=== PATIENT | male | born 1945 | race Caucasian/White ===

== ENCOUNTER 2024-05-16 23:53 | Inpatient (IN) | payer MEDICARE, OTHER ==
[2024-05-17 01:20] LABS: Basophils % (A) 0 %; Eosinophils # (A) 0.1 k/uL (0-0.7); Eosinophils % (A) 1 %; HGB 13.3 gm/dL (13.0-17.5); Lymphocytes # (A) 0.5 k/uL (1.0-4.8); Lymphocytes % (A) 3 %; MCH 30.5 pg (25.0-35.0); MCV 89.6 fL (80.0-100.0); Mean Platelet Volume 8.6; Monocytes # (A) 0.5 k/uL (0-1.0); Monocytes % (A) 3 %; Neutrophils # (A) 13.8 k/uL (1.3-7.7); Neutrophils % (A) 92 %; Platelet Count 291 k/uL (150-450); RBC 4.36 m/uL (4.30-5.90); RDW 13.5 % (11.5-15.5); WBC 14.9 k/uL (3.8-10.6)
[2024-05-17 01:33] LABS: Partial Thromboplastin Time 27.4 sec (22.0-30.0); Prothrombin Time 11.5 sec (10.0-12.5)
[2024-05-17 01:39] LABS: ALT 17 U/L (4-49); AST 23 U/L (17-59); African American GFR (CKD) 54 (>60 ml/min/1.73 sqM); Albumin 3.7 g/dL (3.5-5.0); Alkaline Phosphatase 67 U/L (38-126); Anion Gap 13 mmol/L; Blood Urea Nitrogen 47 mg/dL (9-20); Carbon Dioxide 22 mmol/L (22-30); Chloride 94 mmol/L (98-107); Glucose 172 mg/dL (74-99); Non-African American GFR(CKD) 47 (>60 ml/min/1.73 sqM); Sodium 129 mmol/L (137-145); Total Bilirubin 1.7 mg/dL (0.2-1.3)
[2024-05-17 02:05] LABS: Potassium 3.9 mmol/L (3.5-5.1)
[2024-05-17] MEDS ORDERED: NALOXONE 0.4 MG/ML 1 ML VIAL IV PRN (04:29)
[2024-05-17] MEDS ORDERED: ONDANSETRON 4 MG/2 ML VIAL IVP PRN (04:29)
[2024-05-17] MEDS ORDERED: MORPHINE SULFATE 4 MG/ML SYRINGE IV PRN (04:29)
[2024-05-17] MEDS: SODIUM CHLORIDE 0.9% 1,000 ML IV SCH (04:39)
[2024-05-17] MEDS: SODIUM CHLORIDE 0.9% 500 ML 500 ML IV STA (04:39)
--- NOTE | 2024-05-17 04:50 | ED ---
Abdominal Pain HPI - General Chief Complaint: Abdominal Pain Stated Complaint: abd pain; transfer Time Seen by Provider: 05/17/24 00:22 Source: EMS Limitations: no limitations - History of Present Illness Initial Comments: Patient is a 79-year-old man who is transferred here from [facility] to have further treatment for acute appendicitis and elevated troponin. The patient had gone to the other hospital to have evaluation for abdominal pain. He states that he had onset of pain between 2 to 3 days ago. The pain was initially diffuse throughout the abdomen. He states that over the course of the next couple of days the pain seems to be more in the right lower quadrant. The pain was more severe tonight and he therefore went to [place]. The patient also had a couple of episodes of vomiting. He denied any change in bowel movements. He had not noted fever or chills. Facility, the patient had workup including CT scan that was read as showing appendicitis based on appendix dilated to 1.4 cm, surrounding inflammatory changes and also a suspected small perforation. An abscess was not noted on the CT scan. Patient also had minimally elevated troponin at 0.06, and he was transferred here for further treatment. When I reviewed the patient, he is not having chest pain, dyspnea, diaphoresis MD Complaint: abdominal pain Onset/Timin -: days(s) Location: periumbilical Migration to: RLQ Severity: moderate Quality: aching Consistency: constant Improves With: nothing Worsens With: nothing Associated Symptoms: nausea, vomiting - Related Data Home Medications Medication Instructions Recorded Confirmed metFORMIN HCL 500 mg PO DAILY 05/17/24 05/17/24 Previous Rx's Medication Instructions Recorded Docusate [Colace] 100 mg PO BID #10 cap 05/20/24 HYDROcodone/APAP 5-325MG [[place] 1 tab PO Q6HR PRN 3 Days #12 tab 05/20/24 5-325] cefuroxime axetiL [Ceftin] 500 mg PO BID #20 tab 05/20/24 metroNIDAZOLE [Flagyl] 500 mg PO TID #30 tab 05/20/24 Allergies Allergy/AdvReac Type Severity Reaction Status Date / Time Penicillins AdvReac Confusion Verified 05/17/24 10:56 Review of Systems ROS Statement: Those systems with pertinent positive or pertinent negative responses have been documented in the HPI. ROS Other: All systems not noted in ROS Statement are negative. Constitutional: Denies: fever, chills Respiratory: Denies: cough, dyspnea Cardiovascular: Denies: chest pain, palpitations Gastrointestinal: Reports: abdominal pain, nausea, vomiting. Denies: diarrhea, constipation, melena, hematochezia Genitourinary: Denies: dysuria, frequency, hematuria, testicular pain Musculoskeletal: Denies: back pain Skin: Denies: rash Neurological: Denies: headache, weakness, numbness Past Medical History Past Medical History: Diabetes Mellitus, Hypertension History of Any Multi-Drug Resistant Organisms: None Reported Past Surgical History: Cholecystectomy Past Psychological History: No Psychological Hx Reported Smoking Status: Former smoker Past Alcohol Use History: Rare Past Drug Use History: None Reported General Exam Limitations: no limitations General appearance: alert, in no apparent distress Head exam: Present: atraumatic, normocephalic Eye exam: Present: normal appearance. Absent: scleral icterus, conjunctival injection ENT exam: Present: normal oropharynx Neck exam: Present: normal inspection Respiratory exam: Present: normal lung sounds bilaterally. Absent: respiratory distress, wheezes, rales, rhonchi, stridor, accessory muscle use Cardiovascular Exam: Present: regular rate, normal rhythm, normal heart sounds. Absent: systolic murmur, diastolic murmur, rubs, gallop GI/Abdominal exam: Present: soft, tenderness (Right lower quadrant), guarding. Absent: distended, rebound, rigid, mass, pulsatile mass, hernia Extremities exam: Present: normal inspection, normal capillary refill. Absent: pedal edema, calf tenderness Back exam: Present: normal inspection. Absent: CVA tenderness (R), CVA tenderness (L) Neurological exam: Present: alert Skin exam: Present: warm, dry, intact, normal color. Absent: rash Course Vital Signs 05/16/24 05/17/24 05/17/24 23:57 01:18 02:18 Temperature 98.8 F Pulse Rate 96 91 86 Respiratory 16 16 18 Rate Blood Pressure 143/83 137/76 142/77 O2 Sat by Pulse 96 96 95 Oximetry 05/17/24 05/17/24 04:38 05:07 Temperature Pulse Rate 84 85 Respiratory 16 18 Rate Blood Pressure 116/68 125/69 O2 Sat by Pulse 95 94 L Oximetry Medical Decision Making - Medical Decision Making Was pt. sent in by a medical professional or institution (Dr., PA, INSTRUMENT PERSON, urgent care, hospital, or shelter...) When possible be specific @ -[No] Did you speak to anyone other than the patient for history (EMS, parent, family, police, friend...)? What history was obtained from this source @ -[No] Did you review nursing and triage notes (agree or disagree)? Why? @ -[I reviewed and agree with nursing and triage notes] Were old charts reviewed (outside hosp., previous admission, EMS record, old EKG, old radiological studies, urgent care reports/EKG's, shelter records)? Report findings @ -[The transfer charts were reviewed] Differential Diagnosis (chest pain, altered mental status, abdominal pain women, abdominal pain men, vaginal bleeding, weakness, fever, dyspnea, syncope, headache, dizziness, GI bleed, back pain, seizure, CVA, palpatations, mental health, musculoskeletal)? @ -[Differential Abdominal Pain Men: Appendicitis, cholecystitis, diverticulosis, ischemic bowel, pancreatitis, hepatitis, UTI, gastroenteritis, AAA, incarcerated hernia, bowel obstruction, constipation, inflammatory bowel, hepatitis, peptic ulcer disease, splenic infarction, perforated viscus, testicular torsion, this is not meant to be an all-inclusive list EKG interpreted by me (3pts min.). @ -[Interpreted as above] X-rays interpreted by me (1pt min.). @ -[None done] CT interpreted by me (1pt min.). @ -[None done] U/S interpreted by me (1pt. min.). @ -[None done] What testing was considered but not performed or refused? (CT, X-rays, U/S, labs)? Why? @ -[None] What meds were considered but not given or refused? Why? @ -[None] Did you discuss the management of the patient with other professionals (professionals i.e. JON Haynes, INSTRUMENT PERSON, lab, RT, psych nurse, social services counselor, production team manager, teacher, air antisubmarine officer, telehealth case manager)? Give summary @ -[Case discussed with the surgeon who will see the patient for probable appendectomy. Case discussed with admitting physician and treatment recommendations incorporated Was smoking cessation discussed for >3mins.? @ -[No] Was critical care preformed (if so, how long)? @ -[No] Were there social determinants of health that impacted care today? How? (Homelessness, low income, unemployed, alcoholism, drug addiction, transportat ion, low edu. Level, literacy, decrease access to med. care, senior living, rehab)? @ -[No] Was there de-escalation of care discussed even if they declined (Discuss DNR or withdrawal of care, Hospice)? DNR status @ -[No] What co-morbidities impacted this encounter? (DM, HTN, Smoking, COPD, CAD, Cancer, CVA, ARF, Chemo, Hep., AIDS, mental health diagnosis, sleep apnea, morbid obesity)? @ -[None] Was patient admitted / discharged? Hospital course, mention meds given and route, prescriptions, significant lab abnormalities, going to OR and other pertinent info. @ -[h this patient is a 79-year-old man who was transferred here from the other hospital to have surgical consultation related to developing appendicitis. Patient also has minimal elevation of troponin. Undiagnosed new problem with uncertain prognosis? @ -[No] Drug Therapy requiring intensive monitoring for toxicity (Heparin, Nitro, Insu carlos enrique, Cardizem)? @ -[No] Were any procedures done? @ -[No] Diagnosis/symptom? @ -[Acute abdominal pain Acute appendicitis Elevated troponin Acute, or Chronic, or Acute on Chronic? @ -[Acute Uncomplicated (without systemic symptoms) or Complicated (systemic symptoms)? @ -[Uncomplicated Side effects of treatment? @ -[No] Exacerbation, Progression, or Severe Exacerbation? @ -[No] Poses a threat to life or bodily function? How? (Chest pain, [place], [place], pneumonia, PE, COPD, DKA, ARF, appy, cholecystitis, CVA, Diverticulitis, Homicidal, Suicidal, threat to staff... and all critical care pts) @ -[Low risk All treatments are based on ideal body weight as in ED triage - Lab Data Result diagrams: 05/20/24 05:35 05/20/24 05:35 Lab Results 05/17/24 05/17/24 05/17/24 Range/Units 01:03 01:03 01:03 WBC 14.9 H (3.8-10.6) k/uL RBC 4.36 (4.30-5.90) m/uL Hgb 13.3 (13.0-17.5) gm/dL Hct 39.0 (39.0-53.0) % MCV 89.6 (80.0-100.0) fL MCH 30.5 (25.0-35.0) pg MCHC 34.0 (31.0-37.0) g/dL RDW 13.5 (11.5-15.5) % Plt Count 291 (150-450) k/uL MPV 8.6 Neutrophils % 92 % Lymphocytes % 3 % Monocytes % 3 % Eosinophils % 1 % Basophils % 0 % Neutrophils # 13.8 H (1.3-7.7) k/uL Lymphocytes # 0.5 L (1.0-4.8) k/uL Monocytes # 0.5 (0-1.0) k/uL Eosinophils # 0.1 (0-0.7) k/uL Basophils # 0.0 (0-0.2) k/uL PT 11.5 (10.0-12.5) sec INR 1.0 (<1.2) APTT 27.4 (22.0-30.0) sec Sodium 129 L (137-145) mmol/L Potassium 3.9 (3.5-5.1) mmol/L Chloride 94 L (98-107) mmol/L Carbon Dioxide 22 (22-30) mmol/L Anion Gap 13 mmol/L BUN 47 H (9-20) mg/dL Creatinine 1.42 H (0.66-1.25) mg/dL Est GFR (CKD-EPI)AfAm 54 (>60 ml/min/1.73 sqM) Est GFR (CKD-EPI)NonAf 47 (>60 ml/min/1.73 sqM) Glucose 172 H (74-99) mg/dL Calcium 9.0 (8.4-10.2) mg/dL Total Bilirubin 1.7 H (0.2-1.3) mg/dL AST 23 (17-59) U/L ALT 17 (4-49) U/L Alkaline Phosphatase 67 (38-126) U/L Troponin I (0.000-0.034) ng/mL Total Protein 7.0 (6.3-8.2) g/dL Albumin 3.7 (3.5-5.0) g/dL TSH (0.465-4.680) mIU/L 05/17/24 05/17/24 Range/Units 01:03 01:03 WBC (3.8-10.6) k/uL RBC (4.30-5.90) m/uL Hgb (13.0-17.5) gm/dL Hct (39.0-53.0) % MCV (80.0-100.0) fL MCH (25.0-35.0) pg MCHC (31.0-37.0) g/dL RDW (11.5-15.5) % Plt Count (150-450) k/uL MPV Neutrophils % % Lymphocytes % % Monocytes % % Eosinophils % % Basophils % % Neutrophils # (1.3-7.7) k/uL Lymphocytes # (1.0-4.8) k/uL Monocytes # (0-1.0) k/uL Eosinophils # (0-0.7) k/uL Basophils # (0-0.2) k/uL PT (10.0-12.5) sec INR (<1.2) APTT (22.0-30.0) sec Sodium (137-145) mmol/L Potassium (3.5-5.1) mmol/L Chloride (98-107) mmol/L Carbon Dioxide (22-30) mmol/L Anion Gap mmol/L BUN (9-20) mg/dL Creatinine (0.66-1.25) mg/dL Est GFR (CKD-EPI)AfAm (>60 ml/min/1.73 sqM) Est GFR (CKD-EPI)NonAf (>60 ml/min/1.73 sqM) Glucose (74-99) mg/dL Calcium (8.4-10.2) mg/dL Total Bilirubin (0.2-1.3) mg/dL AST (17-59) U/L ALT (4-49) U/L Alkaline Phosphatase (38-126) U/L Troponin I 0.063 H* (0.000-0.034) ng/mL Total Protein (6.3-8.2) g/dL Albumin (3.5-5.0) g/dL TSH 1.370 (0.465-4.680) mIU/L Disposition Clinical Impression: Acute appendicitis with appendiceal abscess, Elevated troponin I level Disposition: ADMITTED IP TO THIS HOSP Condition: Good Is patient prescribed a controlled substance at d/c from ED?: No
[2024-05-17] MEDS: BUPIVACAINE (PF) 0.25% 30 ML VIAL SQ ONE ×3 (05:00→05:52)
[2024-05-17] MEDS ORDERED: SUCCINYLCHOLINE CHLORIDE 200 MG/10 ML VIAL IV ONE (05:30)
[2024-05-17] MEDS ORDERED: PROPOFOL 10 MG/ML 20 ML VIAL IV ONE (05:30)
[2024-05-17] MEDS ORDERED: ROCURONIUM 10 MG/ML (5 ML VIAL) IV ONE (05:30)
[2024-05-17] MEDS ORDERED: fentaNYL (PF) 50 MCG/ML 2 ML AMP ONE (05:30)
[2024-05-17] MEDS ORDERED: NEOSTIGMINE 1 MG/ML 10 ML VIAL ONE (05:30)
[2024-05-17] MEDS: SODIUM CHLORIDE 0.9% 1,000 ML IV ONE (05:30)
[2024-05-17] MEDS ORDERED: MIDAZOLAM 2 MG/2 ML VIAL ONE (05:30)
[2024-05-17] MEDS ORDERED: LIDOCAINE 1% INJ 10MG/ML (20 ML MDV) ONE (05:30)
[2024-05-17] MEDS ORDERED: ONDANSETRON 4 MG/2 ML VIAL ONE (05:30)
[2024-05-17] MEDS ORDERED: GLYCOPYRROLATE 0.2 MG/ML 2 ML VIAL ONE (05:30)
--- NOTE | 2024-05-17 05:41 | P.GSCN ---
History of Present Illness Consult date: 05/17/24 History of present illness: 79-year-old male presents to the emergency department as a transfer from outside facility secondary to 3 days of abdominal pain. He states pain is in the right lower quadrant. Complains of some nausea as well. On workup he is found to have concern for acute appendicitis with possibility of contained small perforation. He was started on IV antibiotics with plan for laparoscopic appendectomy. Review of Systems All systems: negative Past Medical History Past Medical History: Diabetes Mellitus, Hypertension History of Any Multi-Drug Resistant Organisms: None Reported Past Surgical History: Cholecystectomy Past Psychological History: No Psychological Hx Reported Smoking Status: Former smoker Past Alcohol Use History: Rare Past Drug Use History: None Reported Medications and Allergies Allergies Allergy/AdvReac Type Severity Reaction Status Date / Time Penicillins AdvReac Confusion Verified 05/17/24 00:02 Surgical - Exam Osteopathic Statement: *. No significant issues noted on an osteopathic structural exam other than those noted in the History and Physical/Consult. Vital Signs Temp Pulse Resp BP Pulse Ox 98.8 F 96 16 143/83 96 05/16/24 23:57 05/16/24 23:57 05/16/24 23:57 05/16/24 23:57 05/16/24 23:57 - General well developed, well nourished - Eyes normal ocular movement - Neck trachea midline - Respiratory normal respiratory effort - Abdomen Abdomen: soft, tender - Psychiatric oriented to time, oriented to person, oriented to place Results - Labs 05/17/24 01:03 05/17/24 01:03 Abnormal Lab Results - Last 24 Hours (Table) 05/17/24 05/17/24 05/17/24 Range/Units 01:03 01:03 01:03 WBC 14.9 H (3.8-10.6) k/uL Neutrophils # 13.8 H (1.3-7.7) k/uL Lymphocytes # 0.5 L (1.0-4.8) k/uL Sodium 129 L (137-145) mmol/L Chloride 94 L (98-107) mmol/L BUN 47 H (9-20) mg/dL Creatinine 1.42 H (0.66-1.25) mg/dL Glucose 172 H (74-99) mg/dL Total Bilirubin 1.7 H (0.2-1.3) mg/dL Troponin I 0.063 H* (0.000-0.034) ng/mL Diabetes panel 05/17/24 Range/Units 01:03 Sodium 129 L (137-145) mmol/L Potassium 3.9 (3.5-5.1) mmol/L Chloride 94 L (98-107) mmol/L Carbon Dioxide 22 (22-30) mmol/L BUN 47 H (9-20) mg/dL Creatinine 1.42 H (0.66-1.25) mg/dL Glucose 172 H (74-99) mg/dL Calcium 9.0 (8.4-10.2) mg/dL AST 23 (17-59) U/L ALT 17 (4-49) U/L Alkaline Phosphatase 67 (38-126) U/L Total Protein 7.0 (6.3-8.2) g/dL Albumin 3.7 (3.5-5.0) g/dL Calcium panel 05/17/24 Range/Units 01:03 Calcium 9.0 (8.4-10.2) mg/dL Albumin 3.7 (3.5-5.0) g/dL Pituitary panel 05/17/24 Range/Units 01:03 Sodium 129 L (137-145) mmol/L Potassium 3.9 (3.5-5.1) mmol/L Chloride 94 L (98-107) mmol/L Carbon Dioxide 22 (22-30) mmol/L BUN 47 H (9-20) mg/dL Creatinine 1.42 H (0.66-1.25) mg/dL Glucose 172 H (74-99) mg/dL Calcium 9.0 (8.4-10.2) mg/dL Adrenal panel 05/17/24 Range/Units 01:03 Sodium 129 L (137-145) mmol/L Potassium 3.9 (3.5-5.1) mmol/L Chloride 94 L (98-107) mmol/L Carbon Dioxide 22 (22-30) mmol/L BUN 47 H (9-20) mg/dL Creatinine 1.42 H (0.66-1.25) mg/dL Glucose 172 H (74-99) mg/dL Calcium 9.0 (8.4-10.2) mg/dL Total Bilirubin 1.7 H (0.2-1.3) mg/dL AST 23 (17-59) U/L ALT 17 (4-49) U/L Alkaline Phosphatase 67 (38-126) U/L Total Protein 7.0 (6.3-8.2) g/dL Albumin 3.7 (3.5-5.0) g/dL Assessment and Plan Plan: 79-year-old male with acute appendicitis. Concern for small contained perforation. Plan for laparoscopic appendectomy. Start patient on IV antibiotics. Keep patient n.p.o. for now. Further recommendations after surgical intervention.
--- NOTE | 2024-05-17 06:37 | P.OP ---
Date of Procedure: 05/17/24 Preoperative Diagnosis: Acute appendicitis Postoperative Diagnosis: Ruptured appendicitis with intra-abdominal abscess Procedure(s) Performed: Laparoscopic appendectomy Abdominal washout STALIN drain placement Anesthesia: MADELAINE Surgeon: Danny Avila Pathology: other (Appendix and cultures of intra-abdominal abscess) Condition: stable Disposition: floor Indications for Procedure: 79-year-old male presented with 3 days of abdominal pain as a transfer from outside facility with concern for appendicitis with contained perforation. He was darted on IV antibiotics. Plan is for laparoscopic appendectomy. Risks, alternatives were provided to the patient. All questions answered prior to attending the operating suite. Operative Findings: Intra-abdominal abscess along the right colon Significant inflammatory changes along the right colon and right lower quadrant Inflamed appendix Description of Procedure: Patient was brought to the operating suite and placed in supine position on the operating table. Sedation was provided by anesthesia and the patient underwent endotracheal intubation. He was then prepped and draped in regular sterile fashion. Supraumbilical incision was made and dissection was carried to the fascia. The fascia was incised and a 12 mm trocar was placed. Pneumoperitoneum was achieved. 2 additional 5 mm ports were placed, 1 in the suprapubic region and 1 in the left lower quadrant. Omentum was noted to be adhered over the right colon and this was peeled back. Immediately, significant amount of purulent material was noted to be draining. Irrigation and suction was used along with cultures obtained.. Right colon was noted to be significantly inflamed and adherent small bowel and omentum was peeled away. Cecum was identified and tenia were followed to what appeared to be the base of the appendix. The appendix was then noted to be adhered to the right lower abdominal wall and was slowly peeled away. Appendix was ligated from the mesoappendix using LigaSure device. Stapler was fired across the base of the appendix. Hemostasis was noted to be maintained. Copious amounts irrigation was placed in the right lower quadrant and along the right colonic gutter. Exudate was removed. As the patient is high risk for intra-abdominal abscess formation in the postoperative period, STALIN drain was placed along the right colon extending into the right portion of the pelvis and secured at the left lower quadrant 5 mm port site. The supraumbilical fascial incision site was closed with 0 Vicryl suture under direct visualization using a Ron Camacho device. Pneumoperitoneum was released and all port sites closed with 4-0 Vicryl subcuticular suture. Sterile dressing was applied. The patient was awakened in the operative suite and taken to postanesthesia care unit in stable condition.
[2024-05-17 06:54] LABS: Glucose,Whole Blood 165 mg/dL (70-110)
[2024-05-17] MEDS: IV FLUID CONTINUATION 1,000 ML IV ONE (07:30)
[2024-05-17 08:14] LABS: Glucose,Whole Blood 178 mg/dL (70-110)
[2024-05-17] MEDS: PIPERACILLIN-TAZOBACTAM 3.375 GM in SODIUM CHLORIDE 0.9% 100 ML IVPB SCH (09:45)
[2024-05-17] MEDS: PANTOPRAZOLE 40 MG/10 ML VIAL IV SCH (09:46)
[2024-05-17] MEDS ORDERED: DEXTROSE 50% SYRINGE 50 ML IVP PRN ×2 (10:08)
--- NOTE | 2024-05-17 11:10 | P.CRDCN ---
History of Present Illness History of present illness: HISTORY OF PRESENT ILLNESS: This is a 79-year-old male with a past medical history significant for hypertension and diabetes. 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 We have been asked to see the patient in consultation for atrial fibrillation. Patient examined at the bedside. Patient presented to the hospital with a chief complaint of abdominal pain. Patient was found to have acute appendicitis. He underwent laparoscopic appendectomy, abdominal washout, and STALIN drain placement secondary to ruptured appendicitis with intra-abdominal abscess. EKG on admission revealed atrial fibrillation. The patient denies any known history of atrial fibrillation. He currently denies any chest pain or pressure. He denies any shortness of breath. Vital signs are stable. DIAGNOSTICS: - EKG reveals atrial fibrillation with controlled ventricular rate. - Laboratory data: WBC 14.9. Hemoglobin 13.3. Platelet count 291. Sodium 129. Potassium 3.9. BUN 47. Creatinine 1.42. Troponin 0.063. TSH 1.370. - Current home cardiac medications include valsartanhydrochlorothiazide 160-25 mg daily. - No previous echocardiogram, stress test, or cardiac catheterization available in EMR for review REVIEW OF SYSTEMS: At the time of my exam: CONSTITUTIONAL: Denies fever or chills. HEENT: Denies blurred vision, vision changes, or eye pain. Denies hemoptysis CARDIOVASCULAR: Denies chest pain. Denies orthopnea. Denies PND. Denies palpitations RESPIRATORY: Denies shortness of breath. GASTROINTESTINAL: Denies abdominal pain. Denies nausea or vomiting. HEMATOLOGIC: Denies bleeding disorders. GENITOURINARY: Denies any blood in urine. SKIN: Denies pruitis. Denies rash. PHYSICAL EXAM: VITAL SIGNS: Reviewed. GENERAL: Well-developed in no acute distress. HEENT: Head is normocephalic. Pupils are equal, round. Sclerae anicteric. Mucous membranes of the mouth are moist. Neck supple. No JVD or thyromegaly LUNGS: Respirations even and unlabored. Lungs essentially clear to auscultation bilaterally. HEART: Regular rate and rhythm. S1 and S2 heard. ABDOMEN: Soft. Nondistended. Nontender. EXTREMITIES: Normal range of motion. No clubbing or cyanosis. Peripheral pulses intact. No lower extremity edema NEUROLOGIC: Awake and alert. Oriented x 3. ASSESSMENT: New onset paroxysmal atrial fibrillation Ruptured appendicitis with intra-abdominal abscess, status post laparoscopic appendectomy, abdominal washout, and STALIN drain placement Hypertension Diabetes PLAN: Hold home blood pressure medications at this time Obtain 2D echo to assess cardiac structure and function TSH checked and within normal limits Repeat EKG this morning Initiate telemetry monitoring Recommend anticoagulation when cleared by general surgery Further recommendations pending patient course Nurse practitioner note has been reviewed by physician. Signing provider agrees with the documented findings, assessment, and plan of care documented by MANAGER COUNCIL as a scribe. Past Medical History Past Medical History: Diabetes Mellitus, Hypertension History of Any Multi-Drug Resistant Organisms: None Reported Past Surgical History: Appendectomy, Cholecystectomy Past Psychological History: No Psychological Hx Reported Smoking Status: Former smoker Past Alcohol Use History: Rare Past Drug Use History: None Reported Medications and Allergies Home Medications Medication Instructions Recorded Confirmed Type Valsartan/Hydrochlorothiazide 1 tab PO DAILY 05/17/24 05/17/24 History [Valsartan-Hctz 160-25 mg Tab] metFORMIN HCL 500 mg PO DAILY 05/17/24 05/17/24 History Allergies Allergy/AdvReac Type Severity Reaction Status Date / Time Penicillins AdvReac Confusion Verified 05/17/24 10:56 Physical Exam Vitals: Vital Signs Temp Pulse Pulse Pulse Resp BP BP 05/17/24 10:03 67 05/17/24 09:33 72 05/17/24 09:04 73 05/17/24 08:34 69 05/17/24 08:18 65 05/17/24 08:00 98.0 F 70 16 05/17/24 07:45 71 16 118/58 05/17/24 07:30 71 17 122/59 05/17/24 07:15 78 17 110/57 05/17/24 07:00 69 17 120/53 05/17/24 06:45 97.0 F L 72 17 123/61 05/17/24 05:07 85 18 125/69 05/17/24 04:38 84 16 116/68 05/17/24 02:18 86 18 142/77 05/17/24 01:18 91 16 137/76 05/16/24 23:57 98.8 F 96 16 143/83 BP Pulse Ox 05/17/24 10:03 109/71 95 05/17/24 09:33 126/77 97 05/17/24 09:04 129/68 97 05/17/24 08:34 138/69 97 05/17/24 08:18 151/89 97 05/17/24 08:00 130/77 95 05/17/24 07:45 99 05/17/24 07:30 98 05/17/24 07:15 96 05/17/24 07:00 96 05/17/24 06:45 98 05/17/24 05:07 94 L 05/17/24 04:38 95 05/17/24 02:18 95 05/17/24 01:18 96 05/16/24 23:57 96 Intake and Output 05/16/24 05/17/24 05/17/24 22:59 06:59 14:59 Intake Total 1000 680 Output Total 5 50 Balance 995 630 Intake: IV 1000 200 Oral 480 Output: Drainage 50 Abdomen 50 Estimated Blood Loss 5 Other: Weight 108.862 kg 108.862 kg Results 05/17/24 01:03 05/17/24 01:03 Cardiac Enzymes 05/17/24 05/17/24 Range/Units 01:03 01:03 AST 23 (17-59) U/L Troponin I 0.063 H* (0.000-0.034) ng/mL Coagulation 05/17/24 Range/Units 01:03 PT 11.5 (10.0-12.5) sec APTT 27.4 (22.0-30.0) sec CBC 05/17/24 Range/Units 01:03 WBC 14.9 H (3.8-10.6) k/uL RBC 4.36 (4.30-5.90) m/uL Hgb 13.3 (13.0-17.5) gm/dL Hct 39.0 (39.0-53.0) % Plt Count 291 (150-450) k/uL Comprehensive Metabolic Panel 05/17/24 Range/Units 01:03 Sodium 129 L (137-145) mmol/L Potassium 3.9 (3.5-5.1) mmol/L Chloride 94 L (98-107) mmol/L Carbon Dioxide 22 (22-30) mmol/L BUN 47 H (9-20) mg/dL Creatinine 1.42 H (0.66-1.25) mg/dL Glucose 172 H (74-99) mg/dL Calcium 9.0 (8.4-10.2) mg/dL AST 23 (17-59) U/L ALT 17 (4-49) U/L Alkaline Phosphatase 67 (38-126) U/L Total Protein 7.0 (6.3-8.2) g/dL Albumin 3.7 (3.5-5.0) g/dL Current Medications Generic Name Dose Route Start Last Admin Trade Name Freq PRN Reason Stop Dose Admin Hydrocodone Bitart/Acetaminophen 1 each 05/17/24 06:31 Hydrocodone/Apap 5-325mg 1 Each Tab PO Q6HR PRN Moderate Pain (Scale 4 to 6) Dextrose/Water 25 ml 05/17/24 10:08 Dextrose 50% Syringe 50 Ml IVP PER PROTOCOL PRN Hypoglycemia Protocol Dextrose/Water 50 ml 05/17/24 10:08 Dextrose 50% Syringe 50 Ml IVP PER PROTOCOL PRN Hypoglycemia Protocol Sodium Chloride 1,000 mls @ 75 mls/hr 05/17/24 04:30 05/17/24 04:39 Saline 0.9% IV 130 mls/hr .[id number] ZHANE Administration Piperacillin Sod/Tazobactam 100 mls @ 25 mls/hr 05/17/24 08:00 05/17/24 09:45 Sod 3.375 gm/ Sodium Chloride IVPB 25 mls/hr Q8HR ZHANE Administration Protocol Insulin Human Lispro 0 unit 05/17/24 12:30 Insulin Lispro (Humalog) 100 Unit/Ml 10 Ml Vl SQ ACHS ZHANE Protocol Morphine Sulfate 4 mg 05/17/24 04:29 Morphine Sulfate 4 Mg/Ml Syringe IV Q4HR PRN Severe Pain (Scale 7 to 10) Naloxone HCl 0.2 mg 05/17/24 04:29 Naloxone 0.4 Mg/Ml 1 Ml Vial IV Q2M PRN Opioid Reversal Ondansetron HCl 4 mg 05/17/24 04:29 Ondansetron 4 Mg/2 Ml Vial IVP Q8HR PRN Nausea And Vomiting Pantoprazole Sodium 40 mg 05/17/24 09:00 05/17/24 09:46 Pantoprazole 40 Mg/10 Ml Vial IV 40 mg DAILY ZHANE Administration Intake and Output 05/16/24 05/17/24 05/17/24 22:59 06:59 14:59 Intake Total 1000 680 Output Total 5 50 Balance 995 630 Intake: IV 1000 200 Oral 480 Output: Drainage 50 Abdomen 50 Estimated Blood Loss 5 Other: Weight 108.862 kg 108.862 kg Patient Weight 05/18/24 06:59 Weight 108.862 kg 05/17/24 01:03 05/17/24 01:03
[2024-05-17 12:16] LABS: Glucose,Whole Blood 166 mg/dL (70-110)
--- NOTE | 2024-05-17 12:33 | P.HPIM ---
History of Present Illness H&P Date: 05/17/24 Patient is a 79-year-old male with a history of hypertension and type 2 diabetes was transferred from [facility] after he presented with right lower quadrant abdominal pain which started 3 days ago associated with nausea and vomiting. Patient underwent evaluation including CAT scan of the abdomen and pelvis which showed appendix dilated to 1.4 cm with surrounding inflammatory changes and also small perforation suspected. Patient also had a minimally elevated troponin levels at 0.06. Surgery team was consulted acute appendicitis with concerns for perforation. Patient underwent laparoscopic appendectomy with operating findings include inflamed appendix and intra-abdominal abscess along the right colon with significant inflammatory changes along the right colon and right lower quadrant. There is no intraoperative complication and patient has tolerated the surgery well and has a STALIN drain. At the time of interview, patient is complaining of minimal abdominal discomfort with no nausea or vomiting. Patient denies any chest pain, shortness of breath, dizziness, headache, nausea, vomiting, fever, chills, numbness tingling or weakness in upper or lower extremity. Additionally, patient was found to have new onset A-fib during this hospitalization course and cardiology is consulted. Patient to undergo echocardiogram. Initial blood pressure evaluation shows WBC 14.9, hemoglobin 13.3, neutrophil count 13.8, sodium 129, potassium 3.9, BUN 47, creatinine 1.42, glucose 172, total bili 1.7, AST 23, ALT 17, ALP 67, troponin I 0.06, TSH 1.37 Initial EKG shows atrial fibrillation with ventricular rate of 97 bpm. Repeat EKG shows sinus rhythm with first-degree AV block with ventricular rate of 72 bpm, CT interval 2 is 46 ms, QRS duration 100 ms, QTc 466 ms Review of systems: Pertinent positives and negatives as discussed in HPI, a complete review of systems was performed and all other systems are negative. Physical examination: Vital signs reviewed General: non toxic, no distress, appears at stated age, overweight Cardiovascular: S1S2 reg, no murmur, positive dorsalis pedis pulse bilateral, no edema Lungs: CTA bilateral, no rhonchi, no rales, no accessory muscle use Abdominal: soft, nontender to palpation, no guarding, STALIN drain intact and in place and draining serosanguineous fluid Ext: muscle strength 5 out of 5 in all 4 extremities grossly, no gross muscle atrophy, no contractures, Neuro: CN II-XI grossly intact, no gross focal neuro deficits Psych: Alert, oriented, appropriate affect Assessment/Plan: This is a 79-year-old male was a transfer from [facility] is admitted to the hospital with concerns for acute appendicitis who eventually underwent laparoscopic appendectomy with no intraoperative complications and also was diagnosed to have paroxysmal A-fib during this hospital course. Case was discussed with the Emergency Room provider and decision was made to admit the patient for acute appendicitis and new onset A-fib Labs and images: Initial blood pressure evaluation shows WBC 14.9, hemoglobin 13.3, neutrophil count 13.8, sodium 129, potassium 3.9, BUN 47, creatinine 1.42, glucose 172, total bili 1.7, AST 23, ALT 17, ALP 67, troponin I 0.06, TSH 1.37 Initial EKG shows atrial fibrillation with ventricular rate of 97 bpm. Repeat EKG shows sinus rhythm with first-degree AV block with ventricular rate of 72 bpm, CT interval 2 is 46 ms, QRS duration 100 ms, QTc 466 ms Active: #Perforated acute appendicitis status post laparoscopic appendectomy, postop day 0 #Leukocytosis reactive to above No intraoperative complication Continue with pain management as needed Incentive spirometry Clear liquid diet Continue Zosyn 3.375 g IVPB every 8 hour Consult infectious disease #Paroxysmal A-fib #Elevated troponin I likely secondary to type II [place] Continue cardiac telemetry Start patient on anticoagulation once cleared by surgery Consult cardiology Echocardiogram for cardiac structure assessment Continue monitor vital signs Order lipid panel #Hypovolemic hyponatremia secondary to GI loss in the setting of acute appendicitis #Prerenal STEPHANIE secondary to above Continue on IV normal saline at 75 cc/h BMP this afternoon #Type 2 diabetes melitis # Hyperglycemia Accu-Cheks and sliding scale insulin Check HbA1c Monitor for hypoglycemia Chronic: Hypertension: Resume ValsartanHCTZ 160-25 mg p.o. daily CBC and BMP tomorrow a.m. DVT prophylaxis: SCDs GI prophylaxis: IV Protonix 40 mg daily F: IV normal saline 75 cc/h E: Replete as needed N: Clear liquid diet A: Ambulatory at baseline The patient is admitted with an anticipated more than 2 midnight stay for evaluation of acute appendicitis status post surgery CODE STATUS: Full code Discussed with: Patient Anticipated discharge place: Pending clinical course Dictation was produced using [email or web address] software. Please excuse any grammatical, word or spelling errors. Past Medical History Past Medical History: Diabetes Mellitus, Hypertension History of Any Multi-Drug Resistant Organisms: None Reported Past Surgical History: Appendectomy, Cholecystectomy Past Psychological History: No Psychological Hx Reported Smoking Status: Former smoker Past Alcohol Use History: Rare Past Drug Use History: None Reported Medications and Allergies Home Medications Medication Instructions Recorded Confirmed Type Valsartan/Hydrochlorothiazide 1 tab PO DAILY 05/17/24 05/17/24 History [Valsartan-Hctz 160-25 mg Tab] metFORMIN HCL 500 mg PO DAILY 05/17/24 05/17/24 History Allergies Allergy/AdvReac Type Severity Reaction Status Date / Time Penicillins AdvReac Confusion Verified 05/17/24 10:56 Physical Exam Vitals: Vital Signs Temp Pulse Pulse Pulse Resp BP BP 05/17/24 07:45 71 16 118/58 05/17/24 07:30 71 17 122/59 05/17/24 07:15 78 17 110/57 05/17/24 07:00 69 17 120/53 05/17/24 06:45 97.0 F L 72 17 123/61 05/17/24 05:07 85 18 125/69 05/17/24 04:38 84 16 116/68 05/17/24 02:18 86 18 142/77 05/17/24 01:18 91 16 137/76 05/16/24 23:57 98.8 F 96 16 143/83 Pulse Ox 05/17/24 07:45 99 05/17/24 07:30 98 05/17/24 07:15 96 05/17/24 07:00 96 05/17/24 06:45 98 05/17/24 05:07 94 L 05/17/24 04:38 95 05/17/24 02:18 95 05/17/24 01:18 96 05/16/24 23:57 96 Intake and Output 05/16/24 05/17/24 05/17/24 22:59 06:59 14:59 Intake Total 1000 200 Output Total 5 Balance 995 200 Intake: IV 1000 200 Output: Estimated Blood Loss 5 Other: Weight 108.862 kg 108.862 kg Results CBC & Chem 7: 05/17/24 01:03 05/17/24 01:03 Labs: Abnormal Lab Results - Last 24 Hours (Table) 0305/17/24 05/17/24 Range/Units 01:03 01:03 01:03 WBC 14.9 H (3.8-10.6) k/uL Neutrophils # 13.8 H (1.3-7.7) k/uL Lymphocytes # 0.5 L (1.0-4.8) k/uL Sodium 129 L (137-145) mmol/L Chloride 94 L (98-107) mmol/L BUN 47 H (9-20) mg/dL Creatinine 1.42 H (0.66-1.25) mg/dL Glucose 172 H (74-99) mg/dL POC Glucose (mg/dL) (70-110) mg/dL Total Bilirubin 1.7 H (0.2-1.3) mg/dL Troponin I 0.063 H* (0.000-0.034) ng/mL 05/17/24 05/17/24 Range/Units 06:52 08:12 WBC (3.8-10.6) k/uL Neutrophils # (1.3-7.7) k/uL Lymphocytes # (1.0-4.8) k/uL Sodium (137-145) mmol/L Chloride (98-107) mmol/L BUN (9-20) mg/dL Creatinine (0.66-1.25) mg/dL Glucose (74-99) mg/dL POC Glucose (mg/dL) 165 H 178 H (70-110) mg/dL Total Bilirubin (0.2-1.3) mg/dL Troponin I (0.000-0.034) ng/mL Thrombosis Risk Factor Assmnt - Choose All That Apply Any of the Below Risk Factors Present?: No Other Risk Factors: Yes Each Risk Factor Represents 2 Points: Laparoscopic surgery Thrombosis Risk Factor Assessment Total Risk Factor Score: 2 Thrombosis Risk Factor Assessment Level: Low Risk
[2024-05-17 13:17] LABS: African American GFR (CKD) 53 (>60 ml/min/1.73 sqM); Anion Gap 7 mmol/L; Blood Urea Nitrogen 49 mg/dL (9-20); Calcium 8.2 mg/dL (8.4-10.2); Carbon Dioxide 25 mmol/L (22-30); Chloride 100 mmol/L (98-107); Glucose 162 mg/dL (74-99); Non-African American GFR(CKD) 46 (>60 ml/min/1.73 sqM); Potassium 3.7 mmol/L (3.5-5.1); Sodium 132 mmol/L (137-145)
[2024-05-17] MEDS: hydroCHLOROthiazide 25 MG TAB PO SCH (13:20)
[2024-05-17] MEDS: VALSARTAN 160 MG TAB PO SCH (13:20)
[2024-05-17] MEDS: INSULIN LISPRO (HumaLOG) 100 UNIT/ML 10 mL VL SQ SCH (13:21)
[2024-05-17 17:22] LABS: Glucose,Whole Blood 176 mg/dL (70-110)
[2024-05-17 18:27] LABS: Chol/HDL Ratio 7.74 Ratio; LDL Cholesterol,Calculated 122.2 mg/dL (0.0-131.0)
--- NOTE | 2024-05-17 18:45 | CA ---
Transthoracic Echo Report Name: Warren Isaac Age: 79 Gender: M : 1945 Exam Date: 05/17/2024 14:05 Exam Location: [facility] Ht (in): 74 Wt (lb): 240 Ordering Physician: Erni Sher Attending/Referring Phys: [id number], Nikky [employer] Sh[employer] Spike Assembler Marjan Loving RDCS Procedure CPT: Indications: LV Function, afib Cardiac Hx: Technical Quality: Fair Contrast 1: Total Dose (mL): Contrast 2: Total Dose (mL): MEASUREMENTS (Male / Female) Normal Values 2D ECHO LV Diastolic Diameter PLAX 4.8 cm 4.2 - 5.9 / 3.9 - 5.3 cm LV Systolic Diameter PLAX 3.6 cm IVS Diastolic Thickness 1.1 cm 0.6 - 1.0 / 0.6 - 0.9 cm LVPW Diastolic Thickness 1.2 cm 0.6 - 1.0 / 0.6 - 0.9 cm LV Relative Wall Thickness 0.5 RV Internal Dim ED PLAX 3.2 cm LA Systolic Diameter LX 3.7 cm 3.0 - 4.0 / 2.7 - 3.8 cm LV Diastolic Volume MOD 4C 97.3 cm??? LV Systolic Volume MOD 4C 52.0 cm??? LV Ejection Fraction MOD 4C 46.5 % LV Cardiac Index MOD 4C 1334.8 cm???/min???m??? LV Diastolic Length 4C 9.0 cm LV Systolic Length 4C 7.6 cm LV Diastolic Volume MOD 2C 132.3 cm??? LV Systolic Volume MOD 2C 63.1 cm??? LV Ejection Fraction MOD 2C 52.3 % LV Cardiac Index MOD 2C 2041.9 cm???/min???m??? LV Diastolic Length 2C 10.3 cm LV Systolic Length 2C 8.5 cm LA Volume 66.8 cm??? 18 - 58 / 22 - 52 cm??? LA Volume Index 27.7 cm???/m??? 16 - 28 cm???/m??? M-MODE Aortic Root Diameter MM 3.1 cm DOPPLER AV Peak Velocity 127.5 cm/s AV Peak Gradient 6.5 mmHg MV Area PHT 3.1 cm??? Mitral E Point Velocity 72.7 cm/s Mitral A Point Velocity 87.0 cm/s Mitral E to A Ratio 0.8 MV Deceleration Time 247.8 ms TR Peak Velocity 240.3 cm/s TR Peak Gradient 23.1 mmHg Right Ventricular Systolic Press 27.3 mmHg FINDINGS Left Ventricle Left ventricular ejection fraction is estimated at 50% %. Mildly increased septal wall thickness. Left ventricular cavity size normal. Right Ventricle Normal right ventricular size. Right Atrium Normal right atrial size. No right atrial thrombus or mass seen. Left Atrium Mildly increased left atrial volume. Mildly increased left atrial area. No left atrial thrombus or mass present. Mitral Valve Structurally normal mitral valve. No mitral stenosis, regurgitation or prolapse. Aortic Valve Trileaflet aortic valve. No aortic valve stenosis or regurgitation. Tricuspid Valve Structurally normal tricuspid valve. Mild tricuspid regurgitation. Pulmonic Valve Pulmonic valve not well visualized. Pericardium No pericardial effusion. Aorta Normal size aortic root and proximal ascending aorta. CONCLUSIONS Low normal LV systolic function with EF at 50% Previewed by: Dr. Agus Dove MD (Electronically Signed) Final Date: 17 May 2024 18:44
[2024-05-17 20:51] LABS: Glucose,Whole Blood 144 mg/dL (70-110)
--- NOTE | 2024-05-17 23:43 | P.CONS ---
History of Present Illness - Reason for Consult Consult date: 05/17/24 Infected appendicitis Requesting physician: James E Sheet - Chief Complaint Abdominal pain x 3 days - History of Present Illness Patient is a 79-year-old male with a past medical history significant for diabetes mellitus and hypertension presenting to the [facility] for evaluation of abdominal pain with the patient was diagnosed with acute appendicitis and elevated troponin for the patient was transferred to [facility] patient complaining of abdominal pain for the last 2 to 3 days initially has been diffuse subsequently more in the right lower quadrant area patient was describing the pain to be mostly sharp moderate intensity without radiation with associated nausea and has an episode of vomiting denies having any diarrhea or constipation patient did have a CT showing appendicitis and surrounding inflammatory changes, suspected small perforation patient was evaluated by general surgery taken to the OR earlier this morning in this pat ient who is status post laparoscopic appendectomy abdominal washout and STALIN drain placement abdominal culture have been obtained, patient on presentation to this facility was afebrile and no fever have been recorded subsequently patient was not tachycardic hypotensive or hypoxic patient did have white count of 14.9 with a left shift BUN and creatinine has been mildly elevated liver enzymes bilirubin mildly elevated patient was started on Zosyn infectious disease was consulted for further management of antibiotic therapy Review of Systems Positive point and negatives has been mentioned in the HPI, complete review of systems was performed and all other systems are negative Past Medical History Past Medical History: Diabetes Mellitus, Hypertension History of Any Multi-Drug Resistant Organisms: None Reported Past Surgical History: Appendectomy, Cholecystectomy Past Psychological History: No Psychological Hx Reported Smoking Status: Former smoker Past Alcohol Use History: Rare Past Drug Use History: None Reported Medications and Allergies Home Medications Medication Instructions Recorded Confirmed Type Valsartan/Hydrochlorothiazide 1 tab PO DAILY 05/17/24 05/17/24 History [Valsartan-Hctz 160-25 mg Tab] metFORMIN HCL 500 mg PO DAILY 05/17/24 05/17/24 History Allergies Allergy/AdvReac Type Severity Reaction Status Date / Time Penicillins AdvReac Confusion Verified 05/17/24 10:56 Physical Exam Vitals: Vital Signs Temp Pulse Pulse Pulse Resp BP BP 05/17/24 12:04 98.4 F 71 16 05/17/24 10:03 67 05/17/24 09:33 72 05/17/24 09:04 73 05/17/24 08:34 69 05/17/24 08:18 65 05/17/24 08:00 98.0 F 70 16 05/17/24 07:45 71 16 118/58 05/17/24 07:30 71 17 122/59 05/17/24 07:15 78 17 110/57 05/17/24 07:00 69 17 120/53 05/17/24 06:45 97.0 F L 72 17 123/61 05/17/24 05:07 85 18 125/69 05/17/24 04:38 84 16 116/68 05/17/24 02:18 86 18 142/77 05/17/24 01:18 91 16 137/76 05/16/24 23:57 98.8 F 96 16 143/83 BP Pulse Ox 05/17/24 12:04 160/75 96 05/17/24 10:03 109/71 95 05/17/24 09:33 126/77 97 05/17/24 09:04 129/68 97 05/17/24 08:34 138/69 97 05/17/24 08:18 151/89 97 05/17/24 08:00 130/77 95 05/17/24 07:45 99 05/17/24 07:30 98 05/17/24 07:15 96 05/17/24 07:00 96 05/17/24 06:45 98 05/17/24 05:07 94 L 05/17/24 04:38 95 05/17/24 02:18 95 05/17/24 01:18 96 05/16/24 23:57 96 Intake and Output 05/16/24 05/17/24 05/17/24 22:59 06:59 14:59 Intake Total 1000 680 Output Total 5 110 Balance 995 570 Intake: IV 1000 200 Oral 480 Output: Drainage 110 Abdomen 110 Estimated Blood Loss 5 Other: Weight 108.862 kg 108.862 kg GENERAL DESCRIPTION: Elderly male lying in bed, no distress. No tachypnea or accessory muscle of respiration use. HEENT: Shows Pallor , no scleral icterus. Oral mucous membrane is dry. No pharyngeal erythema or thrush NECK: Trachea central, no thyromegaly. LUNGS: Unlabored breathing. Clear to auscultation anteriorly. No wheeze or crackle. HEART: S1, S2, regular rate and rhythm. No loud murmur ABDOMEN: Soft, mild distention and tenderness EXTREMITIES: No edema of feet. SKIN: No rash, no masses palpable. NEUROLOGICAL: The patient is awake, alert, oriented x3, mood and affect normal. Results CBC & Chem 7: 05/17/24 01:03 05/17/24 12:43 Labs: Abnormal Lab Results - Last 24 Hours (Table) 05/17/24 05/17/24 05/17/24 Range/Units 01:03 01:03 01:03 WBC 14.9 H (3.8-10.6) k/uL Neutrophils # 13.8 H (1.3-7.7) k/uL Lymphocytes # 0.5 L (1.0-4.8) k/uL Sodium 129 L (137-145) mmol/L Chloride 94 L (98-107) mmol/L BUN 47 H (9-20) mg/dL Creatinine 1.42 H (0.66-1.25) mg/dL Glucose 172 H (74-99) mg/dL POC Glucose (mg/dL) (70-110) mg/dL Calcium (8.4-10.2) mg/dL Total Bilirubin 1.7 H (0.2-1.3) mg/dL Troponin I 0.063 H* (0.000-0.034) ng/mL 05/17/24 05/17/24 05/17/24 Range/Units 06:52 08:12 12:14 WBC (3.8-10.6) k/uL Neutrophils # (1.3-7.7) k/uL Lymphocytes # (1.0-4.8) k/uL Sodium (137-145) mmol/L Chloride (98-107) mmol/L BUN (9-20) mg/dL Creatinine (0.66-1.25) mg/dL Glucose (74-99) mg/dL POC Glucose (mg/dL) 165 H 178 H 166 H (70-110) mg/dL Calcium (8.4-10.2) mg/dL Total Bilirubin (0.2-1.3) mg/dL Troponin I (0.000-0.034) ng/mL 05/17/24 Range/Units 12:43 WBC (3.8-10.6) k/uL Neutrophils # (1.3-7.7) k/uL Lymphocytes # (1.0-4.8) k/uL Sodium 132 L (137-145) mmol/L Chloride (98-107) mmol/L BUN 49 H (9-20) mg/dL Creatinine 1.45 H (0.66-1.25) mg/dL Glucose 162 H (74-99) mg/dL POC Glucose (mg/dL) (70-110) mg/dL Calcium 8.2 L (8.4-10.2) mg/dL Total Bilirubin (0.2-1.3) mg/dL Troponin I (0.000-0.034) ng/mL Assessment and Plan (1) Acute appendicitis with appendiceal abscess Current Visit: Yes Status: Acute Code(s): K35.33 - AC APPENDICITIS WITH PERF, LOC PERITONITIS, AND GANGR, WBSCS SNOMED Code(s): 194988835 (2) Penicillin allergy Current Visit: Yes Status: Acute Code(s): Z88.0 - ALLERGY STATUS TO PENICILLIN SNOMED Code(s): 53250900 Plan: 1patient presented to hospital with abdominal pain has been diagnosed with acute gangrenous appendicitis with perforation status post laparoscopic appendectomy and drainage of the abscess we will need to cover for the enteric gram-negative both aerobes and anaerobes to be the likely pathogen. 2patient with a penicillin allergy on the chart however the patient mention he can take oral penicillin and seem to have done well with the Zosyn clinically doubt true penicillin allergy and should be taken of the chart 3-patient will be treated with Zosyn 3.375 g every 8 hours while waiting for the culture to finalize We will follow on clinical condition and cultures to further adjust medication if needed Thank you for this consultation we will follow the patient along with you Dictation was produced using [employer] dictation software. please excuse any grammatical, word or spelling errors. Time with Patient: Greater than 30
[2024-05-18 07:32] LABS: Glucose,Whole Blood 148 mg/dL (70-110)
[2024-05-18 07:37] LABS: Potassium 3.3 mmol/L (3.5-5.1)
[2024-05-18 07:38] LABS: African American GFR (CKD) 52 (>60 ml/min/1.73 sqM); Anion Gap 10 mmol/L; Blood Urea Nitrogen 38 mg/dL (9-20); Calcium 8.5 mg/dL (8.4-10.2); Carbon Dioxide 24 mmol/L (22-30); Chloride 99 mmol/L (98-107); Glucose 126 mg/dL (74-99); Non-African American GFR(CKD) 45 (>60 ml/min/1.73 sqM); Sodium 133 mmol/L (137-145)
[2024-05-18 07:40] LABS: Basophils % (A) 0 %; Eosinophils # (A) 0.2 k/uL (0-0.7); Eosinophils % (A) 2 %; HCT 35.8 % (39.0-53.0); HGB 12.2 gm/dL (13.0-17.5); Lymphocytes # (A) 1.2 k/uL (1.0-4.8); Lymphocytes % (A) 12 %; MCH 30.9 pg (25.0-35.0); MCHC 33.9 g/dL (31.0-37.0); Mean Platelet Volume 8.8; Monocytes # (A) 0.5 k/uL (0-1.0); Monocytes % (A) 5 %; Neutrophils # (A) 7.9 k/uL (1.3-7.7); Neutrophils % (A) 80 %; Platelet Count 300 k/uL (150-450); RBC 3.93 m/uL (4.30-5.90); RDW 13.7 % (11.5-15.5); WBC 9.9 k/uL (3.8-10.6)
[2024-05-18] MEDS: POTASSIUM CHLORIDE ER 20 MEQ TAB.ER PO STA (09:34)
[2024-05-18 12:27] LABS: Glucose,Whole Blood 263 mg/dL (70-110)
--- NOTE | 2024-05-18 13:18 | P.PN ---
Progress Note - Text Progress Note Date: 05/18/24 No acute events overnight. Tolerating CLD. Denies fevers and chills. STALIN drain is serosangenous VSS General-NAD CVS-RRR Lungs-NLB Abdomen-soft, NTND, incisions C/D/I, STALIN-serosangenous 79 year old male POD #1 Laparoscopic Appendectomy -Advanced to Soft Diet -Continue Antibiotics -Pain and Nausea Control -Monitor STALIN -OOB, ambulate, IS -AM labs Clay Hsu [facility] [phone]
--- NOTE | 2024-05-18 14:54 | P.PN ---
Subjective Progress Note Date: 05/18/24 The patient is a 79-year-old gentleman who was admitted to the hospital with abdominal discomfort and he was diagnosed with ruptured appendicitis and he underwent surgery. We saw the patient because of paroxysmal atrial fibrillation which is new. The echo showed normal LV systolic function with no significant valvular abnormalities May 16, 2022 The patient was seen and evaluated this morning. Overall he seems to be stable from a cardiovascular standpoint of view and he has been maintaining normal sinus mechanism. The pressure remains stable with IM going to start the patient on small dose of beta-ranjit. He is diabetic and his [id number] score is above 3 and he need to be on oral anticoagulation once he is stable from a cardiovascular standpoint of view. The echo showed normal LV systolic function with no significant valvular abnormalities. ASSESSMENT: New onset paroxysmal atrial fibrillation Ruptured appendicitis with intra-abdominal abscess, status post laparoscopic appendectomy, abdominal washout, and STALIN drain placement Hypertension Diabetes PLAN: Add small dose of beta-ranjit to the current medical regimen Consider starting the patient on oral anticoagulation once safe from the surgical standpoint of view Objective - Vital Signs Vital signs: Vital Signs Temp 98.4 F 05/18/24 12:58 Pulse 77 05/18/24 12:58 Resp 16 05/18/24 12:58 BP 124/71 05/18/24 12:58 Pulse Ox 95 05/18/24 12:58 FiO2 Intake & Output 05/17/24 05/18/24 05/18/24 18:59 06:59 18:59 Intake Total 1780 1215 1040 Output Total 190 80 Balance 1590 1135 1040 Weight 108.862 kg Intake: IV 200 Intake, IV Titration 625 Amount Piperacillin-Tazobactam 3 100 .375 gm In Sodium Chloride 0.9% 100 ml @ 25 mls/hr IVPB Q8HR [facility] Rx# :[id number] Sodium Chloride 0.9% 1, 525 000 ml @ 75 mls/hr IV . [id number] [facility] Rx#:[id number] Oral 2743 [id number] 1624 Output: Drainage 190 80 Abdomen 190 80 Other: Voiding Method Toilet Toilet # Voids 1 - Labs CBC & Chem 7: 05/18/24 05:53 05/18/24 05:53 Labs: Abnormal Lab Results - Last 24 Hours (Table) 05/17/24 05/17/24 05/17/24 Range/Units 12:43 17:17 20:48 RBC (4.30-5.90) m/uL Hgb (13.0-17.5) gm/dL Hct (39.0-53.0) % Neutrophils # (1.3-7.7) k/uL Sodium (137-145) mmol/L Potassium (3.5-5.1) mmol/L BUN (9-20) mg/dL Creatinine (0.66-1.25) mg/dL Glucose (74-99) mg/dL POC Glucose (mg/dL) 176 H 144 H (70-110) mg/dL Hemoglobin A1c (<=6.0) % Triglycerides 177.00 H (0.00-149.00) mg/dL HDL Cholesterol 23.40 L (40.00-60.00) mg/dL 05/18/24 05/18/24 05/18/24 Range/Units 05:53 05:53 05:53 RBC 3.93 L (4.30-5.90) m/uL Hgb 12.2 L (13.0-17.5) gm/dL Hct 35.8 L (39.0-53.0) % Neutrophils # 7.9 H (1.3-7.7) k/uL Sodium 133 L (137-145) mmol/L Potassium 3.3 L (3.5-5.1) mmol/L BUN 38 H (9-20) mg/dL Creatinine 1.46 H (0.66-1.25) mg/dL Glucose 126 H (74-99) mg/dL POC Glucose (mg/dL) (70-110) mg/dL Hemoglobin A1c 6.6 H (<=6.0) % Triglycerides (0.00-149.00) mg/dL HDL Cholesterol (40.00-60.00) mg/dL 05/18/24 05/18/24 Range/Units 07:31 12:26 RBC (4.30-5.90) m/uL Hgb (13.0-17.5) gm/dL Hct (39.0-53.0) % Neutrophils # (1.3-7.7) k/uL Sodium (137-145) mmol/L Potassium (3.5-5.1) mmol/L BUN (9-20) mg/dL Creatinine (0.66-1.25) mg/dL Glucose (74-99) mg/dL POC Glucose (mg/dL) 148 H 263 H (70-110) mg/dL Hemoglobin A1c (<=6.0) % Triglycerides (0.00-149.00) mg/dL HDL Cholesterol (40.00-60.00) mg/dL Microbiology - Last 24 Hours (Table) 05/17/24 06:28 Gram Stain - Preliminary Abdomen Wound Culture - Preliminary Escherichia coli
--- NOTE | 2024-05-18 15:44 | P.PN ---
Subjective Progress Note Date: 05/18/24 Principal diagnosis: Reason for follow-up is acute gangrenous appendicitis and abscess Patient is a 79-year-old male with a past medical history significant for diabetes mellitus and hypertension presented to hospital abdominal pain has been diagnosed with acute gangrenous appendicitis with periappendiceal abscess status post laparoscopic appendectomy drainage of the abscess. On today's evaluation that is 05/18/2024, patient did not have any fever and denies any chills, patient is breathing comfortably on room air, patient with no chest pain or cough patient abdominal pain is currently controlled no nausea vomiting feeling slightly better. Patient white count normalized to the 9.9 creatinine is 1.46 abdominal culture with E. coli sensitivity pending Objective - Vital Signs Vital signs: Vital Signs Temp 98.4 F 05/18/24 12:58 Pulse 77 05/18/24 12:58 Resp 16 05/18/24 12:58 BP 124/71 05/18/24 12:58 Pulse Ox 95 05/18/24 12:58 FiO2 Intake & Output 05/17/24 05/18/24 05/18/24 18:59 06:59 18:59 Intake Total 1780 1215 1040 Output Total 190 80 Balance 1590 1135 1040 Weight 108.862 kg Intake: IV 200 Intake, IV Titration 625 Amount Piperacillin-Tazobactam 3 100 .375 gm In Sodium Chloride 0.9% 100 ml @ 25 mls/hr IVPB Q8HR [facility] Rx# :[id number] Sodium Chloride 0.9% 1, 525 000 ml @ 75 mls/hr IV . [id number] [facility] Rx#:[id number] Oral [id number] Output: Drainage 190 80 Abdomen 190 80 Other: Voiding Method Toilet Toilet # Voids 1 - Exam GENERAL DESCRIPTION: An elderly male lying in bed in no distress RESPIRATORY SYSTEM: Unlabored breathing , decreased breath sounds at bases HEART: S1 S2 regular rate and rhythm , ABDOMEN: Soft , distention no significant tenderness EXTREMITIES: No edema feet - Labs CBC & Chem 7: 05/18/24 05:53 05/18/24 05:53 Labs: Abnormal Lab Results - Last 24 Hours (Table) 05/17/24 05/17/24 05/17/24 Range/Units 12:43 17:17 20:48 RBC (4.30-5.90) m/uL Hgb (13.0-17.5) gm/dL Hct (39.0-53.0) % Neutrophils # (1.3-7.7) k/uL Sodium (137-145) mmol/L Potassium (3.5-5.1) mmol/L BUN (9-20) mg/dL Creatinine (0.66-1.25) mg/dL Glucose (74-99) mg/dL POC Glucose (mg/dL) 176 H 144 H (70-110) mg/dL Hemoglobin A1c (<=6.0) % Triglycerides 177.00 H (0.00-149.00) mg/dL HDL Cholesterol 23.40 L (40.00-60.00) mg/dL 05/18/24 05/18/24 05/18/24 Range/Units 05:53 05:53 05:53 RBC 3.93 L (4.30-5.90) m/uL Hgb 12.2 L (13.0-17.5) gm/dL Hct 35.8 L (39.0-53.0) % Neutrophils # 7.9 H (1.3-7.7) k/uL Sodium 133 L (137-145) mmol/L Potassium 3.3 L (3.5-5.1) mmol/L BUN 38 H (9-20) mg/dL Creatinine 1.46 H (0.66-1.25) mg/dL Glucose 126 H (74-99) mg/dL POC Glucose (mg/dL) (70-110) mg/dL Hemoglobin A1c 6.6 H (<=6.0) % Triglycerides (0.00-149.00) mg/dL HDL Cholesterol (40.00-60.00) mg/dL 05/18/24 05/18/24 Range/Units 07:31 12:26 RBC (4.30-5.90) m/uL Hgb (13.0-17.5) gm/dL Hct (39.0-53.0) % Neutrophils # (1.3-7.7) k/uL Sodium (137-145) mmol/L Potassium (3.5-5.1) mmol/L BUN (9-20) mg/dL Creatinine (0.66-1.25) mg/dL Glucose (74-99) mg/dL POC Glucose (mg/dL) 148 H 263 H (70-110) mg/dL Hemoglobin A1c (<=6.0) % Triglycerides (0.00-149.00) mg/dL HDL Cholesterol (40.00-60.00) mg/dL Microbiology - Last 24 Hours (Table) 05/17/24 06:28 Gram Stain - Preliminary Abdomen Wound Culture - Preliminary Escherichia coli Assessment and Plan (1) Acute appendicitis with appendiceal abscess Current Visit: Yes Status: Acute Code(s): K35.33 - AC APPENDICITIS WITH PERF, LOC PERITONITIS, AND GANGR, WBSCS SNOMED Code(s): 553335581 (2) Penicillin allergy Current Visit: Yes Status: Acute Code(s): Z88.0 - ALLERGY STATUS TO PENICILLIN SNOMED Code(s): 56602958 Plan: 1patient presented to hospital with abdominal pain has been diagnosed with acute gangrenous appendicitis with perforation status post laparoscopic appendec hemant and drainage of the abscess we will need to cover for the enteric gram- negative both aerobes and anaerobes to be the likely pathogen. 2patient with a penicillin allergy on the chart however the patient mention he can take oral penicillin and seem to have done well with the Zosyn clinically doubt true penicillin allergy and should be taken of the chart 3-patient is afebrile white count normalized we will treat with Zosyn while waiting for the culture to finalize Dictation was produced using [employer] dictation software. please excuse any grammatical, word or spelling errors. Time with Patient: Less than 30
--- NOTE | 2024-05-18 16:13 | P.PN ---
Subjective Progress Note Date: 05/18/24 Hospital Course: Patient is a 79-year-old male with a history of hypertension and type 2 diabetes was transferred from [facility] after he presented with right lower quadrant abdominal pain which started 3 days ago associated with nausea and vomiting. Patient underwent evaluation including CAT scan of the abdomen and pelvis which showed appendix dilated to 1.4 cm with surrounding inflammatory changes and also small perforation suspected. Patient also had a minimally elevated troponin levels at 0.06. Surgery team was consulted acute appendicitis with concerns for perforation. Patient underwent laparoscopic appendectomy with operating findings include inflamed appendix and intra-abdominal abscess along the right colon with significant inflammatory changes along the right colon and right lower quadrant. There is no intraoperative complication and patient has tolerated the surgery well and has a STALIN drain. At the time of interview, patient is complaining of minimal abdominal discomfort with no nausea or vomiting. Patient denies any chest pain, shortness of breath, dizziness, headache, nausea, vomiting, fever, chills, numbness tingling or weakness in upper or lower extremity. Additionally, patient was found to have new onset A-fib during this hospitalization course and cardiology is consulted. Patient to undergo echocardiogram. Initial blood pressure evaluation shows WBC 14.9, hemoglobin 13.3, neutrophil count 13.8, sodium 129, potassium 3.9, BUN 47, creatinine 1.42, glucose 172, total bili 1.7, AST 23, ALT 17, ALP 67, troponin I 0.06, TSH 1.37 Initial EKG shows atrial fibrillation with ventricular rate of 97 bpm. Repeat EKG shows sinus rhythm with first-degree AV block with ventricular rate of 72 bpm, RI interval 2 is 46 ms, QRS duration 100 ms, QTc 466 ms Subjective: Patient seen and examined at the bedside. No acute events overnight. Patient is not complaining of any abdominal pain. He is tolerating his diet well. STALIN drain is serosanguineous. All Systems reviewed and pertinent positives and negatives noted in HPI, all other symptoms are negative Objective: Vital signs reviewed. General: non toxic, no distress, appears at stated age, overweight Cardiovascular: S1S2 reg, no murmur, positive dorsalis pedis pulse bilateral, no edema Lungs: CTA bilateral, no rhonchi, no rales, no accessory muscle use Abdominal: soft, nontender to palpation, no guarding, STALIN drain intact and in place and draining serosanguineous fluid Ext: muscle strength 5 out of 5 in all 4 extremities grossly, no gross muscle atrophy, no contractures, Neuro: CN II-XI grossly intact, no gross focal neuro deficits Psych: Alert, oriented, appropriate affect Data reviewed today: Labs: WBC 9.9, hemoglobin 12.2, sodium 133, potassium 3.3, BUN 38, creatinine 1.46, glucose 126, HbA1c 6.6% Images: No new imaging. Assessment and Plan: #Perforated acute appendicitis with intra-abdominal abscess status post laparoscopic appendectomy, postop day 1 #Leukocytosis reactive, resolved No intraoperative complication Continue with pain management as needed Continue with incentive spirometry Advance diet to regular diet Continue Zosyn 3.375 g IVPB every 8 hour Infectious disease on board, note reviewed, appreciate recs Culture blood culture pending #Paroxysmal A-fib #Elevated troponin I likely secondary to type II CA Continue cardiac telemetry Anticoagulation with subcu heparin 5000 mg every 12-hour Cardiology on board, note reviewed, appreciate recs Echocardiogram shows a function with ejection fraction 50% Continue monitor vital signs Lipid panel: Triglyceride 137, cholesterol 181, LDL 122, HDL 23 palpable #Hypovolemic hyponatremia secondary to GI loss in the setting of acute appendicitis #Prerenal STEPHANIE secondary to above Continue on IV normal saline at 75 cc/h BMP tomorrow a.m. Nephrotoxic drugs #Type 2 diabetes melitis # Hyperglycemia Accu-Cheks and sliding scale insulin HbA1c 6.6% Monitor for hypoglycemia Chronic: Hypertension: Hold valsartanHCTZ 160-25 mg p.o. daily CBC and BMP tomorrow a.m. DVT prophylaxis: SCDs GI prophylaxis: Protonix 40 mg p.o. once daily F: IV normal saline 75 cc/h E: Replete as needed N: Clear liquid diet A: Ambulatory at baseline CODE STATUS: Full code Discussed with: Patient Anticipated discharge place: Pending clinical course Dictation was produced using [employer] dictation software. Please excuse any gramm atical, word or spelling errors. Objective - Vital Signs Vital signs: Vital Signs Temp 98.4 F 05/18/24 12:58 Pulse 77 05/18/24 12:58 Resp 16 05/18/24 12:58 BP 124/71 05/18/24 12:58 Pulse Ox 95 05/18/24 12:58 FiO2 Intake & Output 03/05/18/24 05/18/24 18:59 06:59 18:59 Intake Total 1780 1215 1040 Output Total 190 80 Balance 1590 1135 1040 Weight 108.862 kg Intake: IV 200 Intake, IV Titration 625 Amount Piperacillin-Tazobactam 3 100 .375 gm In Sodium Chloride 0.9% 100 ml @ 25 mls/hr IVPB Q8HR [facility] Rx# :[id number] Sodium Chloride 0.9% 1, 525 000 ml @ 75 mls/hr IV . [id number] [facility] Rx#:[id number] Oral [id number] Output: Drainage 190 80 Abdomen 190 80 Other: Voiding Method Toilet Toilet # Voids 1 - Labs CBC & Chem 7: 05/18/24 05:53 05/18/24 05:53 Labs: Abnormal Lab Results - Last 24 Hours (Table) 05/17/24 05/17/24 05/17/24 Range/Units 12:43 17:17 20:48 RBC (4.30-5.90) m/uL Hgb (13.0-17.5) gm/dL Hct (39.0-53.0) % Neutrophils # (1.3-7.7) k/uL Sodium (137-145) mmol/L Potassium (3.5-5.1) mmol/L BUN (9-20) mg/dL Creatinine (0.66-1.25) mg/dL Glucose (74-99) mg/dL POC Glucose (mg/dL) 176 H 144 H (70-110) mg/dL Hemoglobin A1c (<=6.0) % Triglycerides 177.00 H (0.00-149.00) mg/dL HDL Cholesterol 23.40 L (40.00-60.00) mg/dL 05/18/24 05/18/24 05/18/24 Range/Units 05:53 05:53 05:53 RBC 3.93 L (4.30-5.90) m/uL Hgb 12.2 L (13.0-17.5) gm/dL Hct 35.8 L (39.0-53.0) % Neutrophils # 7.9 H (1.3-7.7) k/uL Sodium 133 L (137-145) mmol/L Potassium 3.3 L (3.5-5.1) mmol/L BUN 38 H (9-20) mg/dL Creatinine 1.46 H (0.66-1.25) mg/dL Glucose 126 H (74-99) mg/dL POC Glucose (mg/dL) (70-110) mg/dL Hemoglobin A1c 6.6 H (<=6.0) % Triglycerides (0.00-149.00) mg/dL HDL Cholesterol (40.00-60.00) mg/dL 05/18/24 05/18/24 Range/Units 07:31 12:26 RBC (4.30-5.90) m/uL Hgb (13.0-17.5) gm/dL Hct (39.0-53.0) % Neutrophils # (1.3-7.7) k/uL Sodium (137-145) mmol/L Potassium (3.5-5.1) mmol/L BUN (9-20) mg/dL Creatinine (0.66-1.25) mg/dL Glucose (74-99) mg/dL POC Glucose (mg/dL) 148 H 263 H (70-110) mg/dL Hemoglobin A1c (<=6.0) % Triglycerides (0.00-149.00) mg/dL HDL Cholesterol (40.00-60.00) mg/dL Microbiology - Last 24 Hours (Table) 05/17/24 06:28 Gram Stain - Preliminary Abdomen Wound Culture - Preliminary Escherichia coli
[2024-05-18] MEDS: PANTOPRAZOLE 40 MG TABLET PO STA (16:16)
[2024-05-18 16:37] LABS: Glucose,Whole Blood 139 mg/dL (70-110)
[2024-05-18 20:22] LABS: Glucose,Whole Blood 130 mg/dL (70-110)
[2024-05-18] MEDS: HEPARIN SODIUM,PORCINE 5,000 UNIT/ML 1 ML VIAL SQ SCH (21:37)
[2024-05-18] MEDS: METOPROLOL TARTRATE 12.5 MG TAB PO SCH (21:38)
[2024-05-18] MEDS: HYDROcodone/APAP 5-325MG 1 EACH TAB PO PRN (21:42)
[2024-05-19 06:55] LABS: Glucose,Whole Blood 144 mg/dL (70-110)
[2024-05-19 07:17] LABS: Basophils % (A) 0 %; Eosinophils # (A) 0.4 k/uL (0-0.7); Eosinophils % (A) 4 %; HCT 36.4 % (39.0-53.0); HGB 11.7 gm/dL (13.0-17.5); Lymphocytes # (A) 1.9 k/uL (1.0-4.8); Lymphocytes % (A) 18 %; MCHC 32.1 g/dL (31.0-37.0); MCV 93.6 fL (80.0-100.0); Mean Platelet Volume 8.1; Monocytes # (A) 0.6 k/uL (0-1.0); Monocytes % (A) 5 %; Neutrophils # (A) 7.5 k/uL (1.3-7.7); Neutrophils % (A) 70 %; Platelet Count 341 k/uL (150-450); RBC 3.89 m/uL (4.30-5.90); RDW 14.1 % (11.5-15.5); WBC 10.6 k/uL (3.8-10.6)
[2024-05-19 07:39] LABS: African American GFR (CKD) 58 (>60 ml/min/1.73 sqM); Anion Gap 10 mmol/L; Blood Urea Nitrogen 26 mg/dL (9-20); Calcium 8.6 mg/dL (8.4-10.2); Carbon Dioxide 25 mmol/L (22-30); Chloride 102 mmol/L (98-107); Glucose 140 mg/dL (74-99); Non-African American GFR(CKD) 50 (>60 ml/min/1.73 sqM); Potassium 3.9 mmol/L (3.5-5.1); Sodium 137 mmol/L (137-145)
--- NOTE | 2024-05-19 10:26 | P.PN ---
Progress Note - Text Progress Note Date: 05/19/24 No acute events overnight. Tolerating diet. Denies fevers and chills. STALIN drain is serosangenous VSS General-NAD CVS-RRR Lungs-NLB Abdomen-soft, NTND, incisions C/D/I, STALIN-serosangenous 79 year old male POD #2 Laparoscopic Appendectomy -Soft Diet -Continue Antibiotics -Pain and Nausea Control -Monitor STALIN -OOB, ambulate, IS -AM labs Clay Hsu [facility] [phone]
[2024-05-19 12:12] LABS: Glucose,Whole Blood 150 mg/dL (70-110)
--- NOTE | 2024-05-19 12:35 | P.PN ---
Subjective Progress Note Date: 05/19/24 Principal diagnosis: Reason for follow-up is acute gangrenous appendicitis and abscess Patient is a 79-year-old male with a past medical history significant for diabetes mellitus and hypertension presented to hospital abdominal pain has been diagnosed with acute gangrenous appendicitis with periappendiceal abscess status post laparoscopic appendectomy drainage of the abscess. On today's evaluation that is 05/19/2024, Patient is afebrile patient is currently on room air and breathing comfortably no distress sleepy no other changes has been reported by the nursing staff. Patient white count normalized to 10.6, creatinine is 1.34 abdominal culture with E. coli sensitivities pending Objective - Vital Signs Vital signs: Vital Signs Temp 98.2 F 05/19/24 12:23 Pulse 66 05/19/24 12:23 Resp 17 05/19/24 12:23 BP 148/79 05/19/24 12:23 Pulse Ox 96 05/19/24 12:23 FiO2 Intake & Output 05/18/24 05/19/24 05/19/24 18:59 06:59 18:59 Intake Total 2600 1215 480 Output Total 40 Balance 2600 1175 480 Intake: Intake, IV Titration 625 Amount Piperacillin-Tazobactam 3 100 .375 gm In Sodium Chloride 0.9% 100 ml @ 25 mls/hr IVPB Q8HR [facility] Rx# :[id number] Sodium Chloride 0.9% 1, 525 000 ml @ 75 mls/hr IV . [id number] [facility] Rx#:[id number] Oral 2600 590 480 Output: Drainage 40 Abdomen 40 Other: Voiding Method Toilet Toilet # Voids 5 2 # Bowel Movements 1 - Exam GENERAL DESCRIPTION: An elderly male lying in bed in no distress RESPIRATORY SYSTEM: Unlabored breathing , decreased breath sounds at bases HEART: S1 S2 regular rate and rhythm , ABDOMEN: Soft , distention no significant tenderness EXTREMITIES: No edema feet - Labs CBC & Chem 7: 05/19/24 06:43 05/19/24 06:43 Labs: Abnormal Lab Results - Last 24 Hours (Table) 05/18/24 05/18/24 05/18/24 Range/Units 05:53 16:34 20:20 RBC (4.30-5.90) m/uL Hgb (13.0-17.5) gm/dL Hct (39.0-53.0) % BUN (9-20) mg/dL Creatinine (0.66-1.25) mg/dL Glucose (74-99) mg/dL POC Glucose (mg/dL) 139 H 130 H (70-110) mg/dL Hemoglobin A1c 6.6 H (<=6.0) % 05/19/24 05/19/24 05/19/24 Range/Units 06:43 06:43 06:53 RBC 3.89 L (4.30-5.90) m/uL Hgb 11.7 L (13.0-17.5) gm/dL Hct 36.4 L (39.0-53.0) % BUN 26 H (9-20) mg/dL Creatinine 1.34 H (0.66-1.25) mg/dL Glucose 140 H (74-99) mg/dL POC Glucose (mg/dL) 144 H (70-110) mg/dL Hemoglobin A1c (<=6.0) % 05/19/24 Range/Units 12:10 RBC (4.30-5.90) m/uL Hgb (13.0-17.5) gm/dL Hct (39.0-53.0) % BUN (9-20) mg/dL Creatinine (0.66-1.25) mg/dL Glucose (74-99) mg/dL POC Glucose (mg/dL) 150 H (70-110) mg/dL Hemoglobin A1c (<=6.0) % Microbiology - Last 24 Hours (Table) 05/17/24 06:28 Gram Stain - Preliminary Abdomen Wound Culture - Preliminary Escherichia coli Assessment and Plan (1) Acute appendicitis with appendiceal abscess Current Visit: Yes Status: Acute Code(s): K35.33 - AC APPENDICITIS WITH PERF, LOC PERITONITIS, AND GANGR, WBSCS SNOMED Code(s): 143793219 (2) Penicillin allergy Current Visit: Yes Status: Acute Code(s): Z88.0 - ALLERGY STATUS TO PENICILLIN SNOMED Code(s): 75463620 Plan: 1patient presented to hospital with abdominal pain has been diagnosed with acute gangrenous appendicitis with perforation status post laparoscopic appendec hemant and drainage of the abscess we will need to cover for the enteric gram- negative both aerobes and anaerobes to be the likely pathogen. 2patient with a penicillin allergy on the chart however the patient mention he can take oral penicillin and seem to have done well with the Zosyn clinically doubt true penicillin allergy and should be taken of the chart 3-patient is afebrile white count normalized 4local culture currently growing E. coli with sensitivities pending we will continue with Zosyn while waiting for the culture to finalize Dictation was produced using [employer] dictation software. please excuse any grammatical, word or spelling errors. Time with Patient: Less than 30
[2024-05-19 17:53] LABS: Glucose,Whole Blood 168 mg/dL (70-110)
[2024-05-19 19:53] LABS: Glucose,Whole Blood 162 mg/dL (70-110)
[2024-05-19] MEDS: APIXABAN 2.5 MG TABLET PO SCH (21:42)
[2024-05-19] MEDS: ISOSORBIDE MONONITRATE 10 MG TAB PO SCH (21:42)
--- NOTE | 2024-05-19 22:11 | P.PN ---
Subjective Progress Note Date: 05/19/24 Patient is a 79-year-old male with a history of hypertension and type 2 diabetes was transferred from [facility] after he presented with right lower quadrant abdominal pain which started 3 days ago associated with nausea and vomiting. Patient underwent evaluation including CAT scan of the abdomen and pelvis which showed appendix dilated to 1.4 cm with surrounding inflammatory changes and also small perforation suspected. Patient also had a minimally elevated troponin levels at 0.06. Surgery team was consulted acute appendicitis with concerns for perforation. Patient underwent laparoscopic appendectomy with operating findings include inflamed appendix and intra-abdominal abscess along the right colon with significant inflammatory changes along the right colon and right lower quadrant. There is no intraoperative complication and patient has tolerated the surgery well and has a STALIN drain. At the time of interview, patient is complaining of minimal abdominal discomfort with no nausea or vomiting. Patient denies any chest pain, shortness of breath, dizziness, headache, nausea, vomiting, fever, chills, numbness tingling or weakness in upper or lower extremity. Additionally, patient was found to have new onset A-fib during this hospitalization course and cardiology is consulted. Patient to undergo echocardiogram. Initial blood pressure evaluation shows WBC 14.9, hemoglobin 13.3, neutrophil count 13.8, sodium 129, potassium 3.9, BUN 47, creatinine 1.42, glucose 172, total bili 1.7, AST 23, ALT 17, ALP 67, troponin I 0.06, TSH 1.37 Initial EKG shows atrial fibrillation with ventricular rate of 97 bpm. Repeat EKG shows sinus rhythm with first-degree AV block with ventricular rate of 72 bpm, MS interval 2 is 46 ms, QRS duration 100 ms, QTc 466 ms 05/19/2024 Patient is lying in the bed. Awake alert and oriented. No complaints of chest pain or shortness of breath. No complaints of abdominal pain. Last bowel meds couple days ago. Patient started tolerating oral diet. No nausea or vomiting. Laboratory data showed WBC 10.6 hemoglobin 11.7 and platelets 341 BUN 26 and creatinine 1.34 and calcium 8.6 blood sugar is controlled. Wound cultures showed E. coli. Anaerobic cultures are pending. Patient has been continued on antibiotics normal Zosyn. ID is on board. On IV hydration with normal saline 75 cc/h. On anticoagulation with Eliquis. Current medications reviewed. All Systems reviewed and pertinent positives and negatives noted in HPI, all other symptoms are negative Objective: Vital signs reviewed. General: non toxic, no distress, appears at stated age, overweight Cardiovascular: S1S2 reg, no murmur, positive dorsalis pedis pulse bilateral, no edema Lungs: CTA bilateral, no rhonchi, no rales, no accessory muscle use Abdominal: soft, nontender to palpation, no guarding, STALIN drain intact and in place and draining serosanguineous fluid Ext: muscle strength 5 out of 5 in all 4 extremities grossly, no gross muscle atrophy, no contractures, Neuro: CN II-XI grossly intact, no gross focal neuro deficits Psych: Alert, oriented, appropriate affect Data reviewed today: Labs: WBC 9.9, hemoglobin 12.2, sodium 133, potassium 3.3, BUN 38, creatinine 1.46, glucose 126, HbA1c 6.6% Images: No new imaging. Assessment and Plan: #Perforated acute appendicitis with intra-abdominal abscess status post laparoscopic appendectomy, postop day 1 #Leukocytosis reactive, resolved No intraoperative complication Continue with pain management as needed Continue with incentive spirometry Advance diet to regular diet Continue Zosyn 3.375 g IVPB every 8 hour. Wound cultures growing E. coli. Infectious disease on board, note reviewed, appreciate recs #Paroxysmal A-fib #Elevated troponin I likely secondary to type II DC Continue cardiac telemetry Patient was started on anticoagulation with Eliquis. Cardiology on board, note reviewed, appreciate recs Echocardiogram shows a function with ejection fraction 50% Continue monitor vital signs Lipid panel: Triglyceride 137, cholesterol 181, LDL 122, HDL 23 palpable #Hypovolemic hyponatremia secondary to GI loss in the setting of acute appendicitis #Prerenal STEPHANIE secondary to above Continue on IV normal saline at 75 cc/h BMP tomorrow a.m. Nephrotoxic drugs #Type 2 diabetes melitis # Hyperglycemia Accu-Cheks and sliding scale insulin HbA1c 6.6% Monitor for hypoglycemia Chronic: Hypertension: Hold valsartanHCTZ 160-25 mg p.o. daily CBC and BMP tomorrow a.m. DVT prophylaxis: SCDs GI prophylaxis: Protonix 40 mg p.o. once daily F: IV normal saline 75 cc/h E: Replete as needed N: Clear liquid diet A: Ambulatory at baseline CODE STATUS: Full code Discussed with: Patient Anticipated discharge place: Pending clinical course Objective - Vital Signs Vital signs: Vital Signs Temp 98.2 F 05/19/24 12:23 Pulse 66 05/19/24 12:23 Resp 17 05/19/24 12:23 BP 148/79 05/19/24 12:23 Pulse Ox 96 05/19/24 12:23 FiO2 Intake & Output 05/18/24 05/19/24 05/19/24 18:59 06:59 18:59 Intake Total 2600 1215 480 Output Total 40 Balance 2600 1175 480 Intake: Intake, IV Titration 625 Amount Piperacillin-Tazobactam 3 100 .375 gm In Sodium Chloride 0.9% 100 ml @ 25 mls/hr IVPB Q8HR [facility] Rx# :[id number] Sodium Chloride 0.9% 1, 525 000 ml @ 75 mls/hr IV . [id number] [facility] Rx#:[id number] Oral 2600 590 480 Output: Drainage 40 Abdomen 40 Other: Voiding Method Toilet Toilet # Voids 5 2 # Bowel Movements 1 - Labs CBC & Chem 7: 05/19/24 06:43 05/19/24 06:43 Labs: Abnormal Lab Results - Last 24 Hours (Table) 05/18/24 05/18/24 05/19/24 Range/Units 16:34 20:20 06:43 RBC 3.89 L (4.30-5.90) m/uL Hgb 11.7 L (13.0-17.5) gm/dL Hct 36.4 L (39.0-53.0) % BUN (9-20) mg/dL Creatinine (0.66-1.25) mg/dL Glucose (74-99) mg/dL POC Glucose (mg/dL) 139 H 130 H (70-110) mg/dL 05/19/24 05/19/24 05/19/24 Range/Units 06:43 06:53 12:10 RBC (4.30-5.90) m/uL Hgb (13.0-17.5) gm/dL Hct (39.0-53.0) % BUN 26 H (9-20) mg/dL Creatinine 1.34 H (0.66-1.25) mg/dL Glucose 140 H (74-99) mg/dL POC Glucose (mg/dL) 144 H 150 H (70-110) mg/dL Microbiology - Last 24 Hours (Table) 05/17/24 06:28 Gram Stain - Final Abdomen Wound Culture - Final Escherichia coli
[2024-05-20 05:40] LABS: Glucose,Whole Blood 148 mg/dL (70-110)
[2024-05-20 07:38] VITALS: RESP 16
[2024-05-20 09:17] LABS: BUN/Creat Ratio 15.69 Ratio (12.00-20.00); Blood Urea Nitrogen 20.4 mg/dL (9.0-27.0); Calcium 8.2 mg/dL (8.7-10.3); Carbon Dioxide 22.3 mmol/L (21.6-31.8); Chloride 106 mmol/L (96-109); Glucose 143 mg/dL (70-110); Potassium 3.6 mmol/L (3.5-5.5); Sodium 139 mmol/L (135-145)
[2024-05-20 09:49] LABS: Basophils # (A) 0.04 X 10*3/uL (0.00-0.10); Basophils % (A) 0.5 %; Eosinophils % (A) 3.7 %; HCT 32.7 % (39.6-50.0); HGB 10.9 g/dL (13.0-17.0); Lymphocytes # (A) 1.54 X 10*3/uL (0.90-5.00); Lymphocytes % (A) 19.1 %; MCH 30.4 pg (27.0-32.0); MCHC 33.3 g/dL (32.0-37.0); MCV 91.1 FL (80.0-97.0); Mean Platelet Volume 11.1 FL (9.5-12.2); Monocytes # (A) 0.58 X 10*3/uL (0.20-1.00); Monocytes % (A) 7.2 %; NRBC Per 100 WBC 0 X 10*3/uL (0.00-0.01); Neutrophils % (A) 68.4 %; Platelet Count 318 X 10*3/uL (140-440); RBC 3.59 X 10*6/uL (4.40-5.60); WBC 8.05 X 10*3/uL (4.50-10.00)
--- NOTE | 2024-05-20 11:59 | P.PN ---
Subjective Progress Note Date: 05/20/24 SURGICAL PROGRESS NOTE CHIEF COMPLAINT: Appendicitis HISTORY OF PRESENT ILLNESS: Patient is postop day #3 status post laparoscopic appendectomy with abdominal washout and STALIN drain placement for ruptured a ppendicitis with abscess. Patient reports his pain is controlled. Denies any nausea or vomiting. Afebrile. WBC 8.05 Hgb 10.9. STALIN drain with 55 mL serous output over 24 hours. Patient followed by cardiology with mildly elevated tropes and atrial fibrillation. Patient started on Eliquis. PHYSICAL EXAM: VITAL SIGNS: Reviewed. GENERAL: Well-developed in no acute distress. ABDOMEN: Soft. Nondistended. Incision sites clean dry and intact NEUROLOGIC: Alert and oriented. Cranial nerves II through XII grossly intact. ASSESSMENT: 1. Ruptured appendicitis with intra-abdominal abscess PLAN: -Continue regular diet -Continue STALIN drain at discharge -Discharge antibiotics per ID service -Patient can be discharged from surgical standpoint when medically cleared Physician Producer note has been reviewed by physician. Signing provider agrees with the documented findings, assessment, and plan of care. Objective - Vital Signs Vital signs: Vital Signs Temp 98.4 F 05/20/24 07:38 Pulse 57 L 05/20/24 07:38 Resp 16 05/20/24 07:38 BP 128/70 05/20/24 07:38 Pulse Ox 96 05/20/24 07:38 FiO2 Intake & Output 05/19/24 05/20/24 05/20/24 18:59 06:59 18:59 Intake Total 1800 118 Output Total 15 Balance 1800 -15 118 Intake: Oral 720 118 Blood Product 1080 Output: Drainage 15 Abdomen 15 Other: # Voids 5 3 - Labs CBC & Chem 7: 05/20/24 05:35 05/20/24 05:35 Labs: Abnormal Lab Results - Last 24 Hours (Table) 05/19/24 05/19/24 05/19/24 Range/Units 12:10 13:11 17:35 RBC (4.40-5.60) X 10*6/uL Hgb (13.0-17.0) g/dL Hct (39.6-50.0) % Immature Gran # (0.00-0.04) X 10*3/uL Est GFR (CKD-EPI) (>=60) Glucose (70-110) mg/dL POC Glucose (mg/dL) 150 H 168 H (70-110) mg/dL Calcium (8.7-10.3) mg/dL Troponin I 0.076 H* (0.000-0.034) ng/mL 05/19/24 05/20/24 05/20/24 Range/Units 19:51 05:35 05:35 RBC 3.59 L (4.40-5.60) X 10*6/uL Hgb 10.9 L (13.0-17.0) g/dL Hct 32.7 L (39.6-50.0) % Immature Gran # 0.09 H (0.00-0.04) X 10*3/uL Est GFR (CKD-EPI) 56 L (>=60) Glucose 143 H (70-110) mg/dL POC Glucose (mg/dL) 162 H (70-110) mg/dL Calcium 8.2 L (8.7-10.3) mg/dL Troponin I (0.000-0.034) ng/mL 05/20/24 Range/Units 05:38 RBC (4.40-5.60) X 10*6/uL Hgb (13.0-17.0) g/dL Hct (39.6-50.0) % Immature Gran # (0.00-0.04) X 10*3/uL Est GFR (CKD-EPI) (>=60) Glucose (70-110) mg/dL POC Glucose (mg/dL) 148 H (70-110) mg/dL Calcium (8.7-10.3) mg/dL Troponin I (0.000-0.034) ng/mL Microbiology - Last 24 Hours (Table) 05/17/24 06:28 Anaerobic Culture - Preliminary Abdomen 05/17/24 06:28 Gram Stain - Final Abdomen Wound Culture - Final Escherichia coli
[2024-05-20 12:12] LABS: Glucose,Whole Blood 190 mg/dL (70-110)
[2024-05-20 14:34] VITALS: BP 120/64; PULSE 65; TEMP 98.2
--- NOTE | 2024-05-20 15:34 | P.DS ---
Providers Date of admission: 05/17/24 04:29 Attending physician: Tracie Alvarenga MD Consults: 05/17/24 04:29 Consult Physician Routine Consulting Provider: Danny Avila Consult Reason/Comments: Acute appendicitis Do you want consulting provider notified?: Yes 05/17/24 06:56 Consult Physician Routine Consulting Provider: Sallie Forbes Consult Reason/Comments: infected appendicitis Do you want consulting provider notified?: Yes 05/17/24 07:05 Consult Physician Routine Consulting Provider: David Aguirre Consult Reason/Comments: intermittent a-fib, unknown hx, pt poor historian Do you want consulting provider notified?: Yes, Notify in am Primary care physician: Litzy Robertson Hospital Course: Discharge Diagnosis: #Perforated acute appendicitis with intra-abdominal abscess status post laparoscopic appendectomy #Paroxysmal A-fib #Hypovolemic hyponatremia, resolved #Prerenal STEPHANIE, resolved #Type 2 diabetes mellitus Hospital Course: Patient is a 79-year-old male with a history of hypertension and type 2 diabetes was transferred from [facility] after he presented with right lower quadrant abdominal pain which started 3 days ago associated with nausea and vomiting. Patient underwent evaluation including CAT scan of the abdomen and pelvis which showed appendix dilated to 1.4 cm with surrounding inflammatory changes and also small perforation suspected. Patient also had a minimally elevated troponin levels at 0.06. Surgery team was consulted acute appendicitis with concerns for perforation. Patient underwent laparoscopic appendectomy with operating findings include inflamed appendix and intra-abdominal abscess along the right colon with significant inflammatory changes along the right colon and right lower quadrant. There is no intraoperative complication and patient has tolerated the surgery well and has a STALIN drain. At the time of interview, patient is complaining of mild abdominal discomfort with no nausea or vomiting. Patient denies any chest pain, shortness of breath, dizziness, headache, nausea, vomiting, fever, chills, numbness tingling or weakness in upper or lower extremity. Additionally, patient was found to have new onset A-fib during this hospitalization course and cardiology is consulted. Patient to undergo echocardiogram. Echocardiogram shows low normal LV systolic function with EF at 50%. He is tolerating his diet well and urine output is good. Bowel movements are positive. STALIN is draining yellow seroma fluid. Creatinine level has improved and is back to baseline. Wound cultures showed E. coli. Anaerobic cultures h ave finalized. Patient is hemodynamically stable and medically optimized for discharge. Patient to be discharged on Ceftin 500 mg p.o. twice daily and Flagyl 500 mg once daily for 10 days. Patient to follow-up with general surgery, cardiology and PCP after discharge. Discharge disposition: Home with home care Vital signs reviewed. General: non toxic, no distress, appears at stated age, overweight Cardiovascular: S1S2 reg, no murmur, positive dorsalis pedis pulse bilateral, no edema Lungs: CTA bilateral, no rhonchi, no rales, no accessory muscle use Abdominal: soft, nontender to palpation, no guarding, STALIN drain intact and in place and draining seroma fluid Ext: muscle strength 5 out of 5 in all 4 extremities grossly, no gross muscle atrophy, no contractures, Neuro: CN II-XI grossly intact, no gross focal neuro deficits Psych: Alert, oriented, appropriate affect Dictation was produced using [employer] dictation software. Please excuse any grammatical, word or spelling errors. Attestation: I have personally seen and examined the patient with Resident, reviewed the documentation and participated and agree with the assessment and plan as written. Papi Warren MD Patient Condition at Discharge: Good Plan - Discharge Summary Discharge Rx Participant: No New Discharge Prescriptions: New Docusate [Colace] 100 mg PO BID #10 cap HYDROcodone/APAP 5-325MG [[place] 5-325] 1 tab PO Q6HR PRN 3 Days #12 tab PRN Reason: Pain cefuroxime axetiL [Ceftin] 500 mg PO BID #20 tab metroNIDAZOLE [Flagyl] 500 mg PO TID #30 tab Continue metFORMIN HCL 500 mg PO DAILY Discontinued Valsartan/Hydrochlorothiazide [Valsartan-Hctz 160-25 mg Tab] 1 tab PO DAILY Discharge Medication List metFORMIN HCL 500 mg PO DAILY 05/17/24 [History] Docusate [Colace] 100 mg PO BID #10 cap 05/20/24 [Rx] HYDROcodone/APAP 5-325MG [[place] 5-325] 1 tab PO Q6HR PRN 3 Days #12 tab 05/20/24 [Rx] cefuroxime axetiL [Ceftin] 500 mg PO BID #20 tab 05/20/24 [Rx] metroNIDAZOLE [Flagyl] 500 mg PO TID #30 tab 05/20/24 [Rx] Follow up Appointment(s)/Referral(s): [facility], [NON-STAFF] - 1 Week Litzy Robertson NPC [Primary Care Provider] - 1 Week Danny Avila DO [Doctor of Osteopathic Medicine] - 2 Weeks Chalo Moreno MD [STAFF PHYSICIAN] - 3 Weeks Patient Instructions/Handouts: Laparoscopic Appendectomy (DC) Activity/Diet/Wound Care/Special Instructions: No driving while taking [place] No lifting over 10 pounds You may shower. No soaking or tub baths for 2 weeks Very light activity until you are reevaluated at your follow up appointment with your surgeon Keep a log of STALIN drain output and bring with you to your follow-up appointment Milk/strip drains 2-3 times a day Please follow-up with your PCP and cardiology within 1 to 2 weeks.. Discharge Disposition: HOME WITH HOME HEALTH SERVICES
[2024-05-20 17:24] LABS: Glucose,Whole Blood 169 mg/dL (70-110)
[2024-05-20] MEDS ORDERED: DOCUSATE 100 MG CAP PO SCH (21:00)
--- NOTE | 2024-05-21 14:47 | P.PN ---
Subjective Progress Note Date: 05/20/24 Principal diagnosis: Reason for follow-up is acute gangrenous appendicitis and abscess Patient is a 79-year-old male with a past medical history significant for diabetes mellitus and hypertension presented to hospital abdominal pain has been diagnosed with acute gangrenous appendicitis with periappendiceal abscess status post laparoscopic appendectomy drainage of the abscess. On today's evaluation that is 05/20/2024, patient has been afebrile, patient is breathing comfortably and is currently on room air, patient denies having any significant cough no chest pain, patient denies nausea vomiting or diarrhea and no abdominal pain. The patient white count is 8.05, creatinine is 1.3 local culture with E. coli and bacteroids Objective - Vital Signs Vital signs: Vital Signs Temp 98.4 F 05/20/24 07:38 Pulse 57 L 05/20/24 07:38 Resp 16 05/20/24 07:38 BP 128/70 05/20/24 07:38 Pulse Ox 96 05/20/24 07:38 FiO2 Intake & Output 05/19/24 05/20/24 05/20/24 18:59 06:59 18:59 Intake Total 1800 118 Output Total 15 Balance 1800 -15 118 Intake: Oral 720 118 Blood Product 1080 Output: Drainage 15 Abdomen 15 Other: # Voids 5 3 - Exam GENERAL DESCRIPTION: An elderly male lying in bed in no distress RESPIRATORY SYSTEM: Unlabored breathing , decreased breath sounds at bases HEART: S1 S2 regular rate and rhythm , ABDOMEN: Soft , distention no significant tenderness EXTREMITIES: No edema feet - Labs CBC & Chem 7: 05/20/24 05:35 05/20/24 05:35 Labs: Abnormal Lab Results - Last 24 Hours (Table) 05/19/24 05/19/24 05/19/24 Range/Units 13:11 17:35 19:51 RBC (4.40-5.60) X 10*6/uL Hgb (13.0-17.0) g/dL Hct (39.6-50.0) % Immature Gran # (0.00-0.04) X 10*3/uL Est GFR (CKD-EPI) (>=60) Glucose (70-110) mg/dL POC Glucose (mg/dL) 168 H 162 H (70-110) mg/dL Calcium (8.7-10.3) mg/dL Troponin I 0.076 H* (0.000-0.034) ng/mL 05/20/24 05/20/24 05/20/24 Range/Units 05:35 05:35 05:38 RBC 3.59 L (4.40-5.60) X 10*6/uL Hgb 10.9 L (13.0-17.0) g/dL Hct 32.7 L (39.6-50.0) % Immature Gran # 0.09 H (0.00-0.04) X 10*3/uL Est GFR (CKD-EPI) 56 L (>=60) Glucose 143 H (70-110) mg/dL POC Glucose (mg/dL) 148 H (70-110) mg/dL Calcium 8.2 L (8.7-10.3) mg/dL Troponin I (0.000-0.034) ng/mL 05/20/24 Range/Units 12:09 RBC (4.40-5.60) X 10*6/uL Hgb (13.0-17.0) g/dL Hct (39.6-50.0) % Immature Gran # (0.00-0.04) X 10*3/uL Est GFR (CKD-EPI) (>=60) Glucose (70-110) mg/dL POC Glucose (mg/dL) 190 H (70-110) mg/dL Calcium (8.7-10.3) mg/dL Troponin I (0.000-0.034) ng/mL Microbiology - Last 24 Hours (Table) 05/17/24 06:28 Anaerobic Culture - Preliminary Abdomen 05/17/24 06:28 Gram Stain - Final Abdomen Wound Culture - Final Escherichia coli Assessment and Plan (1) Acute appendicitis with appendiceal abscess Status: Acute Code(s): K35.33 - AC APPENDICITIS WITH PERF, LOC PERITONITIS, AND GANGR, WBSCS SNOMED Code(s): 075853753 (2) Penicillin allergy Status: Acute Code(s): Z88.0 - ALLERGY STATUS TO PENICILLIN SNOMED Code(s): 34912191 Plan: 1patient presented to hospital with abdominal pain has been diagnosed with acute gangrenous appendicitis with perforation status post laparoscopic appendectomy and drainage of the abscess we will need to cover for the enteric gram-negative both aerobes and anaerobes to be the likely pathogen. 2patient with a penicillin allergy on the chart however the patient mention he can take oral penicillin and seem to have done well with the Zosyn clinically doubt true penicillin allergy and should be taken of the chart 3-patient is afebrile white count normalized, local culture with E. coli and bacteroids 4patient to finish therapy with oral Ceftin and Flagyl x 10 days on discharge, discussed with the resident physician Dictation was produced using [employer] dictation software. please excuse any grammatical, word or spelling errors. Time with Patient: Less than 30
== END 2024-05-20 19:27 | disposition home health service (06) | DRG 397 ==
LOC: EC 23:53 → 5NMEDONC 05-17 04:29 → 6NMEDSUR 05-19 17:09
PROVIDERS: ADMIT Internal Medicine; ATTEND Internal Medicine
PROC: 3E1M48X Irrigation of Peritoneal Cavity using Irrigating Substance, Percutaneous Endoscopic Approach, Diagnostic (ICD-10-PCS; principal; 2024-05-17 05:30)
PROC: 0DTJ4ZZ Resection of Appendix, Percutaneous Endoscopic Approach (ICD-10-PCS; principal; 2024-05-17 05:30)
DX: K35.33 Acute appendicitis with perforation, localized peritonitis, and gangrene, with abscess (principal); I21.A1 Myocardial infarction type 2; E87.1 Hypo-osmolality and hyponatremia; N17.9 Acute kidney failure, unspecified; I48.0 Paroxysmal atrial fibrillation; E86.1 Hypovolemia; E11.65 Type 2 diabetes mellitus with hyperglycemia; B96.20 Unspecified Escherichia coli [E. coli] as the cause of diseases classified elsewhere; I10 Essential (primary) hypertension; I44.0 Atrioventricular block, first degree; Z87.891 Personal history of nicotine dependence; Z79.84 Long term (current) use of oral hypoglycemic drugs; Z79.899 Other long term (current) drug therapy; Z88.0 Allergy status to penicillin
CPT/HCPCS: 36415; 80048; 80053; 80061; 83036; 84443; 84484; 85025; 85610; 85730; 87070; 87075; 87077; 87186; 87205; 88304; 93005; 93306; 96360; 99285

== ENCOUNTER 2024-08-06 08:34 | Day surgery (SDC) | payer MEDICARE, OTHER ==
[~2024-08-06 08:34] MED LIST: ALPRAZolam 0.25 MG TAB PO PRN; ALPRAZolam 0.5 MG TAB PO PRN; NITROGLYCERIN SL TABS 0.4 MG TAB SUBLINGUAL PRN
[2024-08-06] MEDS: SODIUM CHLORIDE 0.9% 1,000 ML IV ONE (08:59)
[2024-08-06 09:12] VITALS: RESP 16; TEMP 98.4
[2024-08-06 09:22] LABS: Glucose,Whole Blood 144 mg/dL (70-110)
[2024-08-06] MEDS: SODIUM CHLORIDE 0.9% 1,000 ML in EMPTY BAG 1 BAG IV SCH (09:22)
[2024-08-06] MEDS: ASPIRIN 325 MG TAB PO STA (09:22)
[2024-08-06] MEDS: ATORVASTATIN 80 MG TAB PO STA (09:23)
[2024-08-06] MEDS: HEPARIN SODIUM,PORCINE (1 ML) 2,500 UNIT in SODIUM CHLORIDE 0.9% 250 ML IRRIGATION PRN (09:24)
[2024-08-06] MEDS: HEPARIN SODIUM,PORCINE 10,000 UNIT in SODIUM CHLORIDE 0.9% 1,000 ML IRRIGATION PRN (09:24)
[2024-08-06 09:30] LABS: Basophils # (A) 0.04 10*3/uL (0.00-0.10); Basophils % (A) 0.7 %; Eosinophils # (A) 0.25 10*3/uL (0.04-0.35); Eosinophils % (A) 4.1 %; HCT 35.8 % (39.6-50.0); HGB 12.6 g/dL (13.0-17.0); Lymphocytes # (A) 1.56 10*3/uL (0.90-5.00); Lymphocytes % (A) 25.7 %; MCH 31.4 pg (27.0-32.0); MCHC 35.2 g/dL (32.0-37.0); MCV 89.3 fL (80.0-97.0); Monocytes # (A) 0.61 10*3/uL (0.20-1.00); Monocytes % (A) 10.1 %; Neutrophils # (A) 3.59 10*3/uL (1.80-7.70); Neutrophils % (A) 59.2 %; Platelet Count 259 10*3/uL (140-440); RBC 4.01 10*6/uL (4.40-5.60); RDW 13.3 % (11.5-14.5); WBC 6.06 10*3/uL (4.50-10.00)
[2024-08-06 09:46] LABS: African American GFR (CKD) 65 (>60 ml/min/1.73 sqM); Anion Gap 10 mmol/L; Blood Urea Nitrogen 22 mg/dL (9-20); Calcium 9.3 mg/dL (8.4-10.2); Carbon Dioxide 23 mmol/L (22-30); Chloride 107 mmol/L (98-107); Glucose 140 mg/dL (74-99); Non-African American GFR(CKD) 56 (>60 ml/min/1.73 sqM); Sodium 140 mmol/L (137-145)
[2024-08-06] MEDS: fentaNYL (PF) 50 MCG/ML 2 ML AMP IVP ONE (09:52)
[2024-08-06] MEDS: MIDAZOLAM 2 MG/2 ML VIAL IVP ONE (09:52)
[2024-08-06] MEDS: IV FLUID CONTINUATION 1,000 ML IV ONE (10:00)
[2024-08-06] MEDS: LIDOCAINE 1% INJ 10MG/ML (20 ML MDV) SQ ONE (10:07)
[2024-08-06] MEDS: HEPARIN SODIUM 1,000 UN/ML (10ML VL) IVP ONE (10:20)
[2024-08-06] MEDS: IOPAMIDOL-370 100ML BTL INJ ONE (10:23)
--- NOTE | 2024-08-06 12:06 | CC ---
CARDIAC CATHETERIZATION REPORT INDICATION: Ischemic cardiomyopathy. PROCEDURE NOTE: After obtaining informed consent, left heart catheterization and coronary angiogram were performed via the right radial artery using standard Florinda catheters. The patient tolerated the procedure well without any obvious immediate complications. A TR band was used for hemostasis. Total sedation time was 18 minutes. Right radial artery access was obtained using Seldinger technique, 6-Fijian sheath was placed. Catheters and wires were floated to the ascending aorta under fluoroscopic guidance. The patient received verapamil and heparin per protocol. FINDINGS: 1. Hemodynamics: Left ventricular end-diastolic pressure is 14 to 16 mm. There is no significant gradient across the aortic valve. 2. Left ventriculogram: Left ventriculogram is not performed. 3. Angiographic data: a.Right coronary artery: Right coronary artery is a large dominant vessel that shows a focal 95% stenosis at the ostium of the large PDA and a long segment of 70% to 80% stenosis in its midportion. b.Left main coronary artery is free of significant stenosis, divides into left anterior descending coronary artery and circumflex coronary artery. LAD shows 70% to 80% ostial stenosis and the diagonal branch has diffuse disease. Circumflex coronary artery appears totally chronically occluded with severe disease involving the OM1 and OM2. CONCLUSIONS: 1. Severe three-vessel coronary artery disease. 2. Ischemic cardiomyopathy with severe LV dysfunction. PLAN: I am going to refer the patient to CT surgery for an opinion regarding surgical revascularization. If he is not a candidate for surgical revascularization, we may either do medical therapy or do angioplasty of the right coronary artery and treat rest of the vessels medically. MMODL / IJN: [id number] /
--- NOTE | 2024-08-06 12:39 | XR ---
EXAMINATION TYPE: XR chest 1V portable DATE OF EXAM: 08/06/2024 12:28 PM COMPARISON: 05/16/2024 CLINICAL INDICATION: Male, 79 years old with history of preop cabg, TECHNIQUE: XR chest 1V portable view(s) obtained. FINDINGS: The heart size is normal. The pulmonary vasculature is normal. The lungs are clear. IMPRESSION: 1. No acute pulmonary process. [facility], , 08/06/2024 12:37 PM
--- NOTE | 2024-08-06 13:13 | CT ---
EXAMINATION TYPE: CT chest wo con DATE OF EXAM: 08/06/2024 12:56 PM COMPARISON: Chest radiograph from same day. CLINICAL INDICATION: Male, 79 years old with history of eval aorta for clampability; PHH, Evaluate ao rta for clampability shortness of breath. TECHNIQUE: Multiple axial images were obtained through the chest. Sagittal and coronal reformats were created for review. MIP was performed on a separate workstation. Contrast used: mL of (None if empty) Oral contrast used: (None if empty) CT DLP: 593 mGycm, Automated exposure control for dose reduction was used. FINDINGS: LUNGS/ PLEURA: No focal consolidation, pneumothorax or pleural effusion. AIRWAY: Patent and unremarkable. HEART: Size within normal limits. Severe coronary artery calcifications present. Mild aortic valve ca lcifications. MEDIASTINUM: No gross evidence of adenopathy. Mild atherosclerosis of the aorta No evidence for aneur ysm. VASCULATURE: No aortic aneurysm. MUSCULOSKELETAL: Moderate disc degeneration changes are present throughout the thoracolumbar spine se condary to osteophyte formation and facet joint arthropathy. Bridging syndesmophytes throughout the t horacic spine along the anterior longitudinal ligament. SOFT TISSUES/LYMPH NODES: Unremarkable. LOWER NECK: No significant findings. UPPER ABDOMEN: Gallbladder surgically absent. Fatty infiltration of the pancreatic parenchyma. IMPRESSION: 1. Mild atherosclerosis of the aorta. No evidence for aneurysm. 2. Severe coronary artery atherosclerosis. 3. Mild aortic valve calcifications. 4. Diffuse etiopathic skeletal hyperostosis. [facility], , 08/06/2024 1:10 PM
--- NOTE | 2024-08-06 13:28 | US ---
EXAMINATION TYPE: US vein mapping BILAT DATE OF EXAM: 08/06/2024 1:19 PM COMPARISON: NONE CLINICAL INDICATION: Male, 79 years old with history of preop cardiac surgery; preop, Preop- Cardiac Surgery TECHNIQUE: Grayscale and color Doppler imaging of the lower extremity venous system. SIDE PERFORMED: Bilateral FINDINGS: DUPLEX FINDINGS: Greater Saphenous: Color flow seen Lesser Saphenous: Color flow seen Measurements in mm: Right Greater Saphenous: Groin: 5.8 x 4.8 mm High Thigh: 3.6 x 2.5 mm Mid Thigh: 3.4 x 2.4 mm Above Knee: 3.2 x 2.9 mm Knee: 3.2 x 2.6 mm Below Knee: 2.3 x 1.8 mm Mid Calf: 3.1 x 2.2 mm At Ankle: 3.6 x 2.6 mm Left Greater Saphenous: Groin: 6.7 x 4.6 mm High Thigh: 4.0 x 3.5 mm Mid Thigh: 4.2 x 3.7 mm Above Knee: 4.9 x 3.2 mm Knee: 4.6 x 3.6 mm Below Knee: 2.9 x 1.9 mm Mid Calf: 2.5 x 2.7 mm At Ankle: 3.1 x 2.4 mm IMPRESSION: 1. No evidence for occlusion. 2. GSV measurements listed above. 3. Performing surgeon to determine viability as conduit. [facility], , 08/06/2024 1:26 PM
--- NOTE | 2024-08-06 13:29 | US ---
EXAMINATION TYPE: Pre-Operative Non-Invasive Evaluation of the hand for Potential Radial Artery Sanjuana hoang, Measurements only DATE OF EXAM: 08/06/2024 1:19 PM CLINICAL INDICATION: Male, 79 years old with history of measurements only; preop, Preop- Cardiac Surg kim TECHNIQUE:Grayscale and color Doppler imaging of the radial artery(s) SIDE PERFORMED: Left FINDINGS: Dominant hand: Right Duplex Findings: Radial Artery: Color flow seen Measurements in mm, transverse view: Left Radial: mm Proximal: 3.0 x 2.3 mm Mid: 2.5 x 2.2 mm Distal: 2.9 x 2.6 mm origin not seen in antecubital fossa IMPRESSION: 1. No evidence for vascular occlusion. 2. Measurements as described above. [facility], , 08/06/2024 1:27 PM
[2024-08-06 15:20] LABS: Chol/HDL Ratio 5.39 Ratio; LDL Cholesterol,Calculated 151.5 mg/dL (0.0-131.0)
[2024-08-06 16:01] LABS: Basophils # (A) 0.06 10*3/uL (0.00-0.10); Eosinophils # (A) 0.21 10*3/uL (0.04-0.35); Eosinophils % (A) 3.4 %; HCT 35.4 % (39.6-50.0); HGB 12.3 g/dL (13.0-17.0); Lymphocytes % (A) 35.2 %; MCH 31.3 pg (27.0-32.0); MCHC 34.7 g/dL (32.0-37.0); MCV 90.1 fL (80.0-97.0); Mean Platelet Volume 10.8 fL (9.5-12.2); Monocytes % (A) 9.6 %; Neutrophils # (A) 3.17 10*3/uL (1.80-7.70); Neutrophils % (A) 50.6 %; Platelet Count 259 10*3/uL (140-440); RBC 3.93 10*6/uL (4.40-5.60); RDW 13.2 % (11.5-14.5); WBC 6.25 10*3/uL (4.50-10.00)
[2024-08-06 16:21] LABS: ALT 17 U/L (4-49); AST 24 U/L (17-59); African American GFR (CKD) 75 (>60 ml/min/1.73 sqM); Alkaline Phosphatase 72 U/L (38-126); Anion Gap 10 mmol/L; Blood Urea Nitrogen 22 mg/dL (9-20); Calcium 9.2 mg/dL (8.4-10.2); Carbon Dioxide 22 mmol/L (22-30); Chloride 107 mmol/L (98-107); Glucose 112 mg/dL (74-99); Non-African American GFR(CKD) 65 (>60 ml/min/1.73 sqM); Potassium 4.4 mmol/L (3.5-5.1); Prothrombin Time 11.1 sec (10.0-12.5); Sodium 139 mmol/L (137-145); Total Bilirubin 0.7 mg/dL (0.2-1.3); Total Protein 7.1 g/dL (6.3-8.2)
[2024-08-06 16:26] VITALS: BP 136/65; PULSE 67
[2024-08-06 20:47] LABS: Hepatitis A Antibody IgM Nonreactive (Nonreactive); Hepatitis B Core IgM Nonreactive (Nonreactive); Hepatitis B Surface Antigen Nonreactive (Nonreactive); Hepatitis C IgG Antibody Nonreactive (Nonreactive)
== END 2024-08-06 16:04 | disposition home or self-care (01) ==
LOC: CATHCVL 08:34
PROVIDERS: ATTEND Internal Medicine Cardiovascular Disease
DX: I25.5 Ischemic cardiomyopathy (principal); I25.10 Atherosclerotic heart disease of native coronary artery without angina pectoris; I70.0 Atherosclerosis of aorta; I48.0 Paroxysmal atrial fibrillation; I10 Essential (primary) hypertension; Z79.01 Long term (current) use of anticoagulants; Z79.899 Other long term (current) drug therapy
CPT/HCPCS: 94150; 93458; 80061; 80053; 80048; 80074; 84443; 83735; 85025; 85610; 83036; 71045; 93931; 93970; 71250; 99152; C1769; C1894; J2250; J1644 ×3; J2003; J3010; Q9967

== ENCOUNTER → 2024-09-02 | Outpatient (CLI) | payer MEDICARE, OTHER ==
--- NOTE | 2024-09-02 10:23 | US ---
EXAMINATION TYPE: US arterial LE single level DATE OF EXAM: 09/02/2024 10:13 AM COMPARISONS: None. CLINICAL INDICATION: Male, 79 years old with history of I25.10 ATHSCL HEART DISEASE OF [place] CORONAR Y ART; Pre-OP CABG TECHNIQUE: Systolic pressures were taken of the upper and lower extremity arteries with ankle-brachia l indices and toe brachial indices calculated bilaterally. History of: Previous Vascular Surgery: Pt states prev CABG CAD: Yes Vascular Ulcers: No Gangrene: No FINDINGS: Doppler Waveforms: Right: Multiphasic Left: Multiphasic Brachial Artery systolic pressure: Right: 115 Left: 115 Posterior Tibial artery systolic pressure: Right: 142 Left: 140 Dorsalis Pedis artery systolic pressure: Right: 128 Left: 120 Ankle-Brachial Indices: Right: 1.2 Left: 1.2 (Normal > 0.6; Mild 0.35 - 0.59, Moderate 0.12 - 0.34, Severe <0.12) IMPRESSION: DAMIÁN: Right: Normal 0.9 - 1.4, Recommendation: None Left: Normal 0.9 - 1.4, Recommendation: None [facility], , 09/02/2024 10:21 AM
--- NOTE | 2024-09-02 10:28 | US ---
EXAMINATION TYPE: US carotid duplex BILAT DATE OF EXAM: 09/02/2024 COMPARISON: NONE CLINICAL INDICATION: Male, 79 years old with history of I25.10 ATHSCL HEART DISEASE OF [place] CORONAR Y ART; Pre-OP CABG Additional History: .... TECHNIQUE: Grayscale, color Doppler and spectral Doppler evaluation of the bilateral carotid systems and vertebral arteries. Indirect Doppler criteria was utilized. FINDINGS: EXAM MEASUREMENTS: RIGHT: Peak Systolic Velocity (PSV) cm/sec ----- Right CCA: 130 ----- Right ICA: 188 ----- Right ECA: 294 ICA/CCA ratio: 1.4 RIGHT: End Diastole cm/sec ----- Right CCA: 25.1 ----- Right ICA: 49.2 ----- Right ECA: 24.6 LEFT: Peak Systolic Velocity (PSV) cm/sec ----- Left CCA: 144 ----- Left ICA: 129 ----- Left ECA: 209 ICA/CCA ratio: 0.9 LEFT: End Diastole cm/sec ----- Left CCA: 36.0 ----- Left ICA: 30.9 ----- Left ECA: 0.0 VERTEBRALS (direction of flow): Right Vertebral: Unable to visualize, ?occluded Left Vertebral: Antegrade Rhythm: Normal EXPORT SALES ASSISTANT NOTES: Slightly elevated velocities bilaterally Color Doppler imaging shows patency with blood flow throughout the carotid artery. Spectral waveforms are within normal limits. IMPRESSION: Right: 50-69% stenosis of the carotid bifurcation. Left: Less than 50% stenosis of the carotid bifurcation. Criteria for Assigning % of Stenosis / Diameter reduction (Estimation based on the indirect measurements of the internal carotid artery velocities (ICA PSV). 1. Normal (no stenosis)=ICA PSV < 180 cm/s: ratio < 2.0: ICA EDV<40 cm/s. 2. Less than 50% stenosis=ICA PSV < 180 cm/s: ratio < 2.0: ICA EDV<40 cm/s. 3. 50 to 69% stenosis=ICA PSV of 180 to 230 cm/s: ration 2.0 ? 4.0: ICA EDV 40-100 cm/s. PSV 125-180 cm/sec and ICA/CCA PSV Ratio ? 2.0 is also consistent with 50-69% stenosis 4. Greater than 70% stenosis to near occlusion= ICA PSV > 230 cm/s: ratio > 4.0: ICA EDV > 100 cm/s. 5. Near occlusion= ICA PSV velocities may be low or undetectable: variable ratio and ICA EDV. 6. Total occlusion=unable to detect flow. [facility], , 09/02/2024 10:26 AM
== END | disposition home or self-care (01) ==
LOC: RADUSWWP 09:35
PROVIDERS: ATTEND Surgery
DX: Z01.818 Encounter for other preprocedural examination (principal); I25.10 Atherosclerotic heart disease of native coronary artery without angina pectoris; Z95.1 Presence of aortocoronary bypass graft; I65.23 Occlusion and stenosis of bilateral carotid arteries
CPT/HCPCS: 93880; 93922

== ENCOUNTER → 2024-09-02 | Outpatient (CLI) | payer MEDICARE, OTHER ==
[2024-09-02 10:51] LABS: Bilirubin,Urine Negative (Negative); Blood,Urine Negative (Negative); Color,Urine Colorless; Glucose,Urine (UA) Negative (Negative); Ketones,Urine Negative (Negative); Leukocyte Esterase,Urine Negative (Negative); Nitrite,Urine Negative (Negative); PH, Urine 6.0 (5.0-8.0); Protein,Urine Negative (Negative); Specific Gravity,Urine 1.014 (1.001-1.035); Urobilinogen,Urine <2.0 mg/dL (<2.0)
[2024-09-02 11:03] LABS: INR 1.0 (<1.2); Partial Thromboplastin Time 25.1 sec (22.0-30.0); Prothrombin Time 10.8 sec (10.0-12.5)
[2024-09-02 16:04] LABS: HCT 37.1 % (39.6-50.0); HGB 12.5 g/dL (13.0-17.0); MCH 30.6 pg (27.0-32.0); MCHC 33.7 g/dL (32.0-37.0); MCV 90.7 FL (80.0-97.0); NRBC Per 100 WBC 0 X 10*3/uL (0.00-0.01); Platelet Count 267 X 10*3/uL (140-440); RBC 4.09 X 10*6/uL (4.40-5.60); RDW 13.1 % (11.5-14.5); WBC 6.23 X 10*3/uL (4.50-10.00)
[2024-09-02 16:16] LABS: ALT 17 U/L (10-49); AST 18 U/L (14-35); Albumin 4.2 g/dL (3.8-4.9); Albumin/Globulin Ratio 1.45 Ratio (1.60-3.17); Alkaline Phosphatase 86 U/L (41-126); Anion Gap 11.60 mmol/L (4.00-12.00); BUN/Creat Ratio 18.92 Ratio (12.00-20.00); Blood Urea Nitrogen 22.7 mg/dL (9.0-27.0); Calcium 9.3 mg/dL (8.7-10.3); Carbon Dioxide 22.4 mmol/L (21.6-31.8); Chloride 106 mmol/L (96-109); Globulin 2.9 g/dL (1.6-3.3); Glucose 154 mg/dL (70-110); Potassium 4.0 mmol/L (3.5-5.5); Sodium 140 mmol/L (135-145); Total Protein 7.1 g/dL (6.2-8.2)
--- NOTE | 2024-09-03 08:49 | CA ---
Transthoracic Echo Report Name: Warren Isaac Age: 79 Gender: M : 1945 Exam Date: 09/02/2024 12:51 Exam Location: [place] [facility] Ht (in): 74 Wt (lb): 238 Ordering Physician: Jimmy Amezcua MD Attending/Referring Phys: Jimmy Amezcua MD [employer] Stephanie Baird, FRITZ Procedure CPT: Indications: I25.10 cardiovascular disease Cardiac Hx: Technical Quality: Fair Contrast 1: Total Dose (mL): Contrast 2: Total Dose (mL): MEASUREMENTS (Male / Female) Normal Values 2D ECHO LV Diastolic Diameter PLAX 5.8 cm 4.2 - 5.9 / 3.9 - 5.3 cm LV Systolic Diameter PLAX 4.7 cm IVS Diastolic Thickness 1.1 cm 0.6 - 1.0 / 0.6 - 0.9 cm LVPW Diastolic Thickness 1.2 cm 0.6 - 1.0 / 0.6 - 0.9 cm LV Relative Wall Thickness 0.4 RV Internal Dim ED PLAX 2.5 cm LVOT Diameter 2.2 cm LA Systolic Diameter LX 5.5 cm 3.0 - 4.0 / 2.7 - 3.8 cm LV Diastolic Volume MOD BP 100.6 cm??? 67 - 155 / 56 - 104 cm??? LV Systolic Volume MOD BP 58.0 cm??? 22 - 58 / 19 - 49 cm??? LV Ejection Fraction MOD BP 42.4 % >= 55 % LV Cardiac Index MOD BP 1084.6 cm???/min???m??? LV Diastolic Volume MOD 4C 99.9 cm??? LV Systolic Volume MOD 4C 66.8 cm??? LV Ejection Fraction MOD 4C 33.2 % LV Cardiac Index MOD 4C 843.2 cm???/min???m??? LV Diastolic Length 4C 8.7 cm LV Systolic Length 4C 7.5 cm LV Diastolic Volume MOD 2C 98.2 cm??? LV Systolic Volume MOD 2C 49.5 cm??? LV Ejection Fraction MOD 2C 49.6 % LV Cardiac Index MOD 2C 1239.5 cm???/min???m??? LV Diastolic Length 2C 8.2 cm LV Systolic Length 2C 7.2 cm M-MODE Aortic Root Diameter MM 3.6 cm LA Systolic Diameter MM 4.7 cm LA Ao Ratio MM 1.3 AV Cusp Separation MM 1.6 cm DOPPLER AV Peak Velocity 164.7 cm/s AV Peak Gradient 10.8 mmHg AV Mean Velocity 117.6 cm/s AV Mean Gradient 6.1 mmHg AV Velocity Time Integral 39.6 cm LVOT Peak Velocity 95.5 cm/s LVOT Peak Gradient 3.6 mmHg LVOT Velocity Time Integral 22.4 cm LVOT Stroke Volume 87.9 cm??? LVOT Stroke Volume Index 37.6 ml/m??? LVOT Cardiac Index 2235.3 cm???/min???m??? AV Area Cont Eq vti 2.2 cm??? AV Area Cont Eq pk 2.3 cm??? Mitral E Point Velocity 69.3 cm/s Mitral A Point Velocity 74.8 cm/s Mitral E to A Ratio 0.9 MV Deceleration Time 236.8 ms MV E' Velocity 4.5 cm/s Mitral E to MV E' Ratio 15.2 TR Peak Velocity 236.4 cm/s TR Peak Gradient 22.3 mmHg Right Ventricular Systolic Press 32.3 mmHg FINDINGS Left Ventricle Left ventricular ejection fraction is estimated at 40-45%. Mild concentric left ventricular hypertrophy. Left ventricular cavity size normal. Hypokinetic septum. Moderately decreased left ventricular ejection fraction. Right Ventricle Normal right ventricular size and function. Right ventricular systolic pressure within normal limits. Right Atrium Normal right atrial size. Left Atrium Severely increased left atrial diameter. Mitral Valve Structurally normal mitral valve. Mild to moderate mitral regurgitation. No mitral stenosis. Aortic Valve Trileaflet aortic valve. No aortic valve stenosis or regurgitation. Diffuse thickening (sclerosis) of the aortic valve cusps without reduced excursion. Tricuspid Valve Structurally normal tricuspid valve. Mild tricuspid regurgitation. No tricuspid stenosis. Pulmonic Valve Structurally normal pulmonic valve. Trace pulmonic regurgitation. No pulmonic stenosis. Pericardium No pericardial or pleural effusion. Aorta Normal size aortic root and proximal ascending aorta. CONCLUSIONS Mildly impaired LV function with EF between 40 to 45% Aortic sclerosis Mild to moderate MR Previewed by: Dr. Agus Dove MD (Electronically Signed) Final Date: 03 September 2024 08:48
== END | disposition home or self-care (01) ==
LOC: RADECHMAIN 09:30
PROVIDERS: ATTEND Surgery
DX: I25.10 Atherosclerotic heart disease of native coronary artery without angina pectoris (principal); I70.0 Atherosclerosis of aorta; I07.1 Rheumatic tricuspid insufficiency
CPT/HCPCS: 80053; 81003; 85027; 85610; 85730; 86850; 86900; 86901; 86920; 87070; 87086; 93306

== ENCOUNTER 2024-09-09 05:36 | Inpatient (IN) | payer MEDICARE, OTHER ==
--- NOTE | 2024-09-02 12:19 | P.PN ---
Progress Note - Text Progress Note Date: 09/02/24 5 meter walk test completed without difficulty except for known knee pain: #1 4.98 sec #2 4.83 sec #3 5.03 sec CFS=3 STS risk score calculated, considered low risk, discussed with patient.
[~2024-09-09 05:36] MED LIST changes: +ALBUMIN HUMAN 25% 50 ML IV ONE; +ALBUMIN HUMAN 5% 500 ML IVPB ONE; -ALPRAZolam 0.25 MG TAB PO PRN; -ALPRAZolam 0.5 MG TAB PO PRN; +ASPIRIN 325 MG TAB PO ONE; +CALCIUM CHLORIDE 100 MG/ML 10 ML SYRINGE IV ONE; +CHLORHEXIDINE GLUCONATE 15 ML CUP MUCOUS MEM ONE; +CLEVIDIPINE BUTYRATE 25 MG in EMPTY BAG 1 BAG IV ONE; +DILTIAZEM 125 MG in DEXTROSE 5% IN WATER 100 ML IV ONE; +ELECTROLYTE-A SOLUTION 1,000 ML with POTASSIUM CHLORIDE 100 MEQ, MAGNESIUM SULFATE 16 M... IV ONE; +ELECTROLYTE-A SOLUTION 1,000 ML with POTASSIUM CHLORIDE 40 MEQ, MAGNESIUM SULFATE 16 ME... IV ONE; +HEPARIN SODIUM 1,000 UN/ML (10ML VL) IV ONE; +HEPARIN SODIUM,PORCINE (1 ML) 5,000 UNIT in SODIUM CHLORIDE 0.9% 500 ML 500 ML IV ONE; +INSULIN REGULAR 100 UNIT in SODIUM CHLORIDE 0.9% 100 ML IV ONE; +MAGNESIUM SULFATE 16.24 MEQ in EMPTY SYRINGE 1 SYR IV ONE; +MANNITOL 25% 12.5 GM/50 ML VIAL IV ONE; +NITROGLYCERIN SL TABS 0.4 MG TAB SUBLINGUAL ONE; -NITROGLYCERIN SL TABS 0.4 MG TAB SUBLINGUAL PRN; +NITROGLYCERIN-D5W PMX 25 MG/250 ML BTL IV ONE; +NITROGLYCERIN-D5W PMX 50 MG in DEXTROSE/WATER 1 250ML.BAG IV ONE; +NOREPINEPHRINE 8 MG in SODIUM CHLORIDE 0.9% 250 ML IV ONE; +PAPAVERINE 360 MG in SODIUM CHLORIDE 0.9% 90 ML IV ONE; +PHENYLEPHRINE 10 MG/ML VIAL IV ONE; +PHENYLEPHRINE 40 MG in SODIUM CHLORIDE 0.9% 250 ML IV ONE; +PROTAMINE SULFATE 10 MG/ML 25 ML VIAL IV ONE; +PROTAMINE SULFATE 250 MG in EMPTY BAG 1 BAG IV ONE; +SODIUM BICARB 8.4% 50 ML SYR (1 MEQ/ML) IV ONE; +SODIUM CHLORIDE 0.9% 1,000 ML IV ONE; +TRANEXAMIC ACID 2,000 MG in SODIUM CHLORIDE 0.9% 80 ML IV ONE; +ceFAZolin 1,000 MG in SODIUM CHLORIDE 0.9% IRRIGATIO 1,000 ML IRRIGATION ONE
[2024-09-09] MEDS ORDERED: MUPIROCIN 2% OINT 22 GM TUBE NASAL ONE (06:00)
[2024-09-09] MEDS: IV FLUID CONTINUATION 1,000 ML IV ONE (06:13)
[2024-09-09] MEDS: METOPROLOL TARTRATE 12.5 MG TAB PO ONE (06:40)
[2024-09-09] MEDS: ATORVASTATIN 10 MG TAB PO ONE (06:40)
[2024-09-09] MEDS: LACTATED RINGERS 1,000 ML IV ONE (06:41)
[2024-09-09 06:47] LABS: Glucose,Whole Blood 140 mg/dL (70-110)
[2024-09-09] MEDS ORDERED: PHENYLEPHRINE-0.9% NACL SYG 1,000 MCG/10 ML SYRINGE ONE (07:45)
[2024-09-09] MEDS ORDERED: ePHEDrine 50 MG/ML 1 ML VIAL ONE (07:45)
[2024-09-09] MEDS ORDERED: NITROGLYCERIN-D5W PMX 50 MG/250 ML BOTTLE IV ONE (07:45)
[2024-09-09] MEDS ORDERED: GLYCOPYRROLATE 0.2 MG/ML 2 ML VIAL ONE (07:45)
[2024-09-09] MEDS ORDERED: HEPARIN SODIUM,PORCINE 10,000 UNIT/ML 1 ML VIAL ONE (07:45)
[2024-09-09] MEDS ORDERED: WATER FOR INJECTION, STERILE 10 ML VIAL IV ONE (07:45)
[2024-09-09] MEDS ORDERED: PROPOFOL 10 MG/ML 20 ML VIAL IV ONE (07:45)
[2024-09-09] MEDS ORDERED: MIDAZOLAM HCL 10 MG/10 ML VIAL ONE (07:45)
[2024-09-09] MEDS ORDERED: VECURONIUM 10 MG VIAL IV ONE (07:45)
[2024-09-09] MEDS ORDERED: LIDOCAINE 2% SYG (PF) 100 MG/5 ML ONE (07:45)
[2024-09-09] MEDS ORDERED: fentaNYL (PF) 50 MCG/ML 50 ML VIAL ONE (07:45)
[2024-09-09] MEDS ORDERED: PROTAMINE SULFATE 10 MG/ML 25 ML VIAL IV ONE (07:45)
[2024-09-09] MEDS ORDERED: TRANEXAMIC 1,000 MG/100ML-NACL PREMIX BAG ONE (07:45)
[2024-09-09] MEDS ORDERED: ALBUMIN HUMAN 5% (25gm) 500 ML VIAL IVPB ONE (07:45)
[2024-09-09 08:42] LABS: ABG Glucose Whole Blood 136 mg/dL (75-99); ABG HCO3 24 mmol/L (21-25); ABG Hematocrit 33 % (34.0-46.0); ABG Ionized Calcium 4.8 mg/dL (4.5-5.3); ABG Lactic Acid Whole Blood 1.0 mmol/L (0.5-1.6); ABG PCO2 42 mmHg (35-45); ABG PH 7.36 (7.35-7.45); ABG PO2 242 mmHg (83-108); ABG Potassium Whole Blood 3.9 mmol/L (3.4-4.5); ABG Sodium Whole Blood 141 mmol/L (135-146); ABG TCO2 22 mmol/L (19-24); Allen Test Performed? Yes
[2024-09-09] MEDS: SODIUM CHLORIDE 0.9% 500 ML 500 ML with HEPARIN SODIUM,PORCINE (1 ML) 5,000 UNIT IV ONE (09:31)
[2024-09-09] MEDS: PAPAVERINE 360 MG in SODIUM CHLORIDE 0.9% 90 ML IV ONE (09:33)
[2024-09-09] MEDS: ceFAZolin 1,000 MG in SODIUM CHLORIDE 0.9% 1,000 ML IRRIGATION ONE (09:33)
[2024-09-09 10:08] LABS: ABG Glucose Whole Blood 143 mg/dL (75-99); ABG HCO3 23 mmol/L (21-25); ABG Hematocrit 30 % (34.0-46.0); ABG Ionized Calcium 4.8 mg/dL (4.5-5.3); ABG Lactic Acid Whole Blood 0.8 mmol/L (0.5-1.6); ABG PCO2 41 mmHg (35-45); ABG PH 7.35 (7.35-7.45); ABG PO2 258 mmHg (83-108); ABG Potassium Whole Blood 3.8 mmol/L (3.4-4.5); ABG Sodium Whole Blood 143 mmol/L (135-146); ABG TCO2 22 mmol/L (19-24); Allen Test Performed? Yes
[2024-09-09 10:47] LABS: ABG Glucose Whole Blood 138 mg/dL (75-99); ABG HCO3 22 mmol/L (21-25); ABG Hematocrit 26 % (34.0-46.0); ABG Ionized Calcium 4.3 mg/dL (4.5-5.3); ABG Lactic Acid Whole Blood 0.9 mmol/L (0.5-1.6); ABG PCO2 36 mmHg (35-45); ABG PH 7.40 (7.35-7.45); ABG Potassium Whole Blood 3.9 mmol/L (3.4-4.5); ABG Sodium Whole Blood 138 mmol/L (135-146); Allen Test Performed? Yes
[2024-09-09 11:33] LABS: ABG Glucose Whole Blood 148 mg/dL (75-99); ABG HCO3 23 mmol/L (21-25); ABG Ionized Calcium 4.4 mg/dL (4.5-5.3); ABG Lactic Acid Whole Blood 1.6 mmol/L (0.5-1.6); ABG PCO2 42 mmHg (35-45); ABG PH 7.35 (7.35-7.45); ABG Potassium Whole Blood 4.5 mmol/L (3.4-4.5); ABG Sodium Whole Blood 139 mmol/L (135-146); Allen Test Performed? Yes
[2024-09-09 12:10] LABS: ABG Glucose Whole Blood 147 mg/dL (75-99); ABG HCO3 23 mmol/L (21-25); ABG Ionized Calcium 4.4 mg/dL (4.5-5.3); ABG Lactic Acid Whole Blood 1.8 mmol/L (0.5-1.6); ABG PCO2 44 mmHg (35-45); ABG PH 7.33 (7.35-7.45); ABG PO2 397 mmHg (83-108); ABG Potassium Whole Blood 4.4 mmol/L (3.4-4.5); ABG Sodium Whole Blood 141 mmol/L (135-146); Allen Test Performed? Yes
[2024-09-09 12:13] LABS: ABG PO2 >420 mmHg (83-108)
[2024-09-09 12:14] LABS: ABG Hematocrit 23 % (34.0-46.0); ABG PO2 >420 mmHg (83-108)
[2024-09-09 12:45] LABS: Allen Test Performed? Yes
[2024-09-09 12:46] LABS: ABG Glucose Whole Blood 136 mg/dL (75-99); ABG HCO3 25 mmol/L (21-25); ABG Ionized Calcium 4.3 mg/dL (4.5-5.3); ABG Lactic Acid Whole Blood 2.0 mmol/L (0.5-1.6); ABG PCO2 43 mmHg (35-45); ABG PH 7.38 (7.35-7.45); ABG Potassium Whole Blood 4.5 mmol/L (3.4-4.5); ABG Sodium Whole Blood 142 mmol/L (135-146)
[2024-09-09 13:10] LABS: ABG Hematocrit 24 % (34.0-46.0)
[2024-09-09 13:11] LABS: ABG Hematocrit 22 % (34.0-46.0); ABG PO2 >420 mmHg (83-108)
[2024-09-09 13:56] LABS: Allen Test Performed? Yes
[2024-09-09 13:58] LABS: ABG Glucose Whole Blood 139 mg/dL (75-99); ABG HCO3 23 mmol/L (21-25); ABG Ionized Calcium 4.8 mg/dL (4.5-5.3); ABG PCO2 39 mmHg (35-45); ABG PH 7.38 (7.35-7.45); ABG PO2 206 mmHg (83-108); ABG Potassium Whole Blood 4.1 mmol/L (3.4-4.5); ABG Sodium Whole Blood 141 mmol/L (135-146); ABG TCO2 22 mmol/L (19-24)
[2024-09-09] MEDS ORDERED: METOCLOPRAMIDE 5 MG/ML 2 ML VIAL IVP PRN (14:22)
[2024-09-09] MEDS ORDERED: Phosphorus Replacement Protoco 1 EACH MISC MISCELLANE PRN (14:22)
[2024-09-09] MEDS ORDERED: hydrALAZINE HCL 20 MG/ML 1 ML VIAL IVP PRN (14:22)
[2024-09-09] MEDS ORDERED: DEXTROSE 50% SYRINGE 50 ML IVP PRN ×2 (14:22)
[2024-09-09] MEDS ORDERED: AMIODARONE 450 MG in DEXTROSE 5% IN WATER 250 ML IV SCH (14:22)
[2024-09-09] MEDS ORDERED: DEXMEDETOMIDINE/0.9% NACL(PMX) 400 MCG in EMPTY BAG 1 BAG IV SCH (14:22)
[2024-09-09] MEDS ORDERED: Potassium Replacement Protocol 1 EACH MISC MISCELLANE PRN (14:22)
[2024-09-09] MEDS ORDERED: Magnesium Replacement Protocol 1 EACH MISC MISCELLANE PRN (14:22)
[2024-09-09] MEDS ORDERED: DEXTROSE 5% IN WATER 100 ML with AMIODARONE 150 MG IV PRN (14:22)
[2024-09-09] MEDS ORDERED: BENZOCAINE/MENTHOL LOZENG 1 EACH LOZENGE MUCOUS MEM PRN (14:22)
[2024-09-09] MEDS ORDERED: CALCIUM GLUCONATE IN NACL 2 GM in SALINE 1 100ML.BAG IVPB PRN (14:22)
[2024-09-09 14:38] LABS: ABG Hematocrit 24 % (34.0-46.0); ABG Lactic Acid Whole Blood 2.6 mmol/L (0.5-1.6)
[2024-09-09 14:56] LABS: Glucose,Whole Blood 146 mg/dL (70-110)
[2024-09-09 15:12] LABS: Basophils # (A) 0.06 10*3/uL (0.00-0.10); Basophils % (A) 0.3 %; Eosinophils # (A) 0.04 10*3/uL (0.04-0.35); Eosinophils % (A) 0.2 %; HCT 26.1 % (39.6-50.0); Lymphocytes # (A) 1.22 10*3/uL (0.90-5.00); Lymphocytes % (A) 5.8 %; MCH 31.4 pg (27.0-32.0); MCHC 34.9 g/dL (32.0-37.0); MCV 90.0 fL (80.0-97.0); Monocytes # (A) 1.32 10*3/uL (0.20-1.00); Monocytes % (A) 6.3 %; Neutrophils # (A) 18.19 10*3/uL (1.80-7.70); Neutrophils % (A) 86.6 %; Platelet Count 149 10*3/uL (140-440); RBC 2.90 10*6/uL (4.40-5.60); RDW 12.8 % (11.5-14.5); WBC 20.99 10*3/uL (4.50-10.00)
[2024-09-09] MEDS: SODIUM CHLORIDE 0.9% 1,000 ML IV SCH (15:14)
[2024-09-09] MEDS: INSULIN REGULAR 100 UNIT in SODIUM CHLORIDE 0.9% 100 ML IV SCH (15:15)
[2024-09-09] MEDS: NITROGLYCERIN-D5W PMX 50 MG in DEXTROSE/WATER 1 250ML.BAG IV SCH (15:16)
[2024-09-09 15:19] LABS: HGB 9.1 g/dL (13.0-17.0)
[2024-09-09] MEDS: AMIODARONE 360 MG in DEXTROSE 5% IN WATER 200 ML IV ONE (15:20)
--- NOTE | 2024-09-09 15:21 | XR ---
EXAMINATION TYPE: XR chest 1V portable DATE OF EXAM: 09/09/2024 3:14 PM COMPARISON: 08/06/2024 CLINICAL INDICATION: Male, 79 years old with history of Post Operative Cardiac Surgery, , FINDINGS: ET and NG tubes are satisfactory. Bilateral chest tubes are present. Right IJ [place]Naeem catheter tip at the main pulmonary outflow tract. Mediastinal drain. Median sternotomy wires and post-CABG clips. No appreciable pneumothorax. Heart is enlarged. Hazy density at the left base likely related to a sma ll effusion. Mild interstitial densities are present. IMPRESSION: Mild pulmonary vascular congestion. Possible small left effusion. Post-CABG changes. [facility], Workstation: [facility], 09/09/2024 3:19 PM
[2024-09-09 15:25] LABS: ALT 15 U/L (4-49); AST 43 U/L (17-59); African American GFR (CKD) 85 (>60 ml/min/1.73 sqM); Albumin 3.2 g/dL (3.5-5.0); Alkaline Phosphatase 46 U/L (38-126); Anion Gap 9 mmol/L; Blood Urea Nitrogen 22 mg/dL (9-20); Calcium 8.6 mg/dL (8.4-10.2); Carbon Dioxide 20 mmol/L (22-30); Chloride 112 mmol/L (98-107); Glucose 124 mg/dL (74-99); Magnesium 2.4 mg/dL (1.6-2.3); Non-African American GFR(CKD) 74 (>60 ml/min/1.73 sqM); Potassium 4.1 mmol/L (3.5-5.1); Sodium 141 mmol/L (137-145); Total Protein 5.2 g/dL (6.3-8.2)
[2024-09-09 15:28] LABS: INR 1.2 (<1.2); Partial Thromboplastin Time 28.2 sec (22.0-30.0); Prothrombin Time 13.2 sec (10.0-12.5)
[2024-09-09] MEDS: ALBUMIN HUMAN 5% 250 ML in EMPTY BAG 1 BAG IVPB PRN (15:33)
--- NOTE | 2024-09-09 15:34 | P.ANPRN ---
Procedure Note - Anesthesia - Invasive Line Right Central Line Time Out Performed: Yes Date of Procedure: 09/09/24 Time of Procedure: 07:40 Location of Patient: PreOp Preparation: Sterile Prep, Sterile Dressing Central Line Location: Internal Jugular Ultrasound Used: No Purpose - Visualization and Identification of Vasculature: No Image Stored and Saved: No Narrative: Invasive line placement per sterile protocol utilized.
--- NOTE | 2024-09-09 15:35 | P.ANPRN ---
Procedure Note - Anesthesia - Invasive Line Right [place] Naeem Time Out Performed: Yes Date of Procedure: 09/09/24 Time of Procedure: 07:44 Location of Patient: PreOp Preparation: Sterile Prep, Sterile Dressing Central Line Location: Internal Jugular Ultrasound Used: No Purpose - Visualization and Identification of Vasculature: No Image Stored and Saved: No Narrative: Invasive line placement per sterile protocol utilized.
[2024-09-09] MEDS: IPRATROPIUM-ALBUTEROL 3 ML NEB INHALATION SCH (15:48)
[2024-09-09 15:50] LABS: ABG HCO3 23 mmol/L (21-25); ABG PCO2 45 mmHg (35-45); ABG PH 7.31 (7.35-7.45); ABG PO2 408 mmHg (83-108); ABG TCO2 24 mmol/L (19-24)
[2024-09-09 16:00] LABS: Glucose,Whole Blood 149 mg/dL (70-110)
[2024-09-09] MEDS: CLEVIDIPINE BUTYRATE 25 MG in EMPTY BAG 1 BAG IV SCH (16:01)
[2024-09-09] MEDS: SODIUM BICARB 8.4% 50 ML SYR (1 MEQ/ML) IV STA (16:16)
[2024-09-09] MEDS: ACETAMINOPHEN IV (For NPO) 1,000 MG in EMPTY BAG 1 BAG IVPB SCH (16:41)
[2024-09-09] MEDS: HEPARIN SODIUM,PORCINE 5,000 UNIT/ML 1 ML VIAL SQ SCH (16:41)
[2024-09-09] MEDS: MILRINONE-D5W PMX 20 MG in DEXTROSE/WATER 1 100ML.BAG IV SCH (16:43)
[2024-09-09] MEDS: NOREPINEPHRINE 8 MG in SODIUM CHLORIDE 0.9% 250 ML IV SCH (16:49)
[2024-09-09 16:54] LABS: Glucose,Whole Blood 147 mg/dL (70-110)
[2024-09-09 17:56] LABS: Glucose,Whole Blood 164 mg/dL (70-110)
[2024-09-09 18:05] LABS: Basophils # (A) 0.03 10*3/uL (0.00-0.10); Basophils % (A) 0.2 %; Eosinophils # (A) 0.00 10*3/uL (0.04-0.35); Eosinophils % (A) 0.0 %; HCT 22.5 % (39.6-50.0); HGB 7.8 g/dL (13.0-17.0); Lymphocytes # (A) 0.50 10*3/uL (0.90-5.00); Lymphocytes % (A) 3.3 %; MCH 31.2 pg (27.0-32.0); MCHC 34.7 g/dL (32.0-37.0); MCV 90.0 fL (80.0-97.0); Monocytes # (A) 1.34 10*3/uL (0.20-1.00); Monocytes % (A) 8.8 %; Neutrophils # (A) 13.21 10*3/uL (1.80-7.70); Neutrophils % (A) 87.2 %; Platelet Count 131 10*3/uL (140-440); RBC 2.50 10*6/uL (4.40-5.60); RDW 12.7 % (11.5-14.5); WBC 15.16 10*3/uL (4.50-10.00)
[2024-09-09] MEDS: CALCIUM GLUCONATE IN NACL 1 GM in SALINE 1 100ML.BAG IVPB ONE (18:22)
--- NOTE | 2024-09-09 18:49 | P.CONS ---
History of Present Illness - Reason for Consult Consult date: 09/09/24 Medical management - Chief Complaint Status post carotid artery bypass graft - History of Present Illness Patient is a 79-year-old male with a past medical history of hypertension, diabetes type 2 and history of perforated acute appendicitis status post laparoscopic appendectomy in April 2024 and paroxysmal atrial fibrillation anticoagulated with Eliquis. Patient underwent cardiac catheterization on 08/06/2024 showed severe three-vessel coronary disease and ischemic cardiomyopathy with severe LV dysfunction. CT surgery evaluated for CABG. Patient was admitted to the hospital for coronary artery bypass graft. Patient is status post surgery and is currently in the MICU. Intubated and on mechanical ventilator perioperatively. Laboratory data showed WBC 20.9 hemoglobin 9.1, platelets 149, sodium 141 potassium 4.1 chloride 112 bicarb is 20 BUN 2020 creatinine 0.98, blood sugar 146, magnesium 2.4 and albumin 3.2. ABG showed pH 7.31, [id number] and bicarb 23. Patient is currently on bicarb ventilator is controlled with respiratory rate 14, tidal volume 500, 40% FiO2 and PEEP of 8. Chest x-ray showed mild pulmonary vascular congestion possible small left effusion. Post CABG changes. Patient is currently amiodarone drip, milrinone and nitro drip. Review of Systems ROS unobtainable: due to endotracheal tube Past Medical History Past Medical History: Atrial Fibrillation, Chest Pain / Angina, Diabetes Mellitus, Hypertension, Myocardial Infarction (NH), Osteoarthritis (OA) Additional Past Medical History / Comment(s): SOB w/exertion, chest discomfort if exerting himself, ruptured appendix & had surg. in April Last Myocardial Infarction Date:: unknown History of Any Multi-Drug Resistant Organisms: None Reported Past Surgical History: Appendectomy, Cholecystectomy, Heart Catheterization Past Anesthesia/Blood Transfusion Reactions: No Reported Reaction Smoking Status: Former smoker - Past Family History Mother Family Medical History: Myocardial Infarction (NH) Additional Family Medical History / Comment(s): unknown when but lived to age 100 Medications and Allergies Home Medications Medication Instructions Recorded Confirmed Type Apixaban [Eliquis] 5 mg PO BID 08/05/24 09/09/24 History Mv-Mn/Om3/Dha/Epa/Fish/Lut/Shade 1 tab PO DAILY 08/05/24 09/09/24 History [Ocuvite Adult 50 Plus Softgel] Valsartan/Hydrochlorothiazide 1 tab PO DAILY 08/05/24 09/09/24 History [Valsartan-Hctz 160-25 mg Tab] metFORMIN HCL 500 mg PO DAILY 08/05/24 09/09/24 History Allergies Allergy/AdvReac Type Severity Reaction Status Date / Time Penicillins AdvReac Confusion Verified 09/09/24 06:24 Physical Exam Vitals: Vital Signs Temp Pulse Pulse Pulse Resp BP BP 09/09/24 18:15 75 18 118/61 09/09/24 18:00 36.1 F L 74 20 09/09/24 17:45 74 20 121/61 09/09/24 17:30 72 0 L 09/09/24 17:15 74 19 127/61 09/09/24 17:00 36 F L 80 19 122/63 09/09/24 16:45 76 18 106/54 09/09/24 16:30 75 19 114/59 09/09/24 16:15 72 20 108/57 09/09/24 16:00 35.8 F L 72 74 19 110/59 09/09/24 15:54 70 16 09/09/24 15:48 70 12 09/09/24 15:45 72 20 104/53 09/09/24 15:30 73 19 107/52 09/09/24 15:15 35.7 F L 69 18 09/09/24 15:03 09/09/24 14:23 09/09/24 06:30 66 63 18 128/73 BP Pulse Ox FiO2 09/09/24 18:15 99 40 09/09/24 18:00 99 09/09/24 17:45 99 09/09/24 17:30 100 09/09/24 17:15 100 09/09/24 17:00 100 45 09/09/24 16:45 100 09/09/24 16:30 100 09/09/24 16:15 100 09/09/24 16:00 100 45 09/09/24 15:54 40 09/09/24 15:48 09/09/24 15:45 100 09/09/24 15:30 100 09/09/24 15:15 100 100 09/09/24 15:03 100 09/09/24 14:23 100 09/09/24 06:30 126/70 97 Intake and Output 09/09/24 09/09/24 09/09/24 06:59 14:59 22:59 Intake Total 100 3 934.788 Output Total 1100 430 Balance 100 -1097 504.788 Intake: IV 100 3 176 CO/CI 140 Pressure Bag 36 Intake, IV Titration 758.788 Amount Albumin Human 5% 250 ml 500 In Empty Bag 1 bag @ 250 mls/hr IVPB Q1HR PRN Rx#: [id number] Insulin Regular 100 unit 8.788 In Sodium Chloride 0.9% 100 ml @ Per Protocol IV .Q0M ZHANE Rx#:[id number] Sodium Chloride 0.9% 1, 200 000 ml @ 50 mls/hr IV . Q20H [facility]HANE Rx#:[id number] ceFAZolin 2 gm In Sodium 50 Chloride 0.9% 50 ml @ Per Protocol IVPB ONCE ONE Rx#:[id number] Output: Chest Tube Drainage 240 Chest Tube Left Pleural/ 35 Mediastinal Chest Tube Mediastinal 200 Chest Tube Right Pleural/ 5 Mediastinal Urine 500 190 Estimated Blood Loss 600 Other: Voiding Method Indwelling Catheter ABP, PAP, CO, CI - Last 8 Hours Arterial Blood Pressure 114/46 Arterial Blood Pressure 97/49 Arterial Blood Pressure 114/49 Arterial Blood Pressure 123/48 Arterial Blood Pressure 116/49 Arterial Blood Pressure 136/59 Arterial Blood Pressure 133/54 Arterial Blood Pressure 104/43 Arterial Blood Pressure 114/48 Arterial Blood Pressure 101/45 Arterial Blood Pressure 112/49 Arterial Blood Pressure 109/47 Arterial Blood Pressure 99/47 Arterial Blood Pressure 103/50 Pulmonary Artery Pressure 32/13 Pulmonary Artery Pressure 39/21 Pulmonary Artery Pressure 40/19 Pulmonary Artery Pressure 37/18 Pulmonary Artery Pressure 39/19 Pulmonary Artery Pressure 42/21 Pulmonary Artery Pressure 42/21 Pulmonary Artery Pressure 38/18 Pulmonary Artery Pressure 39/17 Pulmonary Artery Pressure 37/16 Pulmonary Artery Pressure 37/17 Pulmonary Artery Pressure 39/18 Pulmonary Artery Pressure 35/15 Pulmonary Artery Pressure 33/19 Cardiac Output 10.3 Cardiac Output 7.9 Cardiac Output 10.3 Cardiac Output 9.1 Cardiac Output 7.4 Cardiac Output 7.4 Cardiac Output 7.4 Cardiac Output 7.4 Cardiac Output 7.3 Cardiac Index 4.4 Cardiac Index 3.4 Cardiac Index 4.4 Cardiac Index 3.9 Cardiac Index 3.2 Cardiac Index 3.2 Cardiac Index 3.2 Cardiac Index 3.2 Cardiac Index 3.1 PHYSICAL EXAMINATION: Patient is currently lying in the bed. Intubated and on mechanical ventilator.. HEENT: Atraumatic, pupils reactive. Nostrils clear. Oral cavity is moist. Neck reveals no JVD, carotid bruits, or thyromegaly. CHEST EXAMINATION: Trachea is central. Tracheal tube in place. Symmetrical expansion. Bibasilar diminished sounds. No wheezing or rhonchi. Mediastinal, chest tubes in place. CARDIAC: Normal S1, S2 with no gallops. No murmurs ABDOMEN: Soft. Bowel sounds present. No organomegaly. No abdominal bruits. Extremities: reveal no edema. No clubbing or cyanosis Neurologically patient is sedated and intubated. No gross focal deficits noted Skin: No rash or skin lesions. Psychiatric: Could not be assessed completely Musculoskeletal: No joint swelling or deformity. Results CBC & Chem 7: 09/09/24 17:55 09/09/24 14:52 Labs: Abnormal Lab Results - Last 24 Hours (Table) 09/02/24 09/09/24 09/09/24 Range/Units 09:56 06:33 08:44 WBC (4.50-10.00) 10*3/uL RBC (4.40-5.60) 10*6/uL Hgb (13.0-17.0) g/dL Hct (39.6-50.0) % Plt Count (140-440) 10*3/uL Immature Gran # (0.00-0.04) 10*3/uL Neutrophils # (1.80-7.70) 10*3/uL Lymphocytes # (0.90-5.00) 10*3/uL Monocytes # (0.20-1.00) 10*3/uL Eosinophils # (0.04-0.35) 10*3/uL PT (10.0-12.5) sec INR (<1.2) ABG pH (7.35-7.45) ABG pO2 242 H (83-108) mmHg ABG O2 Saturation 99.2 H (94-97) % ABG Hematocrit 33 L (34.0-46.0) % ABG Ionized Calcium (4.5-5.3) mg/dL ABG Glucose 136 H (75-99) mg/dL ABG Lactic Acid (0.5-1.6) mmol/L Hemoglobin 10.6 L (13.0-17.5) gm/dL Chloride (98-107) mmol/L Carbon Dioxide (22-30) mmol/L BUN (9-20) mg/dL Glucose (74-99) mg/dL POC Glucose (mg/dL) 140 H (70-110) mg/dL Magnesium (1.6-2.3) mg/dL Total Protein (6.3-8.2) g/dL Albumin (3.5-5.0) g/dL Arterial Blood Glucose 136 H (75-99) mg/dL Crossmatch See Detail 09/09/24 09/09/24 09/09/24 Range/Units 10:10 10:10 10:50 WBC (4.50-10.00) 10*3/uL RBC (4.40-5.60) 10*6/uL Hgb (13.0-17.0) g/dL Hct (39.6-50.0) % Plt Count (140-440) 10*3/uL Immature Gran # (0.00-0.04) 10*3/uL Neutrophils # (1.80-7.70) 10*3/uL Lymphocytes # (0.90-5.00) 10*3/uL Monocytes # (0.20-1.00) 10*3/uL Eosinophils # (0.04-0.35) 10*3/uL PT (10.0-12.5) sec INR (<1.2) ABG pH (7.35-7.45) ABG pO2 258 H >420 H >420 H (83-108) mmHg ABG O2 Saturation 99.3 H >99.4 H >99.4 H (94-97) % ABG Hematocrit 30 L 26 L 23 L (34.0-46.0) % ABG Ionized Calcium 4.3 L 4.4 L (4.5-5.3) mg/dL ABG Glucose 143 H 138 H 148 H (75-99) mg/dL ABG Lactic Acid (0.5-1.6) mmol/L Hemoglobin 9.9 L 8.5 L 7.6 L (13.0-17.5) gm/dL Chloride (98-107) mmol/L Carbon Dioxide (22-30) mmol/L BUN (9-20) mg/dL Glucose (74-99) mg/dL POC Glucose (mg/dL) (70-110) mg/dL Magnesium (1.6-2.3) mg/dL Total Protein (6.3-8.2) g/dL Albumin (3.5-5.0) g/dL Arterial Blood Glucose 143 H 138 H 148 H (75-99) mg/dL Crossmatch 09/09/24 09/09/24 09/09/24 Range/Units 12:13 12:47 14:00 WBC (4.50-10.00) 10*3/uL RBC (4.40-5.60) 10*6/uL Hgb (13.0-17.0) g/dL Hct (39.6-50.0) % Plt Count (140-440) 10*3/uL Immature Gran # (0.00-0.04) 10*3/uL Neutrophils # (1.80-7.70) 10*3/uL Lymphocytes # (0.90-5.00) 10*3/uL Monocytes # (0.20-1.00) 10*3/uL Eosinophils # (0.04-0.35) 10*3/uL PT (10.0-12.5) sec INR (<1.2) ABG pH 7.33 L (7.35-7.45) ABG pO2 397 H >420 H 206 H (83-108) mmHg ABG O2 Saturation >99.4 H >99.4 H 99.3 H (94-97) % ABG Hematocrit 24 L 22 L 24 L (34.0-46.0) % ABG Ionized Calcium 4.4 L 4.3 L (4.5-5.3) mg/dL ABG Glucose 147 H 136 H 139 H (75-99) mg/dL ABG Lactic Acid 1.8 H 2.0 H 2.6 H* (0.5-1.6) mmol/L Hemoglobin 7.7 L 7.3 L 7.7 L (13.0-17.5) gm/dL Chloride (98-107) mmol/L Carbon Dioxide (22-30) mmol/L BUN (9-20) mg/dL Glucose (74-99) mg/dL POC Glucose (mg/dL) (70-110) mg/dL Magnesium (1.6-2.3) mg/dL Total Protein (6.3-8.2) g/dL Albumin (3.5-5.0) g/dL Arterial Blood Glucose 147 H 136 H 139 H (75-99) mg/dL Crossmatch 09/09/24 09/09/24 09/09/24 Range/Units 14:52 14:52 14:52 WBC 20.99 H (4.50-10.00) 10*3/uL RBC 2.90 L (4.40-5.60) 10*6/uL Hgb 9.1 L D (13.0-17.0) g/dL Hct 26.1 L (39.6-50.0) % Plt Count (140-440) 10*3/uL Immature Gran # 0.16 H (0.00-0.04) 10*3/uL Neutrophils # 18.19 H (1.80-7.70) 10*3/uL Lymphocytes # (0.90-5.00) 10*3/uL Monocytes # 1.32 H (0.20-1.00) 10*3/uL Eosinophils # (0.04-0.35) 10*3/uL PT 13.2 H (10.0-12.5) sec INR 1.2 H (<1.2) ABG pH (7.35-7.45) ABG pO2 (83-108) mmHg ABG O2 Saturation (94-97) % ABG Hematocrit (34.0-46.0) % ABG Ionized Calcium (4.5-5.3) mg/dL ABG Glucose (75-99) mg/dL ABG Lactic Acid (0.5-1.6) mmol/L Hemoglobin (13.0-17.5) gm/dL Chloride 112 H (98-107) mmol/L Carbon Dioxide 20 L (22-30) mmol/L BUN 22 H (9-20) mg/dL Glucose 124 H (74-99) mg/dL POC Glucose (mg/dL) (70-110) mg/dL Magnesium 2.4 H (1.6-2.3) mg/dL Total Protein 5.2 L (6.3-8.2) g/dL Albumin 3.2 L (3.5-5.0) g/dL Arterial Blood Glucose (75-99) mg/dL Crossmatch 09/09/24 09/09/24 09/09/24 Range/Units 14:55 15:47 15:57 WBC (4.50-10.00) 10*3/uL RBC (4.40-5.60) 10*6/uL Hgb (13.0-17.0) g/dL Hct (39.6-50.0) % Plt Count (140-440) 10*3/uL Immature Gran # (0.00-0.04) 10*3/uL Neutrophils # (1.80-7.70) 10*3/uL Lymphocytes # (0.90-5.00) 10*3/uL Monocytes # (0.20-1.00) 10*3/uL Eosinophils # (0.04-0.35) 10*3/uL PT (10.0-12.5) sec INR (<1.2) ABG pH 7.31 L (7.35-7.45) ABG pO2 408 H (83-108) mmHg ABG O2 Saturation >100.0 H (94-97) % ABG Hematocrit (34.0-46.0) % ABG Ionized Calcium (4.5-5.3) mg/dL ABG Glucose (75-99) mg/dL ABG Lactic Acid (0.5-1.6) mmol/L Hemoglobin 8.7 L (13.0-17.5) gm/dL Chloride (98-107) mmol/L Carbon Dioxide (22-30) mmol/L BUN (9-20) mg/dL Glucose (74-99) mg/dL POC Glucose (mg/dL) 146 H 149 H (70-110) mg/dL Magnesium (1.6-2.3) mg/dL Total Protein (6.3-8.2) g/dL Albumin (3.5-5.0) g/dL Arterial Blood Glucose (75-99) mg/dL Crossmatch 09/09/24 09/09/24 09/09/24 Range/Units 16:53 17:54 17:55 WBC 15.16 H (4.50-10.00) 10*3/uL RBC 2.50 L (4.40-5.60) 10*6/uL Hgb 7.8 L (13.0-17.0) g/dL Hct 22.5 L (39.6-50.0) % Plt Count 131 L (140-440) 10*3/uL Immature Gran # 0.08 H (0.00-0.04) 10*3/uL Neutrophils # 13.21 H (1.80-7.70) 10*3/uL Lymphocytes # 0.50 L (0.90-5.00) 10*3/uL Monocytes # 1.34 H (0.20-1.00) 10*3/uL Eosinophils # 0.00 L (0.04-0.35) 10*3/uL PT (10.0-12.5) sec INR (<1.2) ABG pH (7.35-7.45) ABG pO2 (83-108) mmHg ABG O2 Saturation (94-97) % ABG Hematocrit (34.0-46.0) % ABG Ionized Calcium (4.5-5.3) mg/dL ABG Glucose (75-99) mg/dL ABG Lactic Acid (0.5-1.6) mmol/L Hemoglobin (13.0-17.5) gm/dL Chloride (98-107) mmol/L Carbon Dioxide (22-30) mmol/L BUN (9-20) mg/dL Glucose (74-99) mg/dL POC Glucose (mg/dL) 147 H 164 H (70-110) mg/dL Magnesium (1.6-2.3) mg/dL Total Protein (6.3-8.2) g/dL Albumin (3.5-5.0) g/dL Arterial Blood Glucose (75-99) mg/dL Crossmatch Assessment and Plan Assessment: Status post coronary artery bypass graft. Postoperative day 0 Intubation requiring mechanical ventilation perioperatively which is expected Severe three-vessel coronary artery disease. Patient underwent cardiac catheterization on 08/06/2024 Paroxysmal atrial fibrillation on anticoagulation with Eliquis at home History of perforated status status post laparoscopic appendectomy and intra- abdominal abscess in April 2024 Diabetes type 2 [id number] Hypertension GI and DVT prophylaxis with PPI and heparin subcu Plan: Patient is on mechanical ventilator currently. Continued on aspirin, Plavix, statin and metoprolol. Cardiology, CT surgery and critical care team is on board. Continue with insulin drip for better blood sugar control. Will continue to follow and further recommendations based on the clinical course. Thank you kindly for your consult. Time with Patient: Greater than 30
[2024-09-09 18:52] LABS: Glucose,Whole Blood 168 mg/dL (70-110)
[2024-09-09 18:59] LABS: ABG HCO3 23 mmol/L (21-25); ABG PCO2 38 mmHg (35-45); ABG PH 7.40 (7.35-7.45); ABG PO2 153 mmHg (83-108); ABG TCO2 24 mmol/L (19-24)
--- NOTE | 2024-09-09 19:40 | P.CNPUL ---
History of Present Illness Consult date: 09/09/24 Requesting physician: Jimmy Amezcua Reason for consult: other (ICU management) Chief complaint: Status post CABG History of present illness: This is a 79-year-old white male with history of multiple medical problems including hypertension, diabetes, type II. History of recent perforated appendix/appendicitis in April of 2024, history of paroxysmal atrial fibrillation maintained on Eliquis. On 08/06/2024, patient had cardiac catheterization which revealed three-vessel coronary artery disease with ischemic cardiomyopathy and severe LV dysfunction. Patient was seen by surgery on consultation, and he underwent today elective myocardial revascularization. His cardiothoracic evaluation was done on 08/14/2024 on outpatient basis. I was asked to see the patient today after his surgery, seen in the ICU, he is intubated mechanically ventilated, on tidal volume of 400, rate of 12 which I increased to 14, FiO2 was 100% initially cut down to 45% % and PEEP at 8 ABG, upon arrival to the ICU showed a pO2 of 408 pCO2 of 45 pH of 7.31. Chest x-ray showed no evidence of active disease, adequate placement of endotracheal tube, central lines, PA catheter, and chest tube/mediastinal tubes. As well as nasogastric tube. Patient has a cardiac index of 4.4, he is on milrinone at 0.2 mcg/kg/min patient is also on norepinephrine at 0.05 mcg/kg/min amiodarone 1 mg/min IV fluid at 50 cc/h. Patient was on propofol just prior to my evaluation during my evaluation patient was off propofol, arousable, follows simple instructions. Hence I recommended proceeding to trial of weaning with CPAP. ABG on CPAP showed a pO2 of 153 pCO2 38 pH of 7.30 and this was on 40% FiO2. Review of Systems ROS unobtainable: due to endotracheal tube Past Medical History Past Medical History: Atrial Fibrillation, Chest Pain / Angina, Diabetes Mellitus, Hypertension, Myocardial Infarction ([place]), Osteoarthritis ([place]) Additional Past Medical History / Comment(s): SOB w/exertion, chest discomfort if exerting himself, ruptured appendix & had surg. in April Last Myocardial Infarction Date:: unknown History of Any Multi-Drug Resistant Organisms: None Reported Past Surgical History: Appendectomy, Cholecystectomy, Heart Catheterization Past Anesthesia/Blood Transfusion Reactions: No Reported Reaction Smoking Status: Former smoker - Past Family History Mother Family Medical History: Myocardial Infarction ([place]) Additional Family Medical History / Comment(s): unknown when but lived to age 100 Medications and Allergies Home Medications Medication Instructions Recorded Confirmed Type Apixaban [Eliquis] 5 mg PO BID 08/05/24 09/09/24 History Mv-Mn/Om3/Dha/Epa/Fish/Lut/Shade 1 tab PO DAILY 08/05/24 09/09/24 History [Ocuvite Adult 50 Plus Softgel] Valsartan/Hydrochlorothiazide 1 tab PO DAILY 08/05/24 09/09/24 History [Valsartan-Hctz 160-25 mg Tab] metFORMIN HCL 500 mg PO DAILY 08/05/24 09/09/24 History Allergies Allergy/AdvReac Type Severity Reaction Status Date / Time Penicillins AdvReac Confusion Verified 09/09/24 06:24 Physical Exam Vitals: Vital Signs Temp Pulse Pulse Pulse Resp BP BP 09/09/24 19:00 36.2 F L 78 20 127/62 09/09/24 18:45 79 18 125/62 09/09/24 18:30 75 19 116/64 09/09/24 18:15 75 18 118/61 09/09/24 18:00 36.1 F L 74 20 09/09/24 17:45 74 20 121/61 09/09/24 17:30 72 0 L 09/09/24 17:15 74 19 127/61 09/09/24 17:00 36 F L 80 19 122/63 09/09/24 16:45 76 18 106/54 09/09/24 16:30 75 19 114/59 09/09/24 16:15 72 20 108/57 09/09/24 16:00 35.8 F L 72 74 19 110/59 09/09/24 15:54 70 16 09/09/24 15:48 70 12 09/09/24 15:45 72 20 104/53 09/09/24 15:30 73 19 107/52 09/09/24 15:15 35.7 F L 69 18 09/09/24 15:03 09/09/24 14:23 09/09/24 06:30 66 63 18 128/73 BP Pulse Ox FiO2 09/09/24 19:00 100 40 09/09/24 18:45 99 09/09/24 18:30 100 09/09/24 18:15 99 40 09/09/24 18:00 99 09/09/24 17:45 99 09/09/24 17:30 100 09/09/24 17:15 100 09/09/24 17:00 100 45 09/09/24 16:45 100 09/09/24 16:30 100 09/09/24 16:15 100 09/09/24 16:00 100 45 09/09/24 15:54 40 09/09/24 15:48 09/09/24 15:45 100 09/09/24 15:30 100 09/09/24 15:15 100 100 09/09/24 15:03 100 09/09/24 14:23 09/09/24 06:30 126/70 97 Intake and Output 09/09/24 09/09/24 09/09/24 06:59 14:59 22:59 Intake Total 100 3 1066.932 Output Total 1100 520 Balance 100 -1097 546.932 Intake: IV 100 3 205 CO/CI 160 Pressure Bag 45 Intake, IV Titration 861.932 Amount Albumin Human 5% 250 ml 500 In Empty Bag 1 bag @ 250 mls/hr IVPB Q1HR PRN Rx#: [id number] Insulin Regular 100 unit 12.424 In Sodium Chloride 0.9% 100 ml @ Per Protocol IV .Q0M ZHANE Rx#:[id number] Norepinephrine 8 mg In 14.205 Sodium Chloride 0.9% 250 ml @ 0.03 MCG/KG/MIN 6. 267 mls/hr IV .Q24H ZHANE Rx#:[id number] Sodium Chloride 0.9% 1, 250 000 ml @ 50 mls/hr IV . Q20H ZHANE Rx#:[id number] ceFAZolin 2 gm In Sodium 50 Chloride 0.9% 50 ml @ Per Protocol IVPB ONCE ONE Rx#:[id number] propofoL 1,000 mg In 35.303 Empty Bag 1 bag @ Titrate IV .Q0M ZHANE Rx#: [id number] Output: Chest Tube Drainage 300 Chest Tube Left Pleural/ 45 Mediastinal Chest Tube Mediastinal 250 Chest Tube Right Pleural/ 5 Mediastinal Urine 500 220 Estimated Blood Loss 600 Other: Voiding Method Indwelling Catheter ABP, PAP, CO, CI - Last 8 Hours Arterial Blood Pressure 123/48 Arterial Blood Pressure 115/45 Arterial Blood Pressure 114/46 Arterial Blood Pressure 97/49 Arterial Blood Pressure 114/49 Arterial Blood Pressure 123/48 Arterial Blood Pressure 116/49 Arterial Blood Pressure 136/59 Arterial Blood Pressure 133/54 Arterial Blood Pressure 104/43 Arterial Blood Pressure 114/48 Arterial Blood Pressure 101/45 Arterial Blood Pressure 112/49 Arterial Blood Pressure 109/47 Arterial Blood Pressure 99/47 Arterial Blood Pressure 103/50 Pulmonary Artery Pressure 36/13 Pulmonary Artery Pressure 34/14 Pulmonary Artery Pressure 35/13 Pulmonary Artery Pressure 32/13 Pulmonary Artery Pressure 39/21 Pulmonary Artery Pressure 40/19 Pulmonary Artery Pressure 37/18 Pulmonary Artery Pressure 39/19 Pulmonary Artery Pressure 42/21 Pulmonary Artery Pressure 42/21 Pulmonary Artery Pressure 38/18 Pulmonary Artery Pressure 39/17 Pulmonary Artery Pressure 37/16 Pulmonary Artery Pressure 37/17 Pulmonary Artery Pressure 39/18 Pulmonary Artery Pressure 35/15 Pulmonary Artery Pressure 33/19 Cardiac Output 9.2 Cardiac Output 10.3 Cardiac Output 7.9 Cardiac Output 10.3 Cardiac Output 9.1 Cardiac Output 7.4 Cardiac Output 7.4 Cardiac Output 7.4 Cardiac Output 7.4 Cardiac Output 7.3 Cardiac Index 3.9 Cardiac Index 4.4 Cardiac Index 3.4 Cardiac Index 4.4 Cardiac Index 3.9 Cardiac Index 3.2 Cardiac Index 3.2 Cardiac Index 3.2 Cardiac Index 3.2 Cardiac Index 3.1 Physical exam revealed a 79-year-old, in no distress, intubated and mechanically ventilated Head: Atraumatic, normocephalic EENT: PERRLA, EOMI, nonicteric, no neck masses, no JVD, no stridor, moist mucous membranes Chest: Symmetrical chest expansion Lungs: Diminished breath sound bilaterally no rhonchi no wheezes Cardiac: Normal S1-S2, no S3 gallop, no murmur, positive pericardial rub Abdomen: Soft nontender no megaly no rebound no guarding good bowel sounds Extremities: No clubbing edema or cyanosis, good pulses bilaterally Musculoskeletal: No deformities and no limitation range of motion Neurologic: Arousable, follows simple instructions Psychiatric: Could not fully assess but seems to have normal mental status. Skin: No rashes. Results - Laboratory Findings CBC and BMP: 09/09/24 17:55 09/09/24 14:52 ABG ABG pH 7.40 (7.35-7.45) 09/09/24 18:54 ABG pCO2 38 mmHg (35-45) 09/09/24 18:54 ABG pO2 153 mmHg (83-108) H 09/09/24 18:54 ABG O2 Saturation 99.7 % (94-97) H 09/09/24 18:54 PT/INR, D-dimer PT 13.2 sec (10.0-12.5) H 09/09/24 14:52 INR 1.2 (<1.2) H 09/09/24 14:52 Abnormal lab findings: Abnormal Labs 09/02/24 09/09/24 09/09/24 09:56 06:33 08:44 WBC RBC Hgb Hct Plt Count Immature Gran # Neutrophils # Lymphocytes # Monocytes # Eosinophils # PT INR ABG pH ABG pO2 242 H ABG O2 Saturation 99.2 H ABG Hematocrit 33 L ABG Ionized Calcium ABG Glucose 136 H ABG Lactic Acid Hemoglobin 10.6 L Chloride Carbon Dioxide BUN Glucose POC Glucose (mg/dL) 140 H Magnesium Total Protein Albumin Arterial Blood Glucose 136 H Crossmatch See Detail 09/09/24 09/09/24 09/09/24 10:10 10:10 10:50 WBC RBC Hgb Hct Plt Count Immature Gran # Neutrophils # Lymphocytes # Monocytes # Eosinophils # PT INR ABG pH ABG pO2 258 H >420 H >420 H ABG O2 Saturation 99.3 H >99.4 H >99.4 H ABG Hematocrit 30 L 26 L 23 L ABG Ionized Calcium 4.3 L 4.4 L ABG Glucose 143 H 138 H 148 H ABG Lactic Acid Hemoglobin 9.9 L 8.5 L 7.6 L Chloride Carbon Dioxide BUN Glucose POC Glucose (mg/dL) Magnesium Total Protein Albumin Arterial Blood Glucose 143 H 138 H 148 H Crossmatch 09/09/24 09/09/24 09/09/24 12:13 12:47 14:00 WBC RBC Hgb Hct Plt Count Immature Gran # Neutrophils # Lymphocytes # Monocytes # Eosinophils # PT INR ABG pH 7.33 L ABG pO2 397 H >420 H 206 H ABG O2 Saturation >99.4 H >99.4 H 99.3 H ABG Hematocrit 24 L 22 L 24 L ABG Ionized Calcium 4.4 L 4.3 L ABG Glucose 147 H 136 H 139 H ABG Lactic Acid 1.8 H 2.0 H 2.6 H* Hemoglobin 7.7 L 7.3 L 7.7 L Chloride Carbon Dioxide BUN Glucose POC Glucose (mg/dL) Magnesium Total Protein Albumin Arterial Blood Glucose 147 H 136 H 139 H Crossmatch 09/09/24 09/09/24 09/09/24 14:52 14:52 14:52 WBC 20.99 H RBC 2.90 L Hgb 9.1 L D Hct 26.1 L Plt Count Immature Gran # 0.16 H Neutrophils # 18.19 H Lymphocytes # Monocytes # 1.32 H Eosinophils # PT 13.2 H INR 1.2 H ABG pH ABG pO2 ABG O2 Saturation ABG Hematocrit ABG Ionized Calcium ABG Glucose ABG Lactic Acid Hemoglobin Chloride 112 H Carbon Dioxide 20 L BUN 22 H Glucose 124 H POC Glucose (mg/dL) Magnesium 2.4 H Total Protein 5.2 L Albumin 3.2 L Arterial Blood Glucose Crossmatch 09/09/24 09/09/24 09/09/24 14:55 15:47 15:57 WBC RBC Hgb Hct Plt Count Immature Gran # Neutrophils # Lymphocytes # Monocytes # Eosinophils # PT INR ABG pH 7.31 L ABG pO2 408 H ABG O2 Saturation >100.0 H ABG Hematocrit ABG Ionized Calcium ABG Glucose ABG Lactic Acid Hemoglobin 8.7 L Chloride Carbon Dioxide BUN Glucose POC Glucose (mg/dL) 146 H 149 H Magnesium Total Protein Albumin Arterial Blood Glucose Crossmatch 09/09/24 09/09/24 09/09/24 16:53 17:54 17:55 WBC 15.16 H RBC 2.50 L Hgb 7.8 L Hct 22.5 L Plt Count 131 L Immature Gran # 0.08 H Neutrophils # 13.21 H Lymphocytes # 0.50 L Monocytes # 1.34 H Eosinophils # 0.00 L PT INR ABG pH ABG pO2 ABG O2 Saturation ABG Hematocrit ABG Ionized Calcium ABG Glucose ABG Lactic Acid Hemoglobin Chloride Carbon Dioxide BUN Glucose POC Glucose (mg/dL) 147 H 164 H Magnesium Total Protein Albumin Arterial Blood Glucose Crossmatch 09/09/24 09/09/24 18:50 18:54 WBC RBC Hgb Hct Plt Count Immature Gran # Neutrophils # Lymphocytes # Monocytes # Eosinophils # PT INR ABG pH ABG pO2 153 H ABG O2 Saturation 99.7 H ABG Hematocrit ABG Ionized Calcium ABG Glucose ABG Lactic Acid Hemoglobin 8.4 L Chloride Carbon Dioxide BUN Glucose POC Glucose (mg/dL) 168 H Magnesium Total Protein Albumin Arterial Blood Glucose Crossmatch - Diagnostic Findings Chest x-ray: image reviewed (As noted in HPI) Assessment and Plan Assessment: Impression: Status post CABG postoperative day #0 Triple-vessel coronary artery disease based on cardiac catheterization dated 08/06/2024 History of paroxysmal atrial fibrillation Benign essential hypertension Type 2 diabetes Recommendation: Continue ventilatory support however proceed to weaning mode of mechanical ventilation and will address accordingly Continue hemodynamic support and titrate norepinephrine accordingly Continue medical therapy including aspirin Plavix statin metoprolol Continue close monitoring and control of blood sugars GI and DVT prophylaxis Will continue to follow Time with Patient: Greater than 30
[2024-09-09 19:57] LABS: Glucose,Whole Blood 180 mg/dL (70-110)
[2024-09-09] MEDS: IPRATROPIUM-ALBUTEROL 3 ML NEB INHALATION PRN (19:58)
[2024-09-09] MEDS: AMIODARONE 450 MG in DEXTROSE 5% IN WATER 250 ML IV SCH (20:26)
[2024-09-09 21:00] LABS: Glucose,Whole Blood 178 mg/dL (70-110)
--- NOTE | 2024-09-09 21:00 | OP ---
OPERATIVE REPORT DATE OF SERVICE : 09/09/2024 PREOPERATIVE DIAGNOSES: 1. Coronary artery disease. 2. Paroxysmal atrial fibrillation. POSTOPERATIVE DIAGNOSES: 1. Coronary artery disease. 2. Paroxysmal atrial fibrillation. OPERATION: 1. Coronary artery bypass grafting x4 vessels (left internal mammary artery to left anterior descending artery, saphenous vein graft to ramus to diagonal artery, saphenous vein graft to obtuse marginal artery, saphenous vein graft to posterior descending artery). 2. Endoscopic harvest bilateral greater saphenous vein. 3. Ligation of left atrial appendage using 35 mm atrial clip. 4. Transesophageal echocardiogram. 5. Aortic ultrasound. 6. Graft flow measurements using [employer] system. 7. Maze procedure. BELLOWS ASSEMBLER: 1. Drake Stevens PA-C. 2. Eugene Giron NP. ANESTHESIA: General. SPECIMEN: None. COMPLICATION: None. INDICATION: The patient is a 79-year-old male with a past medical history significant for hypertension, diabetes mellitus, myocardial infarction; and atrial fibrillation, on Eliquis, who was admitted to the hospital with a ruptured appendix. During the admission, he was noted to be in new onset atrial fibrillation. 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 Stress test was found to be abnormal. Cardiac catheterization revealed multivessel coronary artery disease. A coronary artery bypass was recommended. The risks, benefits, and alternatives of this procedure were discussed with the patient. All of his questions were answered. Consent was obtained. FINDINGS: The left internal mammary artery was good, brisk flow. The saphenous vein was good conduit. The LAD was heavily diseased and had diffuse calcific plaque. It measured 1.3 mm. The high diagonal artery had heavy diffuse disease and measured 1.0 mm. The obtuse marginal artery had diffuse calcific disease and measured 1.0 mm. The posterior descending artery measured 1.3 mm. NARRATIVE: The patient was taken to the operating room and placed supine on the operating table. After the induction of general anesthesia, he was prepped and draped in the usual sterile fashion. Preoperative transesophageal echocardiogram confirmed an ejection fraction of about 40%-45% with mild central mitral regurgitation. There was no clot noted within the left atrial appendage. A median sternotomy was performed. The left internal mammary artery was harvested in a standard fashion taking care to clip all branches. Intravenous heparin was administered and the vessel was transected distally revealing brisk flow. Simultaneously, greater saphenous vein was harvested from the lower extremity using endoscopic technique. Additional vein was harvested from the left thigh, and again, using endoscopic technique, all branches were tied. A pericardial cradle was created. The ascending aorta was palpated. There was no significant calcific plaque noted. Epiaortic ultrasound was then performed on the ascending aorta. Again, no calcific plaque or thrombosis was identified. An arterial cannula was placed in the distal ascending aorta. A venous cannula was placed through the right atrial appendage directed into the IVC. Both antegrade and retrograde catheters were placed as well. The patient was then placed on cardiopulmonary bypass with good decompression of the heart. The aortic cross-clamp was applied. Cold blood potassium cardioplegia was delivered in the antegrade and retrograde fashion to achieve arrest of the heart. Of note, cardioplegia was delivered every 15 to 20 minutes with the patient remained under crossclamp. I began by performing the Maze procedure. The SVC was dissected free posteriorly. The space between the inferior vena cava and right inferior pulmonary vein was also dissected free. Dissection was carried out around the right-sided pulmonary veins. Using an AtriCure wand. RFA ablation was performed on the right atrial cuff multiple times with 3 separate brown lesions. In a similar fashion, the left-sided pulmonary veins were encircled and dissected free. Using an AtriCure wand, the left atrial cuff was burned in a similar fashion. The cryoprobe was then passed behind SVC to the transverse sinus to connect both superior pulmonary vein burn allen. Cryoablation was performed for 2 minutes. In a similar fashion, cryoprobe was passed through the oblique sinus and connected to the inferior pulmonary vein burn allen. Again, cryoablation was performed for 2 minutes. This completed the box lesion. A 35 mm atropine was then placed across the base of the left atrial appendage to ensure ligation. Attention was then turned to the inferior wall. The posterior descending artery was identified, dissected free. A small tear was created. This vessel accepted a 1.7 probe. Using greater saphenous vein in a reverse fashion, an end-to-side anastomosis was created. This was performed using a running 7-0 Prolene suture. The graft was hemostatic and had great flow. Next, attention was turned to the lateral wall. The circumflex artery was completely occluded on the calf. There were 2 faint OM branches noted. The larger branch was dissected free. A small tear was created. This vessel accepted a 1.0 probe. It contained diffuse calcific disease. Using greater saphenous vein in a reverse fashion, end-to-side anastomosis created. This was performed using a running 7-0 Prolene suture. The graft was hemostatic and had good flow. Next, the high diagonal artery was identified and dissected free. It contained diffuse calcific disease throughout its course. A soft spot for bypass was noted distally. Using greater saphenous vein in a reverse fashion, end-to-side anastomosis created. This was performed using 7-0 Prolene suture. The graft was hemostatic and had good flow. Finally, attention was turned to the anterior wall. The left anterior descending artery was identified and dissected free. It contained palpable calcific plaque throughout its course. A soft spot of bypass was noted in its mid to distal region. A small tear was created. This vessel contained posterior plaque. Using the left internal mammary artery, an end-to-side anastomosis was created. This was performed using running 8-0 Prolene suture. The anastomosis was hemostatic. The paired pedicle was intact on the anterior surface of the heart. Attention was then turned to the proximal anastomoses. These were performed in end-to- side fashion using running 6-0 Prolene suture. 1 L of warm blood was delivered in retrograde fashion. Both lidocaine magnesium were administered as well. The cross- clamp was removed. The vein grafts were de-aired in the standard fashion. Distal anastomoses were inspected and appeared to be hemostatic. Temporary atrial ventricular pacing wires were placed and brought to the skin. The patient was then weaned off cardiopulmonary bypass. He with the addition of low-dose Levophed. Followup transesophageal echocardiogram confirmed good wall motion, revealed good movement of all LV elizabeth. There was no change in valvular pathology. Graft flow measurements were performed using the [employer] system. The grafts appeared to be patent. Protamine was administered. There were no adverse reactions. The remaining cannulas were then removed. The mediastinum was then copiously irrigated with warm saline solution. Again, all surgical sites were inspected and appeared to be hemostatic. Soft tissue was reapproximated of the ascending aorta as well as left ventricle of the heart. Chest tubes were placed in the left pleural space and mediastinum. A Uri drain was placed and directed in the right pleural space. These were all secured to the skin using sutures. The sternum was then reapproximated using the Riddle cable system. The cables were placed in a [id number] fashion. At the completion of the closure of the sternum, the sternum was well aligned. The remainder of the wound was closed in layers. Sterile dressing was applied. The patient appeared to tolerate the procedure well. There were no immediate complications. He returned to the ICU in critical, but in stable condition. He did not receive any blood products. MMODL / IJN: [id number] /
[2024-09-09 21:04] LABS: Basophils # (A) 0.02 10*3/uL (0.00-0.10); Basophils % (A) 0.2 %; Eosinophils # (A) 0.00 10*3/uL (0.04-0.35); Eosinophils % (A) 0.0 %; HCT 22.5 % (39.6-50.0); HGB 7.8 g/dL (13.0-17.0); Lymphocytes # (A) 0.36 10*3/uL (0.90-5.00); Lymphocytes % (A) 2.8 %; MCH 31.0 pg (27.0-32.0); MCHC 34.7 g/dL (32.0-37.0); MCV 89.3 fL (80.0-97.0); Monocytes # (A) 0.90 10*3/uL (0.20-1.00); Monocytes % (A) 7.1 %; Neutrophils # (A) 11.32 10*3/uL (1.80-7.70); Neutrophils % (A) 89.3 %; Platelet Count 118 10*3/uL (140-440); RBC 2.52 10*6/uL (4.40-5.60); RDW 12.7 % (11.5-14.5); WBC 12.68 10*3/uL (4.50-10.00)
[2024-09-09 22:01] LABS: Glucose,Whole Blood 161 mg/dL (70-110)
[2024-09-09 23:01] LABS: Glucose,Whole Blood 150 mg/dL (70-110)
[2024-09-09 23:58] LABS: Glucose,Whole Blood 148 mg/dL (70-110)
[2024-09-10 01:09] LABS: Glucose,Whole Blood 136 mg/dL (70-110)
[2024-09-10 02:07] LABS: Glucose,Whole Blood 125 mg/dL (70-110)
[2024-09-10] MEDS ORDERED: ACETAMINOPHEN TAB 325 MG TAB PO PRN (02:07)
[2024-09-10 03:06] LABS: Glucose,Whole Blood 118 mg/dL (70-110)
[2024-09-10 04:07] LABS: Glucose,Whole Blood 110 mg/dL (70-110)
[2024-09-10 04:13] LABS: Basophils # (A) 0.02 10*3/uL (0.00-0.10); Basophils % (A) 0.2 %; Eosinophils # (A) 0.00 10*3/uL (0.04-0.35); Eosinophils % (A) 0.0 %; HCT 21.2 % (39.6-50.0); HGB 7.5 g/dL (13.0-17.0); Immature Platelet Fraction 4.8 % (1.1-6.1); Lymphocytes # (A) 0.53 10*3/uL (0.90-5.00); Lymphocytes % (A) 4.4 %; MCH 32.1 pg (27.0-32.0); MCHC 35.4 g/dL (32.0-37.0); MCV 90.6 fL (80.0-97.0); Monocytes # (A) 1.01 10*3/uL (0.20-1.00); Monocytes % (A) 8.3 %; Neutrophils # (A) 10.49 10*3/uL (1.80-7.70); Neutrophils % (A) 86.6 %; Platelet Count 109 10*3/uL (140-440); RBC 2.34 10*6/uL (4.40-5.60); RDW 12.8 % (11.5-14.5); WBC 12.11 10*3/uL (4.50-10.00)
[2024-09-10] MEDS ORDERED: PHYTONADIONE 10 MG in SODIUM CHLORIDE 0.9% 50 ML IVPB STA (04:48)
[2024-09-10 04:57] LABS: ALT 13 U/L (4-49); AST 51 U/L (17-59); African American GFR (CKD) 79 (>60 ml/min/1.73 sqM); Albumin 3.3 g/dL (3.5-5.0); Alkaline Phosphatase 38 U/L (38-126); Anion Gap 8 mmol/L; Blood Urea Nitrogen 25 mg/dL (9-20); Calcium 8.9 mg/dL (8.4-10.2); Carbon Dioxide 24 mmol/L (22-30); Chloride 108 mmol/L (98-107); Glucose 97 mg/dL (74-99); Magnesium 2.3 mg/dL (1.6-2.3); Non-African American GFR(CKD) 68 (>60 ml/min/1.73 sqM); Potassium 3.7 mmol/L (3.5-5.1); Sodium 140 mmol/L (137-145); Total Protein 5.0 g/dL (6.3-8.2)
[2024-09-10 04:59] LABS: Glucose,Whole Blood 110 mg/dL (70-110)
[2024-09-10] MEDS: POTASSIUM BICARBONATE/CIT AC 20 MEQ TABLET.EFF NG-TUBE SCH (05:12)
[2024-09-10 06:18] LABS: Glucose,Whole Blood 166 mg/dL (70-110)
[2024-09-10 07:08] LABS: Glucose,Whole Blood 173 mg/dL (70-110)
[2024-09-10] MEDS: KETOROLAC 15 MG/ML 1 ML VIAL IVP STA (07:59)
[2024-09-10 08:12] LABS: Glucose,Whole Blood 165 mg/dL (70-110)
--- NOTE | 2024-09-10 08:23 | XR ---
EXAMINATION TYPE: XR chest 1V portable DATE OF EXAM: 09/10/2024 5:20 AM COMPARISON: 09/09/2024 CLINICAL INDICATION: Male, 79 years old with history of Post Operative Cardiac Surgery, , FINDINGS: Right IJ [place]-Naeem catheter tip in the main pulmonary outflow tract. Heart remains moderately enlarge d. Diffuse interstitial density persists but with slight improvement. Patchy bilateral lower lung opa cities persist, slightly worsened. Median sternotomy wires and post-CABG clips. Mediastinal drain in place. Bilateral chest tubes in place. No appreciable pneumothorax. Interval extubation and removal o f NG tube. IMPRESSION: 1. Pulmonary vascular congestion shows some improvement though patchy bilateral lower lung atelectasi s has increased after extubation. 3. Additional post-CABG changes as above. [facility], , 09/10/2024 8:21 AM
[2024-09-10] MEDS: PANTOPRAZOLE 40 MG/10 ML VIAL IVP SCH (08:25)
[2024-09-10] MEDS: METOPROLOL TARTRATE 12.5 MG TAB PO SCH (08:27)
[2024-09-10] MEDS: ASPIRIN 325 MG TAB PO SCH (08:28)
[2024-09-10] MEDS: CLOPIDOGREL 75 MG TAB PO SCH (08:28)
[2024-09-10] MEDS: AMIODARONE 200 MG TAB PO SCH (08:54)
[2024-09-10] MEDS: ATORVASTATIN 40 MG TAB PO SCH (08:54)
[2024-09-10] MEDS: IPRATROPIUM-ALBUTEROL 3 ML NEB INHALATION SCH (09:13)
--- NOTE | 2024-09-10 09:26 | P.PN ---
Subjective Progress Note Date: 09/10/24 Principal diagnosis: Coronary artery disease, and paroxysmal atrial fibrillation on Eliquis as an outpatient, although he was noncompliant with taking Eliquis and has not taken it for 3 or 4 weeks prior to surgery. Past medical history significant for hypertension, diabetes mellitus type II, questionable history of myocardial infarction, history of perforated acute appendicitis status post laparoscopic appendectomy in April 2024. POD #1 coronary artery bypass grafting x 4 vessels, left internal mammary artery to the left anterior sending coronary artery, saphenous vein graft to the ramus coronary artery, saphenous vein graft to the obtuse marginal coronary artery, and saphenous vein graft to the posterior descending coronary artery. Endoscopic harvest of bilateral greater saphenous vein, ligation left atrial appendage using a 35mm atrial clip, intraoperative transesophageal echocardiogram completed by anesthesia, epiaortic ultrasound, graft flow measurements using the [employer] system, and Maze procedure. Postoperative acute blood loss anemia, expected given hemodilution and cardiopulmonary bypass. The patient was seen and examined in follow-up today September 10, 2024 at his bedside in the intensive care unit. He was successfully extubated at 7:12 PM last evening, is currently on 2 L nasal cannula with oxygen saturations 98% and is achieving 750 mL on his incentive spirometry with encouragement. He is awake, alert and oriented x 3. He is in no acute distress. He denies any complaints of shortness of breath at this time, although he was complaining of some surgical type pain to his chest tube insertion sites. He currently rates his pain 8 out of 10 on the pain scale. Right IJ cordis and [place]-Naeem catheter remains in place with current hemodynamic showing a cardiac output of 7.0, cardiac index 3.0, PA pressures 28/8, SVR 685 and CVP 5 mmHg. He remains on Primacor drip at 0.1 mcg/kg/min. Amiodarone drip is infusing per protocol due to the patient's history of atrial fibrillation and [id number] score of 4. No atrial fibrillation reported at this time. Bedside telemetry is showing normal sinus rhythm heart rate 72 bpm. Mediastinal left and right pleural chest tubes remain in place to low continuous wall suction -20 cm H2O. No airleak present to his right pleural chest tube, although there is a tiny airleak to his mediastinal and left pleural chest tubes. Chest tubes are draining thin serosanguineous drainage. Left pleural chest tube drain 120 mL output since surgery. Mediastinal chest tube drained 330 mL output in the last 8 hours and 700 mL since surgery. Right pleural chest tube drained 80 mL output since surgery. Chest x-ray and laboratory results were reviewed. He is currently sitting up to the bedside chair tolerating his breakfast. Objective - Vital Signs Vital signs: Vital Signs Temp 97.7 F 09/10/24 04:00 Pulse 73 09/10/24 07:00 Resp 15 09/10/24 07:00 BP 130/60 09/10/24 07:00 Pulse Ox 97 09/10/24 07:00 FiO2 40 09/09/24 19:00 Intake & Output 09/09/24 09/10/24 09/10/24 18:59 06:59 18:59 Intake Total 1055.727 269.473 16.003 Output Total 1620 1040 30 Balance -564.273 -770.527 -13.997 Weight 109.6 kg Intake: IV 208 149 9 CO/CI 160 50 Pressure Bag 45 99 9 Intake, IV Titration 847.727 120.473 7.003 Amount Albumin Human 5% 250 ml 500 In Empty Bag 1 bag @ 250 mls/hr IVPB Q1HR PRN Rx#: [id number] Insulin Regular 100 unit 12.424 63.883 7.003 In Sodium Chloride 0.9% 100 ml @ Per Protocol IV .Q0M ZHANE Rx#:[id number] Milrinone-D5w Pmx 20 mg 40.157 In Dextrose/Water 1 100ml .bag @ 0.2 MCG/KG/MIN 6. 477 mls/hr IV .[id number] [facility]HANE Rx#:[id number] Norepinephrine 8 mg In 16.433 Sodium Chloride 0.9% 250 ml @ 0.03 MCG/KG/MIN 6. 267 mls/hr IV .Q24H [facility]ANE Rx#:[id number] Sodium Chloride 0.9% 1, 250 000 ml @ 50 mls/hr IV . Q20H [facility]ANE Rx#:[id number] ceFAZolin 2 gm In Sodium 50 Chloride 0.9% 50 ml @ Per Protocol IVPB ONCE ONE Rx#:[id number] propofoL 1,000 mg In 35.303 Empty Bag 1 bag @ Titrate IV .Q0M ZHANE Rx#: [id number] Output: Chest Tube Drainage 300 585 0 Chest Tube Left Pleural/ 45 125 0 Mediastinal Chest Tube Mediastinal 250 380 0 Chest Tube Right Pleural/ 5 80 0 Mediastinal Urine 720 455 30 Estimated Blood Loss 600 Other: Voiding Method Indwelling Catheter Indwelling Catheter ABP, PAP, CO, CI - Last Documented Arterial Blood Pressure 113/40 Pulmonary Artery Pressure 32/11 Cardiac Output 7.2 Cardiac Index 3.1 - Exam CONSTITUTIONAL: Sitting up to the bedside chair in the intensive care unit, appears comfortable, cooperative, no apparent acute distress. HEENT: Neck is supple, no JVD, no lymphadenopathy. Right IJ Cordis and [place]- Naeem catheter in place and functioning. RESPIRATORY: Lungs sounds essentially clear throughout, diminished to his bilateral bases. Respirations are symmetrical and nonlabored. Currently on 2 L nasal cannula with oxygen saturations 98%. Able to achieve 500 mL on his incentive spirometry. Strong cough. CARDIOVASCULAR: Regular rhythm and rate. S1 and S2 present, negative for S3, gallop or murmur. Pericardial rub present. Bedside telemetry showing normal sinus rhythm heart rate 72 bpm. Sternum is stable. Palpable peripheral pulses bilaterally. No calf pain or tenderness noted. Heart hugger in place with patient demonstrating appropriate use. Knee-high SUZIE hose and sequential compression devices in place to his bilateral lower extremities. GASTROINTESTINAL: Abdomen soft, nontender, nondistended. Hypoactive bowel sounds present 4 quadrants. Tolerating diet. Denies passing flatus. No guarding or rigidity. GENITOURINARY: Rosales present draining clear, yellow urine. Urine output 310 mL in the last 8 hours. INTEGUMENTARY: Skin is warm and dry with no evidence of clubbing or cyanosis. Midline sternal incision clean dry and well approximated, covered with dry intact dressing. Bilateral lower extremity EVH sites well approximated without redness or drainage. NEUROLOGIC: Cranial nerves II through XII intact. No focal deficits. MUSKULOSKELETAL: Able to move all extremities, strength equal bilaterally, generalized weakness. PSYCHIATRIC: Alert and oriented to person place and time, appropriate affect, intact judgment and insight. INVASIVE LINES AND TUBES: Mediastinal/left and right pleural chest tubes present and connected to low continuous wall suction, no air leaks present. Mediastinal tube with 330 mL of thin serosanguineous drainage overnight, 700 mL output in the last 24 hours. Left pleural chest tube with 120 mL output in the last 24 hours. Right pleural chest tube draining thin serosanguineous drainage with 80 mL output in the last 24 hours. Atrial and ventricular epicardial pacemaker wires present, connected to generator, VVI backup rate 50 bpm. Right internal jugular [place]/Cordis, right radial arterial line present. Last CO 7.0, CI 3.0, SVR 685, PA 28/8 and CVP 5 mmHg. - Allied health notes Allied health notes reviewed: nursing - Labs CBC & Chem 7: 09/10/24 03:36 09/10/24 03:36 Labs: Abnormal Lab Results - Last 24 Hours (Table) 09/02/24 09/09/24 09/09/24 Range/Units 09:56 08:44 10:10 WBC (4.50-10.00) 10*3/uL RBC (4.40-5.60) 10*6/uL Hgb (13.0-17.0) g/dL Hct (39.6-50.0) % MCH (27.0-32.0) pg Plt Count (140-440) 10*3/uL Immature Gran # (0.00-0.04) 10*3/uL Neutrophils # (1.80-7.70) 10*3/uL Lymphocytes # (0.90-5.00) 10*3/uL Monocytes # (0.20-1.00) 10*3/uL Eosinophils # (0.04-0.35) 10*3/uL PT (10.0-12.5) sec INR (<1.2) ABG pH (7.35-7.45) ABG pO2 242 H 258 H (83-108) mmHg ABG O2 Saturation 99.2 H 99.3 H (94-97) % ABG Hematocrit 33 L 30 L (34.0-46.0) % ABG Ionized Calcium (4.5-5.3) mg/dL ABG Glucose 136 H 143 H (75-99) mg/dL ABG Lactic Acid (0.5-1.6) mmol/L Hemoglobin 10.6 L 9.9 L (13.0-17.5) gm/dL Chloride (98-107) mmol/L Carbon Dioxide (22-30) mmol/L BUN (9-20) mg/dL Glucose (74-99) mg/dL POC Glucose (mg/dL) (70-110) mg/dL Magnesium (1.6-2.3) mg/dL Total Protein (6.3-8.2) g/dL Albumin (3.5-5.0) g/dL Arterial Blood Glucose 136 H 143 H (75-99) mg/dL Crossmatch See Detail 09/09/24 09/09/24 09/09/24 Range/Units 10:10 10:50 12:13 WBC (4.50-10.00) 10*3/uL RBC (4.40-5.60) 10*6/uL Hgb (13.0-17.0) g/dL Hct (39.6-50.0) % MCH (27.0-32.0) pg Plt Count (140-440) 10*3/uL Immature Gran # (0.00-0.04) 10*3/uL Neutrophils # (1.80-7.70) 10*3/uL Lymphocytes # (0.90-5.00) 10*3/uL Monocytes # (0.20-1.00) 10*3/uL Eosinophils # (0.04-0.35) 10*3/uL PT (10.0-12.5) sec INR (<1.2) ABG pH 7.33 L (7.35-7.45) ABG pO2 >420 H >420 H 397 H (83-108) mmHg ABG O2 Saturation >99.4 H >99.4 H >99.4 H (94-97) % ABG Hematocrit 26 L 23 L 24 L (34.0-46.0) % ABG Ionized Calcium 4.3 L 4.4 L 4.4 L (4.5-5.3) mg/dL ABG Glucose 138 H 148 H 147 H (75-99) mg/dL ABG Lactic Acid 1.8 H (0.5-1.6) mmol/L Hemoglobin 8.5 L 7.6 L 7.7 L (13.0-17.5) gm/dL Chloride (98-107) mmol/L Carbon Dioxide (22-30) mmol/L BUN (9-20) mg/dL Glucose (74-99) mg/dL POC Glucose (mg/dL) (70-110) mg/dL Magnesium (1.6-2.3) mg/dL Total Protein (6.3-8.2) g/dL Albumin (3.5-5.0) g/dL Arterial Blood Glucose 138 H 148 H 147 H (75-99) mg/dL Crossmatch 09/09/24 09/09/24 09/09/24 Range/Units 12:47 14:00 14:52 WBC 20.99 H (4.50-10.00) 10*3/uL RBC 2.90 L (4.40-5.60) 10*6/uL Hgb 9.1 L D (13.0-17.0) g/dL Hct 26.1 L (39.6-50.0) % MCH (27.0-32.0) pg Plt Count (140-440) 10*3/uL Immature Gran # 0.16 H (0.00-0.04) 10*3/uL Neutrophils # 18.19 H (1.80-7.70) 10*3/uL Lymphocytes # (0.90-5.00) 10*3/uL Monocytes # 1.32 H (0.20-1.00) 10*3/uL Eosinophils # (0.04-0.35) 10*3/uL PT (10.0-12.5) sec INR (<1.2) ABG pH (7.35-7.45) ABG pO2 >420 H 206 H (83-108) mmHg ABG O2 Saturation >99.4 H 99.3 H (94-97) % ABG Hematocrit 22 L 24 L (34.0-46.0) % ABG Ionized Calcium 4.3 L (4.5-5.3) mg/dL ABG Glucose 136 H 139 H (75-99) mg/dL ABG Lactic Acid 2.0 H 2.6 H* (0.5-1.6) mmol/L Hemoglobin 7.3 L 7.7 L (13.0-17.5) gm/dL Chloride (98-107) mmol/L Carbon Dioxide (22-30) mmol/L BUN (9-20) mg/dL Glucose (74-99) mg/dL POC Glucose (mg/dL) (70-110) mg/dL Magnesium (1.6-2.3) mg/dL Total Protein (6.3-8.2) g/dL Albumin (3.5-5.0) g/dL Arterial Blood Glucose 136 H 139 H (75-99) mg/dL Crossmatch 09/09/24 09/09/24 09/09/24 Range/Units 14:52 14:52 14:55 WBC (4.50-10.00) 10*3/uL RBC (4.40-5.60) 10*6/uL Hgb (13.0-17.0) g/dL Hct (39.6-50.0) % MCH (27.0-32.0) pg Plt Count (140-440) 10*3/uL Immature Gran # (0.00-0.04) 10*3/uL Neutrophils # (1.80-7.70) 10*3/uL Lymphocytes # (0.90-5.00) 10*3/uL Monocytes # (0.20-1.00) 10*3/uL Eosinophils # (0.04-0.35) 10*3/uL PT 13.2 H (10.0-12.5) sec INR 1.2 H (<1.2) ABG pH (7.35-7.45) ABG pO2 (83-108) mmHg ABG O2 Saturation (94-97) % ABG Hematocrit (34.0-46.0) % ABG Ionized Calcium (4.5-5.3) mg/dL ABG Glucose (75-99) mg/dL ABG Lactic Acid (0.5-1.6) mmol/L Hemoglobin (13.0-17.5) gm/dL Chloride 112 H (98-107) mmol/L Carbon Dioxide 20 L (22-30) mmol/L BUN 22 H (9-20) mg/dL Glucose 124 H (74-99) mg/dL POC Glucose (mg/dL) 146 H (70-110) mg/dL Magnesium 2.4 H (1.6-2.3) mg/dL Total Protein 5.2 L (6.3-8.2) g/dL Albumin 3.2 L (3.5-5.0) g/dL Arterial Blood Glucose (75-99) mg/dL Crossmatch 09/09/24 09/09/24 09/09/24 Range/Units 15:47 15:57 16:53 WBC (4.50-10.00) 10*3/uL RBC (4.40-5.60) 10*6/uL Hgb (13.0-17.0) g/dL Hct (39.6-50.0) % MCH (27.0-32.0) pg Plt Count (140-440) 10*3/uL Immature Gran # (0.00-0.04) 10*3/uL Neutrophils # (1.80-7.70) 10*3/uL Lymphocytes # (0.90-5.00) 10*3/uL Monocytes # (0.20-1.00) 10*3/uL Eosinophils # (0.04-0.35) 10*3/uL PT (10.0-12.5) sec INR (<1.2) ABG pH 7.31 L (7.35-7.45) ABG pO2 408 H (83-108) mmHg ABG O2 Saturation >100.0 H (94-97) % ABG Hematocrit (34.0-46.0) % ABG Ionized Calcium (4.5-5.3) mg/dL ABG Glucose (75-99) mg/dL ABG Lactic Acid (0.5-1.6) mmol/L Hemoglobin 8.7 L (13.0-17.5) gm/dL Chloride (98-107) mmol/L Carbon Dioxide (22-30) mmol/L BUN (9-20) mg/dL Glucose (74-99) mg/dL POC Glucose (mg/dL) 149 H 147 H (70-110) mg/dL Magnesium (1.6-2.3) mg/dL Total Protein (6.3-8.2) g/dL Albumin (3.5-5.0) g/dL Arterial Blood Glucose (75-99) mg/dL Crossmatch 09/09/24 09/09/24 09/09/24 Range/Units 17:54 17:55 18:50 WBC 15.16 H (4.50-10.00) 10*3/uL RBC 2.50 L (4.40-5.60) 10*6/uL Hgb 7.8 L (13.0-17.0) g/dL Hct 22.5 L (39.6-50.0) % MCH (27.0-32.0) pg Plt Count 131 L (140-440) 10*3/uL Immature Gran # 0.08 H (0.00-0.04) 10*3/uL Neutrophils # 13.21 H (1.80-7.70) 10*3/uL Lymphocytes # 0.50 L (0.90-5.00) 10*3/uL Monocytes # 1.34 H (0.20-1.00) 10*3/uL Eosinophils # 0.00 L (0.04-0.35) 10*3/uL PT (10.0-12.5) sec INR (<1.2) ABG pH (7.35-7.45) ABG pO2 (83-108) mmHg ABG O2 Saturation (94-97) % ABG Hematocrit (34.0-46.0) % ABG Ionized Calcium (4.5-5.3) mg/dL ABG Glucose (75-99) mg/dL ABG Lactic Acid (0.5-1.6) mmol/L Hemoglobin (13.0-17.5) gm/dL Chloride (98-107) mmol/L Carbon Dioxide (22-30) mmol/L BUN (9-20) mg/dL Glucose (74-99) mg/dL POC Glucose (mg/dL) 164 H 168 H (70-110) mg/dL Magnesium (1.6-2.3) mg/dL Total Protein (6.3-8.2) g/dL Albumin (3.5-5.0) g/dL Arterial Blood Glucose (75-99) mg/dL Crossmatch 09/09/24 09/09/24 09/09/24 Range/Units 18:54 19:56 20:52 WBC 12.68 H (4.50-10.00) 10*3/uL RBC 2.52 L (4.40-5.60) 10*6/uL Hgb 7.8 L (13.0-17.0) g/dL Hct 22.5 L (39.6-50.0) % MCH (27.0-32.0) pg Plt Count 118 L (140-440) 10*3/uL Immature Gran # 0.08 H (0.00-0.04) 10*3/uL Neutrophils # 11.32 H (1.80-7.70) 10*3/uL Lymphocytes # 0.36 L (0.90-5.00) 10*3/uL Monocytes # (0.20-1.00) 10*3/uL Eosinophils # 0.00 L (0.04-0.35) 10*3/uL PT (10.0-12.5) sec INR (<1.2) ABG pH (7.35-7.45) ABG pO2 153 H (83-108) mmHg ABG O2 Saturation 99.7 H (94-97) % ABG Hematocrit (34.0-46.0) % ABG Ionized Calcium (4.5-5.3) mg/dL ABG Glucose (75-99) mg/dL ABG Lactic Acid (0.5-1.6) mmol/L Hemoglobin 8.4 L (13.0-17.5) gm/dL Chloride (98-107) mmol/L Carbon Dioxide (22-30) mmol/L BUN (9-20) mg/dL Glucose (74-99) mg/dL POC Glucose (mg/dL) 180 H (70-110) mg/dL Magnesium (1.6-2.3) mg/dL Total Protein (6.3-8.2) g/dL Albumin (3.5-5.0) g/dL Arterial Blood Glucose (75-99) mg/dL Crossmatch 09/09/24 09/09/24 09/09/24 Range/Units 20:58 21:59 22:59 WBC (4.50-10.00) 10*3/uL RBC (4.40-5.60) 10*6/uL Hgb (13.0-17.0) g/dL Hct (39.6-50.0) % MCH (27.0-32.0) pg Plt Count (140-440) 10*3/uL Immature Gran # (0.00-0.04) 10*3/uL Neutrophils # (1.80-7.70) 10*3/uL Lymphocytes # (0.90-5.00) 10*3/uL Monocytes # (0.20-1.00) 10*3/uL Eosinophils # (0.04-0.35) 10*3/uL PT (10.0-12.5) sec INR (<1.2) ABG pH (7.35-7.45) ABG pO2 (83-108) mmHg ABG O2 Saturation (94-97) % ABG Hematocrit (34.0-46.0) % ABG Ionized Calcium (4.5-5.3) mg/dL ABG Glucose (75-99) mg/dL ABG Lactic Acid (0.5-1.6) mmol/L Hemoglobin (13.0-17.5) gm/dL Chloride (98-107) mmol/L Carbon Dioxide (22-30) mmol/L BUN (9-20) mg/dL Glucose (74-99) mg/dL POC Glucose (mg/dL) 178 H 161 H 150 H (70-110) mg/dL Magnesium (1.6-2.3) mg/dL Total Protein (6.3-8.2) g/dL Albumin (3.5-5.0) g/dL Arterial Blood Glucose (75-99) mg/dL Crossmatch 09/09/24 09/10/24 09/10/24 Range/Units 23:57 01:08 02:05 WBC (4.50-10.00) 10*3/uL RBC (4.40-5.60) 10*6/uL Hgb (13.0-17.0) g/dL Hct (39.6-50.0) % MCH (27.0-32.0) pg Plt Count (140-440) 10*3/uL Immature Gran # (0.00-0.04) 10*3/uL Neutrophils # (1.80-7.70) 10*3/uL Lymphocytes # (0.90-5.00) 10*3/uL Monocytes # (0.20-1.00) 10*3/uL Eosinophils # (0.04-0.35) 10*3/uL PT (10.0-12.5) sec INR (<1.2) ABG pH (7.35-7.45) ABG pO2 (83-108) mmHg ABG O2 Saturation (94-97) % ABG Hematocrit (34.0-46.0) % ABG Ionized Calcium (4.5-5.3) mg/dL ABG Glucose (75-99) mg/dL ABG Lactic Acid (0.5-1.6) mmol/L Hemoglobin (13.0-17.5) gm/dL Chloride (98-107) mmol/L Carbon Dioxide (22-30) mmol/L BUN (9-20) mg/dL Glucose (74-99) mg/dL POC Glucose (mg/dL) 148 H 136 H 125 H (70-110) mg/dL Magnesium (1.6-2.3) mg/dL Total Protein (6.3-8.2) g/dL Albumin (3.5-5.0) g/dL Arterial Blood Glucose (75-99) mg/dL Crossmatch 09/10/24 09/10/24 09/10/24 Range/Units 03:05 03:36 03:36 WBC 12.11 H (4.50-10.00) 10*3/uL RBC 2.34 L (4.40-5.60) 10*6/uL Hgb 7.5 L (13.0-17.0) g/dL Hct 21.2 L (39.6-50.0) % MCH 32.1 H (27.0-32.0) pg Plt Count 109 L (140-440) 10*3/uL Immature Gran # 0.06 H (0.00-0.04) 10*3/uL Neutrophils # 10.49 H (1.80-7.70) 10*3/uL Lymphocytes # 0.53 L (0.90-5.00) 10*3/uL Monocytes # 1.01 H (0.20-1.00) 10*3/uL Eosinophils # 0.00 L (0.04-0.35) 10*3/uL PT (10.0-12.5) sec INR (<1.2) ABG pH (7.35-7.45) ABG pO2 (83-108) mmHg ABG O2 Saturation (94-97) % ABG Hematocrit (34.0-46.0) % ABG Ionized Calcium (4.5-5.3) mg/dL ABG Glucose (75-99) mg/dL ABG Lactic Acid (0.5-1.6) mmol/L Hemoglobin (13.0-17.5) gm/dL Chloride 108 H (98-107) mmol/L Carbon Dioxide (22-30) mmol/L BUN 25 H (9-20) mg/dL Glucose (74-99) mg/dL POC Glucose (mg/dL) 118 H (70-110) mg/dL Magnesium (1.6-2.3) mg/dL Total Protein 5.0 L (6.3-8.2) g/dL Albumin 3.3 L (3.5-5.0) g/dL Arterial Blood Glucose (75-99) mg/dL Crossmatch 09/10/24 09/10/24 Range/Units 06:17 07:07 WBC (4.50-10.00) 10*3/uL RBC (4.40-5.60) 10*6/uL Hgb (13.0-17.0) g/dL Hct (39.6-50.0) % MCH (27.0-32.0) pg Plt Count (140-440) 10*3/uL Immature Gran # (0.00-0.04) 10*3/uL Neutrophils # (1.80-7.70) 10*3/uL Lymphocytes # (0.90-5.00) 10*3/uL Monocytes # (0.20-1.00) 10*3/uL Eosinophils # (0.04-0.35) 10*3/uL PT (10.0-12.5) sec INR (<1.2) ABG pH (7.35-7.45) ABG pO2 (83-108) mmHg ABG O2 Saturation (94-97) % ABG Hematocrit (34.0-46.0) % ABG Ionized Calcium (4.5-5.3) mg/dL ABG Glucose (75-99) mg/dL ABG Lactic Acid (0.5-1.6) mmol/L Hemoglobin (13.0-17.5) gm/dL Chloride (98-107) mmol/L Carbon Dioxide (22-30) mmol/L BUN (9-20) mg/dL Glucose (74-99) mg/dL POC Glucose (mg/dL) 166 H 173 H (70-110) mg/dL Magnesium (1.6-2.3) mg/dL Total Protein (6.3-8.2) g/dL Albumin (3.5-5.0) g/dL Arterial Blood Glucose (75-99) mg/dL Crossmatch - Imaging and Cardiology Chest x-ray: report reviewed, image reviewed Assessment and Plan Assessment: Coronary artery disease, status post four-vessel coronary artery bypass grafting surgery Paroxysmal atrial fibrillation, status post maze procedure, noncompliant with taking Eliquis as an outpatient Postoperative acute blood loss anemia, expected given hemodilution and cardiopulmonary bypass Hypertension Diabetes mellitus type 2, preoperative hemoglobin A1c 6.8% Questionable history of myocardial infarction History of perforated acute appendicitis status post laparoscopic appendectomy in April 2024 Remote history of nicotine dependence, preoperative FEV1 3.32 L, 101% predicted value Plan: Continue to maximize medical therapy with aspirin, statin, Plavix, and beta- ranjit therapy. Will increase Metoprolol tatrate as tolerated with hold parameters. Discontinue IV nitro. Continue amiodarone for atrial fibrillation prophylaxis, patient has had no atrial fibrillation up to this point, will transition to oral amiodarone 400 mg p.o. twice daily. Discontinue Primacor drip. Wean oxygen as tolerated. Encourage incentive spirometry use 10 times every hour while awake, bronchodilators per pulmonology. Will monitor daily labs and chest x-rays. Electrolyte replacement per protocol. Increase activity, ambulate as tolerated. PT/OT/cardiac rehab consulted. GI/DVT prophylaxis. Pain control per current medication regimen Robaxin has been added. 1 dose of Toradol 15 mg IV was given for additional pain control. Insulin management per internal medicine, patient should remain on continuous IV insulin for 48 hours, then may transition to subcutaneous per protocol. Patient is a diabetic, preoperative hemoglobin A1c 6.8% Will remove right IJ [place]-Naeem catheter and continue right IJ cordis for continuous CVP monitoring. Continue chest tubes for another 24 hours, monitor and record output. Continue to monitor for airleak resolution to the left pleural and mediastinal chest tube. Continue Rosales catheter for another 24 hours, monitor and record strict accurate intake and output. Daily weights. More recommendations to follow based on patient's clinical course. Time with Patient: Greater than 30
[2024-09-10 09:30] LABS: Glucose,Whole Blood 198 mg/dL (70-110)
[2024-09-10 10:14] LABS: Glucose,Whole Blood 166 mg/dL (70-110)
--- NOTE | 2024-09-10 10:54 | P.CRDCN ---
History of Present Illness History of present illness: HISTORY OF PRESENTING ILLNESS This is a pleasant 79-year-old with past medical history significant for hypertension, hyperlipidemia, coronary artery disease, paroxysmal atrial fibrillation, previous ruptured appendicitis status post laparoscopic surgery April 2024, mild ischemic cardiomyopathy EF 40 to 45%. Patient follows with Dr. Moreno. Patient had initially presented for ruptured appendicitis in April 2024 and found to have A-fib and underwent further cardiac workup with echo from August 2024 showing EF 40 to 45% as well as heart catheterization showing multivessel CAD. Patient underwent four-vessel CABG with LOVELACE to LAD, SVG to ramus, SVG to OM and SVG to PDA as well as maze procedure and clip of left atrial appendage. Patient was placed on milrinone, norepinephrine, amiodarone drip. Milrinone and norepinephrine have been discontinued and cardiac index in the 3.0 range. He denies any chest pain or pressure. He does have some incisional pain. His hemoglobin is at 7.5. PA pressures 28/9 with a CVP of 5. Patient was chest tubes bilaterally and mediastinal tube. Thanh in normal sinus rhythm on telemetry. REVIEW OF SYSTEMS At the time of my exam: CONSTITUTIONAL: Denies fever or chills. CARDIOVASCULAR: + reproducible chest pain, + shortness of breath, orthopnea, PND or palpitations. RESPIRATORY: Denies cough. GASTROINTESTINAL: Denies abdominal pain, diarrhea, constipation, nausea or vomiting. MUSCULOSKELETAL: Denies myalgias. NEUROLOGIC: Denies numbness, tingling or weakness. ENDOCRINE: Denies fatigue, weight change, polydipsia or polyurina. GENITOURINARY: Denies burning, hematuria or urgency with micturation. HEMATOLOGIC: Denies history of anemia or bleeding. PHYSICAL EXAMINATION Vital signs reviewed. CONSTITUTIONAL: No apparent distress. HEENT: Head is normocephalic. Pupils are equal, round. Sclerae anicteric. Mucous membranes of the mouth are moist. No JVD. No carotid bruit. CHEST EXAMINATION: Lungs are clear to auscultation. No chest wall tenderness is noted on palpation or with deep breathing. HEART EXAMINATION: Regular rate and rhythm. S1, S2 heard. No murmurs, gallops or rub. ABDOMEN: Soft, nontender. Positive bowel sounds. EXTREMITIES: 2+ peripheral pulses, no lower extremity edema and no calf tenderness. NEUROLOGIC EXAMINATION: Patient is awake, alert and oriented x3. ASSESSMENT CAD status post CABG times 4 on 09/09/2024 Hypertension Hyperlipidemia Mild ischemic cardiomyopathy EF 40 to 45% Chronic diastolic heart failure Blood loss anemia Paroxysmal atrial fibrillation status post Maze procedure, currently sinus rhythm Diabetes mellitus type 2 History of perforated appendicitis April 2024 PLAN Cardiac output/cardiac index are appropriate and patient improving with drips being weaned. Continue with current supportive care. Continue with amiodarone. Attempt to optimize heart failure regimen as able however blood pressure is borderline. Continue metoprolol. Increase activity. Further recommendations to follow. Past Medical History Past Medical History: Atrial Fibrillation, Chest Pain / Angina, Diabetes Mellitus, Hypertension, Myocardial Infarction (NE), Osteoarthritis (OA) Additional Past Medical History / Comment(s): SOB w/exertion, chest discomfort if exerting himself, ruptured appendix & had surg. in April Last Myocardial Infarction Date:: unknown History of Any Multi-Drug Resistant Organisms: None Reported Past Surgical History: Appendectomy, Cholecystectomy, Heart Catheterization Past Anesthesia/Blood Transfusion Reactions: No Reported Reaction Smoking Status: Former smoker - Past Family History Mother Family Medical History: Myocardial Infarction (NE) Additional Family Medical History / Comment(s): unknown when but lived to age 100 Medications and Allergies Home Medications Medication Instructions Recorded Confirmed Type Apixaban [Eliquis] 5 mg PO BID 08/05/24 09/09/24 History Mv-Mn/Om3/Dha/Epa/Fish/Lut/Shade 1 tab PO DAILY 08/05/24 09/09/24 History [Ocuvite Adult 50 Plus Softgel] Valsartan/Hydrochlorothiazide 1 tab PO DAILY 08/05/24 09/09/24 History [Valsartan-Hctz 160-25 mg Tab] metFORMIN HCL 500 mg PO DAILY 08/05/24 09/09/24 History Allergies Allergy/AdvReac Type Severity Reaction Status Date / Time Penicillins AdvReac Confusion Verified 09/09/24 06:24 Physical Exam Vitals: Vital Signs Temp Pulse Pulse Resp BP Pulse Ox FiO2 09/10/24 10:00 67 14 119/53 97 09/10/24 09:30 69 14 114/53 91 L 09/10/24 09:13 68 18 100 09/10/24 09:00 70 11 L 96 09/10/24 08:30 68 27 H 95 09/10/24 08:00 98.1 F 71 11 L 125/53 97 09/10/24 07:45 71 16 125/53 95 09/10/24 07:30 73 18 127/55 96 09/10/24 07:15 73 20 127/55 96 09/10/24 07:00 73 15 130/60 97 09/10/24 06:45 72 19 130/60 99 09/10/24 06:30 73 19 130/60 09/10/24 06:15 77 21 145/66 99 09/10/24 06:00 81 10 L 127/59 99 09/10/24 05:45 72 19 127/59 100 09/10/24 05:30 74 14 127/59 100 09/10/24 05:15 71 21 127/59 99 09/10/24 05:00 73 14 107/55 100 09/10/24 04:45 70 23 107/55 99 09/10/24 04:30 68 17 107/55 100 09/10/24 04:15 70 17 107/55 100 09/10/24 04:00 97.7 F 71 31 H 111/52 96 09/10/24 03:45 68 21 111/52 98 09/10/24 03:30 67 18 111/52 98 09/10/24 03:15 70 19 111/52 99 09/10/24 03:00 70 15 106/54 98 09/10/24 02:45 71 18 106/54 100 09/10/24 02:30 72 18 106/54 100 09/10/24 02:15 71 23 106/54 98 09/10/24 02:00 71 18 98/52 98 09/10/24 01:45 73 17 98/52 99 09/10/24 01:30 72 15 98/52 99 09/10/24 01:15 75 15 98/52 99 09/10/24 01:00 72 38 H 119/54 99 09/10/24 00:45 73 39 H 119/54 99 09/10/24 00:30 72 0 L 119/54 99 09/10/24 00:15 73 0 L 119/54 100 09/10/24 00:06 67 0 L 119/54 99 09/10/24 00:00 97.5 F L 75 13 111/61 99 09/09/24 23:45 75 14 111/61 100 09/09/24 23:30 62 10 L 111/61 100 09/09/24 23:15 73 12 111/61 99 09/09/24 23:00 77 19 116/55 100 09/09/24 22:45 78 14 116/55 100 09/09/24 22:30 77 15 116/55 99 09/09/24 22:15 79 0 L 116/55 100 09/09/24 22:00 79 20 115/54 99 09/09/24 21:45 78 15 115/54 99 09/09/24 21:30 76 0 L 105/55 100 09/09/24 21:15 80 20 105/55 99 09/09/24 21:00 80 126/61 99 09/09/24 20:45 80 17 126/61 99 09/09/24 20:30 81 16 126/61 99 09/09/24 20:15 79 12 126/61 99 09/09/24 20:11 79 09/09/24 20:00 97.2 F L 80 13 98 09/09/24 19:59 80 09/09/24 19:45 81 14 99 09/09/24 19:30 81 18 99 09/09/24 19:15 78 13 99 09/09/24 19:00 36.2 F L 78 20 127/62 100 40 09/09/24 18:45 79 18 125/62 99 09/09/24 18:30 75 19 116/64 100 09/09/24 18:15 75 18 118/61 99 40 09/09/24 18:00 36.1 F L 74 20 99 09/09/24 17:45 74 20 121/61 99 09/09/24 17:30 72 0 L 100 09/09/24 17:15 74 19 127/61 100 09/09/24 17:00 36 F L 80 19 122/63 100 45 09/09/24 16:45 76 18 106/54 100 09/09/24 16:30 75 19 114/59 100 09/09/24 16:15 72 20 108/57 100 09/09/24 16:00 35.8 F L 72 74 19 110/59 100 45 09/09/24 15:54 70 16 40 09/09/24 15:48 70 12 09/09/24 15:45 72 20 104/53 100 09/09/24 15:30 73 19 107/52 100 09/09/24 15:15 35.7 F L 69 18 100 100 09/09/24 15:03 100 09/09/24 14:23 100 Intake and Output 09/09/24 09/10/24 09/10/24 22:59 06:59 14:59 Intake Total 1188.664 133.536 185.213 Output Total 730 830 180 Balance 458.664 -696.464 5.213 Intake: IV 262 92 47 CO/CI 190 20 20 Pressure Bag 72 72 27 Intake, IV Titration 926.664 41.536 138.213 Amount Albumin Human 5% 250 ml 500 In Empty Bag 1 bag @ 250 mls/hr IVPB Q1HR PRN Rx#: [id number] Insulin Regular 100 unit 34.771 41.536 38.213 In Sodium Chloride 0.9% 100 ml @ Per Protocol IV .Q0M [facility] Rx#:[id number] Milrinone-D5w Pmx 20 mg 40.157 In Dextrose/Water 1 100ml .bag @ 0.2 MCG/KG/MIN 6. 477 mls/hr IV .[id number] [facility] Rx#:[id number] Norepinephrine 8 mg In 16.433 Sodium Chloride 0.9% 250 ml @ 0.03 MCG/KG/MIN 6. 267 mls/hr IV .Q24H [facility] Rx#:[id number] Sodium Chloride 0.9% 1, 250 100 000 ml @ 50 mls/hr IV . Q20H [facility] Rx#:[id number] ceFAZolin 2 gm In Sodium 50 Chloride 0.9% 50 ml @ Per Protocol IVPB ONCE ONE Rx#:[id number] propofoL 1,000 mg In 35.303 Empty Bag 1 bag @ Titrate IV .Q0M [facility] Rx#: [id number] Output: Chest Tube Drainage 365 520 90 Chest Tube Left Pleural/ 50 120 20 Mediastinal Chest Tube Mediastinal 300 330 70 Chest Tube Right Pleural/ 15 70 0 Mediastinal Urine 365 310 90 Other: Voiding Method Indwelling Catheter Indwelling Catheter Weight 109.6 kg ABP, PAP, CO, CI - Last 8 Hours Arterial Blood Pressure 125/41 Arterial Blood Pressure 97/41 Arterial Blood Pressure 99/38 Arterial Blood Pressure 108/42 Arterial Blood Pressure 105/42 Arterial Blood Pressure 110/37 Arterial Blood Pressure 118/40 Arterial Blood Pressure 126/43 Arterial Blood Pressure 113/40 Arterial Blood Pressure 121/40 Arterial Blood Pressure 122/42 Arterial Blood Pressure 109/42 Arterial Blood Pressure 137/59 Arterial Blood Pressure 158/54 Arterial Blood Pressure 154/53 Arterial Blood Pressure 124/44 Arterial Blood Pressure 113/40 Arterial Blood Pressure 131/43 Arterial Blood Pressure 115/41 Arterial Blood Pressure 115/39 Arterial Blood Pressure 114/37 Arterial Blood Pressure 89/43 Arterial Blood Pressure 116/38 Arterial Blood Pressure 105/35 Pulmonary Artery Pressure 24/8 Pulmonary Artery Pressure 25/12 Pulmonary Artery Pressure 27/8 Pulmonary Artery Pressure 28/12 Pulmonary Artery Pressure 27/10 Pulmonary Artery Pressure 26/8 Pulmonary Artery Pressure 28/9 Pulmonary Artery Pressure 28/9 Pulmonary Artery Pressure 32/11 Pulmonary Artery Pressure 27/9 Pulmonary Artery Pressure 30/10 Pulmonary Artery Pressure 25/9 Pulmonary Artery Pressure 51/27 Pulmonary Artery Pressure 42/20 Pulmonary Artery Pressure 42/22 Pulmonary Artery Pressure 33/13 Pulmonary Artery Pressure 33/12 Pulmonary Artery Pressure 31/11 Pulmonary Artery Pressure 29/10 Pulmonary Artery Pressure 27/10 Pulmonary Artery Pressure 27/8 Pulmonary Artery Pressure 22/8 Pulmonary Artery Pressure 24/6 Pulmonary Artery Pressure 23/6 Pulmonary Artery Pressure 25/5 Cardiac Output 6.4 Cardiac Output 7 Cardiac Output 7 Cardiac Output 7 Cardiac Output 7.2 Cardiac Output 7.1 Cardiac Index 2.7 Cardiac Index 3 Cardiac Index 3 Cardiac Index 3 Cardiac Index 3.1 Cardiac Index 3 Results 09/10/24 03:36 09/10/24 03:36 Cardiac Enzymes 09/09/24 09/10/24 Range/Units 14:52 03:36 AST 43 51 (17-59) U/L Coagulation 09/09/24 Range/Units 14:52 PT 13.2 H (10.0-12.5) sec APTT 28.2 (22.0-30.0) sec CBC 09/09/24 09/09/24 09/09/24 Range/Units 14:52 17:55 20:52 WBC 20.99 H 15.16 H 12.68 H (4.50-10.00) 10*3/uL RBC 2.90 L 2.50 L 2.52 L (4.40-5.60) 10*6/uL Hgb 9.1 L D 7.8 L 7.8 L (13.0-17.0) g/dL Hct 26.1 L 22.5 L 22.5 L (39.6-50.0) % Plt Count 149 131 L 118 L (140-440) 10*3/uL 09/10/24 Range/Units 03:36 WBC 12.11 H (4.50-10.00) 10*3/uL RBC 2.34 L (4.40-5.60) 10*6/uL Hgb 7.5 L (13.0-17.0) g/dL Hct 21.2 L (39.6-50.0) % Plt Count 109 L (140-440) 10*3/uL Comprehensive Metabolic Panel 09/09/24 09/10/24 Range/Units 14:52 03:36 Sodium 141 140 (137-145) mmol/L Potassium 4.1 3.7 (3.5-5.1) mmol/L Chloride 112 H 108 H (98-107) mmol/L Carbon Dioxide 20 L 24 (22-30) mmol/L BUN 22 H 25 H (9-20) mg/dL Creatinine 0.98 1.04 (0.66-1.25) mg/dL Glucose 124 H 97 (74-99) mg/dL Calcium 8.6 8.9 (8.4-10.2) mg/dL AST 43 51 (17-59) U/L ALT 15 13 (4-49) U/L Alkaline Phosphatase 46 38 (38-126) U/L Total Protein 5.2 L 5.0 L (6.3-8.2) g/dL Albumin 3.2 L 3.3 L (3.5-5.0) g/dL Current Medications Generic Name Dose Route Start Last Admin Trade Name Freq PRN Reason Stop Dose Admin Acetaminophen 650 mg 09/10/24 02:07 Acetaminophen Tab 325 Mg Tab PO Q4HR PRN Fever And/ Or Mild Pain (1-3) Albuterol/Ipratropium 3 ml 09/09/24 14:22 09/09/24 19:58 Ipratropium-Albuterol 3 Ml Neb INHALATION 3 ml RT-Q2H PRN Administration Shortness Of Breath Or Wheezing Albuterol/Ipratropium 3 ml 09/10/24 08:00 09/10/24 09:13 Ipratropium-Albuterol 3 Ml Neb INHALATION 3 ml RT-QID [facility] Administration Amiodarone HCl 400 mg 09/10/24 09:00 09/10/24 08:54 Amiodarone 200 Mg Tab PO 400 mg BID [facility] Administration Aspirin 325 mg 09/10/24 09:00 09/10/24 08:28 Aspirin 325 Mg Tab PO 325 mg DAILY [facility] Administration Atorvastatin Calcium 40 mg 09/10/24 09:00 09/10/24 08:54 Atorvastatin 40 Mg Tab PO 40 mg DAILY [facility] Administration Benzocaine/Menthol 1 each 09/09/24 14:22 Benzocaine/Menthol Lozeng 1 Each Lozenge MUCOUS MEM Q2H PRN Sore Throat Bisacodyl 10 mg 09/10/24 09:00 Bisacodyl 10 Mg Supp RECTAL DAILY PRN Constipation Clopidogrel Bisulfate 75 mg 09/10/24 09:00 09/10/24 08:28 Clopidogrel 75 Mg Tab PO 75 mg DAILY [facility] Administration Dextrose/Water 25 ml 09/09/24 14:22 Dextrose 50% Syringe 50 Ml IVP PER PROTOCOL PRN Hypoglycemia Protocol Dextrose/Water 50 ml 09/09/24 14:22 Dextrose 50% Syringe 50 Ml IVP PER PROTOCOL PRN Hypoglycemia Protocol Heparin Sodium (Porcine) 5,000 unit 09/09/24 16:00 09/10/24 08:27 Heparin Sodium,Porcine 5,000 Unit/Ml 1 Ml Vial SQ 5,000 unit Q8HR [facility] Administration Hydralazine HCl 10 mg 09/09/24 14:22 Hydralazine Hcl 20 Mg/Ml 1 Ml Vial IVP Q1H PRN Blood Pressure - High Amiodarone HCl 150 mg/ 103 mls @ 618 mls/hr 09/09/24 14:22 Dextrose/Water IV .Q10M PRN A.FIB/FLUTTER Albumin Human 250 ml/ IV 250 mls @ 250 mls/hr 09/09/24 14:22 09/09/24 21:09 Solution IVPB 09/11/24 14:21 250 mls/hr Q1HR PRN Administration For Volume Protocol Calcium Gluconate/Sodium 100 mls @ 100 mls/hr 09/09/24 14:22 Chloride 2 gm/ IV Solution IVPB 09/12/24 14:21 ONCE PRN Ionized Calcium less than 4.4 Sodium Chloride 1,000 mls @ 50 mls/hr 09/09/24 14:22 09/10/24 10:29 Saline 0.9% IV 50 mls/hr .Q20H [facility] Administration Insulin Human Regular 100 unit 101 mls @ 0 mls/hr 09/09/24 14:22 09/10/24 10:23 / Sodium Chloride IV 10 units/hr .Q0M [facility] 10.1 mls/hr Titration Protocol Per Protocol Amiodarone HCl 450 mg/ 250 mls @ 16.667 mls/hr 09/09/24 21:00 09/09/24 20:26 Dextrose/Water IV 09/10/24 14:59 0.5 mg/min .Q15H [facility] 16.667 mls/hr Administration Protocol 0.5 MG/MIN Magnesium Hydroxide 2,400 mg 09/10/24 09:00 Magnesium Hydroxide 2,400 Mg/30 Ml Cup PO BID PRN Constipation Methocarbamol 750 mg 09/10/24 09:23 Methocarbamol 750 Mg Tab PO QID PRN Muscle Spasm Metoclopramide HCl 10 mg 09/09/24 14:22 Metoclopramide 5 Mg/Ml 2 Ml Vial IVP Q4H PRN Nausea And Vomiting Metoprolol Tartrate 12.5 mg 09/10/24 09:00 09/10/24 08:27 Metoprolol Tartrate 12.5 Mg Tab PO 12.5 mg BID [facility] Administration Miscellaneous Information 1 each 09/09/24 14:22 Potassium Replacement Protocol 1 Each Misc MISCELLANE DAILY PRN Per Protocol Protocol Miscellaneous Information 1 each 09/09/24 14:22 Magnesium Replacement Protocol 1 Each Misc MISCELLANE DAILY PRN Per Protocol Protocol Miscellaneous Information 1 each 09/09/24 14:22 Phosphorus Replacement Protoco 1 Each Misc MISCELLANE DAILY PRN Per Protocol Protocol Ondansetron HCl 4 mg 09/09/24 14:22 Ondansetron 4 Mg/2 Ml Vial IVP Q6HR PRN Nausea And Vomiting Oxycodone HCl 5 mg 09/10/24 02:07 09/09/24 21:45 Oxycodone Hcl 5 Mg Tab PO 5 mg Q6HR PRN Administration Moderate Pain (Scale 4 to 6) Oxycodone HCl 10 mg 09/09/24 14:22 09/10/24 05:02 Oxycodone Hcl 5 Mg Tab PO 10 mg Q4HR PRN Administration Severe Pain (Scale 7 to 10) Pantoprazole Sodium 40 mg 09/11/24 07:30 Pantoprazole 40 Mg Tablet PO [id number] [facility] Senna/Docusate Sodium 2 each 09/10/24 21:00 Sennosides-Docusate Sodium 1 Each Tab PO HS [facility] Sodium Chloride 10 ml 09/09/24 21:00 09/10/24 08:28 Sodium Chloride 0.9% Flush 10 Ml Syringe IV 10 ml BID [facility] Administration Intake and Output 09/09/24 09/10/24 09/10/24 22:59 06:59 14:59 Intake Total 1188.664 133.536 185.213 Output Total 730 830 180 Balance 458.664 -696.464 5.213 Intake: IV 262 92 47 CO/CI 190 20 20 Pressure Bag 72 72 27 Intake, IV Titration 926.664 41.536 138.213 Amount Albumin Human 5% 250 ml 500 In Empty Bag 1 bag @ 250 mls/hr IVPB Q1HR PRN Rx#: [id number] Insulin Regular 100 unit 34.771 41.536 38.213 In Sodium Chloride 0.9% 100 ml @ Per Protocol IV .Q0M [facility] Rx#:[id number] Milrinone-D5w Pmx 20 mg 40.157 In Dextrose/Water 1 100ml .bag @ 0.2 MCG/KG/MIN 6. 477 mls/hr IV .[id number] [facility] Rx#:[id number] Norepinephrine 8 mg In 16.433 Sodium Chloride 0.9% 250 ml @ 0.03 MCG/KG/MIN 6. 267 mls/hr IV .Q24H [facility] Rx#:[id number] Sodium Chloride 0.9% 1, 250 100 000 ml @ 50 mls/hr IV . Q20H [facility] Rx#:[id number] ceFAZolin 2 gm In Sodium 50 Chloride 0.9% 50 ml @ Per Protocol IVPB ONCE ONE Rx#:[id number] propofoL 1,000 mg In 35.303 Empty Bag 1 bag @ Titrate IV .Q0M [facility] Rx#: [id number] Output: Chest Tube Drainage 365 520 90 Chest Tube Left Pleural/ 50 120 20 Mediastinal Chest Tube Mediastinal 300 330 70 Chest Tube Right Pleural/ 15 70 0 Mediastinal Urine 365 310 90 Other: Voiding Method Indwelling Catheter Indwelling Catheter Weight 109.6 kg 09/10/24 03:36 09/10/24 03:36
[2024-09-10 11:14] LABS: Glucose,Whole Blood 126 mg/dL (70-110)
[2024-09-10 12:02] LABS: Glucose,Whole Blood 100 mg/dL (70-110)
[2024-09-10 13:04] LABS: Glucose,Whole Blood 129 mg/dL (70-110)
[2024-09-10] MEDS: POTASSIUM CHLORIDE ER 20 MEQ TAB.ER PO SCH (13:10)
--- NOTE | 2024-09-10 13:13 | P.PN ---
Subjective Progress Note Date: 09/10/24 Principal diagnosis: POD #1 coronary artery bypass grafting x 4 vessels, left internal mammary artery to the left anterior sending coronary artery, saphenous vein graft to the ramus coronary artery, saphenous vein graft to the obtuse marginal coronary artery, and saphenous vein graft to the posterior descending coronary artery. Endoscopic harvest of bilateral greater saphenous vein, ligation left atrial appendage using a 35mm atrial clip, intraoperative transesophageal echo cardiogram completed by anesthesia, epiaortic ultrasound, graft flow measurements using the Medistim system, and Maze procedure. Patient was seen today on 09/10/2024, remains in the ICU, patient was extubated at 7:12 PM successfully. This morning he is on room air. Not in any distress O2 saturation is in the 90s achieving over 1500 cc on incentive spirometry. Patient has no complaints, he does have some surgical site discomfort at the site of the chest tube insertion. Continues to have right IJ cordis and [place]aeem catheter his current hemodynamics showed cardiac output of 7 lower cardiac index compared to yesterday. It is 3.0 today. PA pressures 28/8 CVP is 5. Still on Primacor 0.1 mcg/kg/min and amiodarone drip patient seems to be in sinus rhythm rate of 70 mediastinal and left and right pleural chest tubes are noted on continuous wall suction manage 20 serosanguineous drainage is noted chest x-ray showed minimal bibasilar atelectasis. Patient is sitting at the bedside chair, in no distress. WBC count is 12.1 hemoglobin 7.5, basic metabolic profile is normal BUN is 25 creatinine 1.04. Objective - Vital Signs Vital signs: Vital Signs Temp 98.1 F 09/10/24 08:00 Pulse 60 09/10/24 13:00 Resp 16 09/10/24 13:00 BP 127/57 09/10/24 13:00 Pulse Ox 100 09/10/24 13:00 FiO2 40 09/09/24 19:00 Intake & Output 09/09/24 09/10/24 09/10/24 18:59 06:59 18:59 Intake Total 1055.727 269.473 318.094 Output Total 1620 1040 400 Balance -564.273 -770.527 -81.906 Weight 109.6 kg Intake: IV 208 149 65 CO/CI 160 50 20 Pressure Bag 45 99 45 Intake, IV Titration 847.727 120.473 253.094 Amount Albumin Human 5% 250 ml 500 In Empty Bag 1 bag @ 250 mls/hr IVPB Q1HR PRN Rx#: [id number] Insulin Regular 100 unit 12.424 63.883 53.094 In Sodium Chloride 0.9% 100 ml @ Per Protocol IV .Q0M [facility] Rx#:[id number] Milrinone-D5w Pmx 20 mg 40.157 In Dextrose/Water 1 100ml .bag @ 0.2 MCG/KG/MIN 6. 477 mls/hr IV .[id number] [facility] Rx#:[id number] Norepinephrine 8 mg In 16.433 Sodium Chloride 0.9% 250 ml @ 0.03 MCG/KG/MIN 6. 267 mls/hr IV .Q24H [facility] Rx#:[id number] Sodium Chloride 0.9% 1, 250 200 000 ml @ 50 mls/hr IV . Q20H [facility] Rx#:[id number] ceFAZolin 2 gm In Sodium 50 Chloride 0.9% 50 ml @ Per Protocol IVPB ONCE ONE Rx#:[id number] propofoL 1,000 mg In 35.303 Empty Bag 1 bag @ Titrate IV .Q0M [facility] Rx#: [id number] Output: Chest Tube Drainage 300 585 245 Chest Tube Left Pleural/ 45 125 60 Mediastinal Chest Tube Mediastinal 250 380 170 Chest Tube Right Pleural/ 5 80 15 Mediastinal Urine 720 455 155 Estimated Blood Loss 600 Other: Voiding Method Indwelling Catheter Indwelling Catheter ABP, PAP, CO, CI - Last Documented Arterial Blood Pressure 109/43 Pulmonary Artery Pressure 23/10 Cardiac Output 4.8 Cardiac Index 2.1 - Exam Physical exam revealed a 79-year-old, in no distress, on room air sitting at the bedside chair Head: Atraumatic, normocephalic EENT: PERRLA, EOMI, nonicteric, no neck masses, no JVD, no stridor, moist mucous membranes, right IJ cordis and [place] catheter noted. Chest: Symmetrical chest expansion Lungs: Diminished breath sound bilaterally no rhonchi no wheezes chest tubes and mediastinal chest tube noted. Cardiac: Normal S1-S2, no S3 gallop, no murmur, positive pericardial rub Abdomen: Soft nontender no megaly no rebound no guarding good bowel sounds Extremities: No clubbing edema or cyanosis, good pulses bilaterally Musculoskeletal: No deformities and no limitation range of motion Neurologic: Alert and oriented x 3 no gross focal deficit Psychiatric: Normal mood, affect and no mental status examination . Skin: No rashes. - Labs CBC & Chem 7: 09/10/24 03:36 09/10/24 11:59 Labs: Abnormal Lab Results - Last 24 Hours (Table) 09/02/24 09/09/24 09/09/24 Range/Units 09:56 12:13 12:47 WBC (4.50-10.00) 10*3/uL RBC (4.40-5.60) 10*6/uL Hgb (13.0-17.0) g/dL Hct (39.6-50.0) % MCH (27.0-32.0) pg Plt Count (140-440) 10*3/uL Immature Gran # (0.00-0.04) 10*3/uL Neutrophils # (1.80-7.70) 10*3/uL Lymphocytes # (0.90-5.00) 10*3/uL Monocytes # (0.20-1.00) 10*3/uL Eosinophils # (0.04-0.35) 10*3/uL PT (10.0-12.5) sec INR (<1.2) ABG pH 7.33 L (7.35-7.45) ABG pO2 397 H >420 H (83-108) mmHg ABG O2 Saturation >99.4 H >99.4 H (94-97) % ABG Hematocrit 24 L 22 L (34.0-46.0) % ABG Ionized Calcium 4.4 L 4.3 L (4.5-5.3) mg/dL ABG Glucose 147 H 136 H (75-99) mg/dL ABG Lactic Acid 1.8 H 2.0 H (0.5-1.6) mmol/L Hemoglobin 7.7 L 7.3 L (13.0-17.5) gm/dL Chloride (98-107) mmol/L Carbon Dioxide (22-30) mmol/L BUN (9-20) mg/dL Glucose (74-99) mg/dL POC Glucose (mg/dL) (70-110) mg/dL Magnesium (1.6-2.3) mg/dL Total Protein (6.3-8.2) g/dL Albumin (3.5-5.0) g/dL Arterial Blood Glucose 147 H 136 H (75-99) mg/dL Crossmatch See Detail 09/09/24 09/09/24 09/09/24 Range/Units 14:00 14:52 14:52 WBC 20.99 H (4.50-10.00) 10*3/uL RBC 2.90 L (4.40-5.60) 10*6/uL Hgb 9.1 L D (13.0-17.0) g/dL Hct 26.1 L (39.6-50.0) % MCH (27.0-32.0) pg Plt Count (140-440) 10*3/uL Immature Gran # 0.16 H (0.00-0.04) 10*3/uL Neutrophils # 18.19 H (1.80-7.70) 10*3/uL Lymphocytes # (0.90-5.00) 10*3/uL Monocytes # 1.32 H (0.20-1.00) 10*3/uL Eosinophils # (0.04-0.35) 10*3/uL PT 13.2 H (10.0-12.5) sec INR 1.2 H (<1.2) ABG pH (7.35-7.45) ABG pO2 206 H (83-108) mmHg ABG O2 Saturation 99.3 H (94-97) % ABG Hematocrit 24 L (34.0-46.0) % ABG Ionized Calcium (4.5-5.3) mg/dL ABG Glucose 139 H (75-99) mg/dL ABG Lactic Acid 2.6 H* (0.5-1.6) mmol/L Hemoglobin 7.7 L (13.0-17.5) gm/dL Chloride (98-107) mmol/L Carbon Dioxide (22-30) mmol/L BUN (9-20) mg/dL Glucose (74-99) mg/dL POC Glucose (mg/dL) (70-110) mg/dL Magnesium (1.6-2.3) mg/dL Total Protein (6.3-8.2) g/dL Albumin (3.5-5.0) g/dL Arterial Blood Glucose 139 H (75-99) mg/dL Crossmatch 09/09/24 09/09/24 09/09/24 Range/Units 14:52 14:55 15:47 WBC (4.50-10.00) 10*3/uL RBC (4.40-5.60) 10*6/uL Hgb (13.0-17.0) g/dL Hct (39.6-50.0) % MCH (27.0-32.0) pg Plt Count (140-440) 10*3/uL Immature Gran # (0.00-0.04) 10*3/uL Neutrophils # (1.80-7.70) 10*3/uL Lymphocytes # (0.90-5.00) 10*3/uL Monocytes # (0.20-1.00) 10*3/uL Eosinophils # (0.04-0.35) 10*3/uL PT (10.0-12.5) sec INR (<1.2) ABG pH 7.31 L (7.35-7.45) ABG pO2 408 H (83-108) mmHg ABG O2 Saturation >100.0 H (94-97) % ABG Hematocrit (34.0-46.0) % ABG Ionized Calcium (4.5-5.3) mg/dL ABG Glucose (75-99) mg/dL ABG Lactic Acid (0.5-1.6) mmol/L Hemoglobin 8.7 L (13.0-17.5) gm/dL Chloride 112 H (98-107) mmol/L Carbon Dioxide 20 L (22-30) mmol/L BUN 22 H (9-20) mg/dL Glucose 124 H (74-99) mg/dL POC Glucose (mg/dL) 146 H (70-110) mg/dL Magnesium 2.4 H (1.6-2.3) mg/dL Total Protein 5.2 L (6.3-8.2) g/dL Albumin 3.2 L (3.5-5.0) g/dL Arterial Blood Glucose (75-99) mg/dL Crossmatch 09/09/24 09/09/24 09/09/24 Range/Units 15:57 16:53 17:54 WBC (4.50-10.00) 10*3/uL RBC (4.40-5.60) 10*6/uL Hgb (13.0-17.0) g/dL Hct (39.6-50.0) % MCH (27.0-32.0) pg Plt Count (140-440) 10*3/uL Immature Gran # (0.00-0.04) 10*3/uL Neutrophils # (1.80-7.70) 10*3/uL Lymphocytes # (0.90-5.00) 10*3/uL Monocytes # (0.20-1.00) 10*3/uL Eosinophils # (0.04-0.35) 10*3/uL PT (10.0-12.5) sec INR (<1.2) ABG pH (7.35-7.45) ABG pO2 (83-108) mmHg ABG O2 Saturation (94-97) % ABG Hematocrit (34.0-46.0) % ABG Ionized Calcium (4.5-5.3) mg/dL ABG Glucose (75-99) mg/dL ABG Lactic Acid (0.5-1.6) mmol/L Hemoglobin (13.0-17.5) gm/dL Chloride (98-107) mmol/L Carbon Dioxide (22-30) mmol/L BUN (9-20) mg/dL Glucose (74-99) mg/dL POC Glucose (mg/dL) 149 H 147 H 164 H (70-110) mg/dL Magnesium (1.6-2.3) mg/dL Total Protein (6.3-8.2) g/dL Albumin (3.5-5.0) g/dL Arterial Blood Glucose (75-99) mg/dL Crossmatch 09/09/24 09/09/24 09/09/24 Range/Units 17:55 18:50 18:54 WBC 15.16 H (4.50-10.00) 10*3/uL RBC 2.50 L (4.40-5.60) 10*6/uL Hgb 7.8 L (13.0-17.0) g/dL Hct 22.5 L (39.6-50.0) % MCH (27.0-32.0) pg Plt Count 131 L (140-440) 10*3/uL Immature Gran # 0.08 H (0.00-0.04) 10*3/uL Neutrophils # 13.21 H (1.80-7.70) 10*3/uL Lymphocytes # 0.50 L (0.90-5.00) 10*3/uL Monocytes # 1.34 H (0.20-1.00) 10*3/uL Eosinophils # 0.00 L (0.04-0.35) 10*3/uL PT (10.0-12.5) sec INR (<1.2) ABG pH (7.35-7.45) ABG pO2 153 H (83-108) mmHg ABG O2 Saturation 99.7 H (94-97) % ABG Hematocrit (34.0-46.0) % ABG Ionized Calcium (4.5-5.3) mg/dL ABG Glucose (75-99) mg/dL ABG Lactic Acid (0.5-1.6) mmol/L Hemoglobin 8.4 L (13.0-17.5) gm/dL Chloride (98-107) mmol/L Carbon Dioxide (22-30) mmol/L BUN (9-20) mg/dL Glucose (74-99) mg/dL POC Glucose (mg/dL) 168 H (70-110) mg/dL Magnesium (1.6-2.3) mg/dL Total Protein (6.3-8.2) g/dL Albumin (3.5-5.0) g/dL Arterial Blood Glucose (75-99) mg/dL Crossmatch 09/09/24 09/09/24 09/09/24 Range/Units 19:56 20:52 20:58 WBC 12.68 H (4.50-10.00) 10*3/uL RBC 2.52 L (4.40-5.60) 10*6/uL Hgb 7.8 L (13.0-17.0) g/dL Hct 22.5 L (39.6-50.0) % MCH (27.0-32.0) pg Plt Count 118 L (140-440) 10*3/uL Immature Gran # 0.08 H (0.00-0.04) 10*3/uL Neutrophils # 11.32 H (1.80-7.70) 10*3/uL Lymphocytes # 0.36 L (0.90-5.00) 10*3/uL Monocytes # (0.20-1.00) 10*3/uL Eosinophils # 0.00 L (0.04-0.35) 10*3/uL PT (10.0-12.5) sec INR (<1.2) ABG pH (7.35-7.45) ABG pO2 (83-108) mmHg ABG O2 Saturation (94-97) % ABG Hematocrit (34.0-46.0) % ABG Ionized Calcium (4.5-5.3) mg/dL ABG Glucose (75-99) mg/dL ABG Lactic Acid (0.5-1.6) mmol/L Hemoglobin (13.0-17.5) gm/dL Chloride (98-107) mmol/L Carbon Dioxide (22-30) mmol/L BUN (9-20) mg/dL Glucose (74-99) mg/dL POC Glucose (mg/dL) 180 H 178 H (70-110) mg/dL Magnesium (1.6-2.3) mg/dL Total Protein (6.3-8.2) g/dL Albumin (3.5-5.0) g/dL Arterial Blood Glucose (75-99) mg/dL Crossmatch 09/09/24 09/09/24 09/09/24 Range/Units 21:59 22:59 23:57 WBC (4.50-10.00) 10*3/uL RBC (4.40-5.60) 10*6/uL Hgb (13.0-17.0) g/dL Hct (39.6-50.0) % MCH (27.0-32.0) pg Plt Count (140-440) 10*3/uL Immature Gran # (0.00-0.04) 10*3/uL Neutrophils # (1.80-7.70) 10*3/uL Lymphocytes # (0.90-5.00) 10*3/uL Monocytes # (0.20-1.00) 10*3/uL Eosinophils # (0.04-0.35) 10*3/uL PT (10.0-12.5) sec INR (<1.2) ABG pH (7.35-7.45) ABG pO2 (83-108) mmHg ABG O2 Saturation (94-97) % ABG Hematocrit (34.0-46.0) % ABG Ionized Calcium (4.5-5.3) mg/dL ABG Glucose (75-99) mg/dL ABG Lactic Acid (0.5-1.6) mmol/L Hemoglobin (13.0-17.5) gm/dL Chloride (98-107) mmol/L Carbon Dioxide (22-30) mmol/L BUN (9-20) mg/dL Glucose (74-99) mg/dL POC Glucose (mg/dL) 161 H 150 H 148 H (70-110) mg/dL Magnesium (1.6-2.3) mg/dL Total Protein (6.3-8.2) g/dL Albumin (3.5-5.0) g/dL Arterial Blood Glucose (75-99) mg/dL Crossmatch 09/10/24 09/10/24 09/10/24 Range/Units 01:08 02:05 03:05 WBC (4.50-10.00) 10*3/uL RBC (4.40-5.60) 10*6/uL Hgb (13.0-17.0) g/dL Hct (39.6-50.0) % MCH (27.0-32.0) pg Plt Count (140-440) 10*3/uL Immature Gran # (0.00-0.04) 10*3/uL Neutrophils # (1.80-7.70) 10*3/uL Lymphocytes # (0.90-5.00) 10*3/uL Monocytes # (0.20-1.00) 10*3/uL Eosinophils # (0.04-0.35) 10*3/uL PT (10.0-12.5) sec INR (<1.2) ABG pH (7.35-7.45) ABG pO2 (83-108) mmHg ABG O2 Saturation (94-97) % ABG Hematocrit (34.0-46.0) % ABG Ionized Calcium (4.5-5.3) mg/dL ABG Glucose (75-99) mg/dL ABG Lactic Acid (0.5-1.6) mmol/L Hemoglobin (13.0-17.5) gm/dL Chloride (98-107) mmol/L Carbon Dioxide (22-30) mmol/L BUN (9-20) mg/dL Glucose (74-99) mg/dL POC Glucose (mg/dL) 136 H 125 H 118 H (70-110) mg/dL Magnesium (1.6-2.3) mg/dL Total Protein (6.3-8.2) g/dL Albumin (3.5-5.0) g/dL Arterial Blood Glucose (75-99) mg/dL Crossmatch 09/10/24 09/10/24 09/10/24 Range/Units 03:36 03:36 06:17 WBC 12.11 H (4.50-10.00) 10*3/uL RBC 2.34 L (4.40-5.60) 10*6/uL Hgb 7.5 L (13.0-17.0) g/dL Hct 21.2 L (39.6-50.0) % MCH 32.1 H (27.0-32.0) pg Plt Count 109 L (140-440) 10*3/uL Immature Gran # 0.06 H (0.00-0.04) 10*3/uL Neutrophils # 10.49 H (1.80-7.70) 10*3/uL Lymphocytes # 0.53 L (0.90-5.00) 10*3/uL Monocytes # 1.01 H (0.20-1.00) 10*3/uL Eosinophils # 0.00 L (0.04-0.35) 10*3/uL PT (10.0-12.5) sec INR (<1.2) ABG pH (7.35-7.45) ABG pO2 (83-108) mmHg ABG O2 Saturation (94-97) % ABG Hematocrit (34.0-46.0) % ABG Ionized Calcium (4.5-5.3) mg/dL ABG Glucose (75-99) mg/dL ABG Lactic Acid (0.5-1.6) mmol/L Hemoglobin (13.0-17.5) gm/dL Chloride 108 H (98-107) mmol/L Carbon Dioxide (22-30) mmol/L BUN 25 H (9-20) mg/dL Glucose (74-99) mg/dL POC Glucose (mg/dL) 166 H (70-110) mg/dL Magnesium (1.6-2.3) mg/dL Total Protein 5.0 L (6.3-8.2) g/dL Albumin 3.3 L (3.5-5.0) g/dL Arterial Blood Glucose (75-99) mg/dL Crossmatch 09/10/24 09/10/24 09/10/24 Range/Units 07:07 08:10 09:29 WBC (4.50-10.00) 10*3/uL RBC (4.40-5.60) 10*6/uL Hgb (13.0-17.0) g/dL Hct (39.6-50.0) % MCH (27.0-32.0) pg Plt Count (140-440) 10*3/uL Immature Gran # (0.00-0.04) 10*3/uL Neutrophils # (1.80-7.70) 10*3/uL Lymphocytes # (0.90-5.00) 10*3/uL Monocytes # (0.20-1.00) 10*3/uL Eosinophils # (0.04-0.35) 10*3/uL PT (10.0-12.5) sec INR (<1.2) ABG pH (7.35-7.45) ABG pO2 (83-108) mmHg ABG O2 Saturation (94-97) % ABG Hematocrit (34.0-46.0) % ABG Ionized Calcium (4.5-5.3) mg/dL ABG Glucose (75-99) mg/dL ABG Lactic Acid (0.5-1.6) mmol/L Hemoglobin (13.0-17.5) gm/dL Chloride (98-107) mmol/L Carbon Dioxide (22-30) mmol/L BUN (9-20) mg/dL Glucose (74-99) mg/dL POC Glucose (mg/dL) 173 H 165 H 198 H (70-110) mg/dL Magnesium (1.6-2.3) mg/dL Total Protein (6.3-8.2) g/dL Albumin (3.5-5.0) g/dL Arterial Blood Glucose (75-99) mg/dL Crossmatch 09/10/24 09/10/24 09/10/24 Range/Units 10:12 11:13 13:03 WBC (4.50-10.00) 10*3/uL RBC (4.40-5.60) 10*6/uL Hgb (13.0-17.0) g/dL Hct (39.6-50.0) % MCH (27.0-32.0) pg Plt Count (140-440) 10*3/uL Immature Gran # (0.00-0.04) 10*3/uL Neutrophils # (1.80-7.70) 10*3/uL Lymphocytes # (0.90-5.00) 10*3/uL Monocytes # (0.20-1.00) 10*3/uL Eosinophils # (0.04-0.35) 10*3/uL PT (10.0-12.5) sec INR (<1.2) ABG pH (7.35-7.45) ABG pO2 (83-108) mmHg ABG O2 Saturation (94-97) % ABG Hematocrit (34.0-46.0) % ABG Ionized Calcium (4.5-5.3) mg/dL ABG Glucose (75-99) mg/dL ABG Lactic Acid (0.5-1.6) mmol/L Hemoglobin (13.0-17.5) gm/dL Chloride (98-107) mmol/L Carbon Dioxide (22-30) mmol/L BUN (9-20) mg/dL Glucose (74-99) mg/dL POC Glucose (mg/dL) 166 H 126 H 129 H (70-110) mg/dL Magnesium (1.6-2.3) mg/dL Total Protein (6.3-8.2) g/dL Albumin (3.5-5.0) g/dL Arterial Blood Glucose (75-99) mg/dL Crossmatch Assessment and Plan Assessment: Impression:status post 4 vessel coronary artery bypass grafting surgery postoperative day #1 Triple-vessel coronary artery disease based on cardiac catheterization dated 08/06/2024 History of paroxysmal atrial fibrillation Benign essential hypertension Type 2 diabetes Recent history of appendicitis requiring laparoscopic appendectomy in April 21, 2001 5 Recommendation: Continue to monitor patient in the ICU Continue amiodarone for his paroxysmal atrial fibrillation and for prophylaxis Continue aspirin statins beta-blockers Continue Toradol for pain Continue to monitor hemodynamic parameters via [place]Naeem catheter Continue Rosales catheter for the next 24 hours and record strict I's and O's Daily weights Daily labs Daily x-rays of the chest Encourage incentive spirometry Ambulate Will continue to follow Time with Patient: Less than 30
[2024-09-10 14:11] LABS: Glucose,Whole Blood 198 mg/dL (70-110)
[2024-09-10 15:07] LABS: Glucose,Whole Blood 221 mg/dL (70-110)
[2024-09-10 16:15] LABS: Glucose,Whole Blood 169 mg/dL (70-110)
[2024-09-10 17:27] LABS: Glucose,Whole Blood 148 mg/dL (70-110)
[2024-09-10 18:12] LABS: Glucose,Whole Blood 124 mg/dL (70-110)
[2024-09-10 19:02] LABS: Glucose,Whole Blood 109 mg/dL (70-110)
[2024-09-10 20:50] LABS: Glucose,Whole Blood 156 mg/dL (70-110)
[2024-09-10] MEDS: SENNOSIDES-DOCUSATE SODIUM 1 EACH TAB PO SCH (21:26)
[2024-09-10 21:39] LABS: Glucose,Whole Blood 169 mg/dL (70-110)
[2024-09-10 23:24] LABS: Glucose,Whole Blood 144 mg/dL (70-110)
[2024-09-10] MEDS: POTASSIUM CHLORIDE 10 MEQ in WATER FOR INJECTION 1 100ML.BAG IVPB SCH (23:39)
[2024-09-11 00:34] LABS: Glucose,Whole Blood 115 mg/dL (70-110)
[2024-09-11 02:12] LABS: Glucose,Whole Blood 83 mg/dL (70-110)
[2024-09-11 03:14] LABS: Glucose,Whole Blood 115 mg/dL (70-110)
[2024-09-11 04:23] LABS: Glucose,Whole Blood 141 mg/dL (70-110)
[2024-09-11 04:44] LABS: Basophils # (A) 0.03 10*3/uL (0.00-0.10); Basophils % (A) 0.2 %; Eosinophils # (A) 0.00 10*3/uL (0.04-0.35); Eosinophils % (A) 0.0 %; HCT 21.3 % (39.6-50.0); HGB 7.5 g/dL (13.0-17.0); Lymphocytes # (A) 1.13 10*3/uL (0.90-5.00); Lymphocytes % (A) 5.8 %; MCH 32.1 pg (27.0-32.0); MCHC 35.2 g/dL (32.0-37.0); MCV 91.0 fL (80.0-97.0); Monocytes # (A) 1.82 10*3/uL (0.20-1.00); Monocytes % (A) 9.3 %; Neutrophils # (A) 16.55 10*3/uL (1.80-7.70); Neutrophils % (A) 84.2 %; Platelet Count 118 10*3/uL (140-440); RBC 2.34 10*6/uL (4.40-5.60); RDW 13.5 % (11.5-14.5); WBC 19.62 10*3/uL (4.50-10.00)
[2024-09-11 05:36] LABS: ALT 11 U/L (4-49); AST 40 U/L (17-59); African American GFR (CKD) 68 (>60 ml/min/1.73 sqM); Albumin 3.2 g/dL (3.5-5.0); Alkaline Phosphatase 48 U/L (38-126); Anion Gap 8 mmol/L; Blood Urea Nitrogen 32 mg/dL (9-20); Calcium 8.7 mg/dL (8.4-10.2); Carbon Dioxide 22 mmol/L (22-30); Chloride 106 mmol/L (98-107); Glucose 122 mg/dL (74-99); Non-African American GFR(CKD) 59 (>60 ml/min/1.73 sqM); Potassium 4.4 mmol/L (3.5-5.1); Sodium 136 mmol/L (137-145); Total Protein 5.2 g/dL (6.3-8.2)
[2024-09-11 05:54] LABS: Glucose,Whole Blood 172 mg/dL (70-110)
[2024-09-11] MEDS: PANTOPRAZOLE 40 MG TABLET PO SCH (06:45)
[2024-09-11 06:52] LABS: Glucose,Whole Blood 148 mg/dL (70-110)
--- NOTE | 2024-09-11 07:39 | XR ---
EXAMINATION TYPE: XR chest 1V portable DATE OF EXAM: 09/11/2024 5:37 AM COMPARISON: 09/10/2024 CLINICAL INDICATION: Male, 79 years old with history of Post Operative Cardiac Surgery, , FINDINGS: Median sternotomy wires and post-CABG clips. Mediastinal drain and bilateral chest tubes remain in pl [facility]. Heart remains mildly enlarged. Interval removal right [place]-Naeem catheter. Right IJ sheath remain s in place. No appreciable pneumothorax. Interstitial prominence persists. Bandlike atelectasis left lower lung. Patchy opacity in the lower lungs show some improvement. IMPRESSION: Ongoing pulmonary vascular congestion but with some interval improvement. Patchy bilateral lower lung opacities are also improving. [facility], , 09/11/2024 7:37 AM
[2024-09-11 08:15] LABS: Glucose,Whole Blood 101 mg/dL (70-110)
[2024-09-11 08:58] LABS: Glucose,Whole Blood 114 mg/dL (70-110)
--- NOTE | 2024-09-11 09:04 | P.PN ---
Subjective Progress Note Date: 09/11/24 Principal diagnosis: Coronary artery disease, and paroxysmal atrial fibrillation on Eliquis as an outpatient, although he was noncompliant with taking Eliquis and has not taken it for 3 or 4 weeks prior to surgery. Past medical history significant for hypertension, diabetes mellitus type II, questionable history of myocardial infarction, history of perforated acute appendicitis status post laparoscopic appendectomy in April 2024. POD #2 coronary artery bypass grafting x 4 vessels, left internal mammary artery to the left anterior sending coronary artery, saphenous vein graft to the ramus coronary artery, saphenous vein graft to the obtuse marginal coronary artery, and saphenous vein graft to the posterior descending coronary artery. Endoscopic harvest of bilateral greater saphenous vein, ligation left atrial appendage using a 35mm atrial clip, intraoperative transesophageal echocardiogram completed by anesthesia, epiaortic ultrasound, graft flow measurements using the S-cubismstim system, and Maze procedure. Postoperative acute blood loss anemia, expected given hemodilution and cardiopulmonary bypass. The patient was seen and examined in follow-up today September 11, 2024 at his bedside in the intensive care unit. He is currently sitting up to the bedside chair, tolerating his breakfast, he is oriented x 3 and is in no acute apparent distress. He denies any complaints of shortness of breath at this time, and he states his pain is well-controlled at this time, currently rating his pain 2 out of 10 on the pain scale. Oxygen saturations are 96% on room air and he is achieving 1500 mL on his incentive spirometry. Bedside telemetry showing normal sinus rhythm heart rate 72 bpm. Right IJ cordis remains in place with continuous CVP monitoring, current CVP pressure is 5 mmHg. The patient remains hemodynamically stable and is currently on no inotropic or pressor support. Mediastinal, left, and right pleural chest tubes remain in place to low continuous wall suction -20 cm H2O. No air leak present to the mediastinal or right pleural chest tube, tiny intermittent airleak present to the left pleural chest tube. The chest tubes are draining thin serosanguineous drainage with the mediastinal chest tube draining 170 mL output in the last 8 hours and 550 mL output in the last 24 hours. Left pleural chest tube drained 100 mL output in the last 8 hours and 270 mL output in the last 24 hours. Right pleural chest tube drained 5 mL output in the last 8 hours and 40 mL output in the last 24 hours. Chest x-ray and laboratory results were reviewed. WBC count today is 19.62 and the patient has been encouraged to use his incentive spirometry 10 times every hour while awake. He has also been encouraged to ambulate in the hallway with assistance from nursing and therapy staff. The patient reports he was up ambulating in the intensive care unit hallway with standby assistance from nursing staff this morning and tolerated well. Objective - Vital Signs Vital signs: Vital Signs Temp 98.2 F 09/11/24 08:00 Pulse 72 09/11/24 08:09 Resp 24 09/11/24 08:00 BP 103/58 09/11/24 08:00 Pulse Ox 91 L 09/11/24 08:00 FiO2 40 09/09/24 19:00 Intake & Output 09/10/24 09/11/24 09/11/24 18:59 06:59 18:59 Intake Total 690.115 765.201 104.12 Output Total 890 636 60 Balance -199.885 129.201 44.12 Weight 111.6 kg Intake: IV 107 272 12 CO/CI 20 Potassium Chloride 10 meq 200 In Water For Injection 1 100ml.bag @ 100 mls/hr IVPB Q1H [facility] Rx#: [id number] Pressure Bag 87 72 12 Intake, IV Titration 583.115 493.201 92.12 Amount Insulin Regular 100 unit 103.115 73.201 12.12 In Sodium Chloride 0.9% 100 ml @ Per Protocol IV .Q0M [facility] Rx#:[id number] Sodium Chloride 0.9% 1, 480 420 80 000 ml @ 50 mls/hr IV . Q20H [facility] Rx#:[id number] Output: Chest Tube Drainage 555 306 0 Chest Tube Left Pleural/ 250 110 0 Mediastinal Chest Tube Mediastinal 290 190 0 Chest Tube Right Pleural/ 15 6 0 Mediastinal Urine 335 330 60 Other: Voiding Method Indwelling Catheter Indwelling Catheter # Bowel Movements 0 0 ABP, PAP, CO, CI - Last Documented Arterial Blood Pressure 83/31 Pulmonary Artery Pressure 23/10 Cardiac Output 4.8 Cardiac Index 2.1 - Exam CONSTITUTIONAL: Sitting up to the bedside chair in the intensive care unit, appears comfortable, cooperative, no apparent acute distress. HEENT: Neck is supple, no JVD, no lymphadenopathy. Right IJ Cordis in place and functioning. RESPIRATORY: Lungs sounds essentially clear throughout, diminished to his bilateral bases. Respirations are symmetrical and nonlabored. Currently on room air with oxygen saturations 96%. Able to achieve 1500 mL on his incentive spirometry. Strong cough. CARDIOVASCULAR: Regular rhythm and rate. S1 and S2 present, negative for S3, gallop or murmur. Pericardial rub present. Bedside telemetry showing normal sinus rhythm heart rate 72 bpm. Sternum is stable. Palpable peripheral pulses bilaterally. No calf pain or tenderness noted. Heart hugger in place with patient demonstrating appropriate use. Knee-high SUZIE hose and sequential compression devices in place to his bilateral lower extremities. GASTROINTESTINAL: Abdomen soft, nontender, nondistended. Hypoactive bowel sounds present 4 quadrants. Tolerating diet. Denies passing flatus. No guarding or rigidity. GENITOURINARY: Rosales present draining clear, yellow urine. Urine output 220 mL in the last 8 hours. INTEGUMENTARY: Skin is warm and dry with no evidence of clubbing or cyanosis. Midline sternal incision clean dry and well approximated, covered with dry i ntact dressing. Bilateral lower extremity EVH sites well approximated without redness or drainage. NEUROLOGIC: Cranial nerves II through XII intact. No focal deficits. MUSKULOSKELETAL: Able to move all extremities, strength equal bilaterally, generalized weakness. PSYCHIATRIC: Alert and oriented to person place and time, appropriate affect, intact judgment and insight. INVASIVE LINES AND TUBES: Mediastinal/left and right pleural chest tubes present and connected to low continuous wall suction, no air leaks present. Mediastinal tube with 170 mL of thin serosanguineous drainage overnight, 550 mL output in the last 24 hours. Left pleural chest tube with 100 mL output in the 8 hours and 270 mL output in the last 24 hours. Right pleural chest tube draining thin serosanguineous drainage with 40 mL output in the last 24 hours. Atrial and ventricular epicardial pacemaker wires present, connected to generator, VVI backup rate 50 bpm. Right internal jugular Cordis, right radial arterial line present. Current CVP 5 mmHg. - Allied health notes Allied health notes reviewed: nursing - Labs CBC & Chem 7: 09/11/24 05:00 09/11/24 05:00 Labs: Abnormal Lab Results - Last 24 Hours (Table) 09/10/24 09/10/24 09/10/24 Range/Units 09:29 10:12 11:13 WBC (4.50-10.00) 10*3/uL RBC (4.40-5.60) 10*6/uL Hgb (13.0-17.0) g/dL Hct (39.6-50.0) % MCH (27.0-32.0) pg Plt Count (140-440) 10*3/uL Immature Gran # (0.00-0.04) 10*3/uL Neutrophils # (1.80-7.70) 10*3/uL Monocytes # (0.20-1.00) 10*3/uL Eosinophils # (0.04-0.35) 10*3/uL Sodium (137-145) mmol/L BUN (9-20) mg/dL Glucose (74-99) mg/dL POC Glucose (mg/dL) 198 H 166 H 126 H (70-110) mg/dL Total Protein (6.3-8.2) g/dL Albumin (3.5-5.0) g/dL 09/10/24 09/10/24 09/10/24 Range/Units 13:03 14:10 15:06 WBC (4.50-10.00) 10*3/uL RBC (4.40-5.60) 10*6/uL Hgb (13.0-17.0) g/dL Hct (39.6-50.0) % MCH (27.0-32.0) pg Plt Count (140-440) 10*3/uL Immature Gran # (0.00-0.04) 10*3/uL Neutrophils # (1.80-7.70) 10*3/uL Monocytes # (0.20-1.00) 10*3/uL Eosinophils # (0.04-0.35) 10*3/uL Sodium (137-145) mmol/L BUN (9-20) mg/dL Glucose (74-99) mg/dL POC Glucose (mg/dL) 129 H 198 H 221 H (70-110) mg/dL Total Protein (6.3-8.2) g/dL Albumin (3.5-5.0) g/dL 09/10/24 09/10/24 09/10/24 Range/Units 16:13 17:25 18:10 WBC (4.50-10.00) 10*3/uL RBC (4.40-5.60) 10*6/uL Hgb (13.0-17.0) g/dL Hct (39.6-50.0) % MCH (27.0-32.0) pg Plt Count (140-440) 10*3/uL Immature Gran # (0.00-0.04) 10*3/uL Neutrophils # (1.80-7.70) 10*3/uL Monocytes # (0.20-1.00) 10*3/uL Eosinophils # (0.04-0.35) 10*3/uL Sodium (137-145) mmol/L BUN (9-20) mg/dL Glucose (74-99) mg/dL POC Glucose (mg/dL) 169 H 148 H 124 H (70-110) mg/dL Total Protein (6.3-8.2) g/dL Albumin (3.5-5.0) g/dL 09/10/24 09/10/24 09/10/24 Range/Units 20:47 21:38 23:22 WBC (4.50-10.00) 10*3/uL RBC (4.40-5.60) 10*6/uL Hgb (13.0-17.0) g/dL Hct (39.6-50.0) % MCH (27.0-32.0) pg Plt Count (140-440) 10*3/uL Immature Gran # (0.00-0.04) 10*3/uL Neutrophils # (1.80-7.70) 10*3/uL Monocytes # (0.20-1.00) 10*3/uL Eosinophils # (0.04-0.35) 10*3/uL Sodium (137-145) mmol/L BUN (9-20) mg/dL Glucose (74-99) mg/dL POC Glucose (mg/dL) 156 H 169 H 144 H (70-110) mg/dL Total Protein (6.3-8.2) g/dL Albumin (3.5-5.0) g/dL 09/11/24 09/11/24 09/11/24 Range/Units 00:33 03:13 04:21 WBC (4.50-10.00) 10*3/uL RBC (4.40-5.60) 10*6/uL Hgb (13.0-17.0) g/dL Hct (39.6-50.0) % MCH (27.0-32.0) pg Plt Count (140-440) 10*3/uL Immature Gran # (0.00-0.04) 10*3/uL Neutrophils # (1.80-7.70) 10*3/uL Monocytes # (0.20-1.00) 10*3/uL Eosinophils # (0.04-0.35) 10*3/uL Sodium (137-145) mmol/L BUN (9-20) mg/dL Glucose (74-99) mg/dL POC Glucose (mg/dL) 115 H 115 H 141 H (70-110) mg/dL Total Protein (6.3-8.2) g/dL Albumin (3.5-5.0) g/dL 09/11/24 09/11/24 09/11/24 Range/Units 05:00 05:00 05:53 WBC 19.62 H (4.50-10.00) 10*3/uL RBC 2.34 L (4.40-5.60) 10*6/uL Hgb 7.5 L (13.0-17.0) g/dL Hct 21.3 L (39.6-50.0) % MCH 32.1 H (27.0-32.0) pg Plt Count 118 L (140-440) 10*3/uL Immature Gran # 0.09 H (0.00-0.04) 10*3/uL Neutrophils # 16.55 H (1.80-7.70) 10*3/uL Monocytes # 1.82 H (0.20-1.00) 10*3/uL Eosinophils # 0.00 L (0.04-0.35) 10*3/uL Sodium 136 L (137-145) mmol/L BUN 32 H (9-20) mg/dL Glucose 122 H (74-99) mg/dL POC Glucose (mg/dL) 172 H (70-110) mg/dL Total Protein 5.2 L (6.3-8.2) g/dL Albumin 3.2 L (3.5-5.0) g/dL 09/11/24 Range/Units 06:51 WBC (4.50-10.00) 10*3/uL RBC (4.40-5.60) 10*6/uL Hgb (13.0-17.0) g/dL Hct (39.6-50.0) % MCH (27.0-32.0) pg Plt Count (140-440) 10*3/uL Immature Gran # (0.00-0.04) 10*3/uL Neutrophils # (1.80-7.70) 10*3/uL Monocytes # (0.20-1.00) 10*3/uL Eosinophils # (0.04-0.35) 10*3/uL Sodium (137-145) mmol/L BUN (9-20) mg/dL Glucose (74-99) mg/dL POC Glucose (mg/dL) 148 H (70-110) mg/dL Total Protein (6.3-8.2) g/dL Albumin (3.5-5.0) g/dL - Imaging and Cardiology Chest x-ray: report reviewed, image reviewed Assessment and Plan Assessment: Coronary artery disease, status post four-vessel coronary artery bypass grafting surgery Paroxysmal atrial fibrillation, status post maze procedure, noncompliant with taking Eliquis as an outpatient Postoperative acute blood loss anemia, expected given hemodilution and cardiopulmonary bypass Hypertension Diabetes mellitus type 2, preoperative hemoglobin A1c 6.8% Questionable history of myocardial infarction History of perforated acute appendicitis status post laparoscopic appendectomy in April 2024 Remote history of nicotine dependence, preoperative FEV1 3.32 L, 101% predicted value Plan: Continue to maximize medical therapy with aspirin, statin, Plavix, and beta- ranjit therapy. Will increase Metoprolol tatrate as tolerated with hold parameters. Continue amiodarone 400 mg p.o. twice daily for atrial fibrillation prophylaxis, patient has had no atrial fibrillation up to this point. Wean oxygen as tolerated. Encourage incentive spirometry use 10 times every hour while awake, bronchodilators per pulmonology. Will monitor daily labs and chest x-rays. Electrolyte replacement per protocol. Increase activity, ambulate as tolerated. PT/OT/cardiac rehab following. GI/DVT prophylaxis. Pain control per current medication regimen Robaxin has been added. Insulin management per internal medicine, patient should remain on continuous IV insulin for 48 hours, then may transition to subcutaneous per protocol. Patient is a diabetic, preoperative hemoglobin A1c 6.8% Will remove his right IJ cordis. Continue mediastinal and left pleural chest tubes for another 24 hours, monitor and record output. Continue to monitor for airleak resolution to the left pleural chest tube. We will remove his right pleural chest tube today. Remove Rosales catheter, continue to monitor and record strict accurate intake and output. May bladder scan every 6 hours and as needed postvoid residuals. If greater than 300 mL of urine may straight cath. Daily weights. Remove right radial arterial line. More recommendations to follow based on patient's clinical course. Time with Patient: Greater than 30
[2024-09-11 09:55] LABS: Glucose,Whole Blood 143 mg/dL (70-110)
[2024-09-11 10:45] VITALS: BMI 31.6
[2024-09-11 11:04] LABS: Glucose,Whole Blood 137 mg/dL (70-110)
--- NOTE | 2024-09-11 11:15 | P.PN ---
Subjective HISTORY OF PRESENTING ILLNESS This is a pleasant 79-year-old with past medical history significant for hypertension, hyperlipidemia, coronary artery disease, paroxysmal atrial fibrillation, previous ruptured appendicitis status post laparoscopic surgery April 2024, mild ischemic cardiomyopathy EF 40 to 45%. Patient follows with Dr. Moreno. Patient had initially presented for ruptured appendicitis in April 2024 and found to have A-fib and underwent further cardiac workup with echo from August 2024 showing EF 40 to 45% as well as heart catheterization showing multivessel CAD. Patient underwent four-vessel CABG with LOVELACE to LAD, SVG to ramus, SVG to OM and SVG to PDA as well as maze procedure and clip of left atrial appendage. Patient was placed on milrinone, norepinephrine, amiodarone drip. Milrinone and norepinephrine have been discontinued and cardiac index in the 3.0 range. He denies any chest pain or pressure. He does have some incisional pain. His hemoglobin is at 7.5. PA pressures 28/9 with a CVP of 5. Patient was chest t ubes bilaterally and mediastinal tube. Thanh in normal sinus rhythm on telemetry. 09/11 Patient seen and examined. Patient denies any chest pain other than the incision. Denies any significant lightheadedness or dizziness. He has been up walking. He remains in sinus rhythm. Hemoglobin stable at 7.5. Cordis was pulled and right chest tube was pulled. PHYSICAL EXAMINATION Vital signs reviewed. CONSTITUTIONAL: No apparent distress. HEENT: Head is normocephalic. Pupils are equal, round. Sclerae anicteric. Mucous membranes of the mouth are moist. No JVD. No carotid bruit. CHEST EXAMINATION: Lungs are clear to auscultation. No chest wall tenderness is noted on palpation or with deep breathing. HEART EXAMINATION: Regular rate and rhythm. S1, S2 heard. No murmurs, gallops or rub. ABDOMEN: Soft, nontender. Positive bowel sounds. EXTREMITIES: 2+ peripheral pulses, no lower extremity edema and no calf tenderness. NEUROLOGIC EXAMINATION: Patient is awake, alert and oriented x3. ASSESSMENT CAD status post CABG times 4 on 09/09/2024 Hypertension Hyperlipidemia Mild ischemic cardiomyopathy EF 40 to 45% Chronic diastolic heart failure Blood loss anemia Paroxysmal atrial fibrillation status post Maze procedure, currently sinus rhythm Diabetes mellitus type 2 History of perforated appendicitis April 2024 PLAN Continue with current supportive care. Continue with amiodarone and patient currently in sinus rhythm. Attempt to optimize heart failure regimen as able however blood pressure is borderline. Continue metoprolol. Increase activity. Appears to be slowly improving. Monitor hemoglobin closely. Eventually add back Eliquis when hemoglobin stable and tubes have been pulled. Further recommendations to follow. Objective - Vital Signs Vital signs: Vital Signs Temp 98.2 F 09/11/24 08:00 Pulse 68 09/11/24 11:00 Resp 11 L 09/11/24 11:00 BP 111/49 09/11/24 11:00 Pulse Ox 96 09/11/24 11:00 FiO2 40 09/09/24 19:00 Intake & Output 09/10/24 09/11/24 09/11/24 18:59 06:59 18:59 Intake Total 690.115 765.201 162.12 Output Total 890 636 327 Balance -199.885 129.201 -164.88 Weight 111.6 kg 111.6 kg Intake: IV 107 272 30 CO/CI 20 Potassium Chloride 10 meq 200 In Water For Injection 1 100ml.bag @ 100 mls/hr IVPB Q1H [facility] Rx#: [id number] Pressure Bag 87 72 30 Intake, IV Titration 583.115 493.201 132.12 Amount Insulin Regular 100 unit 103.115 73.201 12.12 In Sodium Chloride 0.9% 100 ml @ Per Protocol IV .Q0M [facility] Rx#:[id number] Sodium Chloride 0.9% 1, 480 420 120 000 ml @ 50 mls/hr IV . Q20H [facility] Rx#:[id number] Output: Chest Tube Drainage 555 306 200 Chest Tube Left Pleural/ 250 110 140 Mediastinal Chest Tube Mediastinal 290 190 60 Chest Tube Right Pleural/ 15 6 0 Mediastinal Urine 335 330 127 Other: Voiding Method Indwelling Catheter Indwelling Catheter Indwelling Catheter # Voids 0 # Bowel Movements 0 0 ABP, PAP, CO, CI - Last Documented Arterial Blood Pressure 125/49 Pulmonary Artery Pressure 23/10 Cardiac Output 4.8 Cardiac Index 2.1 - Labs CBC & Chem 7: 09/11/24 05:00 09/11/24 05:00 Labs: Abnormal Lab Results - Last 24 Hours (Table) 09/10/24 09/10/24 09/10/24 Range/Units 11:13 13:03 14:10 WBC (4.50-10.00) 10*3/uL RBC (4.40-5.60) 10*6/uL Hgb (13.0-17.0) g/dL Hct (39.6-50.0) % MCH (27.0-32.0) pg Plt Count (140-440) 10*3/uL Immature Gran # (0.00-0.04) 10*3/uL Neutrophils # (1.80-7.70) 10*3/uL Monocytes # (0.20-1.00) 10*3/uL Eosinophils # (0.04-0.35) 10*3/uL Sodium (137-145) mmol/L BUN (9-20) mg/dL Glucose (74-99) mg/dL POC Glucose (mg/dL) 126 H 129 H 198 H (70-110) mg/dL Total Protein (6.3-8.2) g/dL Albumin (3.5-5.0) g/dL 09/10/24 09/10/24 09/10/24 Range/Units 15:06 16:13 17:25 WBC (4.50-10.00) 10*3/uL RBC (4.40-5.60) 10*6/uL Hgb (13.0-17.0) g/dL Hct (39.6-50.0) % MCH (27.0-32.0) pg Plt Count (140-440) 10*3/uL Immature Gran # (0.00-0.04) 10*3/uL Neutrophils # (1.80-7.70) 10*3/uL Monocytes # (0.20-1.00) 10*3/uL Eosinophils # (0.04-0.35) 10*3/uL Sodium (137-145) mmol/L BUN (9-20) mg/dL Glucose (74-99) mg/dL POC Glucose (mg/dL) 221 H 169 H 148 H (70-110) mg/dL Total Protein (6.3-8.2) g/dL Albumin (3.5-5.0) g/dL 09/10/24 09/10/24 09/10/24 Range/Units 18:10 20:47 21:38 WBC (4.50-10.00) 10*3/uL RBC (4.40-5.60) 10*6/uL Hgb (13.0-17.0) g/dL Hct (39.6-50.0) % MCH (27.0-32.0) pg Plt Count (140-440) 10*3/uL Immature Gran # (0.00-0.04) 10*3/uL Neutrophils # (1.80-7.70) 10*3/uL Monocytes # (0.20-1.00) 10*3/uL Eosinophils # (0.04-0.35) 10*3/uL Sodium (137-145) mmol/L BUN (9-20) mg/dL Glucose (74-99) mg/dL POC Glucose (mg/dL) 124 H 156 H 169 H (70-110) mg/dL Total Protein (6.3-8.2) g/dL Albumin (3.5-5.0) g/dL 09/10/24 09/11/24 09/11/24 Range/Units 23:22 00:33 03:13 WBC (4.50-10.00) 10*3/uL RBC (4.40-5.60) 10*6/uL Hgb (13.0-17.0) g/dL Hct (39.6-50.0) % MCH (27.0-32.0) pg Plt Count (140-440) 10*3/uL Immature Gran # (0.00-0.04) 10*3/uL Neutrophils # (1.80-7.70) 10*3/uL Monocytes # (0.20-1.00) 10*3/uL Eosinophils # (0.04-0.35) 10*3/uL Sodium (137-145) mmol/L BUN (9-20) mg/dL Glucose (74-99) mg/dL POC Glucose (mg/dL) 144 H 115 H 115 H (70-110) mg/dL Total Protein (6.3-8.2) g/dL Albumin (3.5-5.0) g/dL 09/11/24 09/11/24 09/11/24 Range/Units 04:21 05:00 05:00 WBC 19.62 H (4.50-10.00) 10*3/uL RBC 2.34 L (4.40-5.60) 10*6/uL Hgb 7.5 L (13.0-17.0) g/dL Hct 21.3 L (39.6-50.0) % MCH 32.1 H (27.0-32.0) pg Plt Count 118 L (140-440) 10*3/uL Immature Gran # 0.09 H (0.00-0.04) 10*3/uL Neutrophils # 16.55 H (1.80-7.70) 10*3/uL Monocytes # 1.82 H (0.20-1.00) 10*3/uL Eosinophils # 0.00 L (0.04-0.35) 10*3/uL Sodium 136 L (137-145) mmol/L BUN 32 H (9-20) mg/dL Glucose 122 H (74-99) mg/dL POC Glucose (mg/dL) 141 H (70-110) mg/dL Total Protein 5.2 L (6.3-8.2) g/dL Albumin 3.2 L (3.5-5.0) g/dL 09/11/24 09/11/24 09/11/24 Range/Units 05:53 06:51 08:57 WBC (4.50-10.00) 10*3/uL RBC (4.40-5.60) 10*6/uL Hgb (13.0-17.0) g/dL Hct (39.6-50.0) % MCH (27.0-32.0) pg Plt Count (140-440) 10*3/uL Immature Gran # (0.00-0.04) 10*3/uL Neutrophils # (1.80-7.70) 10*3/uL Monocytes # (0.20-1.00) 10*3/uL Eosinophils # (0.04-0.35) 10*3/uL Sodium (137-145) mmol/L BUN (9-20) mg/dL Glucose (74-99) mg/dL POC Glucose (mg/dL) 172 H 148 H 114 H (70-110) mg/dL Total Protein (6.3-8.2) g/dL Albumin (3.5-5.0) g/dL 09/11/24 09/11/24 Range/Units 09:54 11:03 WBC (4.50-10.00) 10*3/uL RBC (4.40-5.60) 10*6/uL Hgb (13.0-17.0) g/dL Hct (39.6-50.0) % MCH (27.0-32.0) pg Plt Count (140-440) 10*3/uL Immature Gran # (0.00-0.04) 10*3/uL Neutrophils # (1.80-7.70) 10*3/uL Monocytes # (0.20-1.00) 10*3/uL Eosinophils # (0.04-0.35) 10*3/uL Sodium (137-145) mmol/L BUN (9-20) mg/dL Glucose (74-99) mg/dL POC Glucose (mg/dL) 143 H 137 H (70-110) mg/dL Total Protein (6.3-8.2) g/dL Albumin (3.5-5.0) g/dL
[2024-09-11 12:01] LABS: Glucose,Whole Blood 111 mg/dL (70-110)
--- NOTE | 2024-09-11 12:45 | P.PN ---
Subjective Progress Note Date: 09/11/24 Principal diagnosis: POD #2 coronary artery bypass grafting x 4 vessels, left internal mammary artery to the left anterior sending coronary artery, saphenous vein graft to the ramus coronary artery, saphenous vein graft to the obtuse marginal coronary artery, and saphenous vein graft to the posterior descending coronary artery. Endoscopic harvest of bilateral greater saphenous vein, ligation left atrial appendage using a 35mm atrial clip, intraoperative transesophageal echo cardiogram completed by anesthesia, epiaortic ultrasound, graft flow measurements using the [employer] system, and Maze procedure. Patient was seen today on 09/10/2024, remains in the ICU, patient was extubated at 7:12 PM successfully. This morning he is on room air. Not in any distress O2 saturation is in the 90s achieving over 1500 cc on incentive spirometry. Patient has no complaints, he does have some surgical site discomfort at the site of the chest tube insertion. Continues to have right IJ cordis and [place]- Naeem catheter his current hemodynamics showed cardiac output of 7 lower cardiac index compared to yesterday. It is 3.0 today. PA pressures 28/8 CVP is 5. Still on Primacor 0.1 mcg/kg/min and amiodarone drip patient seems to be in sinus rhythm rate of 70 mediastinal and left and right pleural chest tubes are noted on continuous wall suction manage 20 serosanguineous drainage is noted chest x-ray showed minimal bibasilar atelectasis. Patient is sitting at the bedside chair, in no distress. WBC count is 12.1 hemoglobin 7.5, basic metabolic profile is normal BUN is 25 creatinine 1.04. Patient was seen today on 09/11/2024, remains in the ICU, patient is now postoperative day #2, sitting at the bedside chair, hemodynamically stable not requiring any pressors, he is alert and oriented x 3, he is in sinus rhythm rate 72. His hemodynamic monitoring revealed CVP of 5 again the patient is not requiring any inotropes or any pressors mediastinal left and right pleural chest tubes were noted remain on low continuous wall suction. No air leak is noted. Chest x-ray showed postoperative changes, and there is evidence of mild pulmonary vascular congestion with bibasilar atelectasis. Patient is doing extremely well with incentive spirometry, ambulating well with assistance. WBC count is 19.6 hemoglobin 7.5, basic metabolic profile is normal renal profile is normal creatinine is a bit high at 1.17 compared to 1.04 yesterday. Objective - Vital Signs Vital signs: Vital Signs Temp 98.2 F 09/11/24 12:00 Pulse 74 09/11/24 12:00 Resp 15 09/11/24 12:00 BP 118/57 09/11/24 12:00 Pulse Ox 99 09/11/24 12:00 FiO2 40 09/09/24 19:00 Intake & Output 09/10/24 09/11/24 09/11/24 18:59 06:59 18:59 Intake Total 690.115 765.201 185.357 Output Total 890 636 227 Balance -199.885 129.201 -41.643 Weight 111.6 kg 111.6 kg Intake: IV 107 272 36 CO/CI 20 Potassium Chloride 10 meq 200 In Water For Injection 1 100ml.bag @ 100 mls/hr IVPB Q1H [facility] Rx#: [id number] Pressure Bag 87 72 36 Intake, IV Titration 583.115 493.201 149.357 Amount Insulin Regular 100 unit 103.115 73.201 29.357 In Sodium Chloride 0.9% 100 ml @ Per Protocol IV .Q0M [facility] Rx#:[id number] Sodium Chloride 0.9% 1, 480 420 120 000 ml @ 50 mls/hr IV . Q20H [facility] Rx#:[id number] Output: Chest Tube Drainage 555 306 100 Chest Tube Left Pleural/ 250 110 70 Mediastinal Chest Tube Mediastinal 290 190 30 Chest Tube Right Pleural/ 15 6 0 Mediastinal Urine 335 330 127 Other: Voiding Method Indwelling Catheter Indwelling Catheter Indwelling Catheter # Voids 0 # Bowel Movements 0 0 ABP, PAP, CO, CI - Last Documented Arterial Blood Pressure 125/49 Pulmonary Artery Pressure 23/10 Cardiac Output 4.8 Cardiac Index 2.1 - Exam Physical exam revealed a 79-year-old, in no distress, on room air sitting at the bedside chair, O2 saturation 99% Head: Atraumatic, normocephalic EENT: PERRLA, EOMI, nonicteric, no neck masses, no JVD, no stridor, moist mucous membranes, right IJ cordis and [place]Naeem catheter noted. Chest: Symmetrical chest expansion Lungs: Diminished breath sound bilaterally no rhonchi no wheezes chest tubes and mediastinal chest tube noted. Cardiac: Normal S1-S2, no S3 gallop, no murmur, positive pericardial rub Abdomen: Soft nontender no megaly no rebound no guarding good bowel sounds Extremities: No clubbing edema or cyanosis, good pulses bilaterally Musculoskeletal: No deformities and no limitation range of motion Neurologic: Alert and oriented x 3 no gross focal deficit Psychiatric: Normal mood, affect and no mental status examination . Skin: No rashes. - Labs CBC & Chem 7: 09/11/24 05:00 09/11/24 05:00 Labs: Abnormal Lab Results - Last 24 Hours (Table) 09/10/24 09/10/24 09/10/24 Range/Units 13:03 14:10 15:06 WBC (4.50-10.00) 10*3/uL RBC (4.40-5.60) 10*6/uL Hgb (13.0-17.0) g/dL Hct (39.6-50.0) % MCH (27.0-32.0) pg Plt Count (140-440) 10*3/uL Immature Gran # (0.00-0.04) 10*3/uL Neutrophils # (1.80-7.70) 10*3/uL Monocytes # (0.20-1.00) 10*3/uL Eosinophils # (0.04-0.35) 10*3/uL Sodium (137-145) mmol/L BUN (9-20) mg/dL Glucose (74-99) mg/dL POC Glucose (mg/dL) 129 H 198 H 221 H (70-110) mg/dL Total Protein (6.3-8.2) g/dL Albumin (3.5-5.0) g/dL 09/10/24 09/10/24 09/10/24 Range/Units 16:13 17:25 18:10 WBC (4.50-10.00) 10*3/uL RBC (4.40-5.60) 10*6/uL Hgb (13.0-17.0) g/dL Hct (39.6-50.0) % MCH (27.0-32.0) pg Plt Count (140-440) 10*3/uL Immature Gran # (0.00-0.04) 10*3/uL Neutrophils # (1.80-7.70) 10*3/uL Monocytes # (0.20-1.00) 10*3/uL Eosinophils # (0.04-0.35) 10*3/uL Sodium (137-145) mmol/L BUN (9-20) mg/dL Glucose (74-99) mg/dL POC Glucose (mg/dL) 169 H 148 H 124 H (70-110) mg/dL Total Protein (6.3-8.2) g/dL Albumin (3.5-5.0) g/dL 09/10/24 09/10/24 09/10/24 Range/Units 20:47 21:38 23:22 WBC (4.50-10.00) 10*3/uL RBC (4.40-5.60) 10*6/uL Hgb (13.0-17.0) g/dL Hct (39.6-50.0) % MCH (27.0-32.0) pg Plt Count (140-440) 10*3/uL Immature Gran # (0.00-0.04) 10*3/uL Neutrophils # (1.80-7.70) 10*3/uL Monocytes # (0.20-1.00) 10*3/uL Eosinophils # (0.04-0.35) 10*3/uL Sodium (137-145) mmol/L BUN (9-20) mg/dL Glucose (74-99) mg/dL POC Glucose (mg/dL) 156 H 169 H 144 H (70-110) mg/dL Total Protein (6.3-8.2) g/dL Albumin (3.5-5.0) g/dL 09/11/24 09/11/24 09/11/24 Range/Units 00:33 03:13 04:21 WBC (4.50-10.00) 10*3/uL RBC (4.40-5.60) 10*6/uL Hgb (13.0-17.0) g/dL Hct (39.6-50.0) % MCH (27.0-32.0) pg Plt Count (140-440) 10*3/uL Immature Gran # (0.00-0.04) 10*3/uL Neutrophils # (1.80-7.70) 10*3/uL Monocytes # (0.20-1.00) 10*3/uL Eosinophils # (0.04-0.35) 10*3/uL Sodium (137-145) mmol/L BUN (9-20) mg/dL Glucose (74-99) mg/dL POC Glucose (mg/dL) 115 H 115 H 141 H (70-110) mg/dL Total Protein (6.3-8.2) g/dL Albumin (3.5-5.0) g/dL 09/11/24 09/11/24 09/11/24 Range/Units 05:00 05:00 05:53 WBC 19.62 H (4.50-10.00) 10*3/uL RBC 2.34 L (4.40-5.60) 10*6/uL Hgb 7.5 L (13.0-17.0) g/dL Hct 21.3 L (39.6-50.0) % MCH 32.1 H (27.0-32.0) pg Plt Count 118 L (140-440) 10*3/uL Immature Gran # 0.09 H (0.00-0.04) 10*3/uL Neutrophils # 16.55 H (1.80-7.70) 10*3/uL Monocytes # 1.82 H (0.20-1.00) 10*3/uL Eosinophils # 0.00 L (0.04-0.35) 10*3/uL Sodium 136 L (137-145) mmol/L BUN 32 H (9-20) mg/dL Glucose 122 H (74-99) mg/dL POC Glucose (mg/dL) 172 H (70-110) mg/dL Total Protein 5.2 L (6.3-8.2) g/dL Albumin 3.2 L (3.5-5.0) g/dL 09/11/24 09/11/24 09/11/24 Range/Units 06:51 08:57 09:54 WBC (4.50-10.00) 10*3/uL RBC (4.40-5.60) 10*6/uL Hgb (13.0-17.0) g/dL Hct (39.6-50.0) % MCH (27.0-32.0) pg Plt Count (140-440) 10*3/uL Immature Gran # (0.00-0.04) 10*3/uL Neutrophils # (1.80-7.70) 10*3/uL Monocytes # (0.20-1.00) 10*3/uL Eosinophils # (0.04-0.35) 10*3/uL Sodium (137-145) mmol/L BUN (9-20) mg/dL Glucose (74-99) mg/dL POC Glucose (mg/dL) 148 H 114 H 143 H (70-110) mg/dL Total Protein (6.3-8.2) g/dL Albumin (3.5-5.0) g/dL 09/11/24 09/11/24 Range/Units 11:03 12:00 WBC (4.50-10.00) 10*3/uL RBC (4.40-5.60) 10*6/uL Hgb (13.0-17.0) g/dL Hct (39.6-50.0) % MCH (27.0-32.0) pg Plt Count (140-440) 10*3/uL Immature Gran # (0.00-0.04) 10*3/uL Neutrophils # (1.80-7.70) 10*3/uL Monocytes # (0.20-1.00) 10*3/uL Eosinophils # (0.04-0.35) 10*3/uL Sodium (137-145) mmol/L BUN (9-20) mg/dL Glucose (74-99) mg/dL POC Glucose (mg/dL) 137 H 111 H (70-110) mg/dL Total Protein (6.3-8.2) g/dL Albumin (3.5-5.0) g/dL Assessment and Plan Assessment: Impression:status post 4 vessel coronary artery bypass grafting surgery postoperative day #2 Triple-vessel coronary artery disease based on cardiac catheterization dated 08/06/2024 History of paroxysmal atrial fibrillation Benign essential hypertension Type 2 diabetes Recent history of appendicitis requiring laparoscopic appendectomy in April 21, 2001 5 Recommendation: Continue maximal medical therapy with aspirin statin Plavix and beta-blockers Continue to monitor patient in the ICU Continue amiodarone for his paroxysmal atrial fibrillation and for prophylaxis Continue Toradol for pain Discontinue any unnecessary catheters and lines Monitor daily labs and daily x-rays of the chest Daily x-rays of the chest Encourage incentive spirometry, patient is doing quite well with incentive spirometry achieving almost 2000 cc Assist with ambulation Will continue to follow Time with Patient: Less than 30
[2024-09-11 12:52] LABS: Glucose,Whole Blood 144 mg/dL (70-110)
[2024-09-11 14:02] LABS: Glucose,Whole Blood 146 mg/dL (70-110)
[2024-09-11 15:16] LABS: Glucose,Whole Blood 101 mg/dL (70-110)
[2024-09-11] MEDS: HYDROcodone/APAP 5-325MG 1 EACH TAB PO PRN ×2 (15:36→15:40)
[2024-09-11 16:59] LABS: Glucose,Whole Blood 134 mg/dL (70-110)
[2024-09-11] MEDS: INSULIN LISPRO (HumaLOG) 100 UNIT/ML 10 mL VL SQ SCH (18:06)
[2024-09-11 20:45] LABS: Glucose,Whole Blood 216 mg/dL (70-110)
[2024-09-12 04:20] LABS: Basophils # (A) 0.03 10*3/uL (0.00-0.10); Basophils % (A) 0.2 %; Eosinophils # (A) 0.01 10*3/uL (0.04-0.35); Eosinophils % (A) 0.1 %; HCT 22.2 % (39.6-50.0); HGB 7.5 g/dL (13.0-17.0); Lymphocytes # (A) 1.69 10*3/uL (0.90-5.00); Lymphocytes % (A) 12.1 %; MCH 31.4 pg (27.0-32.0); MCHC 33.8 g/dL (32.0-37.0); MCV 92.9 fL (80.0-97.0); Monocytes # (A) 1.21 10*3/uL (0.20-1.00); Monocytes % (A) 8.6 %; Neutrophils # (A) 10.98 10*3/uL (1.80-7.70); Neutrophils % (A) 78.5 %; Platelet Count 150 10*3/uL (140-440); RBC 2.39 10*6/uL (4.40-5.60); RDW 13.4 % (11.5-14.5); WBC 13.99 10*3/uL (4.50-10.00)
[2024-09-12 04:38] LABS: ALT 12 U/L (4-49); AST 32 U/L (17-59); African American GFR (CKD) 68 (>60 ml/min/1.73 sqM); Albumin 3.2 g/dL (3.5-5.0); Alkaline Phosphatase 56 U/L (38-126); Anion Gap 10 mmol/L; Blood Urea Nitrogen 39 mg/dL (9-20); Calcium 8.8 mg/dL (8.4-10.2); Carbon Dioxide 21 mmol/L (22-30); Chloride 104 mmol/L (98-107); Glucose 164 mg/dL (74-99); Non-African American GFR(CKD) 58 (>60 ml/min/1.73 sqM); Potassium 4.5 mmol/L (3.5-5.1); Sodium 135 mmol/L (137-145); Total Protein 5.4 g/dL (6.3-8.2)
[2024-09-12 06:43] LABS: Glucose,Whole Blood 232 mg/dL (70-110)
--- NOTE | 2024-09-12 08:00 | XR ---
EXAMINATION TYPE: XR chest 1V portable DATE OF EXAM: 09/12/2024 5:17 AM COMPARISON: 09/11/2024 CLINICAL INDICATION: Male, 79 years old with history of Postop CABG, , FINDINGS: Heart remains mildly enlarged. Median sternotomy wires. Left-sided chest tube in place. No appreciabl e pneumothorax on the left. However, there is a trace 5 mm right apical pneumothorax. Mild interstiti al densities remain. Band of atelectasis persist left mid to lower lung. Retained epicardial pacer le ads. IMPRESSION: 1. TRACE 5 MM RIGHT APICAL PNEUMOTHORAX NOW SEEN. Left-sided chest tube in place. No appreciable pneu mothorax on the left. 2. Mild cardiomegaly and ongoing mild pulmonary vascular congestion. [facility], , 09/12/2024 7:58 AM
--- NOTE | 2024-09-12 08:08 | P.PN ---
Subjective Progress Note Date: 09/12/24 Principal diagnosis: Coronary artery disease, paroxysmal atrial fibrillation. History of paroxysmal atrial fibrillation on Eliquis as an outpatient, noncompliant with taking Eliqu is prior to surgery, hypertension, right internal carotid artery stenosis, diabetes mellitus type II, questionable history of myocardial infarction, recent acute appendicitis with perforation status post laparoscopic appendectomy, previous tobacco use as well as chewing tobacco use POD #3 coronary artery bypass grafting x 4 vessels, left internal mammary artery to the left anterior sending coronary artery, saphenous vein graft to the ramus coronary artery, saphenous vein graft to the obtuse marginal coronary artery, and saphenous vein graft to the posterior descending coronary artery. Endos copic harvest of bilateral greater saphenous vein, ligation left atrial appendage using a 35mm atrial clip, intraoperative transesophageal echocardiogram completed by anesthesia, epiaortic ultrasound, graft flow measurements using the [employer] system, and Maze procedure. Postoperative acute blood loss anemia, expected given hemodilution and cardiopulmonary bypass. The patient was seen and examined this morning sitting up in recliner in the intensive care unit in no acute distress. States pain is controlled on current medication regimen, denies shortness of breath. Remains in sinus rhythm, hemodynamically stable on no inotropes or pressors. Currently on room air with oxygen saturation 100%, able to achieve 2500 mL on incentive spirometry. Mediastinal/left pleural chest tubes remain. Patient requires motivation to ambulate in the hallway. Otherwise he is clinically stable. Chest x-ray, labs reviewed. No other new concerns. Objective - Vital Signs Vital signs: Vital Signs Temp 98.0 F 09/12/24 04:00 Pulse 68 09/12/24 07:00 Resp 15 09/12/24 07:00 BP 151/68 09/12/24 07:00 Pulse Ox 98 09/12/24 07:00 FiO2 40 09/09/24 19:00 Intake & Output 09/11/24 09/12/24 09/12/24 18:59 06:59 18:59 Intake Total 1208.659 Output Total 498 570 0 Balance 710.659 -570 0 Weight 111.6 kg 113.1 kg Intake: IV 78 Pressure Bag 78 Intake, IV Titration 170.659 Amount Insulin Regular 100 unit 50.659 In Sodium Chloride 0.9% 100 ml @ Per Protocol IV .Q0M [facility] Rx#:[id number] Sodium Chloride 0.9% 1, 120 000 ml @ 50 mls/hr IV . Q20H [facility] Rx#:[id number] Oral 960 Output: Chest Tube Drainage 160 245 0 Chest Tube Left Pleural/ 130 60 0 Mediastinal Chest Tube Mediastinal 30 185 0 Chest Tube Right Pleural/ 0 Mediastinal Urine 247 325 0 Post Void Residual 91 Other: Voiding Method Indwelling Catheter Urinal # Voids 1 # Bowel Movements 0 0 0 ABP, PAP, CO, CI - Last Documented Arterial Blood Pressure 125/49 Pulmonary Artery Pressure 23/10 Cardiac Output 4.8 Cardiac Index 2.1 - Exam CONSTITUTIONAL: Appears comfortable, cooperative, no acute distress RESPIRATORY: Lungs sounds diminished in the bases bilaterally. Respirations even, nonlabored. Currently on room air with oxygen saturation 100%. Able to achieve 2500 mL on incentive spirometry. Strong cough. CARDIOVASCULAR: S1, S2 present. Regular rate and rhythm, sinus rhythm on telemetry. Sternum stable. Palpable peripheral pulses bilaterally. No edema present. No calf pain or tenderness noted. Heart hugger in place with patient demonstrating appropriate use. Antiembolism stockings, SCDs present. GASTROINTESTINAL: Abdomen soft, nontender, nondistended. Active bowel sounds present 4 quadrants. Tolerating diet. Positive flatus, negative bowel movement since surgery GENITOURINARY: Continues to void small amounts at a time, PVR 90 mL, 572 mL in the last 24 hours INTEGUMENTARY: Skin is warm and dry with evidence of good perfusion. Anterior chest incision well approximated and covered with dry intact dressing. Bilateral lower extremity EVH sites well approximated without redness or drainage. NEUROLOGIC: Cranial nerves II through XII intact MUSKULOSKELETAL: Able to move all extremities, strength equal bilaterally, gait normal PSYCHIATRIC: Alert and oriented to person place and time, appropriate affect, intact judgment and insight INVASIVE LINES AND TUBES: Mediastinal/left pleural chest tubes present and connected to wall suction, no air leaks present. Mediastinal tube with 110 mL serosanguineous drainage overnight, 350 mL in the last 24 hours. Left pleural chest tube with 60 mL serosanguineous drainage overnight, 190 mL in the last 24 hours. - Allied health notes Allied health notes reviewed: nursing - Labs CBC & Chem 7: 09/12/24 03:12 09/12/24 03:07 Labs: Abnormal Lab Results - Last 24 Hours (Table) 09/11/24 09/11/2425 Range/Units 08:57 09:54 11:03 WBC (4.50-10.00) 10*3/uL RBC (4.40-5.60) 10*6/uL Hgb (13.0-17.0) g/dL Hct (39.6-50.0) % Immature Gran # (0.00-0.04) 10*3/uL Neutrophils # (1.80-7.70) 10*3/uL Monocytes # (0.20-1.00) 10*3/uL Eosinophils # (0.04-0.35) 10*3/uL Sodium (137-145) mmol/L Carbon Dioxide (22-30) mmol/L BUN (9-20) mg/dL Glucose (74-99) mg/dL POC Glucose (mg/dL) 114 H 143 H 137 H (70-110) mg/dL Total Protein (6.3-8.2) g/dL Albumin (3.5-5.0) g/dL 09/11/24 09/11/24 09/11/24 Range/Units 12:00 12:51 14:01 WBC (4.50-10.00) 10*3/uL RBC (4.40-5.60) 10*6/uL Hgb (13.0-17.0) g/dL Hct (39.6-50.0) % Immature Gran # (0.00-0.04) 10*3/uL Neutrophils # (1.80-7.70) 10*3/uL Monocytes # (0.20-1.00) 10*3/uL Eosinophils # (0.04-0.35) 10*3/uL Sodium (137-145) mmol/L Carbon Dioxide (22-30) mmol/L BUN (9-20) mg/dL Glucose (74-99) mg/dL POC Glucose (mg/dL) 111 H 144 H 146 H (70-110) mg/dL Total Protein (6.3-8.2) g/dL Albumin (3.5-5.0) g/dL 09/11/24 09/11/24 09/12/24 Range/Units 16:58 20:44 03:07 WBC (4.50-10.00) 10*3/uL RBC (4.40-5.60) 10*6/uL Hgb (13.0-17.0) g/dL Hct (39.6-50.0) % Immature Gran # (0.00-0.04) 10*3/uL Neutrophils # (1.80-7.70) 10*3/uL Monocytes # (0.20-1.00) 10*3/uL Eosinophils # (0.04-0.35) 10*3/uL Sodium 135 L (137-145) mmol/L Carbon Dioxide 21 L (22-30) mmol/L BUN 39 H (9-20) mg/dL Glucose 164 H (74-99) mg/dL POC Glucose (mg/dL) 134 H 216 H (70-110) mg/dL Total Protein 5.4 L (6.3-8.2) g/dL Albumin 3.2 L (3.5-5.0) g/dL 09/12/24 09/12/24 Range/Units 03:12 06:42 WBC 13.99 H (4.50-10.00) 10*3/uL RBC 2.39 L (4.40-5.60) 10*6/uL Hgb 7.5 L (13.0-17.0) g/dL Hct 22.2 L (39.6-50.0) % Immature Gran # 0.07 H (0.00-0.04) 10*3/uL Neutrophils # 10.98 H (1.80-7.70) 10*3/uL Monocytes # 1.21 H (0.20-1.00) 10*3/uL Eosinophils # 0.01 L (0.04-0.35) 10*3/uL Sodium (137-145) mmol/L Carbon Dioxide (22-30) mmol/L BUN (9-20) mg/dL Glucose (74-99) mg/dL POC Glucose (mg/dL) 232 H (70-110) mg/dL Total Protein (6.3-8.2) g/dL Albumin (3.5-5.0) g/dL - Imaging and Cardiology Chest x-ray: report reviewed, image reviewed Assessment and Plan Assessment: Coronary artery disease, status post 4 vessel CABG Paroxysmal atrial fibrillation, status post Maze procedure and ligation left atrial appendage Postoperative acute blood loss anemia, expected given hemodilution and cardiopulmonary bypass. History of paroxysmal atrial fibrillation on Eliquis as an outpatient, noncompliant with taking Eliquis prior to surgery Hypertension Right internal carotid artery stenosis, 50-79% Diabetes mellitus type II, hgb A1c 6.8% Questionable history of myocardial infarction Recent acute appendicitis with perforation status post laparoscopic appendectomy Previous tobacco use as well as chewing tobacco use, preoperative FEV1 101% Plan: Continue to maximize medical therapy with aspirin, statin, Plavix, and beta- ranjit therapy. Will increase beta ranjit as tolerated. Will add losartan for afterload reduction Continue amiodarone for atrial fibrillation prophylaxis, patient has had no atrial fibrillation up to this point, will taper per protocol Encourage incentive spirometry use 10 times every hour while awake, bronchodilators per pulmonology. Will monitor daily labs and chest x-rays. Electrolyte replacement per protocol. Will give concentrated albumin followed by Lasix Increase activity, ambulate as tolerated. PT/OT/cardiac rehab following. Encouraged ambulation in the hallway 4X daily GI/DVT prophylaxis. Pain control per current medication regimen Insulin management per internal medicine Continue mediastinal and left pleural chest tubes for another 24 hours, monitor and record output Continue to monitor and record strict accurate intake and output Daily weights Will place transfer orders for [address], may transfer when bed available More recommendations to follow based on patient's clinical course.
[2024-09-12] MEDS ORDERED: HYDROcodone/APAP 5-325MG 1 EACH TAB PO PRN (10:57)
[2024-09-12] MEDS: MAGNESIUM HYDROXIDE 2,400 MG/30 ML CUP PO PRN (11:11)
[2024-09-12] MEDS: ALBUMIN HUMAN 25% 50 ML in EMPTY BAG 1 BAG IVPB ONE (11:12)
[2024-09-12 11:23] LABS: Glucose,Whole Blood 212 mg/dL (70-110)
--- NOTE | 2024-09-12 11:36 | P.PN ---
Subjective HISTORY OF PRESENTING ILLNESS This is a pleasant 79-year-old with past medical history significant for hypertension, hyperlipidemia, coronary artery disease, paroxysmal atrial fibrillation, previous ruptured appendicitis status post laparoscopic surgery April 2024, mild ischemic cardiomyopathy EF 40 to 45%. Patient follows with Dr. Moreno. Patient had initially presented for ruptured appendicitis in April 2024 and found to have A-fib and underwent further cardiac workup with echo from August 2024 showing EF 40 to 45% as well as heart catheterization showing multivessel CAD. Patient underwent four-vessel CABG with LOVELACE to LAD, SVG to ramus, SVG to OM and SVG to PDA as well as maze procedure and clip of left atrial appendage. Patient was placed on milrinone, norepinephrine, amiodarone drip. Milrinone and norepinephrine have been discontinued and cardiac index in the 3.0 range. He denies any chest pain or pressure. He does have some incisional pain. His hemoglobin is at 7.5. PA pressures 28/9 with a CVP of 5. Patient was chest t ubes bilaterally and mediastinal tube. Thanh in normal sinus rhythm on telemetry. 09/11 Patient seen and examined. Patient denies any chest pain other than the incision. Denies any significant lightheadedness or dizziness. He has been up walking. He remains in sinus rhythm. Hemoglobin stable at 7.5. Cordis was pulled and right chest tube was pulled. 09/12 Patient seen and examined. Patient denies any consistent chest pain however had some discomfort after swallowing multiple pills however resolved fairly shortly thereafter. No significant shortness of breath. Vital signs stable. Remains in normal sinus rhythm. PHYSICAL EXAMINATION Vital signs reviewed. CONSTITUTIONAL: No apparent distress. HEENT: Head is normocephalic. Pupils are equal, round. Sclerae anicteric. Mucous membranes of the mouth are moist. No JVD. No carotid bruit. CHEST EXAMINATION: Lungs are clear to auscultation. No chest wall tenderness is noted on palpation or with deep breathing. HEART EXAMINATION: Regular rate and rhythm. S1, S2 heard. No murmurs, gallops or rub. ABDOMEN: Soft, nontender. Positive bowel sounds. EXTREMITIES: 2+ peripheral pulses, no lower extremity edema and no calf tenderness. NEUROLOGIC EXAMINATION: Patient is awake, alert and oriented x3. ASSESSMENT CAD status post CABG times 4 on 09/09/2024 Hypertension Hyperlipidemia Mild ischemic cardiomyopathy EF 40 to 45% Chronic diastolic heart failure Blood loss anemia Paroxysmal atrial fibrillation status post Maze procedure, currently sinus rhythm Diabetes mellitus type 2 History of perforated appendicitis April 2024 PLAN Continue with current supportive care. Continue with amiodarone and patient currently in sinus rhythm. Attempt to optimize heart failure regimen as able however blood pressure is borderline. Continue metoprolol. Agree with addition of losartan to be started today. Increase activity. Appears to be slowly improving. Monitor hemoglobin closely. Eventually add back Eliquis when hemoglobin stable and tubes have been pulled. Further recommendations to follow. Objective - Vital Signs Vital signs: Vital Signs Temp 97.9 F 09/12/24 08:00 Pulse 67 09/12/24 08:23 Resp 14 09/12/24 08:00 BP 128/68 09/12/24 08:00 Pulse Ox 98 09/12/24 08:00 FiO2 40 09/09/24 19:00 Intake & Output 09/11/24 09/12/24 09/12/24 18:59 06:59 18:59 Intake Total 1208.659 200 Output Total 498 570 125 Balance 710.659 -570 75 Weight 111.6 kg 113.1 kg Intake: IV 78 Pressure Bag 78 Intake, IV Titration 170.659 Amount Insulin Regular 100 unit 50.659 In Sodium Chloride 0.9% 100 ml @ Per Protocol IV .Q0M [facility] Rx#:[id number] Sodium Chloride 0.9% 1, 120 000 ml @ 50 mls/hr IV . Q20H [facility] Rx#:[id number] Oral 960 200 Output: Chest Tube Drainage 160 245 0 Chest Tube Left Pleural/ 130 60 0 Mediastinal Chest Tube Mediastinal 30 185 0 Chest Tube Right Pleural/ 0 Mediastinal Urine 247 325 125 Post Void Residual 91 Other: Voiding Method Indwelling Catheter Urinal Urinal # Voids 1 # Bowel Movements 0 0 0 ABP, PAP, CO, CI - Last Documented Arterial Blood Pressure 125/49 Pulmonary Artery Pressure 23/10 Cardiac Output 4.8 Cardiac Index 2.1 - Labs CBC & Chem 7: 09/12/24 03:12 09/12/24 03:07 Labs: Abnormal Lab Results - Last 24 Hours (Table) 09/11/24 09/11/24 09/11/24 Range/Units 12:00 12:51 14:01 WBC (4.50-10.00) 10*3/uL RBC (4.40-5.60) 10*6/uL Hgb (13.0-17.0) g/dL Hct (39.6-50.0) % Immature Gran # (0.00-0.04) 10*3/uL Neutrophils # (1.80-7.70) 10*3/uL Monocytes # (0.20-1.00) 10*3/uL Eosinophils # (0.04-0.35) 10*3/uL Sodium (137-145) mmol/L Carbon Dioxide (22-30) mmol/L BUN (9-20) mg/dL Glucose (74-99) mg/dL POC Glucose (mg/dL) 111 H 144 H 146 H (70-110) mg/dL Total Protein (6.3-8.2) g/dL Albumin (3.5-5.0) g/dL 09/11/24 09/11/24 09/12/24 Range/Units 16:58 20:44 03:07 WBC (4.50-10.00) 10*3/uL RBC (4.40-5.60) 10*6/uL Hgb (13.0-17.0) g/dL Hct (39.6-50.0) % Immature Gran # (0.00-0.04) 10*3/uL Neutrophils # (1.80-7.70) 10*3/uL Monocytes # (0.20-1.00) 10*3/uL Eosinophils # (0.04-0.35) 10*3/uL Sodium 135 L (137-145) mmol/L Carbon Dioxide 21 L (22-30) mmol/L BUN 39 H (9-20) mg/dL Glucose 164 H (74-99) mg/dL POC Glucose (mg/dL) 134 H 216 H (70-110) mg/dL Total Protein 5.4 L (6.3-8.2) g/dL Albumin 3.2 L (3.5-5.0) g/dL 09/12/24 09/12/24 09/12/24 Range/Units 03:12 06:42 11:22 WBC 13.99 H (4.50-10.00) 10*3/uL RBC 2.39 L (4.40-5.60) 10*6/uL Hgb 7.5 L (13.0-17.0) g/dL Hct 22.2 L (39.6-50.0) % Immature Gran # 0.07 H (0.00-0.04) 10*3/uL Neutrophils # 10.98 H (1.80-7.70) 10*3/uL Monocytes # 1.21 H (0.20-1.00) 10*3/uL Eosinophils # 0.01 L (0.04-0.35) 10*3/uL Sodium (137-145) mmol/L Carbon Dioxide (22-30) mmol/L BUN (9-20) mg/dL Glucose (74-99) mg/dL POC Glucose (mg/dL) 232 H 212 H (70-110) mg/dL Total Protein (6.3-8.2) g/dL Albumin (3.5-5.0) g/dL
--- NOTE | 2024-09-12 12:04 | P.PN ---
Subjective Progress Note Date: 09/12/24 Principal diagnosis: POD #3 coronary artery bypass grafting x 4 vessels, left internal mammary artery to the left anterior sending coronary artery, saphenous vein graft to the ramus coronary artery, saphenous vein graft to the obtuse marginal coronary artery, and saphenous vein graft to the posterior descending coronary artery. Endoscopic harvest of bilateral greater saphenous vein, ligation left atrial appendage using a 35mm atrial clip, intraoperative transesophageal echo cardiogram completed by anesthesia, epiaortic ultrasound, graft flow measurements using the Medistim system, and Maze procedure. Patient was seen today on 09/10/2024, remains in the ICU, patient was extubated at 7:12 PM successfully. This morning he is on room air. Not in any distress O2 saturation is in the 90s achieving over 1500 cc on incentive spirometry. Patient has no complaints, he does have some surgical site discomfort at the site of the chest tube insertion. Continues to have right IJ cordis and Bandon- Naeem catheter his current hemodynamics showed cardiac output of 7 lower cardiac index compared to yesterday. It is 3.0 today. PA pressures 28/8 CVP is 5. Still on Primacor 0.1 mcg/kg/min and amiodarone drip patient seems to be in sinus rhythm rate of 70 mediastinal and left and right pleural chest tubes are noted on continuous wall suction manage 20 serosanguineous drainage is noted chest x-ray showed minimal bibasilar atelectasis. Patient is sitting at the bedside chair, in no distress. WBC count is 12.1 hemoglobin 7.5, basic metabolic profile is normal BUN is 25 creatinine 1.04. Patient was seen today on 09/11/2024, remains in the ICU, patient is now postoperative day #2, sitting at the bedside chair, hemodynamically stable not requiring any pressors, he is alert and oriented x 3, he is in sinus rhythm rate 72. His hemodynamic monitoring revealed CVP of 5 again the patient is not requiring any inotropes or any pressors mediastinal left and right pleural chest tubes were noted remain on low continuous wall suction. No air leak is noted. Chest x-ray showed postoperative changes, and there is evidence of mild pulmonary vascular congestion with bibasilar atelectasis. Patient is doing extremely well with incentive spirometry, ambulating well with assistance. WBC count is 19.6 hemoglobin 7.5, basic metabolic profile is normal renal profile is normal creatinine is a bit high at 1.17 compared to 1.04 yesterday. Seen today on 09/12/2024, patient is now postoperative day #3. Patient seems to be doing quite well, he is on room air, continues to have [address], patient is sitting up in the chair, he is doing well with his incentive spirometry, he received Lasix and albumin today. No cough no wheezing no shortness of breath hemodynamically stable not requiring any pressors or any inotropes, chest x-ray showed a very minimal tiny apical pneumothorax. And mild pulmonary vascular congestion. Objective - Vital Signs Vital signs: Vital Signs Temp 97.9 F 09/12/24 08:00 Pulse 67 09/12/24 11:51 Resp 14 09/12/24 08:00 BP 128/68 09/12/24 08:00 Pulse Ox 98 09/12/24 08:00 FiO2 40 09/09/24 19:00 Intake & Output 09/11/24 09/12/24 09/12/24 18:59 06:59 18:59 Intake Total 1208.659 200 Output Total 498 570 125 Balance 710.659 -570 75 Weight 111.6 kg 113.1 kg Intake: IV 78 Pressure Bag 78 Intake, IV Titration 170.659 Amount Insulin Regular 100 unit 50.659 In Sodium Chloride 0.9% 100 ml @ Per Protocol IV .Q0M [facility] Rx#:[id number] Sodium Chloride 0.9% 1, 120 000 ml @ 50 mls/hr IV . Q20H [facility] Rx#:[id number] Oral 960 200 Output: Chest Tube Drainage 160 245 0 Chest Tube Left Pleural/ 130 60 0 Mediastinal Chest Tube Mediastinal 30 185 0 Chest Tube Right Pleural/ 0 Mediastinal Urine 247 325 125 Post Void Residual 91 Other: Voiding Method Indwelling Catheter Urinal Urinal # Voids 1 # Bowel Movements 0 0 0 ABP, PAP, CO, CI - Last Documented Arterial Blood Pressure 125/49 Pulmonary Artery Pressure 23/10 Cardiac Output 4.8 Cardiac Index 2.1 - Exam Physical exam revealed a 79-year-old, in no distress, on room air Head: Atraumatic, normocephalic EENT: PERRLA, EOMI, nonicteric, no neck masses, no JVD, no stridor, moist mucous membranes, right IJ cordis and Bandon-Naeem catheter noted. Chest: Symmetrical chest expansion Lungs: Diminished breath sound bilaterally no rhonchi no wheezes chest tubes noted Cardiac: Normal S1-S2, no S3 gallop, no murmur, positive pericardial rub Abdomen: Soft nontender no megaly no rebound no guarding good bowel sounds Extremities: No clubbing edema or cyanosis, good pulses bilaterally Musculoskeletal: No deformities and no limitation range of motion Neurologic: Alert and oriented x 3 no gross focal deficit Psychiatric: Normal mood, affect and no mental status examination . Skin: No rashes. - Labs CBC & Chem 7: 09/12/24 03:12 09/12/24 03:07 Labs: Abnormal Lab Results - Last 24 Hours (Table) 09/11/24 09/11/24 09/11/24 Range/Units 12:00 12:51 14:01 WBC (4.50-10.00) 10*3/uL RBC (4.40-5.60) 10*6/uL Hgb (13.0-17.0) g/dL Hct (39.6-50.0) % Immature Gran # (0.00-0.04) 10*3/uL Neutrophils # (1.80-7.70) 10*3/uL Monocytes # (0.20-1.00) 10*3/uL Eosinophils # (0.04-0.35) 10*3/uL Sodium (137-145) mmol/L Carbon Dioxide (22-30) mmol/L BUN (9-20) mg/dL Glucose (74-99) mg/dL POC Glucose (mg/dL) 111 H 144 H 146 H (70-110) mg/dL Total Protein (6.3-8.2) g/dL Albumin (3.5-5.0) g/dL 09/11/24 09/11/24 09/12/24 Range/Units 16:58 20:44 03:07 WBC (4.50-10.00) 10*3/uL RBC (4.40-5.60) 10*6/uL Hgb (13.0-17.0) g/dL Hct (39.6-50.0) % Immature Gran # (0.00-0.04) 10*3/uL Neutrophils # (1.80-7.70) 10*3/uL Monocytes # (0.20-1.00) 10*3/uL Eosinophils # (0.04-0.35) 10*3/uL Sodium 135 L (137-145) mmol/L Carbon Dioxide 21 L (22-30) mmol/L BUN 39 H (9-20) mg/dL Glucose 164 H (74-99) mg/dL POC Glucose (mg/dL) 134 H 216 H (70-110) mg/dL Total Protein 5.4 L (6.3-8.2) g/dL Albumin 3.2 L (3.5-5.0) g/dL 09/12/24 09/12/24 09/12/24 Range/Units 03:12 06:42 11:22 WBC 13.99 H (4.50-10.00) 10*3/uL RBC 2.39 L (4.40-5.60) 10*6/uL Hgb 7.5 L (13.0-17.0) g/dL Hct 22.2 L (39.6-50.0) % Immature Gran # 0.07 H (0.00-0.04) 10*3/uL Neutrophils # 10.98 H (1.80-7.70) 10*3/uL Monocytes # 1.21 H (0.20-1.00) 10*3/uL Eosinophils # 0.01 L (0.04-0.35) 10*3/uL Sodium (137-145) mmol/L Carbon Dioxide (22-30) mmol/L BUN (9-20) mg/dL Glucose (74-99) mg/dL POC Glucose (mg/dL) 232 H 212 H (70-110) mg/dL Total Protein (6.3-8.2) g/dL Albumin (3.5-5.0) g/dL Assessment and Plan Assessment: Impression:status post 4 vessel coronary artery bypass grafting surgery postoperative day #3 Triple-vessel coronary artery disease based on cardiac catheterization dated 08/06/2024 History of paroxysmal atrial fibrillation Benign essential hypertension Type 2 diabetes Recent history of appendicitis requiring laparoscopic appendectomy in April 21, 2001 5 Recommendation: Continue maximal medical therapy with aspirin statin Plavix and beta-blockers Continue to monitor patient in the ICU Patient remains on oral amiodarone Continue pain control/Toradol and narcotics as needed Continue incentive spirometry and ambulation Will continue to follow Time with Patient: Less than 30
[2024-09-12] MEDS: FUROSEMIDE 10 MG/ML 2 ML VIAL IV ONE (12:15)
[2024-09-12] MEDS: LOSARTAN 25 MG TAB PO SCH (14:40)
[2024-09-12 16:17] LABS: Glucose,Whole Blood 207 mg/dL (70-110)
[2024-09-12 20:18] LABS: Glucose,Whole Blood 204 mg/dL (70-110)
[2024-09-12] MEDS: ONDANSETRON 4 MG/2 ML VIAL IVP PRN (21:19)
--- NOTE | 2024-09-12 23:56 | P.PN ---
Subjective Progress Note Date: 09/10/24 Patient is a 79-year-old male with a past medical history of hypertension, diabetes type 2 and history of perforated acute appendicitis status post laparoscopic appendectomy in April 2024 and paroxysmal atrial fibrillation anticoagulated with Eliquis. Patient underwent cardiac catheterization on 08/06/2024 showed severe three-vessel coronary disease and ischemic cardiomyopathy with severe LV dysfunction. CT surgery evaluated for CABG. Patient was admitted to the hospital for coronary artery bypass graft. Patient is status post surgery and is currently in the MICU. Intubated and on mechanical ventilator perioperatively. Laboratory data showed WBC 20.9 hemoglobin 9.1, platelets 149, sodium 141 potassium 4.1 chloride 112 bicarb is 20 BUN 2020 creatinine 0.98, blood sugar 146, magnesium 2.4 and albumin 3.2. ABG showed pH 7.31, [id number] and bicarb 23. Patient is currently on bicarb ventilator is controlled with respiratory rate 14, tidal volume 500, 40% FiO2 and PEEP of 8. Chest x-ray showed mild pulmonary vascular congestion possible small left effusion. Post CABG changes. Patient is currently amiodarone drip, milrinone and nitro drip. 09/10/2024 Patient is in the MICU. He was successfully extubated yesterday evening. Currently on room air. Sitting in a chair. Awake alert and oriented x 3. Remains on chest tube x 3. No cough or sputum production. Pain is controlled. Laboratory data showed WBC 12.1 hemoglobin 7.5 and platelets 109 sodium 140 potassium 3.7 chloride 108 bicarb is 24 BUN 25 creatinine 1.04 and blood sugar 97. Patient remains on insulin drip. Current medications reviewed. Objective - Vital Signs Vital signs: Vital Signs Temp 98.1 F 09/10/24 08:00 Pulse 67 09/10/24 15:00 Resp 20 09/10/24 15:00 BP 118/58 09/10/24 15:00 Pulse Ox 96 09/10/24 15:00 FiO2 40 09/09/24 19:00 Intake & Output 09/09/24 09/10/24 09/10/24 18:59 06:59 18:59 Intake Total 1055.727 269.473 520.476 Output Total 1620 1040 600 Balance -564.273 -770.527 -79.524 Weight 109.6 kg Intake: IV 208 149 89 CO/CI 160 50 20 Pressure Bag 45 99 69 Intake, IV Titration 847.727 120.473 431.476 Amount Albumin Human 5% 250 ml 500 In Empty Bag 1 bag @ 250 mls/hr IVPB Q1HR PRN Rx#: [id number] Insulin Regular 100 unit 12.424 63.883 71.476 In Sodium Chloride 0.9% 100 ml @ Per Protocol IV .Q0M [facility] Rx#:[id number] Milrinone-D5w Pmx 20 mg 40.157 In Dextrose/Water 1 100ml .bag @ 0.2 MCG/KG/MIN 6. 477 mls/hr IV .[id number] [facility] Rx#:[id number] Norepinephrine 8 mg In 16.433 Sodium Chloride 0.9% 250 ml @ 0.03 MCG/KG/MIN 6. 267 mls/hr IV .Q24H [facility] Rx#:[id number] Sodium Chloride 0.9% 1, 250 360 000 ml @ 50 mls/hr IV . Q20H [facility] Rx#:[id number] ceFAZolin 2 gm In Sodium 50 Chloride 0.9% 50 ml @ Per Protocol IVPB ONCE ONE Rx#:[id number] propofoL 1,000 mg In 35.303 Empty Bag 1 bag @ Titrate IV .Q0M [facility] Rx#: [id number] Output: Chest Tube Drainage 300 585 345 Chest Tube Left Pleural/ 45 125 160 Mediastinal Chest Tube Mediastinal 250 380 170 Chest Tube Right Pleural/ 5 80 15 Mediastinal Urine 720 455 255 Estimated Blood Loss 600 Other: Voiding Method Indwelling Catheter Indwelling Catheter Indwelling Catheter ABP, PAP, CO, CI - Last Documented Arterial Blood Pressure 103/33 Pulmonary Artery Pressure 23/10 Cardiac Output 4.8 Cardiac Index 2.1 - Exam PHYSICAL EXAMINATION: Patient is sitting in the chair., no acute distress, awake alert and oriented.. HEENT: Normocephalic. Neck is supple. Pupils reactive. Nostrils clear. Oral cavity is moist. Neck reveals no JVD, carotid bruits, or thyromegaly. CHEST EXAMINATION: Trachea is central. Symmetrical expansion. Bibasilar diminished sounds. Chest tube x [address] CARDIAC: Normal S1, S2 with no gallops. No murmurs ABDOMEN: Soft. Bowel sounds normal. No organomegaly. No abdominal bruits. Extremities: reveal no edema. No clubbing or cyanosis Neurologically awake, alert, oriented x3 with well-coordinated movements. No gross focal deficits noted Skin: No rash or skin lesions. Psychiatric: Coperative. Nonsuicidal Musculoskeletal: No joint swelling or deformity. Able to move all extremities. - Labs CBC & Chem 7: 09/12/24 03:12 09/12/24 03:07 Labs: Abnormal Lab Results - Last 24 Hours (Table) 09/02/24 09/09/24 09/09/24 Range/Units 09:56 16:53 17:54 WBC (4.50-10.00) 10*3/uL RBC (4.40-5.60) 10*6/uL Hgb (13.0-17.0) g/dL Hct (39.6-50.0) % MCH (27.0-32.0) pg Plt Count (140-440) 10*3/uL Immature Gran # (0.00-0.04) 10*3/uL Neutrophils # (1.80-7.70) 10*3/uL Lymphocytes # (0.90-5.00) 10*3/uL Monocytes # (0.20-1.00) 10*3/uL Eosinophils # (0.04-0.35) 10*3/uL ABG pO2 (83-108) mmHg ABG O2 Saturation (94-97) % Hemoglobin (13.0-17.5) gm/dL Chloride (98-107) mmol/L BUN (9-20) mg/dL POC Glucose (mg/dL) 147 H 164 H (70-110) mg/dL Total Protein (6.3-8.2) g/dL Albumin (3.5-5.0) g/dL Crossmatch See Detail 09/09/24 09/09/24 09/09/24 Range/Units 17:55 18:50 18:54 WBC 15.16 H (4.50-10.00) 10*3/uL RBC 2.50 L (4.40-5.60) 10*6/uL Hgb 7.8 L (13.0-17.0) g/dL Hct 22.5 L (39.6-50.0) % MCH (27.0-32.0) pg Plt Count 131 L (140-440) 10*3/uL Immature Gran # 0.08 H (0.00-0.04) 10*3/uL Neutrophils # 13.21 H (1.80-7.70) 10*3/uL Lymphocytes # 0.50 L (0.90-5.00) 10*3/uL Monocytes # 1.34 H (0.20-1.00) 10*3/uL Eosinophils # 0.00 L (0.04-0.35) 10*3/uL ABG pO2 153 H (83-108) mmHg ABG O2 Saturation 99.7 H (94-97) % Hemoglobin 8.4 L (13.0-17.5) gm/dL Chloride (98-107) mmol/L BUN (9-20) mg/dL POC Glucose (mg/dL) 168 H (70-110) mg/dL Total Protein (6.3-8.2) g/dL Albumin (3.5-5.0) g/dL Crossmatch 09/09/24 09/09/24 09/09/24 Range/Units 19:56 20:52 20:58 WBC 12.68 H (4.50-10.00) 10*3/uL RBC 2.52 L (4.40-5.60) 10*6/uL Hgb 7.8 L (13.0-17.0) g/dL Hct 22.5 L (39.6-50.0) % MCH (27.0-32.0) pg Plt Count 118 L (140-440) 10*3/uL Immature Gran # 0.08 H (0.00-0.04) 10*3/uL Neutrophils # 11.32 H (1.80-7.70) 10*3/uL Lymphocytes # 0.36 L (0.90-5.00) 10*3/uL Monocytes # (0.20-1.00) 10*3/uL Eosinophils # 0.00 L (0.04-0.35) 10*3/uL ABG pO2 (83-108) mmHg ABG O2 Saturation (94-97) % Hemoglobin (13.0-17.5) gm/dL Chloride (98-107) mmol/L BUN (9-20) mg/dL POC Glucose (mg/dL) 180 H 178 H (70-110) mg/dL Total Protein (6.3-8.2) g/dL Albumin (3.5-5.0) g/dL Crossmatch 09/09/24 09/09/24 09/09/24 Range/Units 21:59 22:59 23:57 WBC (4.50-10.00) 10*3/uL RBC (4.40-5.60) 10*6/uL Hgb (13.0-17.0) g/dL Hct (39.6-50.0) % MCH (27.0-32.0) pg Plt Count (140-440) 10*3/uL Immature Gran # (0.00-0.04) 10*3/uL Neutrophils # (1.80-7.70) 10*3/uL Lymphocytes # (0.90-5.00) 10*3/uL Monocytes # (0.20-1.00) 10*3/uL Eosinophils # (0.04-0.35) 10*3/uL ABG pO2 (83-108) mmHg ABG O2 Saturation (94-97) % Hemoglobin (13.0-17.5) gm/dL Chloride (98-107) mmol/L BUN (9-20) mg/dL POC Glucose (mg/dL) 161 H 150 H 148 H (70-110) mg/dL Total Protein (6.3-8.2) g/dL Albumin (3.5-5.0) g/dL Crossmatch 09/10/24 09/10/24 09/10/24 Range/Units 01:08 02:05 03:05 WBC (4.50-10.00) 10*3/uL RBC (4.40-5.60) 10*6/uL Hgb (13.0-17.0) g/dL Hct (39.6-50.0) % MCH (27.0-32.0) pg Plt Count (140-440) 10*3/uL Immature Gran # (0.00-0.04) 10*3/uL Neutrophils # (1.80-7.70) 10*3/uL Lymphocytes # (0.90-5.00) 10*3/uL Monocytes # (0.20-1.00) 10*3/uL Eosinophils # (0.04-0.35) 10*3/uL ABG pO2 (83-108) mmHg ABG O2 Saturation (94-97) % Hemoglobin (13.0-17.5) gm/dL Chloride (98-107) mmol/L BUN (9-20) mg/dL POC Glucose (mg/dL) 136 H 125 H 118 H (70-110) mg/dL Total Protein (6.3-8.2) g/dL Albumin (3.5-5.0) g/dL Crossmatch 09/10/24 09/10/24 09/10/24 Range/Units 03:36 03:36 06:17 WBC 12.11 H (4.50-10.00) 10*3/uL RBC 2.34 L (4.40-5.60) 10*6/uL Hgb 7.5 L (13.0-17.0) g/dL Hct 21.2 L (39.6-50.0) % MCH 32.1 H (27.0-32.0) pg Plt Count 109 L (140-440) 10*3/uL Immature Gran # 0.06 H (0.00-0.04) 10*3/uL Neutrophils # 10.49 H (1.80-7.70) 10*3/uL Lymphocytes # 0.53 L (0.90-5.00) 10*3/uL Monocytes # 1.01 H (0.20-1.00) 10*3/uL Eosinophils # 0.00 L (0.04-0.35) 10*3/uL ABG pO2 (83-108) mmHg ABG O2 Saturation (94-97) % Hemoglobin (13.0-17.5) gm/dL Chloride 108 H (98-107) mmol/L BUN 25 H (9-20) mg/dL POC Glucose (mg/dL) 166 H (70-110) mg/dL Total Protein 5.0 L (6.3-8.2) g/dL Albumin 3.3 L (3.5-5.0) g/dL Crossmatch 09/10/24 09/10/24 09/10/24 Range/Units 07:07 08:10 09:29 WBC (4.50-10.00) 10*3/uL RBC (4.40-5.60) 10*6/uL Hgb (13.0-17.0) g/dL Hct (39.6-50.0) % MCH (27.0-32.0) pg Plt Count (140-440) 10*3/uL Immature Gran # (0.00-0.04) 10*3/uL Neutrophils # (1.80-7.70) 10*3/uL Lymphocytes # (0.90-5.00) 10*3/uL Monocytes # (0.20-1.00) 10*3/uL Eosinophils # (0.04-0.35) 10*3/uL ABG pO2 (83-108) mmHg ABG O2 Saturation (94-97) % Hemoglobin (13.0-17.5) gm/dL Chloride (98-107) mmol/L BUN (9-20) mg/dL POC Glucose (mg/dL) 173 H 165 H 198 H (70-110) mg/dL Total Protein (6.3-8.2) g/dL Albumin (3.5-5.0) g/dL Crossmatch 09/10/24 09/10/24 09/10/24 Range/Units 10:12 11:13 13:03 WBC (4.50-10.00) 10*3/uL RBC (4.40-5.60) 10*6/uL Hgb (13.0-17.0) g/dL Hct (39.6-50.0) % MCH (27.0-32.0) pg Plt Count (140-440) 10*3/uL Immature Gran # (0.00-0.04) 10*3/uL Neutrophils # (1.80-7.70) 10*3/uL Lymphocytes # (0.90-5.00) 10*3/uL Monocytes # (0.20-1.00) 10*3/uL Eosinophils # (0.04-0.35) 10*3/uL ABG pO2 (83-108) mmHg ABG O2 Saturation (94-97) % Hemoglobin (13.0-17.5) gm/dL Chloride (98-107) mmol/L BUN (9-20) mg/dL POC Glucose (mg/dL) 166 H 126 H 129 H (70-110) mg/dL Total Protein (6.3-8.2) g/dL Albumin (3.5-5.0) g/dL Crossmatch 09/10/24 09/10/24 09/10/24 Range/Units 14:10 15:06 16:13 WBC (4.50-10.00) 10*3/uL RBC (4.40-5.60) 10*6/uL Hgb (13.0-17.0) g/dL Hct (39.6-50.0) % MCH (27.0-32.0) pg Plt Count (140-440) 10*3/uL Immature Gran # (0.00-0.04) 10*3/uL Neutrophils # (1.80-7.70) 10*3/uL Lymphocytes # (0.90-5.00) 10*3/uL Monocytes # (0.20-1.00) 10*3/uL Eosinophils # (0.04-0.35) 10*3/uL ABG pO2 (83-108) mmHg ABG O2 Saturation (94-97) % Hemoglobin (13.0-17.5) gm/dL Chloride (98-107) mmol/L BUN (9-20) mg/dL POC Glucose (mg/dL) 198 H 221 H 169 H (70-110) mg/dL Total Protein (6.3-8.2) g/dL Albumin (3.5-5.0) g/dL Crossmatch Assessment and Plan Assessment: Status post coronary artery bypass graft. Postoperative day 1 Intubation requiring mechanical ventilation perioperatively which is expected. Patient is extubated on 09/09/2024 around 7 PM Severe three-vessel coronary artery disease. Patient underwent cardiac catheterization on 08/06/2024 Paroxysmal atrial fibrillation on anticoagulation with Eliquis at home History of perforated status status post laparoscopic appendectomy and intra- abdominal abscess in April 2024 Diabetes type 2 [id number] Hypertension GI and DVT prophylaxis with PPI and heparin subcu Plan: Patient was extubated. Continued on aspirin, Plavix, statin and metoprolol. Cardiology, CT surgery and critical care team is on board. Continue with ins ulin drip for better blood sugar control. Will continue to follow and further recommendations based on the clinical course. Continue to monitor H&H.
--- NOTE | 2024-09-12 23:59 | P.PN ---
Subjective Progress Note Date: 09/11/24 Patient is a 79-year-old male with a past medical history of hypertension, diabetes type 2 and history of perforated acute appendicitis status post laparoscopic appendectomy in April 2024 and paroxysmal atrial fibrillation anticoagulated with Eliquis. Patient underwent cardiac catheterization on 08/06/2024 showed severe three-vessel coronary disease and ischemic cardiomyopathy with severe LV dysfunction. CT surgery evaluated for CABG. Patient was admitted to the hospital for coronary artery bypass graft. Patient is status post surgery and is currently in the MICU. Intubated and on mechanical ventilator perioperatively. Laboratory data showed WBC 20.9 hemoglobin 9.1, platelets 149, sodium 141 potassium 4.1 chloride 112 bicarb is 20 BUN 2020 creatinine 0.98, blood sugar 146, magnesium 2.4 and albumin 3.2. ABG showed pH 7.31, [id number] and bicarb 23. Patient is currently on bicarb ventilator is controlled with respiratory rate 14, tidal volume 500, 40% FiO2 and PEEP of 8. Chest x-ray showed mild pulmonary vascular congestion possible small left effusion. Post CABG changes. Patient is currently amiodarone drip, milrinone and nitro drip. 09/11/2024 Patient is in the MICU. He was successfully extubated yesterday evening. Currently on room air. Sitting in a chair. Awake alert and oriented x 3. Remains on chest tube x 3. No cough or sputum production. Pain is controlled. Laboratory data showed WBC 12.1 hemoglobin 7.5 and platelets 109 sodium 140 potassium 3.7 chloride 108 bicarb is 24 BUN 25 creatinine 1.04 and blood sugar 97. Patient remains on insulin drip. 09/11/2024 Patient is participating in physical therapy. Ambulating in the hallway. No complaints of worsening shortness of breath. No chest pain. No cough or sputum production. Patient has been afebrile. On room air. Patient remains on mediastinal, left and right chest tubes with continuous low suction. Chest x-ray showed postoperative changes and evidence of mild pulmonary vascular congestion with bibasilar atelectasis. Laboratory data showed WBC 19.6 hemoglobin 7.5 and platelets 118 sodium 136 potassium 4.4 chloride 106 bicarb is 22 BUN 32 creatinine 1.17 blood sugar 122 and albumin 3.2 Current medications reviewed. Objective - Vital Signs Vital signs: Vital Signs Temp 98.1 F 09/11/24 20:00 Pulse 70 09/11/24 23:00 Resp 17 09/11/24 23:00 BP 149/71 09/11/24 23:00 Pulse Ox 100 09/11/24 23:00 FiO2 40 09/09/24 19:00 Intake & Output 09/11/24 09/11/24 09/12/24 06:59 18:59 06:59 Intake Total 909.010 0438.659 Output Total 636 498 220 Balance 129.201 710.659 -220 Weight 111.6 kg 111.6 kg Intake: IV 272 78 Potassium Chloride 10 meq 200 In Water For Injection 1 100ml.bag @ 100 mls/hr IVPB Q1H [facility] Rx#: [id number] Pressure Bag 72 78 Intake, IV Titration 493.201 170.659 Amount Insulin Regular 100 unit 73.201 50.659 In Sodium Chloride 0.9% 100 ml @ Per Protocol IV .Q0M [facility] Rx#:[id number] Sodium Chloride 0.9% 1, 420 120 000 ml @ 50 mls/hr IV . Q20H [facility] Rx#:[id number] Oral 960 Output: Chest Tube Drainage 306 160 95 Chest Tube Left Pleural/ 110 130 0 Mediastinal Chest Tube Mediastinal 190 30 95 Chest Tube Right Pleural/ 6 0 Mediastinal Urine 330 247 125 Post Void Residual 91 Other: Voiding Method Indwelling Catheter Indwelling Catheter Urinal # Voids 1 # Bowel Movements 0 0 0 ABP, PAP, CO, CI - Last Documented Arterial Blood Pressure 125/49 Pulmonary Artery Pressure 23/10 Cardiac Output 4.8 Cardiac Index 2.1 - Exam PHYSICAL EXAMINATION: Patient is sitting in the chair., no acute distress, awake alert and oriented.. HEENT: Normocephalic. Neck is supple. Pupils reactive. Nostrils clear. Oral cavity is moist. Neck reveals no JVD, carotid bruits, or thyromegaly. CHEST EXAMINATION: Trachea is central. Symmetrical expansion. Bibasilar diminished sounds. Chest tube x [address] CARDIAC: Normal S1, S2 with no gallops. No murmurs ABDOMEN: Soft. Bowel sounds normal. No organomegaly. No abdominal bruits. Extremities: reveal no edema. No clubbing or cyanosis Neurologically awake, alert, oriented x3 with well-coordinated movements. No gross focal deficits noted Skin: No rash or skin lesions. Psychiatric: Coperative. Nonsuicidal Musculoskeletal: No joint swelling or deformity. Able to move all extremities. - Labs CBC & Chem 7: 09/12/24 03:12 09/12/24 03:07 Labs: Abnormal Lab Results - Last 24 Hours (Table) 09/11/24 09/11/24 09/11/24 Range/Units 00:33 03:13 04:21 WBC (4.50-10.00) 10*3/uL RBC (4.40-5.60) 10*6/uL Hgb (13.0-17.0) g/dL Hct (39.6-50.0) % MCH (27.0-32.0) pg Plt Count (140-440) 10*3/uL Immature Gran # (0.00-0.04) 10*3/uL Neutrophils # (1.80-7.70) 10*3/uL Monocytes # (0.20-1.00) 10*3/uL Eosinophils # (0.04-0.35) 10*3/uL Sodium (137-145) mmol/L BUN (9-20) mg/dL Glucose (74-99) mg/dL POC Glucose (mg/dL) 115 H 115 H 141 H (70-110) mg/dL Total Protein (6.3-8.2) g/dL Albumin (3.5-5.0) g/dL 09/11/24 09/11/24 09/11/24 Range/Units 05:00 05:00 05:53 WBC 19.62 H (4.50-10.00) 10*3/uL RBC 2.34 L (4.40-5.60) 10*6/uL Hgb 7.5 L (13.0-17.0) g/dL Hct 21.3 L (39.6-50.0) % MCH 32.1 H (27.0-32.0) pg Plt Count 118 L (140-440) 10*3/uL Immature Gran # 0.09 H (0.00-0.04) 10*3/uL Neutrophils # 16.55 H (1.80-7.70) 10*3/uL Monocytes # 1.82 H (0.20-1.00) 10*3/uL Eosinophils # 0.00 L (0.04-0.35) 10*3/uL Sodium 136 L (137-145) mmol/L BUN 32 H (9-20) mg/dL Glucose 122 H (74-99) mg/dL POC Glucose (mg/dL) 172 H (70-110) mg/dL Total Protein 5.2 L (6.3-8.2) g/dL Albumin 3.2 L (3.5-5.0) g/dL 09/11/24 09/11/24 09/11/24 Range/Units 06:51 08:57 09:54 WBC (4.50-10.00) 10*3/uL RBC (4.40-5.60) 10*6/uL Hgb (13.0-17.0) g/dL Hct (39.6-50.0) % MCH (27.0-32.0) pg Plt Count (140-440) 10*3/uL Immature Gran # (0.00-0.04) 10*3/uL Neutrophils # (1.80-7.70) 10*3/uL Monocytes # (0.20-1.00) 10*3/uL Eosinophils # (0.04-0.35) 10*3/uL Sodium (137-145) mmol/L BUN (9-20) mg/dL Glucose (74-99) mg/dL POC Glucose (mg/dL) 148 H 114 H 143 H (70-110) mg/dL Total Protein (6.3-8.2) g/dL Albumin (3.5-5.0) g/dL 09/11/24 09/11/24 09/11/24 Range/Units 11:03 12:00 12:51 WBC (4.50-10.00) 10*3/uL RBC (4.40-5.60) 10*6/uL Hgb (13.0-17.0) g/dL Hct (39.6-50.0) % MCH (27.0-32.0) pg Plt Count (140-440) 10*3/uL Immature Gran # (0.00-0.04) 10*3/uL Neutrophils # (1.80-7.70) 10*3/uL Monocytes # (0.20-1.00) 10*3/uL Eosinophils # (0.04-0.35) 10*3/uL Sodium (137-145) mmol/L BUN (9-20) mg/dL Glucose (74-99) mg/dL POC Glucose (mg/dL) 137 H 111 H 144 H (70-110) mg/dL Total Protein (6.3-8.2) g/dL Albumin (3.5-5.0) g/dL 09/11/24 09/11/24 09/11/24 Range/Units 14:01 16:58 20:44 WBC (4.50-10.00) 10*3/uL RBC (4.40-5.60) 10*6/uL Hgb (13.0-17.0) g/dL Hct (39.6-50.0) % MCH (27.0-32.0) pg Plt Count (140-440) 10*3/uL Immature Gran # (0.00-0.04) 10*3/uL Neutrophils # (1.80-7.70) 10*3/uL Monocytes # (0.20-1.00) 10*3/uL Eosinophils # (0.04-0.35) 10*3/uL Sodium (137-145) mmol/L BUN (9-20) mg/dL Glucose (74-99) mg/dL POC Glucose (mg/dL) 146 H 134 H 216 H (70-110) mg/dL Total Protein (6.3-8.2) g/dL Albumin (3.5-5.0) g/dL Assessment and Plan Assessment: Status post coronary artery bypass graft. Postoperative day 2 Intubation requiring mechanical ventilation perioperatively which is expected. Patient is extubated on 09/09/2024 around 7 PM Severe three-vessel coronary artery disease. Patient underwent cardiac catheterization on 08/06/2024 Paroxysmal atrial fibrillation on anticoagulation with Eliquis at home History of perforated status status post laparoscopic appendectomy and intra- abdominal abscess in April 2024 Diabetes type 2 [id number] Hypertension GI and DVT prophylaxis with PPI and heparin subcu Plan: Patient was extubated. Continued on aspirin, Plavix, statin and metoprolol. Cardiology, CT surgery and critical care team is on board. Insulin drip has been discontinued and patient was started on insulin sliding scale and continue to monitor blood sugars. Will continue to follow and further recommendations based on the clinical course. Continue to monitor H&H.
[2024-09-13] MEDS: INSULIN GLARGINE (LANTUS) 100 UNIT/ML SYR SQ SCH ×2 (01:04→20:11)
[2024-09-13 06:03] LABS: Glucose,Whole Blood 176 mg/dL (70-110)
[2024-09-13 06:04] LABS: HCT 21.7 % (39.6-50.0); HGB 7.3 g/dL (13.0-17.0); MCH 30.9 pg (27.0-32.0); MCHC 33.6 g/dL (32.0-37.0); MCV 91.9 fL (80.0-97.0); Platelet Count 191 10*3/uL (140-440); RBC 2.36 10*6/uL (4.40-5.60); RDW 13.7 % (11.5-14.5); WBC 8.64 10*3/uL (4.50-10.00)
[2024-09-13 06:26] LABS: African American GFR (CKD) 70 (>60 ml/min/1.73 sqM); Anion Gap 7 mmol/L; Blood Urea Nitrogen 42 mg/dL (9-20); Calcium 8.0 mg/dL (8.4-10.2); Carbon Dioxide 23 mmol/L (22-30); Chloride 106 mmol/L (98-107); Glucose 147 mg/dL (74-99); Non-African American GFR(CKD) 61 (>60 ml/min/1.73 sqM); Potassium 4.0 mmol/L (3.5-5.1); Sodium 136 mmol/L (137-145)
[2024-09-13] MEDS: ASCORBIC ACID 500 MG TAB PO SCH (06:32)
[2024-09-13] MEDS: FERROUS SULFATE 325 MG TAB PO SCH (06:32)
--- NOTE | 2024-09-13 07:13 | P.PN ---
Subjective Progress Note Date: 09/13/24 Principal diagnosis: Coronary artery disease, paroxysmal atrial fibrillation. History of paroxysmal atrial fibrillation on Eliquis as an outpatient, noncompliant with taking Eliqu is prior to surgery, hypertension, right internal carotid artery stenosis, diabetes mellitus type II, questionable history of myocardial infarction, recent acute appendicitis with perforation status post laparoscopic appendectomy, previous tobacco use as well as chewing tobacco use POD #4 coronary artery bypass grafting x 4 vessels, left internal mammary artery to the left anterior sending coronary artery, saphenous vein graft to the ramus coronary artery, saphenous vein graft to the obtuse marginal coronary artery, and saphenous vein graft to the posterior descending coronary artery. Endos copic harvest of bilateral greater saphenous vein, ligation left atrial appendage using a 35mm atrial clip, intraoperative transesophageal echocardiogram completed by anesthesia, epiaortic ultrasound, graft flow measurements using the WebTV[employer] system, and Maze procedure. Postoperative acute blood loss anemia, expected given hemodilution and cardiopulmonary bypass. The patient was seen and examined this morning sitting up in recliner on the cardiac stepdown unit in no acute distress. States pain is controlled on current medication regimen, denies shortness of breath. Remains in sinus rhyth m, hemodynamically stable. Currently on room air with oxygen saturation 98%, able to achieve 2500 mL on incentive spirometry. Mediastinal/left pleural chest tubes remain, intermittent air leak present in mediastinal tube with coughing. Ambulated in hallway 3 times yesterday. He did have an episode of acute urinary retention requiring straight catheterization last night, has been able to void s nuzhat. Otherwise he is clinically stable. Chest x-ray, labs reviewed. No other new concerns. Objective - Vital Signs Vital signs: Vital Signs Temp 98.5 F 09/13/24 04:00 Pulse 63 09/13/24 04:00 Resp 18 09/13/24 04:00 BP 113/64 09/13/24 04:00 Pulse Ox 98 09/13/24 04:00 FiO2 40 09/09/24 19:00 Intake & Output 09/12/24 09/13/24 09/13/24 18:59 06:59 18:59 Intake Total 830 Output Total 350 1060 Balance 480 -1060 Weight 112 kg Intake: Oral 830 Output: Chest Tube Drainage 0 110 Chest Tube Left Pleural/ 0 20 Mediastinal Chest Tube Mediastinal 0 90 Urine 350 950 Straight 650 Other: Voiding Method Urinal Toilet Urinal # Voids 1 # Bowel Movements 1 1 ABP, PAP, CO, CI - Last Documented Arterial Blood Pressure 125/49 Pulmonary Artery Pressure 23/10 Cardiac Output 4.8 Cardiac Index 2.1 - Exam CONSTITUTIONAL: Appears comfortable, cooperative, no acute distress RESPIRATORY: Lungs sounds diminished in the bases bilaterally. Respirations even, nonlabored. Currently on room air with oxygen saturation 98%. Able to achieve 2500 mL on incentive spirometry. Strong cough. CARDIOVASCULAR: S1, S2 present. Regular rate and rhythm, sinus rhythm on telemetry. Sternum stable. Palpable peripheral pulses bilaterally. No edema present. No calf pain or tenderness noted. Heart hugger in place with patient demonstrating appropriate use. Antiembolism stockings, SCDs present. GASTROINTESTINAL: Abdomen soft, nontender, nondistended. Active bowel sounds present 4 quadrants. Tolerating diet. Positive bowel movement 09/12 GENITOURINARY: Continues to void small amounts at a time, straight cath x1 last night for 650 mL, urine output 1300 mL in the last 24 hours INTEGUMENTARY: Skin is warm and dry with evidence of good perfusion. Anterior chest incision well approximated and covered with dry intact dressing. Bilateral lower extremity EVH sites well approximated without redness or drainage. NEUROLOGIC: Cranial nerves II through XII intact MUSKULOSKELETAL: Able to move all extremities, strength equal bilaterally, gait normal PSYCHIATRIC: Alert and oriented to person place and time, appropriate affect, intact judgment and insight INVASIVE LINES AND TUBES: Mediastinal/left pleural chest tubes present and connected to wall suction, air leaks present in mediastinal tube with coughing. Mediastinal tube with 20 mL serosanguineous drainage overnight, 250 mL in the last 24 hours. Left pleural chest tube with 10 mL serosanguineous drainage overnight, 80 mL in the last 24 hours. - Allied health notes Allied health notes reviewed: nursing - Labs CBC & Chem 7: 09/13/24 05:44 09/13/24 05:44 Labs: Abnormal Lab Results - Last 24 Hours (Table) 09/12/24 09/12/24 09/12/24 Range/Units 11:22 16:16 20:15 RBC (4.40-5.60) 10*6/uL Hgb (13.0-17.0) g/dL Hct (39.6-50.0) % Sodium (137-145) mmol/L BUN (9-20) mg/dL Glucose (74-99) mg/dL POC Glucose (mg/dL) 212 H 207 H 204 H (70-110) mg/dL Calcium (8.4-10.2) mg/dL 09/13/24 09/13/24 09/13/24 Range/Units 05:44 05:44 06:01 RBC 2.36 L (4.40-5.60) 10*6/uL Hgb 7.3 L (13.0-17.0) g/dL Hct 21.7 L (39.6-50.0) % Sodium 136 L (137-145) mmol/L BUN 42 H (9-20) mg/dL Glucose 147 H (74-99) mg/dL POC Glucose (mg/dL) 176 H (70-110) mg/dL Calcium 8.0 L (8.4-10.2) mg/dL - Imaging and Cardiology Chest x-ray: image reviewed Assessment and Plan Assessment: Coronary artery disease, status post 4 vessel CABG Paroxysmal atrial fibrillation, status post Maze procedure and ligation left atrial appendage Postoperative acute blood loss anemia, expected given hemodilution and c ardiopulmonary bypass. History of paroxysmal atrial fibrillation on Eliquis as an outpatient, nonco mpliant with taking Eliquis prior to surgery Hypertension Right internal carotid artery stenosis, 50-79% Diabetes mellitus type II, hgb A1c 6.8% Questionable history of myocardial infarction Recent acute appendicitis with perforation status post laparoscopic appendectomy Previous tobacco use as well as chewing tobacco use, preoperative FEV1 101% Plan: Continue to maximize medical therapy with aspirin, statin, Plavix, and beta- ranjit therapy. Will increase beta ranjit as tolerated. Continue losartan for afterload reduction Continue amiodarone for atrial fibrillation prophylaxis, patient has had no atrial fibrillation up to this point, will taper per protocol Encourage incentive spirometry use 10 times every hour while awake, bronchodilators per pulmonology. Will monitor daily labs and chest x-rays. Electrolyte replacement per protocol. Will give another dose of concentrated albumin followed by IV lasix Increase activity, ambulate as tolerated. PT/OT/cardiac rehab following. Encouraged ambulation in the hallway 4X daily GI/DVT prophylaxis. Pain control per current medication regimen Insulin management per internal medicine Continue mediastinal and left pleural chest tubes for another 24 hours, monitor and record output and resolution of air leak from mediastinal tube Continue to monitor and record strict accurate intake and output Will start flomax Daily weights More recommendations to follow based on patient's clinical course.
--- NOTE | 2024-09-13 08:48 | XR ---
EXAMINATION TYPE: XR chest 2V DATE OF EXAM: 09/13/2024 6:29 AM COMPARISON: 09/12/2024 CLINICAL INDICATION: Male, 79 years old with history of post cardiac surgery, , TECHNIQUE: PA and lateral views FINDINGS: Heart mildly enlarged. Median sternotomy wires with post-CABG clips. Interstitial prominence continue s to show improvement. Band of atelectasis left lower lung. Left-sided chest tube in place. There is a trace left apical pneumothorax measuring 8 mm. Additional trace right apical pneumothorax measuring 3 mm versus 5 mm, previously. IMPRESSION: 1. Left chest tube in place. Trace 8mm left apical pneumothorax now seen. 2. Trace 3 mm right apical pneumothorax versus 5 mm, previously. 3. Improvement in pulmonary vascular congestion. Atelectasis remains at the left lower lung. [facility], , 09/13/2024 8:46 AM
[2024-09-13] MEDS: ALBUMIN HUMAN 25% 50 ML in EMPTY BAG 1 BAG IVPB ONE (09:21)
[2024-09-13] MEDS: FUROSEMIDE 10 MG/ML 2 ML VIAL IV ONE (09:21)
[2024-09-13] MEDS: VIT A,C & E-LUTEIN-MINERALS 1 EACH TAB PO SCH (09:27)
[2024-09-13 11:17] LABS: Glucose,Whole Blood 188 mg/dL (70-110)
--- NOTE | 2024-09-13 14:15 | P.PN ---
Subjective HISTORY OF PRESENT ILLNESS: This is a pleasant 79-year-old with past medical history significant for hypertension, hyperlipidemia, coronary artery disease, paroxysmal atrial fibrillation, previous ruptured appendicitis status post laparoscopic surgery April 2024, mild ischemic cardiomyopathy EF 40 to 45%. Patient follows with Dr. Moreno. Patient had initially presented for ruptured appendicitis in April 2024 and found to have A-fib and underwent further cardiac workup with echo from August 2024 showing EF 40 to 45% as well as heart catheterization showing multivessel CAD. Patient underwent four-vessel CABG with LOVELACE to LAD, SVG to ramus, SVG to OM and SVG to PDA as well as maze procedure and clip of left atrial appendage. Patient was placed on milrinone, norepinephrine, amiodarone drip. Milrinone and norepinephrine have been discontinued and cardiac index in the 3.0 range. He denies any chest pain or pressure. He does have some incisional pain. His hemoglobin is at 7.5. PA pressures 28/9 with a CVP of 5. Patient was chest t ubes bilaterally and mediastinal tube. Thanh in normal sinus rhythm on telemetry. 09/11 Patient seen and examined. Patient denies any chest pain other than the incision. Denies any significant lightheadedness or dizziness. He has been up walking. He remains in sinus rhythm. Hemoglobin stable at 7.5. Cordis was pulled and right chest tube was pulled. 09/12 Patient seen and examined. Patient denies any consistent chest pain however had some discomfort after swallowing multiple pills however resolved fairly shortly thereafter. No significant shortness of breath. Vital signs stable. Remains in normal sinus rhythm. 09/13/2024 Patient examined this morning at the bedside. Patient currently denies chest pain or pressure. Denies shortness of breath. Patient continues to have chest tube in place. Vital signs are stable. PHYSICAL EXAM: VITAL SIGNS: Reviewed. GENERAL: Well-developed in no acute distress. NECK: Supple. No JVD or thyromegaly LUNGS: Respirations even and unlabored. Lungs essentially clear to auscultation bilaterally. HEART: Regular rate and rhythm. S1 and S2 heard. EXTREMITIES: Normal range of motion. No clubbing or cyanosis. Peripheral pulses intact. No lower extremity edema ASSESSMENT: CAD status post CABG x 4 vessel on 09/09/2024 Hypertension Hyperlipidemia Mild ischemic cardiomyopathy EF 40 to 45% Chronic heart failure with reduced EF Blood loss anemia Paroxysmal atrial fibrillation status post Maze procedure, currently sinus rhythm Diabetes mellitus type 2 History of perforated appendicitis April 2024 PLAN: Postoperative management per CT surgery Increase activity as tolerated Encourage use of incentive spirometer Chest tubes remain intact. Resume Eliquis post removal. Continue amiodarone, aspirin, Lipitor, Plavix, losartan, and metoprolol Continue telemetry monitoring Further recommendations pending patient course Nurse practitioner note has been reviewed by physician. Signing provider agrees with the documented findings, assessment, and plan of care documented by AUTHOR'S AGENT as a scribe. Objective - Vital Signs Vital signs: Vital Signs Temp 98.2 F 09/13/24 12:00 Pulse 72 09/13/24 12:26 Resp 18 09/13/24 12:00 BP 125/63 09/13/24 12:00 Pulse Ox 98 09/13/24 12:00 FiO2 40 09/09/24 19:00 Intake & Output 09/12/24 09/13/24 09/13/24 18:59 06:59 18:59 Intake Total 830 180 Output Total 350 1060 448 Balance 480 -1060 -268 Weight 112 kg Intake: Oral 830 180 Output: Chest Tube Drainage 0 110 48 Chest Tube Left Pleural/ 0 20 18 Mediastinal Chest Tube Mediastinal 0 90 30 Urine 350 950 400 Straight 650 Other: Voiding Method Urinal Toilet Urinal # Voids 1 # Bowel Movements 1 1 ABP, PAP, CO, CI - Last Documented Arterial Blood Pressure 125/49 Pulmonary Artery Pressure 23/10 Cardiac Output 4.8 Cardiac Index 2.1 - Labs CBC & Chem 7: 09/13/24 05:44 09/13/24 05:44 Labs: Abnormal Lab Results - Last 24 Hours (Table) 09/12/24 09/12/24 09/13/24 Range/Units 16:16 20:15 05:44 RBC 2.36 L (4.40-5.60) 10*6/uL Hgb 7.3 L (13.0-17.0) g/dL Hct 21.7 L (39.6-50.0) % Sodium (137-145) mmol/L BUN (9-20) mg/dL Glucose (74-99) mg/dL POC Glucose (mg/dL) 207 H 204 H (70-110) mg/dL Calcium (8.4-10.2) mg/dL 09/13/24 09/13/24 09/13/24 Range/Units 05:44 06:01 11:16 RBC (4.40-5.60) 10*6/uL Hgb (13.0-17.0) g/dL Hct (39.6-50.0) % Sodium 136 L (137-145) mmol/L BUN 42 H (9-20) mg/dL Glucose 147 H (74-99) mg/dL POC Glucose (mg/dL) 176 H 188 H (70-110) mg/dL Calcium 8.0 L (8.4-10.2) mg/dL
--- NOTE | 2024-09-13 15:51 | P.PN ---
Subjective Progress Note Date: 09/13/24 Patient was seen today on 09/10/2024, remains in the ICU, patient was extubated at 7:12 PM successfully. This morning he is on room air. Not in any distress O2 saturation is in the 90s achieving over 1500 cc on incentive spirometry. Patient has no complaints, he does have some surgical site discomfort at the site of the chest tube insertion. Continues to have right IJ cordis and [place]- Naeem catheter his current hemodynamics showed cardiac output of 7 lower cardiac index compared to yesterday. It is 3.0 today. PA pressures 28/8 CVP is 5. Still on Primacor 0.1 mcg/kg/min and amiodarone drip patient seems to be in sinus rhythm rate of 70 mediastinal and left and right pleural chest tubes are noted on continuous wall suction manage 20 serosanguineous drainage is noted chest x-ray showed minimal bibasilar atelectasis. Patient is sitting at the bedside chair, in no distress. WBC count is 12.1 hemoglobin 7.5, basic metabolic profile is normal BUN is 25 creatinine 1.04. Patient was seen today on 09/11/2024, remains in the ICU, patient is now postoperative day #2, sitting at the bedside chair, hemodynamically stable not requiring any pressors, he is alert and oriented x 3, he is in sinus rhythm rate 72. His hemodynamic monitoring revealed CVP of 5 again the patient is not requiring any inotropes or any pressors mediastinal left and right pleural chest tubes were noted remain on low continuous wall suction. No air leak is noted. Chest x-ray showed postoperative changes, and there is evidence of mild pulmonary vascular congestion with bibasilar atelectasis. Patient is doing extremely well with incentive spirometry, ambulating well with assistance. WBC count is 19.6 hemoglobin 7.5, basic metabolic profile is normal renal profile is normal creatinine is a bit high at 1.17 compared to 1.04 yesterday. Seen today on 09/12/2024, patient is now postoperative day #3. Patient seems to be doing quite well, he is on room air, continues to have [address], patient is sitting up in the chair, he is doing well with his incentive spirometry, he received Lasix and albumin today. No cough no wheezing no shortness of breath hemodynamically stable not requiring any pressors or any inotropes, chest x-ray showed a very minimal tiny apical pneumothorax. And mild pulmonary vascular congestion. The patient is seen today September 13, 2024 in follow-up on the selective care unit. Postoperative day #4. He is currently sitting up in a chair at the bedside. Awake and alert in no acute distress. Maintaining good O2 saturations in the upper 90s on room air. Afebrile. Hemodynamically stable. Working well with the incentive spirometer. Chest x-ray reveals a left chest tube in place with a 8 mm left apical pneumothorax. Trace 3 mm right apical pneumothorax. Improvement in the pulmonary vascular congestion. Atelectasis of the left lung base. White count 8.6. Hemoglobin 7.3. Platelets 191. Sodium 136. Potassium 4.0. Bicarb 23. BUN 42. Creatinine 1.15. Glucose 147. He remains on DuoNeb inhalations. Heparin for DVT prophylaxis. Objective - Vital Signs Vital signs: Vital Signs Temp 98.2 F 09/13/24 12:00 Pulse 72 09/13/24 12:26 Resp 18 09/13/24 12:00 BP 125/63 09/13/24 12:00 Pulse Ox 98 09/13/24 12:00 FiO2 40 09/09/24 19:00 Intake & Output 09/12/24 09/13/24 09/13/24 18:59 06:59 18:59 Intake Total 830 180 Output Total 350 1060 598 Balance 480 -1060 -418 Weight 112 kg Intake: Oral 830 180 Output: Chest Tube Drainage 0 110 48 Chest Tube Left Pleural/ 0 20 18 Mediastinal Chest Tube Mediastinal 0 90 30 Urine 350 950 550 Straight 650 Other: Voiding Method Urinal Toilet Urinal # Voids 1 # Bowel Movements 1 1 ABP, PAP, CO, CI - Last Documented Arterial Blood Pressure 125/49 Pulmonary Artery Pressure 23/10 Cardiac Output 4.8 Cardiac Index 2.1 - Exam GENERAL EXAM: Alert, active, pleasant 79-year-old male, up in a chair, on room air, fairly comfortable in no apparent distress. HEAD: Normocephalic. EYES: Normal reaction of pupils, equal size. NOSE: Clear with pink turbinates. THROAT: No erythema or exudates. NECK: No masses, no JVD. CHEST: Incision clean dry well-approximated. Sternum stable. Heart hugger in place. Left and mediastinal chest tubes remains in place. LUNGS: Equal air entry with crackles in the left base. CVS: S1 and S2 normal with no audible murmur, regular rhythm. ABDOMEN: No hepatosplenomegaly, normal bowel sounds, no guarding or rigidity. SPINE: No scoliosis or deformity SKIN: No rashes CENTRAL NERVOUS SYSTEM: No focal deficits, tone is normal in all 4 extremities. EXTREMITIES: There is no peripheral edema. No clubbing, no cyanosis. Peripheral pulses are intact. - Labs CBC & Chem 7: 09/13/24 05:44 09/13/24 05:44 Labs: Abnormal Lab Results - Last 24 Hours (Table) 09/12/24 09/12/24 09/13/24 Range/Units 16:16 20:15 05:44 RBC 2.36 L (4.40-5.60) 10*6/uL Hgb 7.3 L (13.0-17.0) g/dL Hct 21.7 L (39.6-50.0) % Sodium (137-145) mmol/L BUN (9-20) mg/dL Glucose (74-99) mg/dL POC Glucose (mg/dL) 207 H 204 H (70-110) mg/dL Calcium (8.4-10.2) mg/dL 09/13/24 09/13/24 09/13/24 Range/Units 05:44 06:01 11:16 RBC (4.40-5.60) 10*6/uL Hgb (13.0-17.0) g/dL Hct (39.6-50.0) % Sodium 136 L (137-145) mmol/L BUN 42 H (9-20) mg/dL Glucose 147 H (74-99) mg/dL POC Glucose (mg/dL) 176 H 188 H (70-110) mg/dL Calcium 8.0 L (8.4-10.2) mg/dL Assessment and Plan Assessment: Status post 4 vessel coronary artery bypass grafting surgery postoperative day #4 Triple-vessel coronary artery disease based on cardiac catheterization dated 08/06/2024 History of paroxysmal atrial fibrillation Benign essential hypertension Type 2 diabetes Recent history of appendicitis requiring laparoscopic appendectomy in April 21, 2024 Plan: The patient was seen and evaluated Chest x-ray, labs and medications reviewed Currently stable and on room air Left pleural and mediastinal chest tubes in place Still with positive leak in the mediastinal chest tube Working well with the incentive spirometer Up ambulating with assistance We will continue to follow I have personally seen and examined the patient, performed the documentation and the assessment and plan as written. Number of minutes spent on the visit: 10 Dictation was produced using [employer] dictation software. Please excuse any grammatical, word or spelling errors.
[2024-09-13 16:34] LABS: Glucose,Whole Blood 177 mg/dL (70-110)
[2024-09-13] MEDS: TAMSULOSIN 0.4 MG CAP.ER.24H PO SCH (17:35)
[2024-09-13 20:10] LABS: Glucose,Whole Blood 170 mg/dL (70-110)
[2024-09-14 05:59] LABS: Glucose,Whole Blood 154 mg/dL (70-110)
[2024-09-14 07:08] LABS: HCT 20.7 % (39.6-50.0); HGB 7.1 g/dL (13.0-17.0); MCH 32.0 pg (27.0-32.0); MCHC 34.3 g/dL (32.0-37.0); MCV 93.2 fL (80.0-97.0); Platelet Count 217 10*3/uL (140-440); RBC 2.22 10*6/uL (4.40-5.60); RDW 13.9 % (11.5-14.5); WBC 6.66 10*3/uL (4.50-10.00)
[2024-09-14 07:27] LABS: African American GFR (CKD) 63 (>60 ml/min/1.73 sqM); Anion Gap 10 mmol/L; Blood Urea Nitrogen 40 mg/dL (9-20); Calcium 8.2 mg/dL (8.4-10.2); Carbon Dioxide 21 mmol/L (22-30); Chloride 106 mmol/L (98-107); Glucose 121 mg/dL (74-99); Magnesium 2.1 mg/dL (1.6-2.3); Non-African American GFR(CKD) 55 (>60 ml/min/1.73 sqM); Potassium 3.8 mmol/L (3.5-5.1); Sodium 137 mmol/L (137-145)
--- NOTE | 2024-09-14 07:43 | XR ---
EXAMINATION TYPE: XR chest 2V DATE OF EXAM: 09/14/2024 7:05 AM COMPARISON: 09/13/2024 CLINICAL INDICATION: Male, 79 years old with history of post cardiac surgery: Shortness of breath TECHNIQUE: XR chest 2V views of the chest are obtained. FINDINGS: Left-sided chest tube is in place with tiny left apical pneumothorax. No discrete right apical pneumo thorax this time. Postoperative changes of CABG. No evidence for infiltrate. No evidence for atelectasis. Heart size is stable. Mediastinal structures are stable and grossly unremarkable. No evidence for hilar prominence. Degenerative changes dorsal spine. IMPRESSION: 1.Left-sided chest tube is in place with tiny left apical pneumothorax. No discrete right apical pneu mothorax this time. Postoperative changes of CABG. [facility], , 09/14/2024 7:40 AM
--- NOTE | 2024-09-14 08:55 | P.PN ---
Subjective Progress Note Date: 09/14/24 Principal diagnosis: Coronary artery disease, paroxysmal atrial fibrillation. History of paroxysmal atrial fibrillation on Eliquis as an outpatient, noncompliant with taking Eliqu is prior to surgery, hypertension, right internal carotid artery stenosis, diabetes mellitus type II, questionable history of myocardial infarction, recent acute appendicitis with perforation status post laparoscopic appendectomy, previous tobacco use as well as chewing tobacco use POD #5 coronary artery bypass grafting x 4 vessels, left internal mammary artery to the left anterior sending coronary artery, saphenous vein graft to the ramus coronary artery, saphenous vein graft to the obtuse marginal coronary artery, and saphenous vein graft to the posterior descending coronary artery. Endos copic harvest of bilateral greater saphenous vein, ligation left atrial appendage using a 35mm atrial clip, intraoperative transesophageal echocardiogram completed by anesthesia, epiaortic ultrasound, graft flow measurements using the Neemastim system, and Maze procedure. Postoperative acute blood loss anemia, expected given hemodilution and cardiopulmonary bypass. The patient was seen and examined this morning sitting up in recliner on the cardiac stepdown unit in no acute distress eating breakfast. States pain is controlled on current medication regimen, denies shortness of breath. Remains in sinus rhythm, hemodynamically stable. Currently on room air with oxygen saturation 98%, able to achieve 2500 mL on incentive spirometry. Mediastinal/left pleural chest tubes remain, intermittent air leak remains present in mediastinal tube with coughing. Ambulated in hallway yesterday. Dis cussed anticoagulation at discharge due to history of atrial fibrillation. Patient was not compliant with Eliquis prior to surgery, discussed necessity for short time while Castaneda-Maze takes effect. Chest x-ray, labs reviewed. No other new concerns. Objective - Vital Signs Vital signs: Vital Signs Temp 97.8 F 09/14/24 08:39 Pulse 68 09/14/24 08:39 Resp 18 09/14/24 08:39 BP 101/62 09/14/24 08:39 Pulse Ox 100 09/14/24 08:39 FiO2 40 09/09/24 19:00 Intake & Output 09/13/24 09/14/24 09/14/24 18:59 06:59 18:59 Intake Total 180 240 Output Total 790 486 Balance -610 -486 240 Weight 112.2 kg Intake: Oral 180 240 Output: Chest Tube Drainage 90 86 Chest Tube Left Pleural/ 40 40 Mediastinal Chest Tube Mediastinal 50 46 Urine 700 400 Other: Voiding Method Toilet Toilet # Voids 1 ABP, PAP, CO, CI - Last Documented Arterial Blood Pressure 125/49 Pulmonary Artery Pressure 23/10 Cardiac Output 4.8 Cardiac Index 2.1 - Exam CONSTITUTIONAL: Appears comfortable, cooperative, no acute distress RESPIRATORY: Lungs sounds diminished in the bases bilaterally. Respirations even, nonlabored. Currently on room air with oxygen saturation 98%. Able to achieve 2500 mL on incentive spirometry. Strong cough. CARDIOVASCULAR: S1, S2 present. Regular rate and rhythm, sinus rhythm on telemetry. Sternum stable. Palpable peripheral pulses bilaterally. Trace edema present to his hands. No calf pain or tenderness noted. Heart hugger in place with patient demonstrating appropriate use. Antiembolism stockings, SCDs present. GASTROINTESTINAL: Abdomen soft, nontender, nondistended. Active bowel sounds present 4 quadrants. Tolerating diet. Positive bowel movement 09/12 GENITOURINARY: Continues to void, no straight cath required last night, urine output 1100 mL in the last 24 hours INTEGUMENTARY: Skin is warm and dry with evidence of good perfusion. Anterior chest incision well approximated and covered with dry intact dressing. Bilateral lower extremity EVH sites well approximated without redness or drainage. NEUROLOGIC: Cranial nerves II through XII intact MUSKULOSKELETAL: Able to move all extremities, strength equal bilaterally, gait normal PSYCHIATRIC: Alert and oriented to person place and time, appropriate affect, intact judgment and insight INVASIVE LINES AND TUBES: Mediastinal/left pleural chest tubes present and connected to wall suction, air leak present in mediastinal tube with coughing. Mediastinal tube with 45 mL serosanguineous drainage overnight, 100 mL in the last 24 hours. Left pleural chest tube with 40 mL serosanguineous drainage overnight, 100 mL in the last 24 hours. - Allied health notes Allied health notes reviewed: nursing - Labs CBC & Chem 7: 09/14/24 05:59 09/14/24 05:59 Labs: Abnormal Lab Results - Last 24 Hours (Table) 09/13/24 09/13/24 09/13/24 Range/Units 11:16 16:33 20:08 RBC (4.40-5.60) 10*6/uL Hgb (13.0-17.0) g/dL Hct (39.6-50.0) % Carbon Dioxide (22-30) mmol/L BUN (9-20) mg/dL Glucose (74-99) mg/dL POC Glucose (mg/dL) 188 H 177 H 170 H (70-110) mg/dL Calcium (8.4-10.2) mg/dL 09/14/24 09/14/24 09/14/24 Range/Units 05:57 05:59 05:59 RBC 2.22 L (4.40-5.60) 10*6/uL Hgb 7.1 L (13.0-17.0) g/dL Hct 20.7 L (39.6-50.0) % Carbon Dioxide 21 L (22-30) mmol/L BUN 40 H (9-20) mg/dL Glucose 121 H (74-99) mg/dL POC Glucose (mg/dL) 154 H (70-110) mg/dL Calcium 8.2 L (8.4-10.2) mg/dL - Imaging and Cardiology Chest x-ray: report reviewed, image reviewed Assessment and Plan Assessment: Coronary artery disease, status post 4 vessel CABG Paroxysmal atrial fibrillation, status post Maze procedure and ligation left atrial appendage Postoperative acute blood loss anemia, expected given hemodilution and cardiopulmonary bypass. History of paroxysmal atrial fibrillation on Eliquis as an outpatient, noncompliant with taking Eliquis prior to surgery Hypertension Right internal carotid artery stenosis, 50-79% Diabetes mellitus type II, hgb A1c 6.8% Questionable history of myocardial infarction Recent acute appendicitis with perforation status post laparoscopic appendectomy Previous tobacco use as well as chewing tobacco use, preoperative FEV1 101% Plan: Continue to maximize medical therapy with aspirin, statin, Plavix, and beta- ranjit therapy. Will increase beta ranjit as tolerated. Continue losartan for afterload reduction with hold parameters Continue amiodarone for atrial fibrillation prophylaxis, patient has had no atrial fibrillation post op up to this point, will taper per protocol Discussed the need for anticoagulation compliance at discharge Encourage incentive spirometry use 10 times every hour while awake, bronchodilators per pulmonology. Will monitor daily labs and chest x-rays. Electrolyte replacement per protocol Increase activity, ambulate as tolerated. PT/OT/cardiac rehab following. Encouraged ambulation in the hallway 4X daily GI/DVT prophylaxis. Pain control per current medication regimen Insulin management per internal medicine Continue mediastinal and left pleural chest tubes for another 24 hours, monitor and record output and resolution of air leak from mediastinal tube Continue to monitor and record strict accurate intake and output Continue flomax Daily weights More recommendations to follow based on patient's clinical course.
[2024-09-14 11:41] LABS: Glucose,Whole Blood 226 mg/dL (70-110)
--- NOTE | 2024-09-14 12:00 | P.PN ---
Subjective Progress Note Date: 09/14/24 Patient was seen today on 09/10/2024, remains in the ICU, patient was extubated at 7:12 PM successfully. This morning he is on room air. Not in any distress O2 saturation is in the 90s achieving over 1500 cc on incentive spirometry. Patient has no complaints, he does have some surgical site discomfort at the site of the chest tube insertion. Continues to have right IJ cordis and [place]- Naeem catheter his current hemodynamics showed cardiac output of 7 lower cardiac index compared to yesterday. It is 3.0 today. PA pressures 28/8 CVP is 5. Still on Primacor 0.1 mcg/kg/min and amiodarone drip patient seems to be in sinus rhythm rate of 70 mediastinal and left and right pleural chest tubes are noted on continuous wall suction manage 20 serosanguineous drainage is noted chest x-ray showed minimal bibasilar atelectasis. Patient is sitting at the bedside chair, in no distress. WBC count is 12.1 hemoglobin 7.5, basic metabolic profile is normal BUN is 25 creatinine 1.04. Patient was seen today on 09/11/2024, remains in the ICU, patient is now postoperative day #2, sitting at the bedside chair, hemodynamically stable not requiring any pressors, he is alert and oriented x 3, he is in sinus rhythm rate 72. His hemodynamic monitoring revealed CVP of 5 again the patient is not requiring any inotropes or any pressors mediastinal left and right pleural chest tubes were noted remain on low continuous wall suction. No air leak is noted. Chest x-ray showed postoperative changes, and there is evidence of mild pulmonary vascular congestion with bibasilar atelectasis. Patient is doing extremely well with incentive spirometry, ambulating well with assistance. WBC count is 19.6 hemoglobin 7.5, basic metabolic profile is normal renal profile is normal creatinine is a bit high at 1.17 compared to 1.04 yesterday. Seen today on 09/12/2024, patient is now postoperative day #3. Patient seems to be doing quite well, he is on room air, continues to have [address], patient is sitting up in the chair, he is doing well with his incentive spirometry, he received Lasix and albumin today. No cough no wheezing no shortness of breath hemodynamically stable not requiring any pressors or any inotropes, chest x-ray showed a very minimal tiny apical pneumothorax. And mild pulmonary vascular congestion. The patient is seen today September 13, 2024 in follow-up on the selective care unit. Postoperative day #4. He is currently sitting up in a chair at the bedside. Awake and alert in no acute distress. Maintaining good O2 saturations in the upper 90s on room air. Afebrile. Hemodynamically stable. Working well with the incentive spirometer. Chest x-ray reveals a left chest tube in place with a 8 mm left apical pneumothorax. Trace 3 mm right apical pneumothorax. Improvement in the pulmonary vascular congestion. Atelectasis of the left lung base. White count 8.6. Hemoglobin 7.3. Platelets 191. Sodium 136. Potassium 4.0. Bicarb 23. BUN 42. Creatinine 1.15. Glucose 147. He remains on DuoNeb inhalations. Heparin for DVT prophylaxis. The patient is seen today September 14, 2024 in follow-up on the selective care unit. Postoperative day #5. He is awake and alert in no acute distress. Sitting up in a chair at the bedside. Maintaining good O2 saturations in the 90s on room air oxygen. Has been working well with the incentive spirometer. Chest x-ray revealed left-sided chest tube in place with tiny left apical pneumothorax. No right apical pneumothorax. Mediastinal chest tube remains in place. No significant leak noted. White count 6.6. Hemoglobin 7.1. Platelets 217. Sodium 137. Potassium 3.8. Bicarb 21. BUN 40. Creatinine 1.25. Glucose 121. He remains on DuoNeb inhalations. Heparin for DVT prophylaxis. Objective - Vital Signs Vital signs: Vital Signs Temp 97.8 F 09/14/24 08:39 Pulse 70 09/14/24 09:16 Resp 18 09/14/24 08:39 BP 101/62 09/14/24 08:39 Pulse Ox 100 09/14/24 08:39 FiO2 40 09/09/24 19:00 Intake & Output 09/13/24 09/14/24 09/14/24 18:59 06:59 18:59 Intake Total 180 240 Output Total 790 486 400 Balance -610 -486 -160 Weight 112.2 kg Intake: Oral 180 240 Output: Chest Tube Drainage 90 86 0 Chest Tube Left Pleural/ 40 40 0 Mediastinal Chest Tube Mediastinal 50 46 0 Urine 700 400 200 Post Void Residual 200 Other: Voiding Method Toilet Toilet Toilet # Voids 1 # Bowel Movements 1 ABP, PAP, CO, CI - Last Documented Arterial Blood Pressure 125/49 Pulmonary Artery Pressure 23/10 Cardiac Output 4.8 Cardiac Index 2.1 - Exam GENERAL EXAM: Alert, pleasant 79-year-old male, up in a chair, on room air, comfortable in no apparent distress. HEAD: Normocephalic. EYES: Normal reaction of pupils, equal size. NOSE: Clear with pink turbinates. THROAT: No erythema or exudates. NECK: No masses, no JVD. CHEST: Incision clean dry well-approximated. Sternum stable. Heart hugger in p lace. Left and mediastinal chest tubes remains in place. LUNGS: Equal air entry with crackles in the left base. CVS: S1 and S2 normal with no audible murmur, regular rhythm. ABDOMEN: No hepatosplenomegaly, normal bowel sounds, no guarding or rigidity. SPINE: No scoliosis or deformity SKIN: No rashes CENTRAL NERVOUS SYSTEM: No focal deficits, tone is normal in all 4 extremities. EXTREMITIES: There is no peripheral edema. No clubbing, no cyanosis. Peripheral pulses are intact. - Labs CBC & Chem 7: 09/14/24 05:59 09/14/24 05:59 Labs: Abnormal Lab Results - Last 24 Hours (Table) 09/13/24 09/13/24 09/14/24 Range/Units 16:33 20:08 05:57 RBC (4.40-5.60) 10*6/uL Hgb (13.0-17.0) g/dL Hct (39.6-50.0) % Carbon Dioxide (22-30) mmol/L BUN (9-20) mg/dL Glucose (74-99) mg/dL POC Glucose (mg/dL) 177 H 170 H 154 H (70-110) mg/dL Calcium (8.4-10.2) mg/dL 09/14/24 09/14/24 09/14/24 Range/Units 05:59 05:59 11:40 RBC 2.22 L (4.40-5.60) 10*6/uL Hgb 7.1 L (13.0-17.0) g/dL Hct 20.7 L (39.6-50.0) % Carbon Dioxide 21 L (22-30) mmol/L BUN 40 H (9-20) mg/dL Glucose 121 H (74-99) mg/dL POC Glucose (mg/dL) 226 H (70-110) mg/dL Calcium 8.2 L (8.4-10.2) mg/dL Assessment and Plan Assessment: Status post 4 vessel coronary artery bypass grafting surgery postoperative day #5 Triple-vessel coronary artery disease based on cardiac catheterization dated 08/06/2024 History of paroxysmal atrial fibrillation Benign essential hypertension Type 2 diabetes Recent history of appendicitis requiring laparoscopic appendectomy in April 21, 2024 Plan: The patient was seen and evaluated Chest x-ray, labs and medications reviewed Currently stable and on room air Left pleural and mediastinal chest tubes in place Working well with the incentive spirometer Up ambulating with assistance Continued on bronchodilators Continued on heparin for DVT prophylaxis Home once cleared by CT service We will continue to follow I have personally seen and examined the patient, performed the documentation and the assessment and plan as written. Number of minutes spent on the visit: 10 Dictation was produced using [employer] dictation software. Please excuse any grammatical, word or spelling errors.
--- NOTE | 2024-09-14 13:31 | P.PN ---
Subjective HISTORY OF PRESENT ILLNESS: This is a pleasant 79-year-old with past medical history significant for hypertension, hyperlipidemia, coronary artery disease, paroxysmal atrial fibrillation, previous ruptured appendicitis status post laparoscopic surgery April 2024, mild ischemic cardiomyopathy EF 40 to 45%. Patient follows with Dr. Moreno. Patient had initially presented for ruptured appendicitis in April 2024 and found to have A-fib and underwent further cardiac workup with echo from August 2024 showing EF 40 to 45% as well as heart catheterization showing multivessel CAD. Patient underwent four-vessel CABG with LOVELACE to LAD, SVG to ramus, SVG to OM and SVG to PDA as well as maze procedure and clip of left atrial appendage. Patient was placed on milrinone, norepinephrine, amiodarone drip. Milrinone and norepinephrine have been discontinued and cardiac index in the 3.0 range. He denies any chest pain or pressure. He does have some incisional pain. His hemoglobin is at 7.5. PA pressures 28/9 with a CVP of 5. Patient was chest t ubes bilaterally and mediastinal tube. Thanh in normal sinus rhythm on telemetry. 09/11 Patient seen and examined. Patient denies any chest pain other than the incision. Denies any significant lightheadedness or dizziness. He has been up walking. He remains in sinus rhythm. Hemoglobin stable at 7.5. Cordis was pulled and right chest tube was pulled. 09/12 Patient seen and examined. Patient denies any consistent chest pain however had some discomfort after swallowing multiple pills however resolved fairly shortly thereafter. No significant shortness of breath. Vital signs stable. Remains in normal sinus rhythm. 09/13/2024 Patient examined this morning at the bedside. Patient currently denies chest pain or pressure. Denies shortness of breath. Patient continues to have chest tube in place. Vital signs are stable. 09/14/2024 Patient examined this morning at the bedside. Patient currently denies chest pain or pressure. Denies shortness of breath. Patient continues to have chest tube in place. Vital signs are stable. PHYSICAL EXAM: VITAL SIGNS: Reviewed. GENERAL: Well-developed in no acute distress. NECK: Supple. No JVD or thyromegaly LUNGS: Respirations even and unlabored. Lungs essentially clear to auscultation bilaterally. HEART: Regular rate and rhythm. S1 and S2 heard. EXTREMITIES: Normal range of motion. No clubbing or cyanosis. Peripheral pulses intact. No lower extremity edema ASSESSMENT: CAD status post CABG x 4 vessel on 09/09/2024 Hypertension Hyperlipidemia Mild ischemic cardiomyopathy EF 40 to 45% Chronic heart failure with reduced EF Blood loss anemia Paroxysmal atrial fibrillation status post Maze procedure, currently sinus rhythm Diabetes mellitus type 2 History of perforated appendicitis April 2024 PLAN: Continue postoperative management per CT surgery Increase activity as tolerated Encourage use of incentive spirometer Chest tubes remain intact. Resume Eliquis post removal. Continue amiodarone, aspirin, Lipitor, Plavix, losartan, and metoprolol Continue telemetry monitoring Further recommendations pending patient course Nurse practitioner note has been reviewed by physician. Signing provider agrees with the documented findings, assessment, and plan of care documented by [employer] as a scribe. Objective - Vital Signs Vital signs: Vital Signs Temp 97.8 F 09/14/24 08:39 Pulse 68 09/14/24 12:00 Resp 18 09/14/24 12:00 BP 96/56 09/14/24 12:00 Pulse Ox 100 09/14/24 12:00 FiO2 40 09/09/24 19:00 Intake & Output 09/13/24 09/14/24 09/14/24 18:59 06:59 18:59 Intake Total 180 240 Output Total 790 486 400 Balance -610 -486 -160 Weight 112.2 kg Intake: Oral 180 240 Output: Chest Tube Drainage 90 86 0 Chest Tube Left Pleural/ 40 40 0 Mediastinal Chest Tube Mediastinal 50 46 0 Urine 700 400 200 Post Void Residual 200 Other: Voiding Method Toilet Toilet Toilet # Voids 1 # Bowel Movements 1 ABP, PAP, CO, CI - Last Documented Arterial Blood Pressure 125/49 Pulmonary Artery Pressure 23/10 Cardiac Output 4.8 Cardiac Index 2.1 - Labs CBC & Chem 7: 09/14/24 05:59 09/14/24 05:59 Labs: Abnormal Lab Results - Last 24 Hours (Table) 09/13/24 09/13/24 09/14/24 Range/Units 16:33 20:08 05:57 RBC (4.40-5.60) 10*6/uL Hgb (13.0-17.0) g/dL Hct (39.6-50.0) % Carbon Dioxide (22-30) mmol/L BUN (9-20) mg/dL Glucose (74-99) mg/dL POC Glucose (mg/dL) 177 H 170 H 154 H (70-110) mg/dL Calcium (8.4-10.2) mg/dL 09/14/24 09/14/24 09/14/24 Range/Units 05:59 05:59 11:40 RBC 2.22 L (4.40-5.60) 10*6/uL Hgb 7.1 L (13.0-17.0) g/dL Hct 20.7 L (39.6-50.0) % Carbon Dioxide 21 L (22-30) mmol/L BUN 40 H (9-20) mg/dL Glucose 121 H (74-99) mg/dL POC Glucose (mg/dL) 226 H (70-110) mg/dL Calcium 8.2 L (8.4-10.2) mg/dL
[2024-09-14 16:56] LABS: Glucose,Whole Blood 116 mg/dL (70-110)
[2024-09-14 20:03] LABS: Glucose,Whole Blood 183 mg/dL (70-110)
--- NOTE | 2024-09-14 21:39 | P.PN ---
Subjective Progress Note Date: 09/12/24 Patient is a 79-year-old male with a past medical history of hypertension, diabetes type 2 and history of perforated acute appendicitis status post laparoscopic appendectomy in April 2024 and paroxysmal atrial fibrillation anticoagulated with Eliquis. Patient underwent cardiac catheterization on 08/06/2024 showed severe three-vessel coronary disease and ischemic cardiomyopathy with severe LV dysfunction. CT surgery evaluated for CABG. Patient was admitted to the hospital for coronary artery bypass graft. Patient is status post surgery and is currently in the MICU. Intubated and on mechanical ventilator perioperatively. Laboratory data showed WBC 20.9 hemoglobin 9.1, platelets 149, sodium 141 potassium 4.1 chloride 112 bicarb is 20 BUN 2020 creatinine 0.98, blood sugar 146, magnesium 2.4 and albumin 3.2. ABG showed pH 7.31, [id number] and bicarb 23. Patient is currently on bicarb ventilator is controlled with respiratory rate 14, tidal volume 500, 40% FiO2 and PEEP of 8. Chest x-ray showed mild pulmonary vascular congestion possible small left effusion. Post CABG changes. Patient is currently amiodarone drip, milrinone and nitro drip. 09/11/2024 Patient is in the MICU. He was successfully extubated yesterday evening. Currently on room air. Sitting in a chair. Awake alert and oriented x 3. Remains on chest tube x 3. No cough or sputum production. Pain is controlled. Laboratory data showed WBC 12.1 hemoglobin 7.5 and platelets 109 sodium 140 potassium 3.7 chloride 108 bicarb is 24 BUN 25 creatinine 1.04 and blood sugar 97. Patient remains on insulin drip. 09/11/2024 Patient is participating in physical therapy. Ambulating in the hallway. No complaints of worsening shortness of breath. No chest pain. No cough or sputum production. Patient has been afebrile. On room air. Patient remains on mediastinal, left and right chest tubes with continuous low suction. Chest x-ray showed postoperative changes and evidence of mild pulmonary vascular congestion with bibasilar atelectasis. Laboratory data showed WBC 19.6 hemoglobin 7.5 and platelets 118 sodium 136 potassium 4.4 chloride 106 bicarb is 22 BUN 32 creatinine 1.17 blood sugar 122 and albumin 3.2 09/12/2024 Patient is sitting in the chair. Awake alert and oriented. No complaints of chest pain or worsening shortness of breath. Currently on room air. Chest tubes are in place. Blood pressure is stable. No other acute overnight issues. Chest x-ray showed very minimal apical pneumothorax. Mild pulmonary vascular congestion. Patient received Lasix and albumin today. Patient is being transferred to medical floor today. Blood sugar is controlled. Laboratory data showed WBC 13.9 hemoglobin 7.5 and platelets 150 sodium 135 potassium 4.5 chloride 104 bicarb is 21 BUN 39 and creatinine 1.18 and blood sugar 164 (are not elevated albumin 3.2. Current medications reviewed. Objective - Vital Signs Vital signs: Vital Signs Temp 98.2 F 09/12/24 20:00 Pulse 75 09/12/24 20:00 Resp 16 09/12/24 20:00 BP 127/70 09/12/24 20:00 Pulse Ox 99 09/12/24 20:00 FiO2 40 09/09/24 19:00 Intake & Output 09/12/24 09/12/24 09/13/24 06:59 18:59 06:59 Intake Total 830 Output Total 570 350 930 Balance -570 480 -930 Weight 113.1 kg Intake: Oral 830 Output: Chest Tube Drainage 245 0 80 Chest Tube Left Pleural/ 60 0 10 Mediastinal Chest Tube Mediastinal 185 0 70 Urine 325 350 850 Straight 650 Other: Voiding Method Urinal Urinal Toilet Urinal # Voids 1 # Bowel Movements 0 1 1 ABP, PAP, CO, CI - Last Documented Arterial Blood Pressure 125/49 Pulmonary Artery Pressure 23/10 Cardiac Output 4.8 Cardiac Index 2.1 - Exam PHYSICAL EXAMINATION: Patient is sitting in the chair., no acute distress, awake alert and oriented.. HEENT: Normocephalic. Neck is supple. Pupils reactive. Nostrils clear. Oral cavity is moist. Neck reveals no JVD, carotid bruits, or thyromegaly. CHEST EXAMINATION: Trachea is central. Symmetrical expansion. Bibasilar diminished sounds. Chest tube x [address] CARDIAC: Normal S1, S2 with no gallops. No murmurs ABDOMEN: Soft. Bowel sounds normal. No organomegaly. No abdominal bruits. Extremities: reveal no edema. No clubbing or cyanosis Neurologically awake, alert, oriented x3 with well-coordinated movements. No gross focal deficits noted Skin: No rash or skin lesions. Psychiatric: Coperative. Nonsuicidal Musculoskeletal: No joint swelling or deformity. Able to move all extremities. - Labs CBC & Chem 7: 09/14/24 05:59 09/14/24 05:59 Labs: Abnormal Lab Results - Last 24 Hours (Table) 09/12/24 09/12/24 09/12/24 Range/Units 03:07 03:12 06:42 WBC 13.99 H (4.50-10.00) 10*3/uL RBC 2.39 L (4.40-5.60) 10*6/uL Hgb 7.5 L (13.0-17.0) g/dL Hct 22.2 L (39.6-50.0) % Immature Gran # 0.07 H (0.00-0.04) 10*3/uL Neutrophils # 10.98 H (1.80-7.70) 10*3/uL Monocytes # 1.21 H (0.20-1.00) 10*3/uL Eosinophils # 0.01 L (0.04-0.35) 10*3/uL Sodium 135 L (137-145) mmol/L Carbon Dioxide 21 L (22-30) mmol/L BUN 39 H (9-20) mg/dL Glucose 164 H (74-99) mg/dL POC Glucose (mg/dL) 232 H (70-110) mg/dL Total Protein 5.4 L (6.3-8.2) g/dL Albumin 3.2 L (3.5-5.0) g/dL 09/12/24 09/12/24 09/12/24 Range/Units 11:22 16:16 20:15 WBC (4.50-10.00) 10*3/uL RBC (4.40-5.60) 10*6/uL Hgb (13.0-17.0) g/dL Hct (39.6-50.0) % Immature Gran # (0.00-0.04) 10*3/uL Neutrophils # (1.80-7.70) 10*3/uL Monocytes # (0.20-1.00) 10*3/uL Eosinophils # (0.04-0.35) 10*3/uL Sodium (137-145) mmol/L Carbon Dioxide (22-30) mmol/L BUN (9-20) mg/dL Glucose (74-99) mg/dL POC Glucose (mg/dL) 212 H 207 H 204 H (70-110) mg/dL Total Protein (6.3-8.2) g/dL Albumin (3.5-5.0) g/dL Assessment and Plan Assessment: Status post coronary artery bypass graft. Postoperative day 3 Intubation requiring mechanical ventilation perioperatively which is expected. Patient is extubated on 09/09/2024 around 7 PM Severe three-vessel coronary artery disease. Patient underwent cardiac catheterization on 08/06/2024 Paroxysmal atrial fibrillation on anticoagulation with Eliquis at home History of perforated status status post laparoscopic appendectomy and intra- abdominal abscess in April 2024 Diabetes type 2 [id number] Hypertension GI and DVT prophylaxis with PPI and heparin subcu Plan: Patient was extubated. Continued on aspirin, Plavix, statin and metoprolol. Cardiology, CT surgery and critical care team is on board. Insulin drip has been discontinued and patient was started on insulin sliding scale and continue to monitor blood sugars.Patient received 16 units of aspart during the last 24 hours. Started on Lantus and titrate dose as needed. Will continue to follow and further recommendations based on the clinical course. Continue to monitor H&H. Encourage oral intake. Bowel regimen. Time with Patient: Greater than 30
--- NOTE | 2024-09-14 21:41 | P.PN ---
Subjective Progress Note Date: 09/13/24 Patient is a 79-year-old male with a past medical history of hypertension, diabetes type 2 and history of perforated acute appendicitis status post laparoscopic appendectomy in April 2024 and paroxysmal atrial fibrillation anticoagulated with Eliquis. Patient underwent cardiac catheterization on 08/06/2024 showed severe three-vessel coronary disease and ischemic cardiomyopathy with severe LV dysfunction. CT surgery evaluated for CABG. Patient was admitted to the hospital for coronary artery bypass graft. Patient is status post surgery and is currently in the MICU. Intubated and on mechanical ventilator perioperatively. Laboratory data showed WBC 20.9 hemoglobin 9.1, platelets 149, sodium 141 potassium 4.1 chloride 112 bicarb is 20 BUN 2020 creatinine 0.98, blood sugar 146, magnesium 2.4 and albumin 3.2. ABG showed pH 7.31, [id number] and bicarb 23. Patient is currently on bicarb ventilator is controlled with respiratory rate 14, tidal volume 500, 40% FiO2 and PEEP of 8. Chest x-ray showed mild pulmonary vascular congestion possible small left effusion. Post CABG changes. Patient is currently amiodarone drip, milrinone and nitro drip. 09/11/2024 Patient is in the MICU. He was successfully extubated yesterday evening. Currently on room air. Sitting in a chair. Awake alert and oriented x 3. Remains on chest tube x 3. No cough or sputum production. Pain is controlled. Laboratory data showed WBC 12.1 hemoglobin 7.5 and platelets 109 sodium 140 potassium 3.7 chloride 108 bicarb is 24 BUN 25 creatinine 1.04 and blood sugar 97. Patient remains on insulin drip. 09/11/2024 Patient is participating in physical therapy. Ambulating in the hallway. No complaints of worsening shortness of breath. No chest pain. No cough or sputum production. Patient has been afebrile. On room air. Patient remains on mediastinal, left and right chest tubes with continuous low suction. Chest x-ray showed postoperative changes and evidence of mild pulmonary vascular congestion with bibasilar atelectasis. Laboratory data showed WBC 19.6 hemoglobin 7.5 and platelets 118 sodium 136 potassium 4.4 chloride 106 bicarb is 22 BUN 32 creatinine 1.17 blood sugar 122 and albumin 3.2 09/12/2024 Patient is sitting in the chair. Awake alert and oriented. No complaints of chest pain or worsening shortness of breath. Currently on room air. Chest tubes are in place. Blood pressure is stable. No other acute overnight issues. Chest x-ray showed very minimal apical pneumothorax. Mild pulmonary vascular congestion. Patient received Lasix and albumin today. Patient is being transferred to medical floor today. Blood sugar is controlled. Laboratory data showed WBC 13.9 hemoglobin 7.5 and platelets 150 sodium 135 potassium 4.5 chloride 104 bicarb is 21 BUN 39 and creatinine 1.18 and blood sugar 164 (are not elevated albumin 3.2. 09/13/2024 Patient is sitting in a chair. Awake alert and oriented. Seems to be sleepy today. On room air. Chest tubes x [address] No complaints of chest pain or shortness of breath. Patient has been afebrile. Using incentive spirometry. Chest x-ray showed left chest tube in place with 8 mm left apical pneumothorax. Trace 3 mm right apical pneumothorax. Improvement in the pulmonary vascular congestion. Atelectasis of the left lung base. Laboratory data showed WBC 8.6 hemoglobin 7.3 and platelets 191 sodium 136 potassium 4.0 chloride 106 BUN 42 and creatinine 1.15 and blood sugar 147 and calcium 8.0. Current medications reviewed. Objective - Vital Signs Vital signs: Vital Signs Temp 98.2 F 09/13/24 12:00 Pulse 72 09/13/24 12:26 Resp 18 09/13/24 12:00 BP 125/63 09/13/24 12:00 Pulse Ox 98 09/13/24 12:00 FiO2 40 09/09/24 19:00 Intake & Output 09/12/24 09/13/24 09/13/24 18:59 06:59 18:59 Intake Total 830 180 Output Total 350 1060 598 Balance 480 -1060 -418 Weight 112 kg Intake: Oral 830 180 Output: Chest Tube Drainage 0 110 48 Chest Tube Left Pleural/ 0 20 18 Mediastinal Chest Tube Mediastinal 0 90 30 Urine 350 950 550 Straight 650 Other: Voiding Method Urinal Toilet Urinal # Voids 1 # Bowel Movements 1 1 ABP, PAP, CO, CI - Last Documented Arterial Blood Pressure 125/49 Pulmonary Artery Pressure 23/10 Cardiac Output 4.8 Cardiac Index 2.1 - Exam PHYSICAL EXAMINATION: Patient is sitting in the chair., no acute distress, awake alert and oriented.. HEENT: Normocephalic. Neck is supple. Pupils reactive. Nostrils clear. Oral cavity is moist. Neck reveals no JVD, carotid bruits, or thyromegaly. CHEST EXAMINATION: Trachea is central. Symmetrical expansion. Bibasilar diminished sounds. Chest tube x [address] CARDIAC: Normal S1, S2 with no gallops. No murmurs ABDOMEN: Soft. Bowel sounds normal. No organomegaly. No abdominal bruits. Extremities: reveal no edema. No clubbing or cyanosis Neurologically awake, alert, oriented x3 with well-coordinated movements. No gross focal deficits noted Skin: No rash or skin lesions. Psychiatric: Coperative. Nonsuicidal Musculoskeletal: No joint swelling or deformity. Able to move all extremities. - Labs CBC & Chem 7: 09/14/24 05:59 09/14/24 05:59 Labs: Abnormal Lab Results - Last 24 Hours (Table) 09/12/24 09/12/24 09/13/24 Range/Units 16:16 20:15 05:44 RBC 2.36 L (4.40-5.60) 10*6/uL Hgb 7.3 L (13.0-17.0) g/dL Hct 21.7 L (39.6-50.0) % Sodium (137-145) mmol/L BUN (9-20) mg/dL Glucose (74-99) mg/dL POC Glucose (mg/dL) 207 H 204 H (70-110) mg/dL Calcium (8.4-10.2) mg/dL 09/13/24 09/13/24 09/13/24 Range/Units 05:44 06:01 11:16 RBC (4.40-5.60) 10*6/uL Hgb (13.0-17.0) g/dL Hct (39.6-50.0) % Sodium 136 L (137-145) mmol/L BUN 42 H (9-20) mg/dL Glucose 147 H (74-99) mg/dL POC Glucose (mg/dL) 176 H 188 H (70-110) mg/dL Calcium 8.0 L (8.4-10.2) mg/dL Assessment and Plan Assessment: Status post coronary artery bypass graft. Postoperative day 4 Intubation requiring mechanical ventilation perioperatively which is expected. Patient is extubated on 09/09/2024 around 7 PM Severe three-vessel coronary artery disease. Patient underwent cardiac catheterization on 08/06/2024 Paroxysmal atrial fibrillation on anticoagulation with Eliquis at home History of perforated status status post laparoscopic appendectomy and intra- abdominal abscess in April 2024 Diabetes type 2 [id number] Hypertension GI and DVT prophylaxis with PPI and heparin subcu Plan: Patient was extubated. Continued on aspirin, Plavix, statin and metoprolol. Cardiology, CT surgery and critical care team is on board. Insulin drip has been discontinued and patient was started on insulin sliding scale and continue to monitor blood sugars.continue with Lantus 7--->10 units at bedtime along with sliding scale. Will continue to follow and further recommendations based on the clinical course. Continue to monitor H&H. Encourage oral intake. Bowel regimen. PT OT.
--- NOTE | 2024-09-14 21:45 | P.PN ---
Subjective Progress Note Date: 09/14/24 Patient is a 79-year-old male with a past medical history of hypertension, diabetes type 2 and history of perforated acute appendicitis status post laparoscopic appendectomy in April 2024 and paroxysmal atrial fibrillation anticoagulated with Eliquis. Patient underwent cardiac catheterization on 08/06/2024 showed severe three-vessel coronary disease and ischemic cardiomyopathy with severe LV dysfunction. CT surgery evaluated for CABG. Patient was admitted to the hospital for coronary artery bypass graft. Patient is status post surgery and is currently in the MICU. Intubated and on mechanical ventilator perioperatively. Laboratory data showed WBC 20.9 hemoglobin 9.1, platelets 149, sodium 141 potassium 4.1 chloride 112 bicarb is 20 BUN 2020 creatinine 0.98, blood sugar 146, magnesium 2.4 and albumin 3.2. ABG showed pH 7.31, [id number] and bicarb 23. Patient is currently on bicarb ventilator is controlled with respiratory rate 14, tidal volume 500, 40% FiO2 and PEEP of 8. Chest x-ray showed mild pulmonary vascular congestion possible small left effusion. Post CABG changes. Patient is currently amiodarone drip, milrinone and nitro drip. 09/11/2024 Patient is in the MICU. He was successfully extubated yesterday evening. Currently on room air. Sitting in a chair. Awake alert and oriented x 3. Remains on chest tube x 3. No cough or sputum production. Pain is controlled. Laboratory data showed WBC 12.1 hemoglobin 7.5 and platelets 109 sodium 140 potassium 3.7 chloride 108 bicarb is 24 BUN 25 creatinine 1.04 and blood sugar 97. Patient remains on insulin drip. 09/11/2024 Patient is participating in physical therapy. Ambulating in the hallway. No complaints of worsening shortness of breath. No chest pain. No cough or sputum production. Patient has been afebrile. On room air. Patient remains on mediastinal, left and right chest tubes with continuous low suction. Chest x-ray showed postoperative changes and evidence of mild pulmonary vascular congestion with bibasilar atelectasis. Laboratory data showed WBC 19.6 hemoglobin 7.5 and platelets 118 sodium 136 potassium 4.4 chloride 106 bicarb is 22 BUN 32 creatinine 1.17 blood sugar 122 and albumin 3.2 09/12/2024 Patient is sitting in the chair. Awake alert and oriented. No complaints of chest pain or worsening shortness of breath. Currently on room air. Chest tubes are in place. Blood pressure is stable. No other acute overnight issues. Chest x-ray showed very minimal apical pneumothorax. Mild pulmonary vascular congestion. Patient received Lasix and albumin today. Patient is being transferred to medical floor today. Blood sugar is controlled. Laboratory data showed WBC 13.9 hemoglobin 7.5 and platelets 150 sodium 135 potassium 4.5 chloride 104 bicarb is 21 BUN 39 and creatinine 1.18 and blood sugar 164 (are not elevated albumin 3.2. 09/13/2024 Patient is sitting in a chair. Awake alert and oriented. Seems to be sleepy today. On room air. Chest tubes x [address] No complaints of chest pain or shortness of breath. Patient has been afebrile. Using incentive spirometry. Chest x-ray showed left chest tube in place with 8 mm left apical pneumothorax. Trace 3 mm right apical pneumothorax. Improvement in the pulmonary vascular congestion. Atelectasis of the left lung base. Laboratory data showed WBC 8.6 hemoglobin 7.3 and platelets 191 sodium 136 potassium 4.0 chloride 106 BUN 42 and creatinine 1.15 and blood sugar 147 and calcium 8.0. 09/14/2024 Patient is sitting in the chair. Awake alert and oriented. No complaints of chest pain or worsening shortness of breath. Chest tubes are in place. Chest x-ray showed left-sided chest tube in place with tiny left apical pneumothorax. No right apical pneumothorax. Mediastinal chest tube remains in place. Laboratory data showed WBC 6.6 hemoglobin 7.1 and platelets 217 sodium 137 potassium 3.8 chloride 106 bicarb is 21 BUN 14 creatinine 1.25 blood sugar 121 calcium 8.2. Current medications reviewed. Objective - Vital Signs Vital signs: Vital Signs Temp 97.8 F 09/14/24 08:39 Pulse 68 09/14/24 12:00 Resp 18 09/14/24 12:00 BP 96/56 09/14/24 12:00 Pulse Ox 100 09/14/24 12:00 FiO2 40 09/09/24 19:00 Intake & Output 09/13/24 09/14/24 09/14/24 18:59 06:59 18:59 Intake Total 180 240 Output Total 790 415 400 Balance -610 -486 -160 Weight 112.2 kg Intake: Oral 180 240 Output: Chest Tube Drainage 90 86 0 Chest Tube Left Pleural/ 40 40 0 Mediastinal Chest Tube Mediastinal 50 46 0 Urine 700 400 200 Post Void Residual 200 Other: Voiding Method Toilet Toilet Toilet # Voids 1 # Bowel Movements 1 ABP, PAP, CO, CI - Last Documented Arterial Blood Pressure 125/49 Pulmonary Artery Pressure 23/10 Cardiac Output 4.8 Cardiac Index 2.1 - Exam PHYSICAL EXAMINATION: Patient is sitting in the chair., no acute distress, awake alert and oriented.. HEENT: Normocephalic. Neck is supple. Pupils reactive. Nostrils clear. Oral cavity is moist. Neck reveals no JVD, carotid bruits, or thyromegaly. CHEST EXAMINATION: Trachea is central. Symmetrical expansion. Bibasilar diminished sounds. Chest tube x [address] CARDIAC: Normal S1, S2 with no gallops. No murmurs ABDOMEN: Soft. Bowel sounds normal. No organomegaly. No abdominal bruits. Extremities: reveal no edema. No clubbing or cyanosis Neurologically awake, alert, oriented x3 with well-coordinated movements. No gross focal deficits noted Skin: No rash or skin lesions. Psychiatric: Coperative. Nonsuicidal Musculoskeletal: No joint swelling or deformity. Able to move all extremities. - Labs CBC & Chem 7: 09/14/24 05:59 09/14/24 05:59 Labs: Abnormal Lab Results - Last 24 Hours (Table) 09/13/24 09/13/24 09/14/24 Range/Units 16:33 20:08 05:57 RBC (4.40-5.60) 10*6/uL Hgb (13.0-17.0) g/dL Hct (39.6-50.0) % Carbon Dioxide (22-30) mmol/L BUN (9-20) mg/dL Glucose (74-99) mg/dL POC Glucose (mg/dL) 177 H 170 H 154 H (70-110) mg/dL Calcium (8.4-10.2) mg/dL 09/14/24 09/14/24 09/14/24 Range/Units 05:59 05:59 11:40 RBC 2.22 L (4.40-5.60) 10*6/uL Hgb 7.1 L (13.0-17.0) g/dL Hct 20.7 L (39.6-50.0) % Carbon Dioxide 21 L (22-30) mmol/L BUN 40 H (9-20) mg/dL Glucose 121 H (74-99) mg/dL POC Glucose (mg/dL) 226 H (70-110) mg/dL Calcium 8.2 L (8.4-10.2) mg/dL Assessment and Plan Assessment: Status post coronary artery bypass graft. Postoperative day 5 Left apical pneumothorax improving. Intubation requiring mechanical ventilation perioperatively which is expected. Patient is extubated on 09/09/2024 around 7 PM Severe three-vessel coronary artery disease. Patient underwent cardiac catheterization on 08/06/2024 Paroxysmal atrial fibrillation on anticoagulation with Eliquis at home History of perforated status status post laparoscopic appendectomy and intra- abdominal abscess in April 2024 Diabetes type 2 [id number] Hypertension GI and DVT prophylaxis with PPI and heparin subcu Plan: Patient was extubated. Continued on aspirin, Plavix, amiodarone, statin, losartan and metoprolol. Cardiology, CT surgery, cardiology and critical care team is on board. Eliquis on hold until chest tube removal. Insulin drip has been discontinued and patient was started on insulin sliding scale and continue to monitor blood sugars.continue with Lantus 7--->10 units at bedtime along with sliding scale. Will continue to follow and further recommendations based on the clinical course. Continue to monitor H&H. Encourage oral intake. Bowel regimen. PT OT.
[2024-09-15 06:09] LABS: Glucose,Whole Blood 163 mg/dL (70-110)
[2024-09-15 07:07] LABS: HCT 21.5 % (39.6-50.0); HGB 7.2 g/dL (13.0-17.0); MCH 31.7 pg (27.0-32.0); MCHC 33.5 g/dL (32.0-37.0); MCV 94.7 fL (80.0-97.0); Platelet Count 266 10*3/uL (140-440); RBC 2.27 10*6/uL (4.40-5.60); RDW 14.0 % (11.5-14.5); WBC 8.51 10*3/uL (4.50-10.00)
[2024-09-15 07:21] LABS: African American GFR (CKD) 56 (>60 ml/min/1.73 sqM); Anion Gap 6 mmol/L; Blood Urea Nitrogen 31 mg/dL (9-20); Calcium 8.2 mg/dL (8.4-10.2); Carbon Dioxide 25 mmol/L (22-30); Chloride 107 mmol/L (98-107); Glucose 130 mg/dL (74-99); Magnesium 2.0 mg/dL (1.6-2.3); Non-African American GFR(CKD) 49 (>60 ml/min/1.73 sqM); Potassium 3.7 mmol/L (3.5-5.1); Sodium 138 mmol/L (137-145)
[2024-09-15] MEDS: POTASSIUM CHLORIDE ER 20 MEQ TAB.ER PO STA (08:53)
--- NOTE | 2024-09-15 09:18 | XR ---
EXAMINATION TYPE: XR chest 2V DATE OF EXAM: 09/15/2024 6:42 AM COMPARISON: 09/14/2024 CLINICAL INDICATION: Male, 79 years old with history of post cardiac surgery: Shortness of breath TECHNIQUE: XR chest 2V views of the chest are obtained. FINDINGS: Scattered senescent parenchymal changes noted. Hyperinflation compatible with COPD. No evidence for infiltrate. No evidence for atelectasis. Left-sided chest tube is unchanged in positi on. Tiny left apical pneumothorax persists. Heart size is stable. Mediastinal structures are stable and grossly unremarkable. No evidence for hilar prominence. Degenerative changes dorsal spine. IMPRESSION: 1. Left-sided chest tube is unchanged in position. Tiny left apical pneumothorax persists. [facility], , 09/15/2024 9:16 AM
--- NOTE | 2024-09-15 09:50 | P.PN ---
Subjective Progress Note Date: 09/15/24 Principal diagnosis: Coronary artery disease, paroxysmal atrial fibrillation. History of paroxysmal atrial fibrillation on Eliquis as an outpatient, noncompliant with taking Eliqu is prior to surgery, hypertension, right internal carotid artery stenosis, diabetes mellitus type II, questionable history of myocardial infarction, recent acute appendicitis with perforation status post laparoscopic appendectomy, previous tobacco use as well as chewing tobacco use POD #6 coronary artery bypass grafting x 4 vessels, left internal mammary artery to the left anterior sending coronary artery, saphenous vein graft to the ramus coronary artery, saphenous vein graft to the obtuse marginal coronary artery, and saphenous vein graft to the posterior descending coronary artery. Endos copic harvest of bilateral greater saphenous vein, ligation left atrial appendage using a 35mm atrial clip, intraoperative transesophageal echocardiogram completed by anesthesia, epiaortic ultrasound, graft flow measurements using the Fieldwirestim system, and Maze procedure. Postoperative acute blood loss anemia, expected given hemodilution and cardiopulmonary bypass. The patient was seen and examined this morning sitting up in recliner on the cardiac stepdown unit in no acute distress. States pain is controlled on current medication regimen, denies shortness of breath. Remains in sinus rhyth m, hemodynamically stable. Currently on room air with oxygen saturation 98%, able to achieve 2500 mL on incentive spirometry. Mediastinal/left pleural chest tubes remain. Mediastinal chest tube was clamped at 10 PM, repeat chest x-ray completed this morning, stable when unclamped patient did have several small air bubbles for few seconds which then stopped. No further air leak seen even with coughing. Ambulated in hallway yesterday. Chest x-ray, labs reviewed. No other new concerns. Objective - Vital Signs Vital signs: Vital Signs Temp 98.0 F 09/15/24 08:00 Pulse 62 09/15/24 09:05 Resp 18 09/15/24 08:00 BP 113/55 09/15/24 08:00 Pulse Ox 96 09/15/24 08:00 FiO2 40 09/09/24 19:00 Intake & Output 09/14/24 09/15/24 09/15/24 18:59 06:59 18:59 Intake Total 240 Output Total 590 678 350 Balance -350 -678 -350 Weight 111.6 kg Intake: Oral 240 Output: Chest Tube Drainage 90 78 Chest Tube Left Pleural/ 40 38 Mediastinal Chest Tube Mediastinal 50 40 Urine 300 600 350 Post Void Residual 200 Other: Voiding Method Toilet Toilet Toilet # Bowel Movements 1 ABP, PAP, CO, CI - Last Documented Arterial Blood Pressure 125/49 Pulmonary Artery Pressure 23/10 Cardiac Output 4.8 Cardiac Index 2.1 - Exam CONSTITUTIONAL: Appears comfortable, cooperative, no acute distress RESPIRATORY: Lungs sounds diminished in the bases bilaterally. Respirations even, nonlabored. Currently on room air with oxygen saturation 98%. Able to achieve 2500 mL on incentive spirometry. Strong cough. CARDIOVASCULAR: S1, S2 present. Regular rate and rhythm, sinus rhythm on telemetry. Sternum stable. Palpable peripheral pulses bilaterally. No edema present. No calf pain or tenderness noted. Heart hugger in place with patient demonstrating appropriate use. Antiembolism stockings, SCDs present. GASTROINTESTINAL: Abdomen soft, nontender, nondistended. Active bowel sounds present 4 quadrants. Tolerating diet. Positive bowel movement 09/14 GENITOURINARY: Continues to void, no straight cath required for >24 hours INTEGUMENTARY: Skin is warm and dry with evidence of good perfusion. Anterior chest incision well approximated and covered with dry intact dressing. Bilateral lower extremity EVH sites well approximated without redness or drainage. NEUROLOGIC: Cranial nerves II through XII intact MUSKULOSKELETAL: Able to move all extremities, strength equal bilaterally, gait normal PSYCHIATRIC: Alert and oriented to person place and time, appropriate affect, intact judgment and insight INVASIVE LINES AND TUBES: Mediastinal/left pleural chest tubes present to water seal. Mediastinal tube with 120 mL serosanguineous drainage in the last 24 grant rs. Left pleural chest tube with 100 mL serosanguineous drainage in the last 24 hours. - Allied health notes Allied health notes reviewed: nursing - Labs CBC & Chem 7: 09/15/24 06:16 09/15/24 06:16 Labs: Abnormal Lab Results - Last 24 Hours (Table) 09/14/24 09/14/24 09/14/24 Range/Units 11:40 16:54 20:01 RBC (4.40-5.60) 10*6/uL Hgb (13.0-17.0) g/dL Hct (39.6-50.0) % BUN (9-20) mg/dL Creatinine (0.66-1.25) mg/dL Glucose (74-99) mg/dL POC Glucose (mg/dL) 226 H 116 H 183 H (70-110) mg/dL Calcium (8.4-10.2) mg/dL 09/15/24 09/15/24 09/15/24 Range/Units 06:07 06:16 06:16 RBC 2.27 L (4.40-5.60) 10*6/uL Hgb 7.2 L (13.0-17.0) g/dL Hct 21.5 L (39.6-50.0) % BUN 31 H (9-20) mg/dL Creatinine 1.37 H (0.66-1.25) mg/dL Glucose 130 H (74-99) mg/dL POC Glucose (mg/dL) 163 H (70-110) mg/dL Calcium 8.2 L (8.4-10.2) mg/dL - Imaging and Cardiology Chest x-ray: report reviewed, image reviewed Assessment and Plan Assessment: Coronary artery disease, status post 4 vessel CABG Paroxysmal atrial fibrillation, status post Maze procedure and ligation left atrial appendage Postoperative acute blood loss anemia, expected given hemodilution and cardiopulmonary bypass. History of paroxysmal atrial fibrillation on Eliquis as an outpatient, noncompliant with taking Eliquis prior to surgery Hypertension Right internal carotid artery stenosis, 50-79% Diabetes mellitus type II, hgb A1c 6.8% Questionable history of myocardial infarction Recent acute appendicitis with perforation status post laparoscopic appendectomy Previous tobacco use as well as chewing tobacco use, preoperative FEV1 101% Plan: Continue to maximize medical therapy with aspirin, statin, Plavix, and beta- ranjit therapy. Will increase beta ranjit as tolerated. Continue losartan for afterload reduction with hold parameters, patient did not receive dose 09/14 Continue amiodarone for atrial fibrillation prophylaxis, patient has had no atrial fibrillation post op up to this point, will taper per protocol Discussed the need for anticoagulation compliance at discharge Encourage incentive spirometry use 10 times every hour while awake, bronchodilators per pulmonology. Will monitor daily labs and chest x-rays. Electrolyte replacement per protocol Increase activity, ambulate as tolerated. PT/OT/cardiac rehab following. Encouraged ambulation in the hallway 4X daily GI/DVT prophylaxis. Pain control per current medication regimen Insulin management per internal medicine Mediastinal chest tube discontinued, continue left pleural chest tubes for another 24 hours, monitor and record output Continue to monitor and record strict accurate intake and output Continue flomax Daily weights More recommendations to follow based on patient's clinical course.
--- NOTE | 2024-09-15 10:30 | P.PN ---
Subjective Progress Note Date: 09/15/24 Patient was seen today on 09/10/2024, remains in the ICU, patient was extubated at 7:12 PM successfully. This morning he is on room air. Not in any distress O2 saturation is in the 90s achieving over 1500 cc on incentive spirometry. Patient has no complaints, he does have some surgical site discomfort at the site of the chest tube insertion. Continues to have right IJ cordis and [place]- [place]em catheter his current hemodynamics showed cardiac output of 7 lower cardiac index compared to yesterday. It is 3.0 today. PA pressures 28/8 CVP is 5. Still on Primacor 0.1 mcg/kg/min and amiodarone drip patient seems to be in sinus rhythm rate of 70 mediastinal and left and right pleural chest tubes are noted on continuous wall suction manage 20 serosanguineous drainage is noted chest x-ray showed minimal bibasilar atelectasis. Patient is sitting at the bedside chair, in no distress. WBC count is 12.1 hemoglobin 7.5, basic metabolic profile is normal BUN is 25 creatinine 1.04. Patient was seen today on 09/11/2024, remains in the ICU, patient is now postoperative day #2, sitting at the bedside chair, hemodynamically stable not requiring any pressors, he is alert and oriented x 3, he is in sinus rhythm rate 72. His hemodynamic monitoring revealed CVP of 5 again the patient is not requiring any inotropes or any pressors mediastinal left and right pleural chest tubes were noted remain on low continuous wall suction. No air leak is noted. Chest x-ray showed postoperative changes, and there is evidence of mild pulmonary vascular congestion with bibasilar atelectasis. Patient is doing extremely well with incentive spirometry, ambulating well with assistance. WBC count is 19.6 hemoglobin 7.5, basic metabolic profile is normal renal profile is normal creatinine is a bit high at 1.17 compared to 1.04 yesterday. Seen today on 09/12/2024, patient is now postoperative day #3. Patient seems to be doing quite well, he is on room air, continues to have [address], patient is sitting up in the chair, he is doing well with his incentive spirometry, he received Lasix and albumin today. No cough no wheezing no shortness of breath hemodynamically stable not requiring any pressors or any inotropes, chest x-ray showed a very minimal tiny apical pneumothorax. And mild pulmonary vascular congestion. The patient is seen today September 13, 2024 in follow-up on the selective care unit. Postoperative day #4. He is currently sitting up in a chair at the bedside. Awake and alert in no acute distress. Maintaining good O2 saturations in the upper 90s on room air. Afebrile. Hemodynamically stable. Working well with the incentive spirometer. Chest x-ray reveals a left chest tube in place with a 8 mm left apical pneumothorax. Trace 3 mm right apical pneumothorax. Improvement in the pulmonary vascular congestion. Atelectasis of the left lung base. White count 8.6. Hemoglobin 7.3. Platelets 191. Sodium 136. Potassium 4.0. Bicarb 23. BUN 42. Creatinine 1.15. Glucose 147. He remains on DuoNeb inhalations. Heparin for DVT prophylaxis. The patient is seen today September 14, 2024 in follow-up on the selective care unit. Postoperative day #5. He is awake and alert in no acute distress. Sitting up in a chair at the bedside. Maintaining good O2 saturations in the 90s on room air oxygen. Has been working well with the incentive spirometer. Chest x-ray revealed left-sided chest tube in place with tiny left apical pneumothorax. No right apical pneumothorax. Mediastinal chest tube remains in place. No significant leak noted. White count 6.6. Hemoglobin 7.1. Platelets 217. Sodium 137. Potassium 3.8. Bicarb 21. BUN 40. Creatinine 1.25. Glucose 121. He remains on DuoNeb inhalations. Heparin for DVT prophylaxis. The patient is seen today September 15, 2024 in follow-up on the selective care unit. Postoperative day #6. He is currently sitting up in the chair at the bedside. Awake and alert in no acute distress. He denies any worsening shortness of breath, cough or congestion. Chest x-ray reveals stable left-sided chest tube in position. Tiny left apical pneumothorax persists. Mediastinal chest tube removed this morning. He continues to maintain good O2 saturations in the upper 90s on room air. He has been afebrile. Hemodynamically stable. White count 8.5. Hemoglobin 7.2. Platelets 266. BUN 138. Potassium 3.7. Bicarb 25. BUN 31. Creatinine 1.37. Glucose 130. He is continued on DuoNeb inhalations. Continues to work well with the incentive spirometer. Heparin for DVT prophylaxis. Objective - Vital Signs Vital signs: Vital Signs Temp 98.0 F 09/15/24 08:00 Pulse 62 09/15/24 09:05 Resp 18 09/15/24 08:00 BP 113/55 09/15/24 08:00 Pulse Ox 96 09/15/24 08:00 FiO2 40 09/09/24 19:00 Intake & Output 09/14/24 09/15/24 09/15/24 18:59 06:59 18:59 Intake Total 240 Output Total 590 678 350 Balance -350 -678 -350 Weight 111.6 kg Intake: Oral 240 Output: Chest Tube Drainage 90 78 Chest Tube Left Pleural/ 40 38 Mediastinal Chest Tube Mediastinal 50 40 Urine 300 600 350 Post Void Residual 200 Other: Voiding Method Toilet Toilet Toilet # Bowel Movements 1 ABP, PAP, CO, CI - Last Documented Arterial Blood Pressure 125/49 Pulmonary Artery Pressure 23/10 Cardiac Output 4.8 Cardiac Index 2.1 - Exam GENERAL EXAM: Alert, pleasant 79-year-old male, up in a chair, on room air, in n o apparent distress. HEAD: Normocephalic. EYES: Normal reaction of pupils, equal size. NOSE: Clear with pink turbinates. THROAT: No erythema or exudates. NECK: No masses, no JVD. CHEST: Incision clean dry well-approximated. Sternum stable. Heart hugger in place. Left chest tube remains in place. LUNGS: Equal air entry with crackles in the left base. CVS: S1 and S2 normal with no audible murmur, regular rhythm. ABDOMEN: No hepatosplenomegaly, normal bowel sounds, no guarding or rigidity. SPINE: No scoliosis or deformity SKIN: No rashes CENTRAL NERVOUS SYSTEM: No focal deficits, tone is normal in all 4 extremities. EXTREMITIES: There is no peripheral edema. No clubbing, no cyanosis. Perip heral pulses are intact. - Labs CBC & Chem 7: 09/15/24 06:16 09/15/24 06:16 Labs: Abnormal Lab Results - Last 24 Hours (Table) 09/14/24 09/14/24 09/14/24 Range/Units 11:40 16:54 20:01 RBC (4.40-5.60) 10*6/uL Hgb (13.0-17.0) g/dL Hct (39.6-50.0) % BUN (9-20) mg/dL Creatinine (0.66-1.25) mg/dL Glucose (74-99) mg/dL POC Glucose (mg/dL) 226 H 116 H 183 H (70-110) mg/dL Calcium (8.4-10.2) mg/dL 09/15/24 09/15/24 09/15/24 Range/Units 06:07 06:16 06:16 RBC 2.27 L (4.40-5.60) 10*6/uL Hgb 7.2 L (13.0-17.0) g/dL Hct 21.5 L (39.6-50.0) % BUN 31 H (9-20) mg/dL Creatinine 1.37 H (0.66-1.25) mg/dL Glucose 130 H (74-99) mg/dL POC Glucose (mg/dL) 163 H (70-110) mg/dL Calcium 8.2 L (8.4-10.2) mg/dL Assessment and Plan Assessment: Status post 4 vessel coronary artery bypass grafting surgery postoperative day #6 Triple-vessel coronary artery disease based on cardiac catheterization dated 08/06/2024 History of paroxysmal atrial fibrillation Benign essential hypertension Type 2 diabetes Recent history of appendicitis requiring laparoscopic appendectomy in April 21, 2024 Plan: The patient was seen and evaluated Chest x-ray, labs and medications reviewed Currently stable and on room air Left pleural chest tube remains in place Working well with the incentive spirometer Up ambulating with assistance Continued on bronchodilators Continued on heparin for DVT prophylaxis Home once cleared by CT service Plan is for home with home care at discharge This patient was seen independently by the pulmonary nurse practitioner addressing pulmonary issues I have personally seen and examined the patient, performed the documentation and the assessment and plan as written. Number of minutes spent on the visit: 25 Dictation was produced using [employer] dictation software. Please excuse any grammatical, word or spelling errors.
[2024-09-15 11:45] LABS: Glucose,Whole Blood 153 mg/dL (70-110)
[2024-09-15 16:43] LABS: Glucose,Whole Blood 164 mg/dL (70-110)
[2024-09-15 20:10] LABS: Glucose,Whole Blood 156 mg/dL (70-110)
--- NOTE | 2024-09-16 00:37 | P.PN ---
Subjective Progress Note Date: 09/15/24 HISTORY OF PRESENT ILLNESS: This is a pleasant 79-year-old with past medical history significant for hyp ertension, hyperlipidemia, coronary artery disease, paroxysmal atrial fibrillation, previous ruptured appendicitis status post laparoscopic surgery April 2024, mild ischemic cardiomyopathy EF 40 to 45%. Patient follows with Dr. Moreno. Patient had initially presented for ruptured appendicitis in April 2024 and found to have A-fib and underwent further cardiac workup with echo from August 2024 showing EF 40 to 45% as well as heart catheterization showing multivessel CAD. Patient underwent four-vessel CABG with LOVELACE to LAD, SVG to ramus, SVG to OM and SVG to PDA as well as maze procedure and clip of left atrial appendage. Patient was placed on milrinone, norepinephrine, amiodarone drip. Milrinone and norepinephrine have been discontinued and cardiac index in the 3.0 range. He denies any chest pain or pressure. He does have some incisional pain. His hemoglobin is at 7.5. PA pressures 28/9 with a CVP of 5. Patient was chest tubes bilaterally and mediastinal tube. Thanh in normal sinus rhythm on telemetry. 09/11 Patient seen and examined. Patient denies any chest pain other than the incision. Denies any significant lightheadedness or dizziness. He has been up walking. He remains in sinus rhythm. Hemoglobin stable at 7.5. Cordis was pulled and right chest tube was pulled. 09/12 Patient seen and examined. Patient denies any consistent chest pain however had some discomfort after swallowing multiple pills however resolved fairly shortly thereafter. No significant shortness of breath. Vital signs stable. Remains in normal sinus rhythm. 09/13/2024 Patient examined this morning at the bedside. Patient currently denies chest pain or pressure. Denies shortness of breath. Patient continues to have chest tube in place. Vital signs are stable. 09/14/2024 Patient examined this morning at the bedside. Patient currently denies chest pain or pressure. Denies shortness of breath. Patient continues to have chest tube in place. Vital signs are stable. 09/15/2024 Seen and examined bedside. Denies any chest pain chest pressure. Denies any shortness of breath. Coming along well. No reported atrial fibrillation. Currently in sinus rhythm PHYSICAL EXAM: VITAL SIGNS: Reviewed. GENERAL: Well-developed in no acute distress. NECK: Supple. No JVD or thyromegaly LUNGS: Respirations even and unlabored. Lungs essentially clear to auscultation bilaterally. HEART: Regular rate and rhythm. S1 and S2 heard. EXTREMITIES: Normal range of motion. No clubbing or cyanosis. Peripheral pulses intact. No lower extremity edema ASSESSMENT: CAD status post CABG x 4 vessel on 09/09/2024 Hypertension Hyperlipidemia Mild ischemic cardiomyopathy EF 40 to 45% Chronic heart failure with reduced EF Blood loss anemia Paroxysmal atrial fibrillation status post Maze procedure, currently sinus rhythm Diabetes mellitus type 2 History of perforated appendicitis April 2024 PLAN: Continue postoperative management per CT surgery Increase activity as tolerated Encourage use of incentive spirometer Chest tubes remain intact. Resume Eliquis post removal. Continue amiodarone, aspirin, Lipitor, Plavix, losartan, and metoprolol Continue telemetry monitoring Further recommendations pending patient course Objective - Vital Signs Vital signs: Vital Signs Temp 98.2 F 09/15/24 20:15 Pulse 78 09/15/24 23:30 Resp 18 09/15/24 23:30 BP 118/67 09/15/24 23:30 Pulse Ox 99 09/15/24 23:30 FiO2 40 09/09/24 19:00 Intake & Output 09/15/24 09/15/24 09/16/24 06:59 18:59 06:59 Intake Total 236 Output Total 678 1060 215 Balance -678 -824 -215 Weight 111.6 kg Intake: Oral 236 Output: Chest Tube Drainage 78 60 40 Chest Tube Left Pleural/ 38 60 40 Mediastinal Chest Tube Mediastinal 40 0 Urine 600 1000 175 Other: Voiding Method Toilet Toilet Toilet Urinal # Voids 1 ABP, PAP, CO, CI - Last Documented Arterial Blood Pressure 125/49 Pulmonary Artery Pressure 23/10 Cardiac Output 4.8 Cardiac Index 2.1 - Labs CBC & Chem 7: 09/15/24 06:16 09/15/24 06:16 Labs: Abnormal Lab Results - Last 24 Hours (Table) 09/15/24 09/15/24 09/15/24 Range/Units 06:07 06:16 06:16 RBC 2.27 L (4.40-5.60) 10*6/uL Hgb 7.2 L (13.0-17.0) g/dL Hct 21.5 L (39.6-50.0) % BUN 31 H (9-20) mg/dL Creatinine 1.37 H (0.66-1.25) mg/dL Glucose 130 H (74-99) mg/dL POC Glucose (mg/dL) 163 H (70-110) mg/dL Calcium 8.2 L (8.4-10.2) mg/dL 09/15/24 09/15/24 09/15/24 Range/Units 11:42 16:41 20:09 RBC (4.40-5.60) 10*6/uL Hgb (13.0-17.0) g/dL Hct (39.6-50.0) % BUN (9-20) mg/dL Creatinine (0.66-1.25) mg/dL Glucose (74-99) mg/dL POC Glucose (mg/dL) 153 H 164 H 156 H (70-110) mg/dL Calcium (8.4-10.2) mg/dL
[2024-09-16 06:23] LABS: Glucose,Whole Blood 156 mg/dL (70-110)
--- NOTE | 2024-09-16 07:34 | XR ---
EXAMINATION TYPE: XR chest 2V DATE OF EXAM: 09/16/2024 6:17 AM COMPARISON: Multiple radiographs, with the most recent on 09/15/2024 TECHNIQUE: XR chest 2V Frontal and lateral views of the chest. CLINICAL INDICATION:Male, 79 years old with history of post open heart surgery; FINDINGS: Lungs/Pleura: No pleural effusion or focal consolidation. Decreased trace left apical pneumothorax. Pulmonary vascularity: Unremarkable. Heart/mediastinum: Cardiomediastinal silhouette is stable. Post-CABG changes. Left atrial appendage occlusion devices present. Musculoskeletal: No acute osseous pathology. Midline sternotomy wires are noted and stable. Other findings: None Lines/Tubes: Left thoracotomy tube is in stable position. IMPRESSION: Post CABG changes with stable left thoracotomy tube. Decreased trace left apical pneumothorax. [facility], , 09/16/2024 7:32 AM
--- NOTE | 2024-09-16 07:44 | P.PN ---
Subjective Progress Note Date: 09/16/24 Principal diagnosis: Coronary artery disease, paroxysmal atrial fibrillation. History of paroxysmal atrial fibrillation on Eliquis as an outpatient, noncompliant with taking Eliqu is prior to surgery, hypertension, right internal carotid artery stenosis, diabetes mellitus type II, questionable history of myocardial infarction, recent acute appendicitis with perforation status post laparoscopic appendectomy, previous tobacco use as well as chewing tobacco use POD #7 coronary artery bypass grafting x 4 vessels, left internal mammary artery to the left anterior sending coronary artery, saphenous vein graft to the ramus coronary artery, saphenous vein graft to the obtuse marginal coronary artery, and saphenous vein graft to the posterior descending coronary artery. Endos copic harvest of bilateral greater saphenous vein, ligation left atrial appendage using a 35mm atrial clip, intraoperative transesophageal echocardiogram completed by anesthesia, epiaortic ultrasound, graft flow measurements using the [employer] [facility] system, and Maze procedure. Postoperative acute blood loss anemia, expected given hemodilution and cardiopulmonary bypass. The patient was seen and examined this morning sitting up in recliner on the cardiac stepdown unit in no acute distress eating breakfast. States pain is controlled on current medication regimen, denies shortness of breath. Remains in sinus rhythm, hemodynamically stable. Currently on room air with oxygen saturation 95%, able to achieve 2500 mL on incentive spirometry. Left pleural chest tube remains. Ambulating without difficulty. Chest x-ray reviewed, labs pending. No other new concerns. Objective - Vital Signs Vital signs: Vital Signs Temp 98.2 F 09/15/24 20:15 Pulse 68 09/16/24 04:00 Resp 18 09/16/24 04:00 BP 116/65 09/16/24 04:00 Pulse Ox 95 09/16/24 04:00 FiO2 40 09/09/24 19:00 Intake & Output 09/15/24 09/16/24 09/16/24 18:59 06:59 18:59 Intake Total 236 540 Output Total 1060 1065 Balance -824 -525 Weight 111 kg Intake: Oral 236 540 Output: Chest Tube Drainage 60 190 Chest Tube Left Pleural/ 60 190 Mediastinal Chest Tube Mediastinal 0 Urine 1000 875 Other: Voiding Method Toilet Toilet Urinal # Voids 1 ABP, PAP, CO, CI - Last Documented Arterial Blood Pressure 125/49 Pulmonary Artery Pressure 23/10 Cardiac Output 4.8 Cardiac Index 2.1 - Exam CONSTITUTIONAL: Appears comfortable, cooperative, no acute distress RESPIRATORY: Lungs sounds diminished in the bases bilaterally. Respirations even, nonlabored. Currently on room air with oxygen saturation 95%. Able to achieve 2500 mL on incentive spirometry. Strong cough. CARDIOVASCULAR: S1, S2 present. Regular rate and rhythm, sinus rhythm on telemetry. Sternum stable. Palpable peripheral pulses bilaterally. No edema present. No calf pain or tenderness noted. Heart hugger in place with patient demonstrating appropriate use. Antiembolism stockings, SCDs present. GASTROINTESTINAL: Abdomen soft, nontender, nondistended. Active bowel sounds present 4 quadrants. Tolerating diet. Positive bowel movement 09/14 GENITOURINARY: Continues to void, output 1775 mL in the last 24 hours INTEGUMENTARY: Skin is warm and dry with evidence of good perfusion. Anterior chest incision well approximated and covered with dry intact dressing. Bilateral lower extremity EVH sites well approximated without redness or drainage. NEUROLOGIC: Cranial nerves II through XII intact MUSKULOSKELETAL: Able to move all extremities, strength equal bilaterally, gait normal PSYCHIATRIC: Alert and oriented to person place and time, appropriate affect, intact judgment and insight INVASIVE LINES AND TUBES: Left pleural chest tube present to water seal, no air leak present, 250mL serosanguineous drainage in the last 24 hours. AV epicardial pacer wires present, grounded - Allied health notes Allied health notes reviewed: nursing - Labs CBC & Chem 7: 09/15/24 06:16 09/15/24 06:16 Labs: Abnormal Lab Results - Last 24 Hours (Table) 09/15/24 09/15/24 09/15/24 Range/Units 11:42 16:41 20:09 POC Glucose (mg/dL) 153 H 164 H 156 H (70-110) mg/dL 09/16/24 Range/Units 06:21 POC Glucose (mg/dL) 156 H (70-110) mg/dL - Imaging and Cardiology Chest x-ray: image reviewed Assessment and Plan Assessment: Coronary artery disease, status post 4 vessel CABG Paroxysmal atrial fibrillation, status post Maze procedure and ligation left atrial appendage Postoperative acute blood loss anemia, expected given hemodilution and cardiopulmonary bypass. History of paroxysmal atrial fibrillation on Eliquis as an outpatient, noncompliant with taking Eliquis prior to surgery Hypertension Right internal carotid artery stenosis, 50-79% Diabetes mellitus type II, hgb A1c 6.8% Questionable history of myocardial infarction Recent acute appendicitis with perforation status post laparoscopic appendectomy Previous tobacco use as well as chewing tobacco use, preoperative FEV1 101% Plan: Continue to maximize medical therapy with low dose aspirin, statin, Plavix, and beta-ranjit therapy. Will stop plavix after today's dose Continue losartan for afterload reduction with hold parameters, patient did not receive dose 09/15 Continue amiodarone for atrial fibrillation prophylaxis, patient has had no atrial fibrillation post op up to this point, will taper per protocol, decrease to 200 mg BID tomorrow Will restart Eliquis tomorrow after pacer wire removal Discussed the need for anticoagulation compliance at discharge Encourage incentive spirometry use 10 times every hour while awake, bronchodilators per pulmonology. Will monitor daily labs and chest x-rays. Electrolyte replacement per protocol. No lasix today Increase activity, ambulate as tolerated. PT/OT/cardiac rehab following. Encouraged ambulation in the hallway 4X daily GI/DVT prophylaxis. Pain control per current medication regimen Insulin management per internal medicine Will discontinue left pleural chest tubes today Will discontinue pacer wires tomorrow morning Continue to monitor and record strict accurate intake and output Continue flomax Daily weights Discharge planning in progress, anticipate discharge to home with home care tomorrow afternoon More recommendations to follow based on patient's clinical course.
[2024-09-16] MEDS: ASPIRIN 81 MG PO SCH (08:24)
[2024-09-16 08:49] LABS: HCT 23.2 % (39.6-50.0); HGB 7.7 g/dL (13.0-17.0); MCH 31.6 pg (27.0-32.0); MCHC 33.2 g/dL (32.0-37.0); MCV 95.1 fL (80.0-97.0); Platelet Count 306 10*3/uL (140-440); RBC 2.44 10*6/uL (4.40-5.60); RDW 14.6 % (11.5-14.5); WBC 9.87 10*3/uL (4.50-10.00)
[2024-09-16 09:10] LABS: African American GFR (CKD) 61 (>60 ml/min/1.73 sqM); Anion Gap 10 mmol/L; Blood Urea Nitrogen 23 mg/dL (9-20); Calcium 8.6 mg/dL (8.4-10.2); Carbon Dioxide 25 mmol/L (22-30); Chloride 104 mmol/L (98-107); Glucose 133 mg/dL (74-99); Magnesium 2.0 mg/dL (1.6-2.3); Non-African American GFR(CKD) 53 (>60 ml/min/1.73 sqM); Potassium 4.0 mmol/L (3.5-5.1); Sodium 139 mmol/L (137-145)
[2024-09-16 11:54] LABS: Glucose,Whole Blood 156 mg/dL (70-110)
--- NOTE | 2024-09-16 14:00 | P.PN ---
Subjective Progress Note Date: 09/16/24 HISTORY OF PRESENT ILLNESS: This is a pleasant 79-year-old with past medical history significant for hyp ertension, hyperlipidemia, coronary artery disease, paroxysmal atrial fibrillation, previous ruptured appendicitis status post laparoscopic surgery April 2024, mild ischemic cardiomyopathy EF 40 to 45%. Patient follows with Dr. Moreno. Patient had initially presented for ruptured appendicitis in April 2024 and found to have A-fib and underwent further cardiac workup with echo from August 2024 showing EF 40 to 45% as well as heart catheterization showing multivessel CAD. Patient underwent four-vessel CABG with LOVELACE to LAD, SVG to ramus, SVG to OM and SVG to PDA as well as maze procedure and clip of left atrial appendage. Patient was placed on milrinone, norepinephrine, amiodarone drip. Milrinone and norepinephrine have been discontinued and cardiac index in the 3.0 range. He denies any chest pain or pressure. He does have some incisional pain. His hemoglobin is at 7.5. PA pressures 28/9 with a CVP of 5. Patient was chest tubes bilaterally and mediastinal tube. Thanh in normal sinus rhythm on telemetry. 09/11 Patient seen and examined. Patient denies any chest pain other than the incision. Denies any significant lightheadedness or dizziness. He has been up walking. He remains in sinus rhythm. Hemoglobin stable at 7.5. Cordis was pulled and right chest tube was pulled. 09/12 Patient seen and examined. Patient denies any consistent chest pain however had some discomfort after swallowing multiple pills however resolved fairly shortly thereafter. No significant shortness of breath. Vital signs stable. Remains in normal sinus rhythm. 09/13/2024 Patient examined this morning at the bedside. Patient currently denies chest pain or pressure. Denies shortness of breath. Patient continues to have chest tube in place. Vital signs are stable. 09/14/2024 Patient examined this morning at the bedside. Patient currently denies chest pain or pressure. Denies shortness of breath. Patient continues to have chest tube in place. Vital signs are stable. 09/15/2024 Seen and examined bedside. Denies any chest pain chest pressure. Denies any shortness of breath. Coming along well. No reported atrial fibrillation. Currently in sinus rhythm 09/16/2024 Patient seen and examined. Patient's chest tube was removed this morning. He states he is going home tomorrow. No chest pain. No lower extremity edema. Blood pressure 124/67, heart rate 70, pulse ox 99% on room air. Repeat blood work reveals hemoglobin 7.7, BUN 23 creatinine 1.29. PHYSICAL EXAM: VITAL SIGNS: Reviewed. GENERAL: Well-developed in no acute distress. NECK: Supple. No JVD or thyromegaly LUNGS: Respirations even and unlabored. Lungs essentially clear to auscultation bilaterally. HEART: Regular rate and rhythm. S1 and S2 heard. EXTREMITIES: Normal range of motion. No clubbing or cyanosis. Peripheral pulses intact. No lower extremity edema ASSESSMENT: CAD status post CABG x 4 vessel on 09/09/2024 Hypertension Hyperlipidemia Mild ischemic cardiomyopathy EF 40 to 45% Chronic heart failure with reduced EF Blood loss anemia Paroxysmal atrial fibrillation status post Maze procedure, currently sinus rhythm Diabetes mellitus type 2 History of perforated appendicitis April 2024 PLAN: Continue postoperative management per CT surgery Increase activity as tolerated Encourage use of incentive spirometer Eliquis is scheduled to resume tomorrow Continue amiodarone, aspirin, Lipitor, losartan, and metoprolol Continue telemetry monitoring Further recommendations pending patient course Nurse practitioner note has been reviewed, I agree with documented findings and plan of care. Patient was seen and examined. Objective - Vital Signs Vital signs: Vital Signs Temp 98.2 F 09/15/24 20:15 Pulse 68 09/16/24 08:46 Resp 18 09/16/24 04:00 BP 116/65 09/16/24 04:00 Pulse Ox 95 09/16/24 04:00 FiO2 40 09/09/24 19:00 Intake & Output 09/15/24 09/16/24 09/16/24 18:59 06:59 18:59 Intake Total 236 540 Output Total 1060 1065 Balance -824 -525 Weight 111 kg Intake: Oral 236 540 Output: Chest Tube Drainage 60 190 Chest Tube Left Pleural/ 60 190 Mediastinal Chest Tube Mediastinal 0 Urine 1000 875 Other: Voiding Method Toilet Toilet Urinal # Voids 1 ABP, PAP, CO, CI - Last Documented Arterial Blood Pressure 125/49 Pulmonary Artery Pressure 23/10 Cardiac Output 4.8 Cardiac Index 2.1 - Labs CBC & Chem 7: 09/16/24 07:59 09/16/24 07:59 Labs: Abnormal Lab Results - Last 24 Hours (Table) 09/15/24 09/15/24 09/15/24 Range/Units 11:42 16:41 20:09 POC Glucose (mg/dL) 153 H 164 H 156 H (70-110) mg/dL 09/16/24 Range/Units 06:21 POC Glucose (mg/dL) 156 H (70-110) mg/dL
--- NOTE | 2024-09-16 14:36 | P.PN ---
Subjective Progress Note Date: 09/16/24 Patient was seen today on 09/10/2024, remains in the ICU, patient was extubated at 7:12 PM successfully. This morning he is on room air. Not in any distress O2 saturation is in the 90s achieving over 1500 cc on incentive spirometry. Patient has no complaints, he does have some surgical site discomfort at the site of the chest tube insertion. Continues to have right IJ cordis and [place]- [place] catheter his current hemodynamics showed cardiac output of 7 lower cardiac index compared to yesterday. It is 3.0 today. PA pressures 28/8 CVP is 5. Still on Primacor 0.1 mcg/kg/min and amiodarone drip patient seems to be in sinus rhythm rate of 70 mediastinal and left and right pleural chest tubes are noted on continuous wall suction manage 20 serosanguineous drainage is noted chest x-ray showed minimal bibasilar atelectasis. Patient is sitting at the bedside chair, in no distress. WBC count is 12.1 hemoglobin 7.5, basic metabolic profile is normal BUN is 25 creatinine 1.04. Patient was seen today on 09/11/2024, remains in the ICU, patient is now postoperative day #2, sitting at the bedside chair, hemodynamically stable not requiring any pressors, he is alert and oriented x 3, he is in sinus rhythm rate 72. His hemodynamic monitoring revealed CVP of 5 again the patient is not requiring any inotropes or any pressors mediastinal left and right pleural chest tubes were noted remain on low continuous wall suction. No air leak is noted. Chest x-ray showed postoperative changes, and there is evidence of mild pulmonary vascular congestion with bibasilar atelectasis. Patient is doing extremely well with incentive spirometry, ambulating well with assistance. WBC count is 19.6 hemoglobin 7.5, basic metabolic profile is normal renal profile is normal creatinine is a bit high at 1.17 compared to 1.04 yesterday. Seen today on 09/12/2024, patient is now postoperative day #3. Patient seems to be doing quite well, he is on room air, continues to have [address], patient is sitting up in the chair, he is doing well with his incentive spirometry, he received Lasix and albumin today. No cough no wheezing no shortness of breath hemodynamically stable not requiring any pressors or any inotropes, chest x-ray showed a very minimal tiny apical pneumothorax. And mild pulmonary vascular congestion. The patient is seen today September 13, 2024 in follow-up on the selective care unit. Postoperative day #4. He is currently sitting up in a chair at the bedside. Awake and alert in no acute distress. Maintaining good O2 saturations in the upper 90s on room air. Afebrile. Hemodynamically stable. Working well with the incentive spirometer. Chest x-ray reveals a left chest tube in place with a 8 mm left apical pneumothorax. Trace 3 mm right apical pneumothorax. Improvement in the pulmonary vascular congestion. Atelectasis of the left lung base. White count 8.6. Hemoglobin 7.3. Platelets 191. Sodium 136. Potassium 4.0. Bicarb 23. BUN 42. Creatinine 1.15. Glucose 147. He remains on DuoNeb inhalations. Heparin for DVT prophylaxis. The patient is seen today September 14, 2024 in follow-up on the selective care unit. Postoperative day #5. He is awake and alert in no acute distress. Sitting up in a chair at the bedside. Maintaining good O2 saturations in the 90s on room air oxygen. Has been working well with the incentive spirometer. Chest x-ray revealed left-sided chest tube in place with tiny left apical pneumothorax. No right apical pneumothorax. Mediastinal chest tube remains in place. No significant leak noted. White count 6.6. Hemoglobin 7.1. Platelets 217. Sodium 137. Potassium 3.8. Bicarb 21. BUN 40. Creatinine 1.25. Glucose 121. He remains on DuoNeb inhalations. Heparin for DVT prophylaxis. The patient is seen today September 15, 2024 in follow-up on the selective care unit. Postoperative day #6. He is currently sitting up in the chair at the bedside. Awake and alert in no acute distress. He denies any worsening shortness of breath, cough or congestion. Chest x-ray reveals stable left-sided chest tube in position. Tiny left apical pneumothorax persists. Mediastinal chest tube removed this morning. He continues to maintain good O2 saturations in the upper 90s on room air. He has been afebrile. Hemodynamically stable. White count 8.5. Hemoglobin 7.2. Platelets 266. BUN 138. Potassium 3.7. Bicarb 25. BUN 31. Creatinine 1.37. Glucose 130. He is continued on DuoNeb inhalations. Continues to work well with the incentive spirometer. Heparin for DVT prophylaxis. The patient is seen today September 16, 2024 in follow-up in the selective care unit. Postoperative day #7. He is awake and alert in no acute distress. Continues to maintain good O2 saturations in the 90s on room air. He is sitting up in a chair at the bedside. Left-sided chest tube was removed this morning. Pacer wires remain in place. Chest x-ray reveals postoperative CABG changes with stable trace left apical pneumothorax. White count 9.8. Hemoglobin 7.7. Platelets 306. Sodium 139. Potassium 4.0. Bicarb 25. BUN 23. Creatinine 1.29. Glucose 133. He remains on DuoNeb inhalations. Heparin for DVT prophylaxis. Remains on amiodarone. Remains in sinus rhythm. Objective - Vital Signs Vital signs: Vital Signs Temp 98.1 F 09/16/24 12:05 Pulse 60 09/16/24 12:05 Resp 16 09/16/24 12:05 BP 111/67 09/16/24 12:05 Pulse Ox 98 09/16/24 12:05 FiO2 40 09/09/24 19:00 Intake & Output 09/15/24 09/16/24 09/16/24 18:59 06:59 18:59 Intake Total 236 540 610 Output Total 1060 1065 200 Balance -824 -525 410 Weight 111 kg Intake: Oral 236 540 610 Output: Chest Tube Drainage 60 190 Chest Tube Left Pleural/ 60 190 Mediastinal Chest Tube Mediastinal 0 Urine 1000 875 200 Other: Voiding Method Toilet Toilet Toilet Urinal Urinal # Voids 1 ABP, PAP, CO, CI - Last Documented Arterial Blood Pressure 125/49 Pulmonary Artery Pressure 23/10 Cardiac Output 4.8 Cardiac Index 2.1 - Exam GENERAL EXAM: Alert, pleasant 79-year-old male, up in a chair, on room air, comfortable in no apparent distress. HEAD: Normocephalic. EYES: Normal reaction of pupils, equal size. NOSE: Clear with pink turbinates. THROAT: No erythema or exudates. NECK: No masses, no JVD. CHEST: Incision clean dry well-approximated. Sternum stable. Heart hugger in place. Left chest tube removed today. Pacer wires remain in place. LUNGS: Equal air entry with crackles in the left base. CVS: S1 and S2 normal with no audible murmur, regular rhythm. ABDOMEN: No hepatosplenomegaly, normal bowel sounds, no guarding or rigidity. SPINE: No scoliosis or deformity SKIN: No rashes CENTRAL NERVOUS SYSTEM: No focal deficits, tone is normal in all 4 extremities. EXTREMITIES: There is no peripheral edema. No clubbing, no cyanosis. Peripheral pulses are intact. - Labs CBC & Chem 7: 09/16/24 07:59 09/16/24 07:59 Labs: Abnormal Lab Results - Last 24 Hours (Table) 09/15/24 09/15/24 09/16/24 Range/Units 16:41 20:09 06:21 RBC (4.40-5.60) 10*6/uL Hgb (13.0-17.0) g/dL Hct (39.6-50.0) % BUN (9-20) mg/dL Creatinine (0.66-1.25) mg/dL Glucose (74-99) mg/dL POC Glucose (mg/dL) 164 H 156 H 156 H (70-110) mg/dL 09/16/24 09/16/24 09/16/24 Range/Units 07:59 07:59 11:36 RBC 2.44 L (4.40-5.60) 10*6/uL Hgb 7.7 L (13.0-17.0) g/dL Hct 23.2 L (39.6-50.0) % BUN 23 H (9-20) mg/dL Creatinine 1.29 H (0.66-1.25) mg/dL Glucose 133 H (74-99) mg/dL POC Glucose (mg/dL) 156 H (70-110) mg/dL Assessment and Plan Assessment: Status post 4 vessel coronary artery bypass grafting surgery postoperative day #7 Triple-vessel coronary artery disease based on cardiac catheterization dated 08/06/2024 History of paroxysmal atrial fibrillation Benign essential hypertension Type 2 diabetes Recent history of appendicitis requiring laparoscopic appendectomy in April 21, 2024 Plan: The patient was seen and evaluated Chest x-ray, labs and medications reviewed Currently stable and on room air Left pleural chest tube removed today Pacer wires remain in place Working well with the incentive spirometer Up ambulating with assistance Continued on bronchodilators Continued on heparin for DVT prophylaxis Plan is for home with home care at discharge I have personally seen and examined the patient, performed the documentation and the assessment and plan as written. Number of minutes spent on the visit: 10 Dictation was produced using [employer] dictation software. Please excuse any grammatical, word or spelling errors.
[2024-09-16 16:47] VITALS: RESP 18
[2024-09-16 17:08] LABS: Glucose,Whole Blood 147 mg/dL (70-110)
[2024-09-16 20:06] LABS: Glucose,Whole Blood 161 mg/dL (70-110)
--- NOTE | 2024-09-16 21:51 | P.PN ---
Subjective Progress Note Date: 09/15/24 Patient is a 79-year-old male with a past medical history of hypertension, diabetes type 2 and history of perforated acute appendicitis status post laparoscopic appendectomy in April 2024 and paroxysmal atrial fibrillation anticoagulated with Eliquis. Patient underwent cardiac catheterization on 08/06/2024 showed severe three-vessel coronary disease and ischemic cardiomyopathy with severe LV dysfunction. CT surgery evaluated for CABG. Patient was admitted to the hospital for coronary artery bypass graft. Patient is status post surgery and is currently in the MICU. Intubated and on mechanical ventilator perioperatively. Laboratory data showed WBC 20.9 hemoglobin 9.1, platelets 149, sodium 141 potassium 4.1 chloride 112 bicarb is 20 BUN 2020 creatinine 0.98, blood sugar 146, magnesium 2.4 and albumin 3.2. ABG showed pH 7.31, [id number] and bicarb 23. Patient is currently on bicarb ventilator is controlled with respiratory rate 14, tidal volume 500, 40% FiO2 and PEEP of 8. Chest x-ray showed mild pulmonary vascular congestion possible small left effusion. Post CABG changes. Patient is currently amiodarone drip, milrinone and nitro drip. 09/11/2024 Patient is in the MICU. He was successfully extubated yesterday evening. Currently on room air. Sitting in a chair. Awake alert and oriented x 3. Remains on chest tube x 3. No cough or sputum production. Pain is controlled. Laboratory data showed WBC 12.1 hemoglobin 7.5 and platelets 109 sodium 140 potassium 3.7 chloride 108 bicarb is 24 BUN 25 creatinine 1.04 and blood sugar 97. Patient remains on insulin drip. 09/11/2024 Patient is participating in physical therapy. Ambulating in the hallway. No complaints of worsening shortness of breath. No chest pain. No cough or sputum production. Patient has been afebrile. On room air. Patient remains on mediastinal, left and right chest tubes with continuous low suction. Chest x-ray showed postoperative changes and evidence of mild pulmonary vascular congestion with bibasilar atelectasis. Laboratory data showed WBC 19.6 hemoglobin 7.5 and platelets 118 sodium 136 potassium 4.4 chloride 106 bicarb is 22 BUN 32 creatinine 1.17 blood sugar 122 and albumin 3.2 09/12/2024 Patient is sitting in the chair. Awake alert and oriented. No complaints of chest pain or worsening shortness of breath. Currently on room air. Chest tubes are in place. Blood pressure is stable. No other acute overnight issues. Chest x-ray showed very minimal apical pneumothorax. Mild pulmonary vascular congestion. Patient received Lasix and albumin today. Patient is being transferred to medical floor today. Blood sugar is controlled. Laboratory data showed WBC 13.9 hemoglobin 7.5 and platelets 150 sodium 135 potassium 4.5 chloride 104 bicarb is 21 BUN 39 and creatinine 1.18 and blood sugar 164 (are not elevated albumin 3.2. 09/13/2024 Patient is sitting in a chair. Awake alert and oriented. Seems to be sleepy today. On room air. Chest tubes x [address] No complaints of chest pain or shortness of breath. Patient has been afebrile. Using incentive spirometry. Chest x-ray showed left chest tube in place with 8 mm left apical pneumothorax. Trace 3 mm right apical pneumothorax. Improvement in the pulmonary vascular congestion. Atelectasis of the left lung base. Laboratory data showed WBC 8.6 hemoglobin 7.3 and platelets 191 sodium 136 potassium 4.0 chloride 106 BUN 42 and creatinine 1.15 and blood sugar 147 and calcium 8.0. 09/14/2024 Patient is sitting in the chair. Awake alert and oriented. No complaints of chest pain or worsening shortness of breath. Chest tubes are in place. Chest x-ray showed left-sided chest tube in place with tiny left apical pneumothorax. No right apical pneumothorax. Mediastinal chest tube remains in place. Laboratory data showed WBC 6.6 hemoglobin 7.1 and platelets 217 sodium 137 potassium 3.8 chloride 106 bicarb is 21 BUN 14 creatinine 1.25 blood sugar 121 calcium 8.2. 09/15/2024. Patient is sitting in the chair. Awake alert and oriented x 3. No complaints of chest pain or worsening shortness of breath. On room air. Afebrile. No cough or congestion. Chest x-ray showed Left-sided chest tube is unchanged in placement. Tiny left apical pneumothorax persists. Otherwise his mediastinal chest tube was removed by CT surgery. Laboratory data showed WBC 8.5 hemoglobin 7.2 and platelets 266 BUN 31 and creatinine 1.37 and calcium 8.2. Current medications reviewed. Objective - Vital Signs Vital signs: Vital Signs Temp 98.2 F 09/15/24 20:15 Pulse 70 09/15/24 20:52 Resp 16 09/15/24 20:52 BP 108/50 09/15/24 20:15 Pulse Ox 100 09/15/24 20:15 FiO2 40 09/09/24 19:00 Intake & Output 09/15/24 09/15/24 09/16/24 06:59 18:59 06:59 Intake Total 236 Output Total 678 1060 215 Balance -678 -824 -215 Weight 111.6 kg Intake: Oral 236 Output: Chest Tube Drainage 78 60 40 Chest Tube Left Pleural/ 38 60 40 Mediastinal Chest Tube Mediastinal 40 0 Urine 600 1000 175 Other: Voiding Method Toilet Toilet Toilet Urinal # Voids 1 ABP, PAP, CO, CI - Last Documented Arterial Blood Pressure 125/49 Pulmonary Artery Pressure 23/10 Cardiac Output 4.8 Cardiac Index 2.1 - Exam PHYSICAL EXAMINATION: Patient is sitting in the chair., no acute distress, awake alert and oriented.. HEENT: Normocephalic. Neck is supple. Pupils reactive. Nostrils clear. Oral cavity is moist. Neck reveals no JVD, carotid bruits, or thyromegaly. CHEST EXAMINATION: Trachea is central. Symmetrical expansion. Bibasilar diminished sounds. Chest tube x [address] CARDIAC: Normal S1, S2 with no gallops. No murmurs ABDOMEN: Soft. Bowel sounds normal. No organomegaly. No abdominal bruits. Extremities: reveal no edema. No clubbing or cyanosis Neurologically awake, alert, oriented x3 with well-coordinated movements. No gross focal deficits noted Skin: No rash or skin lesions. Psychiatric: Coperative. Nonsuicidal Musculoskeletal: No joint swelling or deformity. Able to move all extremities. - Labs CBC & Chem 7: 09/16/24 07:59 09/16/24 07:59 Labs: Abnormal Lab Results - Last 24 Hours (Table) 09/15/24 09/15/24 09/15/24 Range/Units 06:07 06:16 06:16 RBC 2.27 L (4.40-5.60) 10*6/uL Hgb 7.2 L (13.0-17.0) g/dL Hct 21.5 L (39.6-50.0) % BUN 31 H (9-20) mg/dL Creatinine 1.37 H (0.66-1.25) mg/dL Glucose 130 H (74-99) mg/dL POC Glucose (mg/dL) 163 H (70-110) mg/dL Calcium 8.2 L (8.4-10.2) mg/dL 09/15/24 09/15/24 09/15/24 Range/Units 11:42 16:41 20:09 RBC (4.40-5.60) 10*6/uL Hgb (13.0-17.0) g/dL Hct (39.6-50.0) % BUN (9-20) mg/dL Creatinine (0.66-1.25) mg/dL Glucose (74-99) mg/dL POC Glucose (mg/dL) 153 H 164 H 156 H (70-110) mg/dL Calcium (8.4-10.2) mg/dL Assessment and Plan Assessment: Status post coronary artery bypass graft. Postoperative day 6 Left apical pneumothorax improving. Acute kidney injury likely prerenal. Creatinine went up to 1.37. Intubation requiring mechanical ventilation perioperatively which is expected. Patient is extubated on 09/09/2024 around 7 PM Severe three-vessel coronary artery disease. Patient underwent cardiac catheterization on 08/06/2024 Paroxysmal atrial fibrillation on anticoagulation with Eliquis at home History of perforated status status post laparoscopic appendectomy and intra-abdominal abscess in April 2024 Diabetes type 2 [id number] Hypertension GI and DVT prophylaxis with PPI and heparin subcu Plan: Patient was extubated. Continued on aspirin, Plavix, amiodarone, statin, losartan and metoprolol. Cardiology, CT surgery, cardiology and critical care team is on board. Eliquis on hold until chest tube removal. Insulin drip has been discontinued and patient was started on insulin sliding scale and continue to monitor blood sugars.continue with Lantus 7--->10 units at bedtime along with sliding scale. Monitor renal function. Will continue to follow and further recommendations based on the clinical course. Continue to monitor H&H. Encourage oral intake. Bowel regimen. PT OT.
--- NOTE | 2024-09-16 21:57 | P.PN ---
Subjective Progress Note Date: 09/16/24 Patient is a 79-year-old male with a past medical history of hypertension, diabetes type 2 and history of perforated acute appendicitis status post laparoscopic appendectomy in April 2024 and paroxysmal atrial fibrillation anticoagulated with Eliquis. Patient underwent cardiac catheterization on 08/06/2024 showed severe three-vessel coronary disease and ischemic cardiomyopathy with severe LV dysfunction. CT surgery evaluated for CABG. Patient was admitted to the hospital for coronary artery bypass graft. Patient is status post surgery and is currently in the MICU. Intubated and on mechanical ventilator perioperatively. Laboratory data showed WBC 20.9 hemoglobin 9.1, platelets 149, sodium 141 potassium 4.1 chloride 112 bicarb is 20 BUN 2020 creatinine 0.98, blood sugar 146, magnesium 2.4 and albumin 3.2. ABG showed pH 7.31, [id number] and bicarb 23. Patient is currently on bicarb ventilator is controlled with respiratory rate 14, tidal volume 500, 40% FiO2 and PEEP of 8. Chest x-ray showed mild pulmonary vascular congestion possible small left effusion. Post CABG changes. Patient is currently amiodarone drip, milrinone and nitro drip. 09/11/2024 Patient is in the MICU. He was successfully extubated yesterday evening. Currently on room air. Sitting in a chair. Awake alert and oriented x 3. Remains on chest tube x 3. No cough or sputum production. Pain is controlled. Laboratory data showed WBC 12.1 hemoglobin 7.5 and platelets 109 sodium 140 potassium 3.7 chloride 108 bicarb is 24 BUN 25 creatinine 1.04 and blood sugar 97. Patient remains on insulin drip. 09/11/2024 Patient is participating in physical therapy. Ambulating in the hallway. No complaints of worsening shortness of breath. No chest pain. No cough or sputum production. Patient has been afebrile. On room air. Patient remains on mediastinal, left and right chest tubes with continuous low suction. Chest x-ray showed postoperative changes and evidence of mild pulmonary vascular congestion with bibasilar atelectasis. Laboratory data showed WBC 19.6 hemoglobin 7.5 and platelets 118 sodium 136 potassium 4.4 chloride 106 bicarb is 22 BUN 32 creatinine 1.17 blood sugar 122 and albumin 3.2 09/12/2024 Patient is sitting in the chair. Awake alert and oriented. No complaints of chest pain or worsening shortness of breath. Currently on room air. Chest tubes are in place. Blood pressure is stable. No other acute overnight issues. Chest x-ray showed very minimal apical pneumothorax. Mild pulmonary vascular congestion. Patient received Lasix and albumin today. Patient is being transferred to medical floor today. Blood sugar is controlled. Laboratory data showed WBC 13.9 hemoglobin 7.5 and platelets 150 sodium 135 potassium 4.5 chloride 104 bicarb is 21 BUN 39 and creatinine 1.18 and blood sugar 164 (are not elevated albumin 3.2. 09/13/2024 Patient is sitting in a chair. Awake alert and oriented. Seems to be sleepy today. On room air. Chest tubes x [address] No complaints of chest pain or shortness of breath. Patient has been afebrile. Using incentive spirometry. Chest x-ray showed left chest tube in place with 8 mm left apical pneumothorax. Trace 3 mm right apical pneumothorax. Improvement in the pulmonary vascular congestion. Atelectasis of the left lung base. Laboratory data showed WBC 8.6 hemoglobin 7.3 and platelets 191 sodium 136 potassium 4.0 chloride 106 BUN 42 and creatinine 1.15 and blood sugar 147 and calcium 8.0. 09/14/2024 Patient is sitting in the chair. Awake alert and oriented. No complaints of chest pain or worsening shortness of breath. Chest tubes are in place. Chest x-ray showed left-sided chest tube in place with tiny left apical pneumothorax. No right apical pneumothorax. Mediastinal chest tube remains in place. Laboratory data showed WBC 6.6 hemoglobin 7.1 and platelets 217 sodium 137 potassium 3.8 chloride 106 bicarb is 21 BUN 14 creatinine 1.25 blood sugar 121 calcium 8.2. 09/15/2024. Patient is sitting in the chair. Awake alert and oriented x 3. No complaints of chest pain or worsening shortness of breath. On room air. Afebrile. No cough or congestion. Chest x-ray showed Left-sided chest tube is unchanged in placement. Tiny left apical pneumothorax persists. Otherwise his mediastinal chest tube was removed by CT surgery. Laboratory data showed WBC 8.5 hemoglobin 7.2 and platelets 266 BUN 31 and creatinine 1.37 and calcium 8.2. 09/16/2024 Patient is postoperative day 7. Sitting in the chair. Awake alert and oriented. No complaints of chest pain or shortness of breath. Currently on [place] m air. No cough or congestion. Chest x-ray showed post CABG changes with stable left thoracotomy tube. Decreased to trace left apical pneumothorax. Laboratory data showed WBC 9.8 hemoglobin 7.7 and platelets 306 sodium 139 potassium 4.0 chloride 104 bicarb is 25 BUN 23 and creatinine improved to 1.29 and blood sugar 133 this morning. Current medications reviewed. Objective - Vital Signs Vital signs: Vital Signs Temp 98.6 F 09/16/24 19:50 Pulse 76 09/16/24 20:56 Resp 18 09/16/24 19:50 BP 128/64 09/16/24 19:50 Pulse Ox 96 09/16/24 19:50 FiO2 40 09/09/24 19:00 Intake & Output 09/16/24 09/16/24 09/17/24 06:59 18:59 06:59 Intake Total 540 850 Output Total 1065 200 400 Balance -525 650 -400 Weight 111 kg Intake: Oral 540 850 Output: Chest Tube Drainage 190 Chest Tube Left Pleural/ 190 Mediastinal Urine 875 200 400 Other: Voiding Method Toilet Toilet Toilet Urinal Urinal Urinal # Voids 1 ABP, PAP, CO, CI - Last Documented Arterial Blood Pressure 125/49 Pulmonary Artery Pressure 23/10 Cardiac Output 4.8 Cardiac Index 2.1 - Exam PHYSICAL EXAMINATION: Patient is sitting in the chair., no acute distress, awake alert and oriented.. HEENT: Normocephalic. Neck is supple. Pupils reactive. Nostrils clear. Oral cavity is moist. Neck reveals no JVD, carotid bruits, or thyromegaly. CHEST EXAMINATION: Trachea is central. Symmetrical expansion. Bibasilar di minished sounds. Chest tube x [address] CARDIAC: Normal S1, S2 with no gallops. No murmurs ABDOMEN: Soft. Bowel sounds normal. No organomegaly. No abdominal bruits. Extremities: reveal no edema. No clubbing or cyanosis Neurologically awake, alert, oriented x3 with well-coordinated movements. No gross focal deficits noted Skin: No rash or skin lesions. Psychiatric: Coperative. Nonsuicidal Musculoskeletal: No joint swelling or deformity. Able to move all extremities. - Labs CBC & Chem 7: 09/16/24 07:59 09/16/24 07:59 Labs: Abnormal Lab Results - Last 24 Hours (Table) 09/16/24 09/16/24 09/16/24 Range/Units 06:21 07:59 07:59 RBC 2.44 L (4.40-5.60) 10*6/uL Hgb 7.7 L (13.0-17.0) g/dL Hct 23.2 L (39.6-50.0) % BUN 23 H (9-20) mg/dL Creatinine 1.29 H (0.66-1.25) mg/dL Glucose 133 H (74-99) mg/dL POC Glucose (mg/dL) 156 H (70-110) mg/dL 09/16/24 09/16/24 09/16/24 Range/Units 11:36 16:44 20:05 RBC (4.40-5.60) 10*6/uL Hgb (13.0-17.0) g/dL Hct (39.6-50.0) % BUN (9-20) mg/dL Creatinine (0.66-1.25) mg/dL Glucose (74-99) mg/dL POC Glucose (mg/dL) 156 H 147 H 161 H (70-110) mg/dL Assessment and Plan Assessment: Status post coronary artery bypass graft. Postoperative day 7 Left apical pneumothorax improving. Acute kidney injury likely prerenal. Creatinine 1.37--> 1.29. Intubation requiring mechanical ventilation perioperatively which is expected. Patient is extubated on 09/09/2024 around 7 PM Severe three-vessel coronary artery disease. Patient underwent cardiac catheterization on 08/06/2024 Paroxysmal atrial fibrillation on anticoagulation with Eliquis at home History of perforated status status post laparoscopic appendectomy and intra-abdominal abscess in April 2024 Diabetes type 2 [id number] Hypertension GI and DVT prophylaxis with PPI and heparin subcu Plan: Patient was extubated. Continued on aspirin, Plavix, amiodarone, statin, losartan and metoprolol. Cardiology, CT surgery, cardiology and critical care team is on board. Eliquis on hold until chest tube removal. Insulin drip has been discontinued and patient was started on insulin sliding scale and continue to monitor blood sugars.continue with Lantus 7--->10 units at bedtime along with sliding scale. Monitor renal function. Will continue to follow and further recommendations based on the clinical course. Continue to monitor H&H. Encourage oral intake. Bowel regimen. PT OT.
[2024-09-17 06:20] LABS: Glucose,Whole Blood 131 mg/dL (70-110)
--- NOTE | 2024-09-17 07:04 | XR ---
EXAMINATION TYPE: XR chest 2V DATE OF EXAM: 09/17/2024 6:27 AM COMPARISON: Chest radiographs from 09/16/2024 TECHNIQUE: XR chest 2V Frontal and lateral views of the chest. CLINICAL INDICATION:Male, 79 years old with history of post open heart; FINDINGS: Lungs/Pleura: No pleural effusion or focal consolidation. Marginal increase in size of trace left api roel pneumothorax. Pulmonary vascularity: Unremarkable. Heart/mediastinum: Cardiomediastinal silhouette is prominent and stable. Post-CABG changes. Left atr ial appendage occlusion devices present. Musculoskeletal: No acute osseous pathology. Midline sternotomy wires are noted and stable. 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 Other findings: None Lines/Tubes: Interval removal of left thoracotomy tube. IMPRESSION: Post-CABG changes with marginal increase in size of trace left apical pneumothorax status post left t horacotomy tube removal. [facility], , 09/17/2024 7:01 AM
--- NOTE | 2024-09-17 07:11 | P.PN ---
Subjective Progress Note Date: 09/17/24 Principal diagnosis: Coronary artery disease, paroxysmal atrial fibrillation. History of paroxysmal atrial fibrillation on Eliquis as an outpatient, noncompliant with taking Eliqu is prior to surgery, hypertension, right internal carotid artery stenosis, diabetes mellitus type II, questionable history of myocardial infarction, recent acute appendicitis with perforation status post laparoscopic appendectomy, previous tobacco use as well as chewing tobacco use POD #8 coronary artery bypass grafting x 4 vessels, left internal mammary artery to the left anterior sending coronary artery, saphenous vein graft to the ramus coronary artery, saphenous vein graft to the obtuse marginal coronary artery, and saphenous vein graft to the posterior descending coronary artery. Endos copic harvest of bilateral greater saphenous vein, ligation left atrial appendage using a 35mm atrial clip, intraoperative transesophageal echocardiogram completed by anesthesia, epiaortic ultrasound, graft flow measurements using the [employer] Systemsim system, and Maze procedure. Postoperative acute blood loss anemia, expected given hemodilution and cardiopulmonary bypass. The patient was seen and examined this morning sitting up in recliner on the cardiac stepdown unit in no acute distress, just returned from X-ray. States pain is controlled on current medication regimen, denies shortness of breath currently although did have some shortness of breath when he went down for CXR. Remains in sinus rhythm, hemodynamically stable. Currently on room air with oxygen saturation in the high 90s, able to achieve 2500 mL on incentive spirometry. Ambulating without difficulty. Chest x-ray reviewed, labs pending. Anticipates discharge to home today. No other new concerns. Objective - Vital Signs Vital signs: Vital Signs Temp 98.6 F 09/16/24 19:50 Pulse 65 09/17/24 03:15 Resp 18 09/17/24 03:15 BP 102/60 09/17/24 03:15 Pulse Ox 98 09/17/24 03:15 FiO2 40 09/09/24 19:00 Intake & Output 09/16/24 09/17/24 09/17/24 18:59 06:59 18:59 Intake Total 850 Output Total 200 650 Balance 650 -650 Weight 112 kg Intake: Oral 850 Output: Urine 200 650 Other: Voiding Method Toilet Toilet Urinal Urinal ABP, PAP, CO, CI - Last Documented Arterial Blood Pressure 125/49 Pulmonary Artery Pressure 23/10 Cardiac Output 4.8 Cardiac Index 2.1 - Exam CONSTITUTIONAL: Appears comfortable, cooperative, no acute distress RESPIRATORY: Lungs sounds diminished in the bases bilaterally. Respirations even, nonlabored. Currently on room air with oxygen saturation 98%. Able to achieve 2500 mL on incentive spirometry. Strong cough. CARDIOVASCULAR: S1, S2 present. Regular rate and rhythm, sinus rhythm on telemetry. Sternum stable. Palpable peripheral pulses bilaterally. No edema present. No calf pain or tenderness noted. Heart hugger in place with patient demonstrating appropriate use. Antiembolism stockings, SCDs present. GASTROINTESTINAL: Abdomen soft, nontender, nondistended. Active bowel sounds present 4 quadrants. Tolerating diet. Positive bowel movement 09/14 GENITOURINARY: Continues to void INTEGUMENTARY: Skin is warm and dry with evidence of good perfusion. Anterior chest incision well approximated and covered with dry intact dressing. Bilateral lower extremity EVH sites well approximated without redness or drainage. NEUROLOGIC: Cranial nerves II through XII intact MUSKULOSKELETAL: Able to move all extremities, strength equal bilaterally, gait normal PSYCHIATRIC: Alert and oriented to person place and time, appropriate affect, intact judgment and insight INVASIVE LINES AND TUBES: AV epicardial pacer wires present, grounded - Allied health notes Allied health notes reviewed: nursing - Labs CBC & Chem 7: 09/16/24 07:59 09/16/24 07:59 Labs: Abnormal Lab Results - Last 24 Hours (Table) 09/16/24 09/16/24 09/16/24 Range/Units 07:59 07:59 11:36 RBC 2.44 L (4.40-5.60) 10*6/uL Hgb 7.7 L (13.0-17.0) g/dL Hct 23.2 L (39.6-50.0) % BUN 23 H (9-20) mg/dL Creatinine 1.29 H (0.66-1.25) mg/dL Glucose 133 H (74-99) mg/dL POC Glucose (mg/dL) 156 H (70-110) mg/dL 09/16/24 09/16/24 09/17/24 Range/Units 16:44 20:05 06:18 RBC (4.40-5.60) 10*6/uL Hgb (13.0-17.0) g/dL Hct (39.6-50.0) % BUN (9-20) mg/dL Creatinine (0.66-1.25) mg/dL Glucose (74-99) mg/dL POC Glucose (mg/dL) 147 H 161 H 131 H (70-110) mg/dL - Imaging and Cardiology Chest x-ray: report reviewed, image reviewed Assessment and Plan Assessment: Coronary artery disease, status post 4 vessel CABG Paroxysmal atrial fibrillation, status post Maze procedure and ligation left atrial appendage Postoperative acute blood loss anemia, expected given hemodilution and cardiopulmonary bypass. History of paroxysmal atrial fibrillation on Eliquis as an outpatient, noncompliant with taking Eliquis prior to surgery Hypertension Right internal carotid artery stenosis, 50-79% Diabetes mellitus type II, hgb A1c 6.8% Questionable history of myocardial infarction Recent acute appendicitis with perforation status post laparoscopic appendectomy Previous tobacco use as well as chewing tobacco use, preoperative FEV1 101% Plan: Continue to maximize medical therapy with low dose aspirin, statin, and beta- ranjit therapy Continue losartan for afterload reduction with hold parameters Continue amiodarone for atrial fibrillation prophylaxis, patient has had no atrial fibrillation post op up to this point, will taper per protocol, decrease to 200 mg BID today Will restart Eliquis today Discussed the need for anticoagulation compliance at discharge Encourage incentive spirometry use 10 times every hour while awake, bronchodilators per pulmonology. Will monitor daily labs and chest x-rays. Electrolyte replacement per protocol Increase activity, ambulate as tolerated. PT/OT/cardiac rehab following. Encouraged ambulation in the hallway 4X daily GI/DVT prophylaxis. Pain control per current medication regimen Insulin management per internal medicine Epicardial pacer wires removed, patient to remain in chair for 1 hour post wire removal Continue to monitor and record strict accurate intake and output Continue flomax Daily weights Shower daily, starting today Discharge planning in progress, anticipate discharge to home with home care today More recommendations to follow based on patient's clinical course.
[2024-09-17 08:00] LABS: HCT 23.5 % (39.6-50.0); HGB 7.8 g/dL (13.0-17.0); MCH 31.6 pg (27.0-32.0); MCHC 33.2 g/dL (32.0-37.0); MCV 95.1 fL (80.0-97.0); Platelet Count 314 10*3/uL (140-440); RBC 2.47 10*6/uL (4.40-5.60); RDW 14.6 % (11.5-14.5); WBC 9.00 10*3/uL (4.50-10.00)
[2024-09-17 08:24] LABS: African American GFR (CKD) 56 (>60 ml/min/1.73 sqM); Anion Gap 7 mmol/L; Blood Urea Nitrogen 21 mg/dL (9-20); Calcium 8.5 mg/dL (8.4-10.2); Carbon Dioxide 23 mmol/L (22-30); Chloride 106 mmol/L (98-107); Glucose 120 mg/dL (74-99); Non-African American GFR(CKD) 48 (>60 ml/min/1.73 sqM); Potassium 4.2 mmol/L (3.5-5.1); Sodium 136 mmol/L (137-145)
[2024-09-17 08:26] LABS: INR 1.0 (<1.2); Prothrombin Time 11.4 sec (10.0-12.5)
[2024-09-17] MEDS: APIXABAN 5 MG TAB PO SCH (08:38)
[2024-09-17] MEDS: AMIODARONE 200 MG TAB PO SCH (08:39)
[2024-09-17 11:04] VITALS: BP 101/58; TEMP 98.1
[2024-09-17 11:29] LABS: Glucose,Whole Blood 153 mg/dL (70-110)
[2024-09-17 11:48] VITALS: PULSE 78
--- NOTE | 2024-09-17 12:31 | P.DS ---
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 History of paroxysmal atrial fibrillation on Eliquis as an outpatient, noncompliant with taking Eliquis prior to surgery Hypertension Right internal carotid artery stenosis, 50-79% Diabetes mellitus type II, hgb A1c 6.8% Questionable history of myocardial infarction Recent acute appendicitis with perforation status post laparoscopic appendectomy Previous tobacco use as well as chewing tobacco use, preoperative FEV1 101% PRINCIPAL PROCEDURE: Coronary artery bypass grafting x 4 vessels, left internal mammary artery to the left anterior sending coronary artery, saphenous vein graft to the ramus coronary artery, saphenous vein graft to the obtuse marginal coronary artery, and saphenous vein graft to the posterior descending coronary artery Endoscopic harvest of bilateral greater saphenous vein Ligation left atrial appendage using a 35mm atrial clip Intraoperative transesophageal echocardiogram completed by anesthesia Epiaortic ultrasound Graft flow measurements using the Toutpoststim system Maze procedure HISTORY OF PRESENT ILLNESS: This is a 79-year-old gentleman who follows outpatient with Dr. Page for primary care and Dr. Moreno for cardiology. He had been admitted to the hospital a couple of months ago with a ruptured appendix which was treated surgically. During that admission he was noted to have atrial fibrillation, and was seen by cardiology. Upon discharge he did follow-up with Dr. Moreno. He underwent stress testing which was abnormal with diminished ejection fraction compared to his previous echocardiogram. He was recommended to undergo heart catheterization which revealed multivessel coronary artery disease. The patient was referred to Dr. Amezcua from cardiothoracic surgery. He was recommended to undergo surgical myocardial revascularization. The usual perioperative course was discussed in detail with the patient and his family, all risks and benefits were explained, all questions were answered, and consent was obtained to proceed with surgery. The patient was scheduled for open heart surgery after all preoperative workup completed including repeat echo revealing EF 40-45%. HOSPITAL COURSE: The patient was brought to the hospital on 09/09/24, taken to the preoperative area, prepared in the usual fashion, and subsequently taken to the operating room where Dr. Amezcua performed four-vessel CABG. Upon completion of surgery the patient was transferred to the cardiovascular intensive care unit where he was recovered and monitored hemodynamically. He was extubated, all lines, tubes, and drips were discontinued when appropriate, and he was transferred to 3 S cardiac stepdown unit for further monitoring and rehabilitation. His oxygen was titrated down, he continued to work with physical and occupational therapy, he was tolerating oral diet, his pain was controlled, and he was ready to be discharged to home with [facility] on postoperative day #8. He received written and verbal instruction regarding his medications, activity restrictions, signs and symptoms requiring physician notification, and follow-up appointments. Patient Condition at Discharge: Stable Plan - Discharge Summary New Discharge Prescriptions: New Amiodarone [Cordarone] 200 mg PO BID #20 tab Losartan [Cozaar] 12.5 mg PO DAILY@1200 #30 tab Metoprolol Tartrate [Lopressor] 12.5 mg PO BID #60 tab Acetaminophen Tab [Tylenol] 650 mg PO Q4HR PRN tab PRN Reason: Pain Aspirin 81 mg PO DAILY #30 tab Tamsulosin [Flomax] 0.4 mg PO PC-SUPPER #30 cap Ferrous Sulfate [Iron (65 MG Elemental)] 325 mg PO BID-W/MEALS #14 tab Atorvastatin [Lipitor] 40 mg PO DAILY #30 tab Pantoprazole [Protonix] 40 mg PO AC-BRKFST #30 tab Sennosides-Docusate Sodium [Senokot-S] 2 each PO HS PRN tab PRN Reason: Constipation Ascorbic Acid [Vitamin C] 500 mg PO BID-W/MEALS #14 tab Continue Mv-Mn/Om3/Dha/Epa/Fish/Lut/Shade [Ocuvite Adult 50 Plus Softgel] 1 tab PO DAILY metFORMIN HCL 500 mg PO DAILY Apixaban [Eliquis] 5 mg PO BID #60 tab Discontinued Valsartan/Hydrochlorothiazide [Valsartan-Hctz 160-25 mg Tab] 1 tab PO DAILY Discharge Medication List Mv-Mn/Om3/Dha/Epa/Fish/Lut/Shade [Ocuvite Adult 50 Plus Softgel] 1 tab PO DAILY 08/05/24 [History] metFORMIN HCL 500 mg PO DAILY 08/05/24 [History] Acetaminophen Tab [Tylenol] 650 mg PO Q4HR PRN tab 09/17/24 [Rx] Amiodarone [Cordarone] 200 mg PO BID #20 tab 09/17/24 [Rx] Apixaban [Eliquis] 5 mg PO BID #60 tab 09/17/24 [Rx] Ascorbic Acid [Vitamin C] 500 mg PO BID-W/MEALS #14 tab 09/17/24 [Rx] Aspirin 81 mg PO DAILY #30 tab 09/17/24 [Rx] Atorvastatin [Lipitor] 40 mg PO DAILY #30 tab 09/17/24 [Rx] Ferrous Sulfate [Iron (65 MG Elemental)] 325 mg PO BID-W/MEALS #14 tab 09/17/24 [Rx] Losartan [Cozaar] 12.5 mg PO DAILY@1200 #30 tab 09/17/24 [Rx] Metoprolol Tartrate [Lopressor] 12.5 mg PO BID #60 tab 09/17/24 [Rx] Pantoprazole [Protonix] 40 mg PO AC-BRKFST #30 tab 09/17/24 [Rx] Sennosides-Docusate Sodium [Senokot-S] 2 each PO HS PRN tab 09/17/24 [Rx] Tamsulosin [Flomax] 0.4 mg PO PC-SUPPER #30 cap 09/17/24 [Rx] Follow up Appointment(s)/Referral(s): Madi Hdez MD [STAFF PHYSICIAN] - 10/09/24 2:15 pm Re[facility],Cardiac [NON-STAFF] - 4 Weeks (You will receive a phone call in approximately 4-6 weeks for evaluation for cardiac rehab) James Page MD [Primary Care Provider] - 09/23/24 3:00 pm Jimmy Amezcua MD [STAFF PHYSICIAN] - 10/03/24 1:15 pm Home [facility] [NON-STAFF] - 1-2 Days (You should be seen by home care registered nurse the day after discharge, then 2-3 times per week until you start cardiac rehab. Physical and occupational therapy should visit at least once, may continue to visit if needed) Chalo Moreno MD [STAFF PHYSICIAN] - 09/30/24 4:00 pm Nena Rosas NPC [Nurse Practitioner] - 09/26/24 1:00 pm (You will be seen in the surgeon's office behind the hospital in [facility], [address]. Office phone number is ) Ambulatory/Diagnostic Orders: Complete Blood Count w/diff [LAB.AMB] Time Frame: 3 Days, Location: None Selected Comprehensive Metabolic Panel [LAB.AMB] Time Frame: 3 Days, Location: None Selected Activity/Diet/Wound Care/Special Instructions: DISCHARGE INSTRUCTIONS: 1. No driving for 4 weeks, or until physician gives their ok. 2. The patient should sleep in their own bed, no medical bed needed. 3. Stairs are not an issue. If the bedroom is upstairs, it is advised that the patient go up at night and down in the morning for the first week. Go slowly, using handrail and take 1 step at a time. 4. SUZIE hose are to be worn for 30 days post surgery or until physician discontinues. 5. Heart hugger is to be worn 100% of the time until physician discontinues.(except when showering) 6. No lifting, pushing, or pulling more than 10 pounds for 12 weeks. The physician will advise of any restriction changes. 7. The patient is expected to continue the prescribed walking program. 8. Continue pain control per as needed orders. 9. Continue with incentive spirometry and splinting/heart hugger until otherwise directed by the physician. 10. Must shower daily using liquid antibacterial soap 11. Routine sternal incision care. No powders, lotions, ointments on incisions. No dressings are necessary on incisions unless they are draining. Dermabond tape is to remain on sternal incision until surgeon follow-up. 12. Please call surgeon/TICKET CLERK for temp greater than 101 F or purulent drainage from incisions. 13. You should weigh yourself daily, record and bring log with you to follow up appointments. 14. All prescriptions given by surgeon for 30 days. Refills need to be filled through dry lumber grader/primary care physician. 15. A Red armband has been placed on the patient. It should be worn for 30 days post discharge from surgery and will be removed by the cardiac surgeons. If an ER visit is necessary, please make sure the number on the Red armband is called before going to ER. 16. You have been referred to and are expected to begin Cardiac Rehab in approximately 4-6 weeks. 17. Quitting smoking is the most important step you can take to improve your health. For additional information and assistance to quit smoking, please call the [place] tobacco quit line (5-232-VQBK-NOW/ ) or online: [email or web address] HEALTH SERVICES TO PROVIDE: RN SKILLED HOME CARE SERVICES FOR POST-OP SURGICAL PATIENTS WITH THE FOLLOWING: Coronary Artery Bypass Surgery (CABG), Mitral Valve Replacement/Repair ( MVR), Aortic Valve Replacement/Repair (AVR) RN TO CONTINUE EDUCATION FROM ``ROAD TO A HEALTH HEART PATIENT EDUCATION MANUAL (GIVEN TO PATIENT IN THE HOSPITAL) MEDICATION RECONCILIATION WITH EDUCATION NEEDED ON FIRST HOME VISIT EMPHASIZE IMPORTANCE OF WEARING BREAST SUPPORT/HEART HUGGER ENCOURAGE USE OF INCENTIVE SPIROMETER 10 X EVERY HOUR WHILE AWAKE ENCOURAGE UTILIZATION OF LOWER EXTREMITY COMPRESSION STOCKINGS/SUZIE HOSE and ELEVATE LEGS ABOVE LEVEL OF HEART WHILE AT REST. ENCOURAGE AMBULATION 3-5x/day INCREASING TOLERATES, WHILE AVOIDING EXTREMES IN TEMPERATURE FREQUENCY: RN TO OPEN THE PATIENT WITHIN 24 HOURS OF DISCHARGE FROM THE HOSPITAL WITH [place]HEALTH [place] [facility] [place]IT 2-3 X A WEEK FOR 4 WEEKS E STABLISHED BY PATIENT NEEDS. LABORATORY: CBC, CMP TO BE DRAWN ON THE THIRD DAY HOME, (RAN STAT) FAX RESULTS TO [phone]. TELEHEALTH PARAMETERS: WEIGHT: NOTIFY MD OF WEIGHT GAIN OF 2 LBS IN 24 HOURS OR 5 LBS IN ONE WEEK HR: NOTIFY MD OF HR <55 BPM OR HR>100 BPM BP: NOTIFY MD IF BP <90/55 OR BP>140/100 O2 SAT: NOTIFY MD IF PO2<93% ON ROOM AIR SEND TELEHEALTH REPORT TO COMPUTER OPERATOR AND CARDIOVASCULAR SURGEON THE FIRST WEEK OF CARE AND THEN BI-WEEKLY. PLEASE ADDITIONALLY COMMUNICATE ANY ABNORMALS AND NEW FINDINGS TO THE SURGEONS OFFICE. Discharge Disposition: HOME WITH HOME HEALTH SERVICES
--- NOTE | 2024-09-17 12:39 | P.PN ---
Subjective Progress Note Date: 09/17/24 HISTORY OF PRESENT ILLNESS: This is a pleasant 79-year-old with past medical history significant for hyp ertension, hyperlipidemia, coronary artery disease, paroxysmal atrial fibrillation, previous ruptured appendicitis status post laparoscopic surgery April 2024, mild ischemic cardiomyopathy EF 40 to 45%. Patient follows with Dr. Moreno. Patient had initially presented for ruptured appendicitis in April 2024 and found to have A-fib and underwent further cardiac workup with echo from August 2024 showing EF 40 to 45% as well as heart catheterization showing multivessel CAD. Patient underwent four-vessel CABG with LOVELACE to LAD, SVG to ramus, SVG to OM and SVG to PDA as well as maze procedure and clip of left atrial appendage. Patient was placed on milrinone, norepinephrine, amiodarone drip. Milrinone and norepinephrine have been discontinued and cardiac index in the 3.0 range. He denies any chest pain or pressure. He does have some incisional pain. His hemoglobin is at 7.5. PA pressures 28/9 with a CVP of 5. Patient was chest tubes bilaterally and mediastinal tube. Thanh in normal sinus rhythm on telemetry. 09/11 Patient seen and examined. Patient denies any chest pain other than the incision. Denies any significant lightheadedness or dizziness. He has been up walking. He remains in sinus rhythm. Hemoglobin stable at 7.5. Cordis was pulled and right chest tube was pulled. 09/12 Patient seen and examined. Patient denies any consistent chest pain however had some discomfort after swallowing multiple pills however resolved fairly shortly thereafter. No significant shortness of breath. Vital signs stable. Remains in normal sinus rhythm. 09/13/2024 Patient examined this morning at the bedside. Patient currently denies chest pain or pressure. Denies shortness of breath. Patient continues to have chest tube in place. Vital signs are stable. 09/14/2024 Patient examined this morning at the bedside. Patient currently denies chest pain or pressure. Denies shortness of breath. Patient continues to have chest tube in place. Vital signs are stable. 09/15/2024 Seen and examined bedside. Denies any chest pain chest pressure. Denies any shortness of breath. Coming along well. No reported atrial fibrillation. Currently in sinus rhythm 09/16/2024 Patient seen and examined. Patient's chest tube was removed this morning. He states he is going home tomorrow. No chest pain. No lower extremity edema. Blood pressure 124/67, heart rate 70, pulse ox 99% on room air. Repeat blood work reveals hemoglobin 7.7, BUN 23 creatinine 1.29. 09/17/2024 Patient seen and examined. Blood pressure 101/58, heart rate 71, pulse ox 98% on room air. Patient denies having chest pain, chest pressure. No lightheadedness or dizziness. Repeat blood work reveals BUN 21 creatinine 1.38, potassium 4.2, hemoglobin 7.8. Patient is scheduled for discharge from cardiothoracic surgery. Patient has been resumed on Eliquis starting this morning. PHYSICAL EXAM: VITAL SIGNS: Reviewed. GENERAL: Well-developed in no acute distress. NECK: Supple. No JVD or thyromegaly LUNGS: Respirations even and unlabored. Lungs essentially clear to auscultation bilaterally. HEART: Regular rate and rhythm. S1 and S2 heard. EXTREMITIES: Normal range of motion. No clubbing or cyanosis. Peripheral pulses intact. No lower extremity edema ASSESSMENT: CAD status post CABG x 4 vessel on 09/09/2024 Hypertension Hyperlipidemia Mild ischemic cardiomyopathy EF 40 to 45% Chronic heart failure with reduced EF Blood loss anemia Paroxysmal atrial fibrillation status post Maze procedure, currently sinus rhythm Diabetes mellitus type 2 History of perforated appendicitis April 2024 PLAN: Continue postoperative management per CT surgery Increase activity as tolerated Encourage use of incentive spirometer Continue Eliquis Continue amiodarone, aspirin, Lipitor, losartan, and metoprolol Patient is cleared for discharge from cardiology perspective. Patient will follow-up with Dr. Moreno in 2 weeks. Nurse practitioner note has been reviewed, I agree with documented findings and plan of care. Patient was seen and examined. Objective - Vital Signs Vital signs: Vital Signs Temp 98.6 F 09/16/24 19:50 Pulse 65 09/17/24 03:15 Resp 18 09/17/24 03:15 BP 102/60 09/17/24 03:15 Pulse Ox 98 09/17/24 03:15 FiO2 40 09/09/24 19:00 Intake & Output 09/16/24 09/17/24 09/17/24 18:59 06:59 18:59 Intake Total 850 Output Total 200 650 Balance 650 -650 Weight 112 kg Intake: Oral 850 Output: Urine 200 650 Other: Voiding Method Toilet Toilet Urinal Urinal ABP, PAP, CO, CI - Last Documented Arterial Blood Pressure 125/49 Pulmonary Artery Pressure 23/10 Cardiac Output 4.8 Cardiac Index 2.1 - Labs CBC & Chem 7: 09/17/24 06:47 09/17/24 06:47 Labs: Abnormal Lab Results - Last 24 Hours (Table) 09/16/24 09/16/24 09/16/24 Range/Units 07:59 07:59 11:36 RBC 2.44 L (4.40-5.60) 10*6/uL Hgb 7.7 L (13.0-17.0) g/dL Hct 23.2 L (39.6-50.0) % Sodium (137-145) mmol/L BUN 23 H (9-20) mg/dL Creatinine 1.29 H (0.66-1.25) mg/dL Glucose 133 H (74-99) mg/dL POC Glucose (mg/dL) 156 H (70-110) mg/dL 09/16/24 09/16/24 09/17/24 Range/Units 16:44 20:05 06:18 RBC (4.40-5.60) 10*6/uL Hgb (13.0-17.0) g/dL Hct (39.6-50.0) % Sodium (137-145) mmol/L BUN (9-20) mg/dL Creatinine (0.66-1.25) mg/dL Glucose (74-99) mg/dL POC Glucose (mg/dL) 147 H 161 H 131 H (70-110) mg/dL 09/17/24 09/17/24 Range/Units 06:47 06:47 RBC 2.47 L (4.40-5.60) 10*6/uL Hgb 7.8 L (13.0-17.0) g/dL Hct 23.5 L (39.6-50.0) % Sodium 136 L (137-145) mmol/L BUN 21 H (9-20) mg/dL Creatinine 1.38 H (0.66-1.25) mg/dL Glucose 120 H (74-99) mg/dL POC Glucose (mg/dL) (70-110) mg/dL
--- NOTE | 2024-09-17 12:43 | P.PN ---
Subjective Progress Note Date: 09/17/24 Principal diagnosis: Status post CABG. Patient was seen today on 09/10/2024, remains in the ICU, patient was extubated at 7:12 PM successfully. This morning he is on room air. Not in any distress O2 saturation is in the 90s achieving over 1500 cc on incentive spirometry. Patient has no complaints, he does have some surgical site discomfort at the site of the chest tube insertion. Continues to have right IJ cordis and [facility] catheter his current hemodynamics showed cardiac output of 7 lower cardiac index compared to yesterday. It is 3.0 today. PA pressures 28/8 CVP is 5. Still on Primacor 0.1 mcg/kg/min and amiodarone drip patient seems to be in sinus rhythm rate of 70 mediastinal and left and right pleural chest tubes are noted on continuous wall suction manage 20 serosanguineous drainage is noted chest x-ray showed minimal bibasilar atelectasis. Patient is sitting at the bedside chair, in no distress. WBC count is 12.1 hemoglobin 7.5, basic metabolic profile is normal BUN is 25 creatinine 1.04. Patient was seen today on 09/11/2024, remains in the ICU, patient is now postoperative day #2, sitting at the bedside chair, hemodynamically stable not requiring any pressors, he is alert and oriented x 3, he is in sinus rhythm rate 72. His hemodynamic monitoring revealed CVP of 5 again the patient is not requiring any inotropes or any pressors mediastinal left and right pleural chest tubes were noted remain on low continuous wall suction. No air leak is noted. Chest x-ray showed postoperative changes, and there is evidence of mild pulmonary vascular congestion with bibasilar atelectasis. Patient is doing extremely well with incentive spirometry, ambulating well with assistance. WBC count is 19.6 hemoglobin 7.5, basic metabolic profile is normal renal profile is normal creatinine is a bit high at 1.17 compared to 1.04 yesterday. Seen today on 09/12/2024, patient is now postoperative day #3. Patient seems to be doing quite well, he is on room air, continues to have [address], patient is sitting up in the chair, he is doing well with his incentive spirometry, he received Lasix and albumin today. No cough no wheezing no sh ortness of breath hemodynamically stable not requiring any pressors or any inotropes, chest x-ray showed a very minimal tiny apical pneumothorax. And mild pulmonary vascular congestion. The patient is seen today September 13, 2024 in follow-up on the selective care unit. Postoperative day #4. He is currently sitting up in a chair at the bedside. Awake and alert in no acute distress. Maintaining good O2 saturations in the upper 90s on room air. Afebrile. Hemodynamically stable. Working well with the incentive spirometer. Chest x-ray reveals a left chest tube in place with a 8 mm left apical pneumothorax. Trace 3 mm right apical pneumothorax. Improvement in the pulmonary vascular congestion. Atelectasis of the left lung base. White count 8.6. Hemoglobin 7.3. Platelets 191. Sodium 136. Potassium 4.0. Bicarb 23. BUN 42. Creatinine 1.15. Glucose 147. He remains on DuoNeb inhalations. Heparin for DVT prophylaxis. The patient is seen today September 14, 2024 in follow-up on the selective care unit. Postoperative day #5. He is awake and alert in no acute distress. Sitting up in a chair at the bedside. Maintaining good O2 saturations in the 90s on room air oxygen. Has been working well with the incentive spirometer. Chest x-ray revealed left-sided chest tube in place with tiny left apical pneumothorax. No right apical pneumothorax. Mediastinal chest tube remains in place. No significant leak noted. White count 6.6. Hemoglobin 7.1. Platelets 217. Sodium 137. Potassium 3.8. Bicarb 21. BUN 40. Creatinine 1.25. Glucose 121. He remains on DuoNeb inhalations. Heparin for DVT prophylaxis. The patient is seen today September 15, 2024 in follow-up on the selective care unit. Postoperative day #6. He is currently sitting up in the chair at the bedside. Awake and alert in no acute distress. He denies any worsening shortness of breath, cough or congestion. Chest x-ray reveals stable left-sided chest tube in position. Tiny left apical pneumothorax persists. Mediastinal chest tube removed this morning. He continues to maintain good O2 saturations in the upper 90s on room air. He has been afebrile. Hemodynamically stable. White count 8.5. Hemoglobin 7.2. Platelets 266. BUN 138. Potassium 3.7. Bicarb 25. BUN 31. Creatinine 1.37. Glucose 130. He is continued on DuoNeb inhalations. Continues to work well with the incentive spirometer. Heparin for DVT prophylaxis. The patient is seen today September 16, 2024 in follow-up in the selective care unit. Postoperative day #7. He is awake and alert in no acute distress. Continues to maintain good O2 saturations in the 90s on room air. He is sitting up in a chair at the bedside. Left-sided chest tube was removed this morning. Pacer wires remain in place. Chest x-ray reveals postoperative CABG changes with stable trace left apical pneumothorax. White count 9.8. Hemoglobin 7.7. Platelets 306. Sodium 139. Potassium 4.0. Bicarb 25. BUN 23. Creatinine 1.29. Glucose 133. He remains on DuoNeb inhalations. Heparin for DVT prophylaxis. Remains on amiodarone. Remains in sinus rhythm. Progress note dated September 17, 2024. The patient is seen today in room 378. He is postoperative day #8. He is awake and alert. He is sitting in the bed. He is hopeful to be discharged sometime later today. He denies any shortness of breath, cough, wheezing, chest tightness, phlegm production. He is on room air. He is not receiving any IV fluids. He continues to use his incentive spirometer. Current labs include a white count 9, hemoglobin 7.8, hematocrit 23.5, and a platelet count of 314,000. Sodium 136, potassium 4.2, chlorides 106, CO2 23, BUN 21, creatinine 1.38. Glu cose is 153. Calcium 8.5. Chest x-ray shows postsurgical changes, and is very small left apical pneumothorax. Objective - Vital Signs Vital signs: Vital Signs Temp 98.1 F 09/17/24 08:35 Pulse 78 09/17/24 11:46 Resp 18 09/17/24 08:35 BP 101/58 09/17/24 08:35 Pulse Ox 98 09/17/24 08:35 FiO2 40 09/09/24 19:00 Intake & Output 09/16/24 09/17/24 09/17/24 18:59 06:59 18:59 Intake Total 850 540 Output Total 200 650 Balance 650 -650 540 Weight 112 kg Intake: Oral 850 540 Output: Urine 200 650 Other: Voiding Method Toilet Toilet Toilet Urinal Urinal Urinal ABP, PAP, CO, CI - Last Documented Arterial Blood Pressure 125/49 Pulmonary Artery Pressure 23/10 Cardiac Output 4.8 Cardiac Index 2.1 - Exam No acute distress, oriented 3. No acute distress. Currently on room air. HEENT examination is grossly unremarkable. Mucous membranes are moist. No oral lesions. Neck supple. Full range of motion. No adenopathy thyromegaly or neck vein distention. Cardiovascular examination reveals regular rhythm rate. S1-S2 normal. No S3 or S4. No discernible murmur noted. Heart hugger in place. Lungs reveal clear breath sounds. Her sounds are equal bilaterally. No adventitious lung sounds including wheezes rhonchi or crackles. Abdomen soft bowel sounds are heard. No masses or tenderness. Extremities are intact. No cyanosis clubbing or edema. Skin is without rash or lesion. Neurologic examination is brief but nonfocal. - Labs CBC & Chem 7: 09/17/24 06:47 09/17/24 06:47 Labs: Abnormal Lab Results - Last 24 Hours (Table) 09/16/24 09/16/24 09/17/24 Range/Units 16:44 20:05 06:18 RBC (4.40-5.60) 10*6/uL Hgb (13.0-17.0) g/dL Hct (39.6-50.0) % Sodium (137-145) mmol/L BUN (9-20) mg/dL Creatinine (0.66-1.25) mg/dL Glucose (74-99) mg/dL POC Glucose (mg/dL) 147 H 161 H 131 H (70-110) mg/dL 09/17/24 09/17/24 09/17/24 Range/Units 06:47 06:47 11:27 RBC 2.47 L (4.40-5.60) 10*6/uL Hgb 7.8 L (13.0-17.0) g/dL Hct 23.5 L (39.6-50.0) % Sodium 136 L (137-145) mmol/L BUN 21 H (9-20) mg/dL Creatinine 1.38 H (0.66-1.25) mg/dL Glucose 120 H (74-99) mg/dL POC Glucose (mg/dL) 153 H (70-110) mg/dL Assessment and Plan Assessment: S/P 4 vessel coronary artery bypass grafting surgery postoperative day #8. Triple-vessel coronary artery disease based on cardiac catheterization dated 08/06/2024. History of paroxysmal atrial fibrillation. Benign essential hypertension. Type 2 diabetes. Recent history of appendicitis requiring laparoscopic appendectomy in April 21, 2024. Plan: Plan dated September 17, 2024. The patient is seen today in room 378. He is postoperative day #8. Clinically, the patient is doing very well. He is sitting on the bed. He is no acute distress. He is not receiving any supplemental oxygen. He is not in any IV fluids. All labs, x-rays, and medications are reviewed. The patient is hopeful to be discharged sometime later today. We asked him to take home with him, his incentive spirometer, and continue to use it. Prognosis is thought to be generally good. Follow-up in our office in a couple weeks. Dictation was produced using [employer] dictation software. Please excuse any grammatical, word or spelling errors. Time with Patient: Less than 30
== END 2024-09-17 13:09 | disposition home health service (06) | DRG 234 ==
LOC: 2ORMAIN 05:36 → 2SICU 14:14 → 3SCARD 09-12 15:10
PROVIDERS: ADMIT Surgery; ATTEND Surgery
PROC: 06BP4ZZ Excision of Right Saphenous Vein, Percutaneous Endoscopic Approach (ICD-10-PCS; 2024-09-09)
PROC: 02L70CK Occlusion of Left Atrial Appendage with Extraluminal Device, Open Approach (ICD-10-PCS; 2024-09-09)
PROC: B24BZZ4 Ultrasonography of Heart with Aorta, Transesophageal (ICD-10-PCS; 2024-09-09)
PROC: 02100Z9 Bypass Coronary Artery, One Artery from Left Internal Mammary, Open Approach (ICD-10-PCS; principal; 2024-09-09 08:00)
PROC: 02580ZZ Destruction of Conduction Mechanism, Open Approach (ICD-10-PCS; 2024-09-09 08:00)
PROC: 021209W Bypass Coronary Artery, Three Arteries from Aorta with Autologous Venous Tissue, Open Approach (ICD-10-PCS; 2024-09-09 08:00)
PROC: 06BQ4ZZ Excision of Left Saphenous Vein, Percutaneous Endoscopic Approach (ICD-10-PCS; 2024-09-09 08:00)
DX: I25.10 Atherosclerotic heart disease of native coronary artery without angina pectoris (principal); N17.9 Acute kidney failure, unspecified; I11.0 Hypertensive heart disease with heart failure; E11.9 Type 2 diabetes mellitus without complications; I65.21 Occlusion and stenosis of right carotid artery; I50.22 Chronic systolic (congestive) heart failure; D62 Acute posthemorrhagic anemia; I48.0 Paroxysmal atrial fibrillation; T45.516A Underdosing of anticoagulants, initial encounter; E78.5 Hyperlipidemia, unspecified; I25.5 Ischemic cardiomyopathy; Z79.01 Long term (current) use of anticoagulants; Z79.84 Long term (current) use of oral hypoglycemic drugs; Z87.891 Personal history of nicotine dependence; Z91.199 Patient's noncompliance with other medical treatment and regimen due to unspecified reason
CPT/HCPCS: 71045; 71046; 80048; 80053; 82330; 82805; 83735; 84132; 85025; 85027; 85610; 85730; 86850; 86891; 86900; 86901; 86920; 94002; 94640; 94760